=== PATIENT | female | born 1950 | race Caucasian/White ===

== ENCOUNTER 2023-07-31 10:58 | Outpatient (OUT) | payer MEDICARE, OTHER, SELFPAY ==
[2023-07-31 15:54] LABS: Alanine Aminotransferase 20 U/L (14-59); Albumin Globulin Ratio 1.1; Albumin Level 3.9 g/dL (3.4-5.0); Alkaline Phosphatase 118 U/L (46-116); Anion Gap 11.5; Aspartate Amino Transferase 14 U/L (15-37); BUN Creatinine Ratio 15.1; Bilirubin Total 0.7 mg/dL (0.2-1.0); Calcium 8.8 mg/dL (8.5-10.1); Carbon Dioxide 27.4 mmol/L (21.0-32.0); Chloride 105 mmol/L (98-107); Chol HDL Ratio 6.1; Cholesterol 294 mg/dL (<=200); Estimated GFR (African America >60 (>=60); Estimated GFR (Non-African Ame >60 (>=60); Globulin 3.4 g/dL; Glucose 82 mg/dL (74-106); HDL Cholesterol 48 mg/dL (40-60); Potassium 3.9 mmol/L (3.5-5.1); Sodium 140 mmol/L (136-145); Total Protein 7.3 g/dL (6.4-8.2); Triglycerides 110 mg/dL (<=150)
== END 2023-07-31 10:59 | disposition home or self-care (01) ==
PROVIDERS: PCP Family Medicine; Visit Provider Family Medicine
DX: E78.5 Hyperlipidemia, unspecified (principal)
CPT/HCPCS: 36415; 80053; 80061

== ENCOUNTER 2023-08-18 07:10 | Outpatient (OUT) | payer MEDICARE, OTHER, SELFPAY ==
--- NOTE | 2023-08-18 | MM_ITS ---
Patient Name: KILO MANTILLA MR#: [id number] : 1950 Exam Date: 08/18/2023 Ordering Doctor: DR Sulma Mcneil M.D. RADIOLOGY REPORT PROCEDURE: MM TOMOSYNTHESIS SCREENING BI COMPARISON: MG MAMM SCREEN 3D MANJU CAD, 07/25/2021. MG MAMM SCREEN 3D MANJU CAD, 08/14/2022. INDICATIONS: Screening for malignant neoplasm Calculator Name NCI Breast Cancer Risk Assessment Tool 5 Year Breast Cancer Risk 2.90% Lifetime Breast Cancer Risk 7.00% Personal Breast Cancer No Personal Ovarian Cancer No Treatments None Family Cancers Aunt-maternal with uterine cancer at age ~70. LOCATION: [facility] BREAST COMPOSITION: Extremely dense, which lowers the sensitivity of mammography. FINDINGS: DIAGNOSTIC CATEGORY 1--NEGATIVE. NO CHANGE FROM COMPARISON ASSESSMENT. Scattered benign-appearing calcifications are present. Scattered benign-appearing nodules are present. RIGHT BREAST: No significant suspicious finding. LEFT BREAST: No significant suspicious finding. Stable micro clip marker upper outer quadrant, posterior breast RECOMMENDATIONS: ROUTINE MAMMOGRAM AND CLINICAL EVALUATION IN 12 MONTHS. PLEASE NOTE: A NORMAL MAMMOGRAM DOES NOT EXCLUDE THE POSSIBILITY OF BREAST CANCER. A CLINICALLY SUSPICIOUS PALPABLE LUMP SHOULD BE BIOPSIED. Dictated by: Adelfo Montoya MD on 08/18/2023 at 08:06 Approved by: Adelfo Montoya MD on 08/18/2023 at 08:09
== END 2023-08-18 07:11 | disposition home or self-care (01) ==
LOC: MAMMO 07:10
PROVIDERS: PCP Family Medicine; Visit Provider Family Medicine
DX: Z12.31 Encounter for screening mammogram for malignant neoplasm of breast (principal); Z80.8 Family history of malignant neoplasm of other organs or systems
CPT/HCPCS: 77063; 77067

== ENCOUNTER 2023-11-05 07:05 | Outpatient (OUT) | payer MEDICARE, OTHER, SELFPAY ==
--- OUTSIDE RECORDS SUMMARY | 2023-11-05 07:09 | XMS_ITS | CCD ---
Author Name Unknown Address [address] [facility] [facility] [address] [place] [address] Organization [facility] Care Team Providers Care Manager Of Clinical Name Role Phone MD ROSALIE MONCADA Consulting MD ROSALIE Grant Primary Care CELENA Cameron Attending Unavaila ble SVA, YAMILA Admitting Unavailable SAV, YAMILA Attending Unavailable ANTWAN, DR ROSALIE Salguero Primary Care Unavailable SAV, YAMILA Consulting Unavailable ANTWAN, DR ROSALIE Salguero Admitting Unavailable MONCADA, DR ROSALIE Salguero Attending Unavailable MONCADA, DR ROSALIE Salguero Primary Care Unavailable MONCADA, DR ROSALIE Salguero Consulting Unavailable MONCADA, DR ROSALIE Salguero Admitting Unavailable MONCADA, DR ROSALIE Salguero Attending Unavailable MONCADA, DR ROSALIE Salguero Primary Care Unavailable MONCADA, DR ROSALIE Salguero Consulting Unavailable MONCADA, DR ROSALIE Salguero Admitting Unavailable MONCADA, DR ROSALIE Salguero Attending Unavailable MONCADA, DR ROSALIE Salguero Primary Care Unavailable KALEVA, DR TANG Lane Consulting Unavailable MARJORIE, DR LINDSEY Mejia Consulting Unavailable MONCADA, DR ROSALIE Salguero Consulting Unavailable MD Yamila Ang Attending Provider [phone] MD Rosalie Moncada Primary Care Provider Rosalie Moncada MD Unavailable NICOLE THOMAS Referring UnavailMD Rosalie Meraz Primary Care Provider MD Nicole Madison Attending Provider MD Rosalie Moncada Primary Care Provider MD Nicole Madison Attending Provider [phone] MD Yamila Ang Attending Provider Serhal, Yessi Referring Provider [phone] Rosalie Moncada MD Primary Care Provider [phone] Serhal, Yessi Admitting Unavailable Serhal, Yessi Attending Unavailable Moncada, Rosalie E Primary Care Unavailable Sav, Ahmad Attending Unavailable Serhal, Yessi Referring Unavailable Moncada, Rosalie E Primary Care Unavailable Sav, Ahmad Admitting Unavailable Wakim-Smith, Nicole Admitting Unavailabl e Wakim-Smith, Nicole Attending Unavailabl e Moncada, Rosalie E Primary Care Unavailable Sav, Ahmad Admitting Unavailable Sav, Ahmad Attending Unavailable Moncada, Rosalie E Primary Care Unavailable Sav, Ahmad Admitting Unavailable Sav, Ahmad Attending Unavailable Moncada, Rosalie E Primary Care Unavailable Moncada, Rosalie Unavailable MONCADA, ROSALIE E Primary Care Unavailable MONCADA, ROSALIE E Primary Care Unavailable SERHAL, YESSI Attending Unavailable WAKIM SMITH, NICOLE Attending Unavailabl e MONCADA, ROSALIE E Referring Unavailable MONCADA, ROSALIE E Primary Care Unavailable SERHAL, YESSI Referring Unavailable MONCADA, ROSALIE E Primary Care Unavailable SERHAL, YESSI Attending Unavailable MONCADA, ROSALIE E Primary Care Unavailable SERHAL, YESSI Referring Unavailable MONCADA, ROSALIE E Primary Care Unavailable SERHAL, YESSI Attending Unavailable MONCADA, ROSALIE E Primary Care Unavailable SERHAL, YESSI Referring Unavailable MONCADA, ROSALIE E Primary Care Unavailable SERHAL, YESSI Attending Unavailable Allergies Allergy Classification Reported Allergen(s) Allergy Type Date of Onset Reaction(s) Facility (1 source) No Known Medication Allergies; Translations: [No Known Medication Allergies] Propensity to adverse reactions to drug (disorder) [facility] Repository (5 sources) Codeine Drug Allergy 3 Unknown [facility] Private [facility] App Other (2 sources) patient allergy list reviewed by nurse or physicia Propensity to adverse reactions 6 Comment:Done [facility] Private [facility] App Other (2 sources) Allergies Reconciled Propensity to adverse reactions 1 Unknown [facility] Other (1 source) Codeine Drug Allergy Unknown [facility] App Other Medications Current Medications Medication Drug Class(es) Dates Sig (Normalized) Sig (Original) alendronic acid 70 mg oral tablet (11 sources) Bisphosphonate take 1 tablet by mouth every week Alendronate Sodium 70 MG TAKE 1 TABLET BY MOUTH ONE TIME PER WEEK for 84 Active Comment on above: Take 70 mg by mouth one time a week. In AM with cup of water on empty stomach. Nothing else by mouth and stay upright for 30 min. Completed/Discontinued Medications Medication Drug Class(es) Dates Sig (Normalized) Sig (Original) methIMAzole 5 mg oral tablet (13 sources) Thyroid Hormone Synthesis Inhibitor Start: 02-26-2023 End: 09-03-2023 methIMAzole (TAPAZOLE) 5 mg tablet 1/2 tab Wednesday, Wed and Wednesday. 50 tablet 3 09/03/2023 Active Start: 10-04-2022 End: 01-20-2023 take 1 tablet by mouth once daily, then take 0.5 tablet by mouth once daily methIMAzole (TAPAZOLE) 10 mg tablet Indications: Graves disease Take 1 tablet by mouth once daily. 1/2 tab daily. 0 01/20/2023 Active methIMAzole 5 MG 1/2 once a day Active Comment on above: Take 10 mg by mouth once daily. Take 1 tablet by jamison th once daily. 1/2 tab daily. 1/2 tab ( 2.5 mg) da star. 1/2 tab Wednesday, Wed and Wednesday. 24 hr metoprolol succinate 25 mg extended release oral tablet (9 sources) beta-Adrenergic Natalie Start: 2 End: 3 take 1 tablet by mouth once daily metoprolol succinate ER (TOPROL XL) 25 mg 24 hr tablet Indications: Thyrotoxicosis, unspecified without thyrotoxic crisis or storm TAKE 1 TABLET BY MOUTH EVERY DAY 90 tablet 1 03/05/2023 09/03/2023 Discontinued (Discontinued by another Health Care Provider) Comment on above: Take 25 mg by mouth once daily. TAKE 1 TABLET BY JAMISON TH EVERY DAY omeprazole 20 mg delayed release oral capsule (8 sources) Proton Pump Inhibitor Start: 3 take 1 capsule by mouth once daily omeprazole (PRILOSEC) 20 mg capsule Take 20 mg by mouth once daily. 0 10/06/2022 Active Comment on above: Take 20 mg by mouth once daily. rosuvastatin calcium 10 mg oral tablet (3 sources) HMG-CoA Reductase Inhibitor Start: 3 take 1 tablet by mouth once daily at bedtime rosuvastatin (CRESTOR) 10 mg tablet Take 1 tablet by mouth daily at bedtime. 0 09/03/2023 Active Comment on above: Take 1 tablet by jamison th daily at bedtime. Problems Active Problems Problem Classification Problem Date Documented Da te Episodic/Chronic Cardiac dysrhythmias (1 source) Palpitations; Translations: [PALPITATIONS] Onset: 2 Episodic Disorders of lipid metabolism (10 sources) Hyperlipidemia, unspecified; Translations: [Hyperlipidemia] Onset: 5 Chronic Esophageal disorders (2 sources) Esophageal reflux finding; Translations: [Esophageal reflux] Onset: 5 Chronic Essential hypertension (5 sources) Hypertensive disorder; Translations: [Essential (primary) hypertension] Onset: 3 02-26-2023 Chronic Gastrointestinal hemorrhage (3 sources) Hematochezia; Translations: [Melena] Episodic Nutritional deficiencies (3 sources) Vitamin D deficiency, unspecified; Translations: [Vitamin D deficiency] Onset: 2 Chronic Osteoporosis (8 sources) Age-related osteoporosis without current pathological fracture; Translations: [Osteoporosis] Onset: 2 02-26-2023 Chronic Other bone disease and musculoskeletal deformities (1 source) Other specified disorders of bone density and structure, unspecified site; Translations: [OTH D/O BONE DEN STRUCT UNS SITE] Onset: 2 Episodic Other bone disease and musculoskeletal deformities (2 sources) Bone density finding; Translations: [Other specified disorders of bone density and structure, unspecified site] Episodic Other liver diseases (1 source) Liver enzymes abnormal; Translations: [Abnormal levels of other serum enzymes] Episodic Other nervous system disorders (1 source) Tremor, unspecified; Translations: [TREMOR UNSPECIFIED] Onset: 2 Episodic Other nutritional; endocrine; and metabolic disorders (5 sources) Abnormal weight loss; Translations: [ABNORMAL WEIGHT LOSS] Onset: 2 Episodic Other nutritional; endocrine; and metabolic disorders (2 sources) Abnormal weight loss; Translations: [Abnormal weight loss] Episodic Other screening for suspected conditions (not mental disorders or infectious disease) (6 sources) Encounter for screening mammogram for malignant neoplasm of breast; Translations: [ENC SCR MAMMO MALIG NEOPLASM BREAST] Onset: 2 Episodic Residual codes; unclassified (1 source) Family history of malignant neoplasm of other organs or systems; Translations: [FAM HX MALIG NEOPLASM OTH ORGN/SYS] Onset: 2 Episodic Residual codes; unclassified (2 sources) Tobacco user; Translations: [Tobacco use] Episodic Residual codes; unclassified (2 sources) Family history of malignant neoplasm of gastrointestinal tract; Translations: [Family history of malignant neoplasm of digestive organs] Episodic Residual codes; unclassified (2 sources) Normal body mass index; Translations: [Body mass index (BMI) 21.0-21.9, adult] Episodic Thyroid disorders (20 sources) Thyrotoxicosis, unspecified without thyrotoxic crisis or storm; Translations: [Graves' disease] Onset: 2 Chronic Unclassified (1 source) Thyrotoxicosis, unspecified without thyrotoxic crisis or storm; Translations: [Thyrotoxicosis, unspecified without thyrotoxic crisis or storm] Onset: 3 Past or Other Problems Problem Classification Problem Date Documented Da te Episodic/Chronic Other liver diseases (3 sources) Abnormal levels of other serum enzymes; Translations: [ABNORMAL LEVELS OTHER SERUM ENZYMES] Onset: 12-11-2021 Episodic Other nutritional; endocrine; and metabolic disorders (2 sources) Body mass index 25-29 - overweight; Translations: [Body mass index 29.0-29.9, adult] Onset: 10-18-2017 Episodic Otitis media and related conditions (2 sources) Acute non-suppurative otitis media - serous; Translations: [Acute serous otitis media] Onset: 06-10-2018 Episodic Spondylosis; intervertebral disc disorders; other back problems (2 sources) Neck pain; Translations: [Cervicalgia] Onset: 06-13-2013 Episodic Results Test Name Value Interpretation Reference Range [facility]19 24 Free T3 [Mass/Vol] 3.1 pg/mL Normal 2.3-4.1 [facility] Comment on above: Order Comment: Speci men Type: BLOOD SPECIMENOrdering Facility: [facility] Address: [address] [place] [address] Performed By: #### 3 051-0, 3024-7, 6-3 ####[facility] LABCLIA [id number] [place] [address] [place] T4 Free SerPl-mCncon 024 Free T4 [Mass/Vol] 1.0 ng/dL Normal 0.9-1.7 [facility] Comment on above: Order Comment: Speci men Type: BLOOD SPECIMENOrdering Facility: [facility] Address: [address] [place] [address] Performed By: #### 3 051-0, 3027, 6-3 ####[facility] LABCLIA [id number] [place] [address] [place] TSH SerPl-aCncon 10-15-2023 TSH Qn 0.567 m[IU]/L Normal 0.270-4.200 [facility] Comment on above: Order Comment: Speci men Type: BLOOD SPECIMENOrdering Facility: [facility] Address: [address] [place] [address] Performed By: #### 3 051-0, 3027, 63 ####[facility] LABIA [id number] [place] [address] [place] T3Free SerPl-mCncon 08-27-20 23 Free T3 [Mass/Vol] 2.7 pg/mL Normal 2.3-4.1 [facility] Comment on above: Order Comment: Speci men Type: BLOOD SPECIMENOrdering Facility: [facility] Address: [address] [place] [address] Performed By: #### 3 051-0, 3024-7, 6-3 ####[facility] LABCLIA [id number] [place] [address] [place] T4 Free SerPl-mCncon 023 Free T4 [Mass/Vol] 0.9 ng/dL Normal 0.9-1.7 [facility] Comment on above: Order Comment: Speci men Type: BLOOD SPECIMENOrdering Facility: [facility] Address: [address] [place] [address] Performed By: #### 3 051-0, 7, 3 ####[facility] LABCLIA [id number] [place] [address] [place] THYROID STIMULATING IMMUNOGL OBULIN BLOODon 08-27-2023 Thyroid stimulating immunoglobulins actual/normal (S) [Relative mass conc] 0.83 IU/L High <0.55 [facility] Comment on above: Order Comment: Speci men Type: BLOOD SPECIMENOrdering Facility: [facility] Address: [address] [place] [address] Result Comment: Thyr oid Stimulating Immunoglobulin test is used as an aid in diagnosis of autoimmune hyperthyroidism especially in patients with Grave's orbitopathy and dermopathy. Low positive TSH receptor stimulating antibody levels may occasionally be found in patients with autoimmune hypothyroidism. Clinical correlation is required. Performed By: #### T SIGIM ####[facility] LABCLIA [id number] [place] [address] [place] TSI QUALITATIVE Positive Abnormal Negative [facility] Comment on above: Order Comment: Speci men Type: BLOOD SPECIMENOrdering Facility: [facility] Address: [address] [place] [address] Performed By: #### T SIGIM ####[facility] LABCLIA [id number] [place] [address] [place] TSH SerPl-aCncon 08-27-2023 TSH Qn 4.480 m[IU]/L High 0.270-4.200 [facility] Comment on above: Order Comment: Speci men Type: BLOOD SPECIMENOrdering Facility: [facility] Address: [address] [place] [address] Performed By: #### 3 051-0, 7, 3 ####[facility] LABCLIA [id number] [place] [address], [place] [address] [facility] K[facility]O CASTANON ([id number]) 1950 F Date Time Provider Department 08/23/23 NICOLE THOMAS During your visit today, we recorded the following information about you: Loulou Castro OCCA 08/23/2023 11:28 AM Signed Received outside labs from [facility] on 08/23/2023. Made copy and sent original to be scanned. AMIE Aguero August 23, 2023 11:28 AM Allergies As of Date: 08/23/2023 (No Known Allergies) Date Reviewed: 05/28/2023 Reviewed by: Laquita Correia MA - Fully Assessed Reason for Visit: Outside Lab Results [003] Prescriptions as of 08/23/2023 - metoprolol succinate ER (TOPROL XL) 25 mg 24 hr tablet TAKE 1 TABLET BY MOUTH EVERY DAY - methIMAzole (TAPAZOLE) 5 mg tablet 1/2 tab ( 2.5 mg) daily. - omeprazole (PRILOSEC) 20 mg capsule Take 20 mg by mouth once daily. - alendronate (FOSAMAX) 70 mg tablet Take 70 mg by mouth one time a week. In AM with cup of water on empty stomach. Nothing else by mouth and stay upright for 30 min. Problem List As Of Date 08/23/2023 Noted Resolved Graves disease [E05.00] 01/23/2023 Thyroid nodule [E04.1] 01/23/2023 Hypertension [I10] 02/26/2023 Osteoporosis [M81.0] 02/26/2023 Encounter Status:Closed [facility] CASTANON ([id number]) 1950 F Date Time Provider Department 08/12/23 NICOLE THOMAS During your visit today, we recorded the following information about you: Allergies As of Date: 08/12/2023 (No Known Allergies) Date Reviewed: 05/28/2023 Reviewed by: Laquita Correia MA - Fully Assessed Prescriptions as of 08/12/2023 - metoprolol succinate ER (TOPROL XL) 25 mg 24 hr tablet TAKE 1 TABLET BY MOUTH EVERY DAY - methIMAzole (TAPAZOLE) 5 mg tablet 1/2 tab ( 2.5 mg) daily. - omeprazole (PRILOSEC) 20 mg capsule Take 20 mg by mouth once daily. - alendronate (FOSAMAX) 70 mg tablet Take 70 mg by mouth one time a week. In AM with cup of water on empty stomach. Nothing else by mouth and stay upright for 30 min. Problem List As Of Date 08/12/2023 Noted Resolved Graves disease [E05.00] 01/23/2023 Thyroid nodule [E04.1] 01/23/2023 Hypertension [I10] 02/26/2023 Osteoporosis [M81.0] 02/26/2023 Encounter Status:Closed by NICOLE MADISON on 08/12/23 [facility] Jose Manuel 08-11-2023 [facility]N Telephone (GASTAV) KILO CASTANON ([id number]) 1950 F Date Time Provider Department 08/11/23 NICOLE THOMAS During your visit today, we recorded the following information about you: Sheri Rangel RN 08/11/2023 3:40 PM Signed Patient calling States she had recent lipid panel through PCP that revealed total cholesterol of 294 and LDL of 224 PCP prescribed rosuvastatin 10 mg daily Patient is asking if GI is in agreement with this treatment She is concerned about her liver function She has f/u appt on 11/18/23 Patient can be reached at home number, may leave a message Allergies As of Date: 08/11/2023 (No Known Allergies) Date Reviewed: 05/28/2023 Reviewed by: Laquita Correia MA - Fully Assessed Reason for Visit: Results [95] Prescriptions as of 08/19/2023 - metoprolol succinate ER (TOPROL XL) 25 mg 24 hr tablet TAKE 1 TABLET BY MOUTH EVERY DAY - methIMAzole (TAPAZOLE) 5 mg tablet 1/2 tab ( 2.5 mg) daily. - omeprazole (PRILOSEC) 20 mg capsule Take 20 mg by mouth once daily. - alendronate (FOSAMAX) 70 mg tablet Take 70 mg by mouth one time a week. In AM with cup of water on empty stomach. Nothing else by mouth and stay upright for 30 min. Problem List As Of Date 08/11/2023 Noted Resolved Graves disease [E05.00] 01/23/2023 Thyroid nodule [E04.1] 01/23/2023 Hypertension [I10] 02/26/2023 Osteoporosis [M81.0] 02/26/2023 Encounter Status:Closed by SHERI RANGEL on 08/19/23 Normal [facility] CNCOon 07-22-2023 CNCO Letter Text Normal [facility] ALT SerPl-cCncon 05-21-2023 ALT [Catalytic activity/Vol] 14 U/L Normal 7-38 [facility] Comment on above: Order Comment: Speci men Type: BLOOD SPECIMENOrdering Facility: [facility] Address: [address] [place] [phone] Performed By: #### 1 742-6 ####[facility] LABCLIA [id number] [place] [address] T3Free SerPl-mCncon 05-21-20 23 Free T3 [Mass/Vol] 3.1 pg/mL Normal 2.3-4.1 [facility] Comment on above: Order Comment: Speci men Type: BLOOD SPECIMENOrdering Facility: [facility] Address: [address] [place] [address] Performed By: #### 3 016-3, 3051-0, 3024-7 ####[facility] LABCLIA [id number] [place] [id number] [place] T4 Free SerPl-mCncon 023 Free T4 [Mass/Vol] 1.0 ng/dL Normal 0.9-1.7 [facility] Comment on above: Order Comment: Speci men Type: BLOOD SPECIMENOrdering Facility: [facility] Address: [address] [place] [address] Performed By: #### 3 016-3, 3051-0, 3024-7 ####[facility] LABIA [id number] [place] [address] [place] TSH SerPl-aCncon 05-21-2023 TSH Qn 1.110 m[IU]/L Normal 0.270-4.200 [facility] Comment on above: Order Comment: Speci men Type: BLOOD SPECIMENOrdering Facility: [facility] Address: [address] [place] [address] Performed By: #### 3 016-3, 3051-0, 3024-7 ####[facility] LABIA [id number] [place] [id number] [place] US thyroidon 03-19-2023 thyroid [facility] Main [address] [address] Ultrasound Report Signed Patient: Kilo Castanon MR#: [id number] : 1950 Acct:[id number] Age/Sex: 72 / F ADM Date: 03/19/23 Loc: Room: Type: [facility] Attending Dr: Yessi Carson Ordering Provider: Yessi Carson Date of Service: 03/19/23 US/US thyroid: E05.00, E04.1 Copies to: Yessi Carson THYROID ULTRASOUND CLINICAL DATA: Graves' disease and thyroid nodule COMPARISON: 08/28/2022 The right thyroid lobe measures 3.3 x 1.8 x 1.6 cm. The left thyroid lobe measures 5.2 x 1.8 x 2.0 cm. This asymmetry was also present previously. The isthmus measures 2 - 3 mm in thickness. Thyroid echogenicity is mildly heterogeneous. The thyroid contour is lobulated and hyperemia is seen. On the left at the upper pole, there is a focal mixed echogenicity area that is vaguely suggested on the prior. It measures 10 x 6 x 8 mm. It was not measured previously. At the midpole superficially, there is a hyperechoic nodular area measuring 9 x 4 x 7 mm. This may be minimally larger. At the lower pole, there is a mostly hypoechoic nodular area measuring 18 x 14 x 20 mm. This is similar. US/US thyroid IMPRESSION: HETEROGENEOUS HYPEREMIC THYROID, SIMILAR TO THE PRIOR. CONTINUED LEFT-SIDED NODULARITY, DESCRIBED. Impression dictated by: Lisa Vang M.D.03/19/2023 9:35 AM Dictation Location: [place] [address] [facility] Transcribed By: ALEX 03/19/23 0935 Dictated By: Lisa Vang MD 03/19/23 0930 Signed By: 03/19/[address] [facility] Comprehensive metabolic 2000 panelon 02-19-2023 Albumin [Mass/Vol] 4.7 g/dL Normal 3.9-4.9 [facility] Comment on above: Order Comment: Speci men Type: BLOOD SPECIMENOrdering Facility: [facility] Address: [address] [place] [phone] Performed By: #### 2 4323-8 ####[facility] LABCLIA [id number] [place] [address] ALP [Catalytic activity/Vol] 177 U/L High 34-123 [facility] Comment on above: Order Comment: Speci men Type: BLOOD SPECIMENOrdering Facility: [facility] Address: [address] [place] [address] Performed By: #### 2 4323-8 ####[facility] LABCLIA [id number] [place] [address] ALT [Catalytic activity/Vol] 19 U/L Normal 7-38 [facility] Comment on above: Order Comment: Speci men Type: BLOOD SPECIMENOrdering Facility: [facility] Address: [address] [place] [address] Performed By: #### 2 4323-8 ####[facility] LABCLIA [id number] [place] [address] Anion gap [Moles/Vol] 10 mmol/L Normal 9-18 [facility] Comment on above: Order Comment: Speci men Type: BLOOD SPECIMENOrdering Facility: [facility] Address: [address] [place] [place] [address] Performed By: #### 2 4323-8 ####[facility] LABCLIA [id number] [place] [address] AST [Catalytic activity/Vol] 19 U/L Normal 13-35 [facility] Comment on above: Order Comment: Speci men Type: BLOOD SPECIMENOrdering Facility: [facility] Address: [address] [place] [address] Performed By: #### 2 4323-8 ####[facility] LABCLIA [id number] [place] [address] Bilirubin [Mass/Vol] 0.5 mg/dL Normal 0.2-1.3 [facility] Comment on above: Order Comment: Speci men Type: BLOOD SPECIMENOrdering Facility: [facility] Address: [address] [place] [address] Performed By: #### 2 4323-8 ####[facility] LABCLIA [id number] [place] [address] Calcium [Mass/Vol] 9.6 mg/dL Normal 8.5-10.2 [facility] Comment on above: Order Comment: Speci men Type: BLOOD SPECIMENOrdering Facility: [facility] Address: [address] [place] [address] Performed By: #### 2 4323-8 ####[facility] LABCLIA [id number] [place] [address] Chloride [Moles/Vol] 103 mmol/L Normal 97-105 [facility] Comment on above: Order Comment: Speci men Type: BLOOD SPECIMENOrdering Facility: [facility] Address: [address] [place] [address] Performed By: #### 2 4323-8 ####[facility] LABCLIA [id number] [place] [address] CO2 [Moles/Vol] 28 mmol/L Normal 22-30 [facility] Comment on above: Order Comment: Speci men Type: BLOOD SPECIMENOrdering Facility: [facility] Address: [address] [place] [address] Performed By: #### 2 4323-8 ####[facility] LABCLIA [id number] [place] [address] Creatinine [Mass/Vol] 0.84 mg/dL Normal 0.58-0.96 [facility] Comment on above: Order Comment: Speci men Type: BLOOD SPECIMENOrdering Facility: [facility] Address: [address] [place] [address] Performed By: #### 2 4323-8 ####[facility] LABCLIA [id number] [place] [address] ESTIMATED GLOMERULAR FILTRATION RATE 74 mL/min/1.73m??? Normal >=60 [facility] Comment on above: Order Comment: Speci men Type: BLOOD SPECIMENOrdering Facility: [facility] Address: [address] [place] [phone] Result Comment: Xiomara mated Glomerular Filtration Rate (eGFR) is calculated using the 2020 CKD-EPI creatinine equation. This equation utilizes serum creatinine, sex, and age as parameters. The creatinine assay has traceable calibration to isotope dilution-mass spectrometry. Refer to KDIGO guidelines for clinical interpretation. In patients with unstable renal function, e.g. those with acute kidney injury, the eGFR may not accurately reflect actual GFR. Performed By: #### 2 4323-8 ####[facility] LABCLIA [id number] [place] [address] Glucose [Mass/Vol] 99 mg/dL Normal 74-99 [facility] Comment on above: Order Comment: Josiahi men Type: BLOOD SPECIMENOrdering Facility: [facility] Address: [address] [place] [address] Result Comment: The [place] Diabetes Association (ADA) provides guidance for cutoff values for fasting glucose and random glucose. The ADA defines fasting as no caloric intake for at least 8 hours. Fasting plasma glucose results between 100 to 125 mg/dL indicate increased risk for diabetes (prediabetes). Fasting plasma glucose results greater than or equal to 126 mg/dL meet the criteria for diagnosis of diabetes. In the absence of unequivocal hyperglycemia, results should be confirmed by repeat testing. In a patient with classic symptoms of hyperglycemia or hyperglycemic crisis, random plasma glucose results greater than or equal to 200 mg/dL meet the criteria for diagnosis of diabetes. Reference: Standards of Medical Care in Diabetes 2016, [place] [employer] Association. Diabetes Care. 2016.39(Suppl 1). Performed By: #### 2 4323-8 ####[facility] [id number] [place] [address] Potassium [Moles/Vol] 4.1 mmol/L Normal 3.7-5.1 [facility] Comment on above: Order Comment: Josiahi susanne Type: BLOOD SPECIMENOrdering Facility: [facility] Address: [address] Performed By: #### 2 4323-8 ####[facility] [id number] [place] [address] Protein [Mass/Vol] 7.3 g/dL Normal 6.3-8.0 [facility] Comment on above: Order Comment: Speci men Type: BLOOD SPECIMENOrdering Facility: [facility] Address: [address] [address] Performed By: #### 2 4323-8 ####[facility] [id number] [place] [address] Sodium [Moles/Vol] 141 mmol/L Normal 136-144 [facility] Comment on above: Order Comment: Speci men Type: BLOOD SPECIMENOrdering Facility: [facility] Address: [address] [place] [address] Performed By: #### 2 4323-8 ####[facility] [id number] [place] [address] Urea nitrogen [Mass/Vol] 11 mg/dL Normal 7-21 [facility] Comment on above: Order Comment: Speci men Type: BLOOD SPECIMENOrdering Facility: [facility] Address: [address] [place] [address] Performed By: #### 2 4323-8 ####[facility] [id number] [place] [address] T3Free SerPl-mCncon 02-20-20 23 Free T3 [Mass/Vol] 2.5 pg/mL Normal 2.3-4.1 [facility] Comment on above: Order Comment: Speci men Type: BLOOD SPECIMENOrdering Facility: [facility] Address: [address] [place] [address] Performed By: #### 3 051-0, 3024-7, 3016-3 ####[facility] LABCLIA [id number] [address] [address] [place] T4 Free SerPl-mCncon 023 Free T4 [Mass/Vol] 0.9 ng/dL Normal 0.9-1.7 [facility] Comment on above: Order Comment: Speci susanne Type: BLOOD SPECIMENOrdering Facility: [facility] Address: [address] [address] Performed By: #### 3 051-0, 3024-7, 3016-3 ####[facility] [id number] [address] [facility] TSH SerPl-aCncon 02-19-2023 TSH Qn 4.700 m[IU]/L High 0.270-4.200 [facility] Comment on above: Order Comment: John skinner Type: BLOOD SPECIMENOrdering Facility: [facility] Address: [address] [place] [address] Performed By: #### 3 051-0, 3024-7, 3016-3 ####[facility]CLIA [id number] [address] CNOVon 01-20-2023 CNOV Office Visit (ENDOCC ) KILO CASTANON ([id number]) 1950 F Date Time Provider Department 01/20/23 10:00 AM YESSI CARSON ENDOCMonico During your visit today, we recorded the following information about you: Pulse Blood pressure Weight Height 62/minute 155/65 66.3 kg 1.626 m Yessi Carson MD 02/20/2023 9:25 PM Addendum New patient hyperthyroid/Graves disease. HPI: A pleasant 72 yo female patient presenting today with . August 2022 - had physical. She reported unintentional 10-12 pds over previous few months, also had tremor and palpitations. She saw Dr Sav Márquez in [place], work up revealed Graves disease. Started Methimazole 10 mg daily and has been on same dose since Aug. Most recent labs low free t4. TSH 9.54. Metoprolol ER 25 mg Gained 18 pds total. Palpitations better. Heat intolerance better, now more swings in temp between cold and hot. Leg cramps worse. Diarrhea once in a while, no constipation. No hx of head or neck irradiation. Did have some dysphagia in the past but resolved after started Methimazole. Mother had MNG had surgery age 25. No thyroid cancer in the family. Mom type 2 DM old age. No autoimmune disease in the family. Double vision when reading. No diplopia when not reading. Eyes sensitive to light Eyes water easily. Osteoporosis on Fosamax for > 20 years. last BMD in August. PE 01/20/23 1001 01/20/23 1120 BP: 159/84 155/65 Pulse: 62 Weight: 66.3 kg (146 lb 3.2 oz) Height: 162.6 cm (5' 4 ) Eyes No MICHOACANO Thyroid around 20 gs, nodular, no nodules felt. No hand tremor. No proximal myopathy. reflexes with delay in relaxation Labs Component Latest Ref Rng AND Units 01/13/2023 Free T4 0.61 - 1.12 0.46 (A) Free T3 2.5 - 3.9 pg/mL 3.2 Alkaline Phosphatase 34 - 104 U/L 147 (A) TSH 9.54. TFTs 08/25/22 to be scanned TSH <0.007 free T4 2.47( 0.76-1.46) free T3 10.08( 2.18-3.98) High AST/ALT 41.88 and AP 10/07/22 LFTs better free T4 0.76 free T3 2.51 TRAB high 08/28/22 US thyroid Heterogenous thyroid with increased vascularity isoechoic wider than tall nodule, smooth margins, left lobe inf 2.0 cm, smaller 0.5 nodule left lobe, interpolar region. 09/03/22 I 123 uptake/scan Left lobe larger homogenous high I 123 uptake US liver unremarkable( done for elevation in LFTs, but latter improved as hyperthyroidism improved). Impression/plan: 72 yo female patient presenting for eval and management of Graves disease. No clinically significant MICHOACANO. On Methimazole 10 mg daily. August 2022 - had physical. She reported unintentional 10-12 pds over previous few months, also had tremor and palpitations. She saw Dr Sav Márquez in [place], work up revealed Graves disease. Started Methimazole 10 mg daily and has been on same dose since Aug. Most recent labs low free t4. Metoprolol ER 25 mg. Gained 18 pds total. Thyroid nodule. 08/28/22 US thyroid Heterogenous thyroid with increased vascularity isoechoic wider than tall nodule, smooth margins, left lobe inf 2.0 cm, smaller 0.5 nodule left lobe, interpolar region. 09/03/22 I 123 uptake/scan Left lobe larger homogenous high I 123 uptake, no cold or hot nodules. Osteoporosis on Fosamax for > 20 years. last BMD in August. Managed by PCP. Recommend: Discussed with her and management of Graves disease, different modalities of treatment. Agree with Methimazole for now. Hold Methimazole for 3 days then restart at lower dose of 5 mg daily. Continue Metropolol Follow with PCP re high BP, may improve as thyroid levels improve. Discussed management of thyroid nodule. US was done in the active phase of Graves disease. Will get follow up thyroid US before deciding on FNA. Discuss possible bisphosphonate drug Holiday with PCP. VV 4 weeks with thyroid US and labs before apt. I spent a total of 60 minutes on the date of the service which included preparing to see the patient, qauo-am-icgi patient care, completing clinical documentation, obtaining and/or reviewing separately obtained history, performing a medically appropriate examination, counseling and educating the patient, ordering medications, tests, or procedures and care coordination. Referring Provider: SELF [200] Allergies As of Date: 01/20/2023 (No Known Allergies) Date Reviewed: 01/20/2023 Reviewed by: Mikaela Valdez MA - Fully Assessed Reason for Visit: Consult [173] Primary Visit Diagnosis:Graves disease [E05.00] Other Visit Diagnosis:Thyroid nodule [E04.1] Order(s):T3 FREE BLD [SQFREET3] Order #: [id number] FUTURE TSH BLD [SQTSH] Order #: [id number] FUTURE T4 FREE/FREE THYROX [SQFT4] Order #: [id number] FUTURE COMP METABOLIC PANEL [SQCMP] Order #: [id number] FUTURE US THYROID/PARATHYROID [8575050] Order #: [id number] FUTURE Prescriptions as of 02/20/2023 - methIMAzole (TAPAZOLE) 10 mg tablet 1/2 tab pricila (more content not included)... Normal [facility] ALKALINE PHOSPHATASEon 01-15 ALP [Catalytic activity/Vol] 147 U/L Abnormal 34 - 104 U/L [facility] Alanine aminotransferase [En zymatic activity/volume] in Serum or PlasmaOrdered By: Yamila Ang on 01-13-2023 ALT [Catalytic activity/Vol] 18 U/L 7-52 [facility] Albumin [Mass/volume] in Ser um or Plasma by Bromocresol green (BCG) dye binding methoOrdered By: Yamila Ang on 01-13-2023 Albumin BCG dye [Mass/Vol] 4.2 g/dL 3.5-5.7 [facility] Alkaline phosphatase [Enzyma tic activity/volume] in Serum or PlasmaOrdered By: Yamila Ang on 01-13-2023 ALP [Catalytic activity/Vol] 147 U/L 34-104 [facility] Aspartate aminotransferase [ Enzymatic activity/volume] in Serum or PlasmaOrdered By: Yamila Ang on 01-13-2023 AST [Catalytic activity/Vol] 17 U/L 13-39 [facility] Bilirubin.direct [Mass/volum e] in Serum or PlasmaOrdered By: Yamila Ang on 01-13-2023 Bilirubin.direct [Mass/Vol] 0.10 mg/dL 0.03-0.18 [facility] Bilirubin.total [Mass/volume ] in Serum or PlasmaOrdered By: Yamila Ang on 01-13-2023 Bilirubin [Mass/Vol] 0.5 mg/dL 0.3-1.0 [facility] FREE T4on 01-13-2023 Free T3 [Mass/Vol] 3.2 pg/mL 2.5 - 3.9 pg/mL [facility] Free T4 (Free Thyroxine)on 0 01-13-2023 Free T4 [Mass/Vol] 0.46 ng/dL Low 0.61-1.12 [facility] Comment on above: Performed By: #### H EPATIC, T4F, T3F, TSH3 #### [facility] [address] [place] [address] [place] Globulin Calc (S) [Mass/Vol] Ordered By: Yamila Ang on 01-13-2023 Globulin (S) [Mass/Vol] 2.4 g/dL [facility] Hepatic Panelon 01-13-2023 Albumin [Mass/Vol] 4.2 g/dL Normal 3.5-5.7 [facility] Comment on above: Performed By: #### H EPATIC, T4F, T3F, TSH3 #### [facility] [address] [place] [address] [place] Albumin/Globulin [Mass ratio] 1.8 {ratio} Normal [facility] Comment on above: Performed By: #### H EPATIC, T4F, T3F, TSH3 #### [facility] [address] [place] [address] [place] ALP [Catalytic activity/Vol] 147 U/L High 34-104 [facility] Comment on above: Performed By: #### H EPATIC, T4F, T3F, TSH3 #### [facility] [address] [id number] [place] ALT [Catalytic activity/Vol] 18 U/L Normal 7-52 [facility] Comment on above: Performed By: #### H EPATIC, T4F, T3F, TSH3 #### [facility] [address] [id number] [place] AST [Catalytic activity/Vol] 17 U/L Normal 13-39 [facility] Comment on above: Performed By: #### H EPATIC, T4F, T3F, TSH3 #### [facility] [address] [id number] [place] Bilirubin [Mass/Vol] 0.5 mg/dL Normal 0.3-1.0 [facility] Comment on above: Performed By: #### H EPATIC, T4F, T3F, TSH3 #### [facility] [address] [place] [address] [place] Bilirubin,Indirect 0.4 mg/dL Normal [facility] Comment on above: Performed By: #### H EPATIC, T4F, T3F, TSH3 #### [facility] [address] [place] [address] Bilirubin.indirect [Mass/Vol] 0.10 mg/dL Normal 0.03-0.18 [facility] Comment on above: Performed By: #### H EPATIC, T4F, T3F, TSH3 #### [facility] [address] [place] [address] Globulin (S) [Mass/Vol] 2.4 g/dL Normal [facility] Comment on above: Performed By: #### H EPATIC, T4F, T3F, TSH3 #### [address] Protein [Mass/Vol] 6.6 g/dL Normal 6.4-8.9 [facility] Comment on above: Performed By: #### H EPATIC, T4F, T3F, TSH3 #### [address] Protein [Mass/volume] in Ser um or PlasmaOrdered By: Yamila Ang on 01-13-2023 Protein [Mass/Vol] 6.6 g/dL 6.4-8.9 [facility] Serum or plasma albumin/glob ulin mass ratioOrdered By: Yamila Ang on 01-13-2023 Albumin/Globulin [Mass ratio] 1.8 {ratio} [facility] Serum or plasma non-glucuron idated bilirubin measurement (mass/volume)Ordered By: Yamila Ang on 01-13-2023 Bilirubin.indirect [Mass/Vol] 0.4 mg/dL [facility] Thyroid Stimulating Hormoneo n 01-13-2023 TSH Qn 9.54 m[IU]/L High 0.45-5.33 [facility] Comment on above: Result Comment: PERF ORMED BY: [place] [address] PATHOLOGIST DIRECTOR EDUCATION JIGAR LEE M.D. Performed By: #### H EPATIC, T4F, T3F, TSH3 #### [facility] [address] [place], [place] [address] [facility] Thyrotropin [Units/volume] i n Serum or PlasmaOrdered By: Yamila Ang on 01-13-2023 TSH Qn 9.54 m[IU]/L 0.45-5.33 [facility] Thyroxine (T4) free [Mass/vo lume] in Serum or PlasmaOrdered By: Yamila Ang on 01-13-2023 Free T4 [Mass/Vol] 0.46 ng/dL Abnormal 0.61 - 1.12 [facility] Triiodothyronine (T3) Freeon 01-13-2023 Triiodothyronine (T3) Free 3.17 pg/mL Normal 2.50-3.90 [facility] Comment on above: Result Comment: PERF ORMED BY: [place] [address] PATHOLOGIST DIRECTOR EDUCATION JIGAR LEE M.D. Performed By: #### H EPATIC, T4F, T3F, TSH3 #### [facility] [address] [place], [place] [address] [facility] Triiodothyronine (T3) Free [ Mass/volume] in Serum or PlasmaOrdered By: Yamila Ang on 01-13-2023 Free T3 [Mass/Vol] 3.17 pg/mL 2.50-3.90 [facility] US spleenon 12-09-2022 US spleen [facility] [place] [address] Ultrasound Report Signed Patient: Kilo Castanon MR#: [id number] : 1950 Acct:[id number] Age/Sex: 72 / F ADM Date: 12/09/22 Loc: Room: Type: [facility] Attending Dr: Nicole Madison MD Ordering Provider: Nicole Madison MD Date of Service: 12/09/22 US/US abdomen limited: R74.8 ([id number]) US/US spleen: . Copies to: Nicole Madison MD CLINICAL HISTORY: Abnormal liver functions. Intermittent nausea. LIMITED ABDOMINAL ULTRASOUND: COMPARISON: None The gallbladder is physiologically distended without shadowing calculi, wall thickening or pericholecystic fluid. No intra- or extrahepatic biliary dilatation is evident. The common duct measures 3 - 4 mm. The liver and visualized portions of the pancreas show no significant sonographic abnormality. There is appropriate hepatopetal flow within the main portal vein. Limited imaging of the right kidney shows no hydronephrosis or fluid within Muñiz's pouch. US/US abdomen limited IMPRESSION: NO SIGNIFICANT ULTRASOUND FINDINGS WITHIN THE RIGHT UPPER QUADRANT. LIMITED ULTRASOUND - spleen COMPARISON: None The spleen is normal in size and echogenicity. It measures approximately 11.8 x 5.0 x 5.1 cm. There is no perisplenic fluid. Cursory evaluation of the left kidney shows no hydronephrosis. IMPRESSION: NO SPLENIC ABNORMALITIES. 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 The M allele protein product is a normal variant. The S allele protein product is a deficiency variant that is associated with a less severe deficiency (approximately 60 percent of normal serum concentrations) of the nooif-8-aruhlcsf inhibitor than the classic Z variant (approximately 15 percent of normal serum concentrations). Individuals with this phenotype are rarely at risk for development of byzjk-3-rvuggjsw inhibitor deficiency-related hepatic or pulmonary disease. Caution in interpretation is advised if the patient has been transfused in the previous 21 days. Performed By: [facility] [address] [place] [address] Exchange Teller: Jason Gonzalez MD, PhD Performed By: #### A 1APHE #### [facility] CLIA [id number] [address] [place] [address] ALPHA 1 ANTITRYP SERUM 132 mg/dL Normal 90-200 [facility] Comment on above: Order Comment: Speci men Type: BLOOD SPECIMEN [facility] Address: [place] [address] Result Comment: To c onvert to umol/L, multiply mg/dL by 0.185 Performed By: #### A 1APHE #### [facility] CLIA [id number] [address] [place] [address] CNOVon 11-18-2022 CNOV Office Visit (GASTAV ) KILO CASTANON ([id number]) 1950 F Date Time Provider Department 11/18/22 1:30 PM NICOLE THOMAS During your visit today, we recorded the following information about you: Weight 61.6 kg Nicole Madison MD 11/18/2022 4:45 PM Signed [facility] Edu Madison MD, FACG, FAASLD Hepatology [facility] Consult Requested By: Rosalie Moncada (Marcin) [address] [facility] [address] for evaluation of liver enzymes.. Thank you I will share my finding via In Basket HPI: 72 yo with chronic elevation of liver enzymes. started in 2020, was on statins these were stopped after >20 years Lft remained elevated she is asymptomatic ast.alt 33/66 alpho 150 In 2020: ast/alt 124/285 pror No liver biopsy dx with Grave's Dz in Fall 2021 started on metoprolol and Methimazole started these meds: 09/2022 and Oct 2022 respect an US liver was normal no work up for liver disease weight fluctuates, was overweight until grave's occured GENERAL REVIEW OF SYSTEMS: GENERAL: No unexplained weight changes or fevers. HEENT: Negative for severe headaches, negative for changes in hearing or vision. NECK: Negative for lumps, masses or pain. RESPIRATORY: Negative for coughing, wheezing or significant dyspnea. CARDIOVASCULAR: Negative for chest pain or heart palpitations. GASTROINTESTINAL: Negative for rectal bleeding or black tarry stools. GENITOURINARY: Negative for dysuria or urinary incontinence. MUSCULOSKELETAL: Negative for unexplained joint pains, dislocations or fractures. NEUROLOGIC: Negative for unexplained weakness or vertigo. SKIN: Negative for new lesions or rashes. ENDOCRINE: Negative for cold or heat intolerance . Current Outpatient Medications on File Prior to Visit Medication Sig omeprazole (PRILOSEC) 20 mg capsule Take 20 mg by mouth once daily. metoprolol succinate ER (TOPROL XL) 25 mg 24 hr tablet Take 25 mg by mouth once daily. methIMAzole (TAPAZOLE) 10 mg tablet Take 10 mg by mouth once daily. alendronate (FOSAMAX) 70 mg tablet Take 70 mg by mouth one time a week. In AM with cup of water on empty stomach. Nothing else by mouth and stay upright for 30 min. No current facility-administered medications on file prior to visit. omeprazole (PRILOSEC) 20 mg capsule Take 20 mg by mouth once daily. metoprolol succinate ER (TOPROL XL) 25 mg 24 hr tablet Take 25 mg by mouth once daily. methIMAzole (TAPAZOLE) 10 mg tablet Take 10 mg by mouth once daily. alendronate (FOSAMAX) 70 mg tablet Take 70 mg by mouth one time a week. In AM with cup of water on empty stomach. Nothing else by mouth and stay upright for 30 min. 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 Please feel free to contact me if I can be of further assistance to you Nicole Madison MD {I spent 30 minutes in the visit, with more than 50% of the total evkz-pu-bjjk time of the visit in counseling / coordination of care. Referring Provider: ROSALIE MONCADA [[id number]] Allergies As of Date: 11/18/2022 (No Known Allergies) Date Reviewed: Never Reviewed Reason for Visit: New Patient [172] Cmt: Elevated liver enzymes Primary Visit Diagnosis:Abnormal liver enzymes [R74.8] Order(s):ALPHA 1 ANTITRYPSIN PHENOTYPE [YOB2FEGF] Order #: [id number] FUTURE FERRITIN BLD [SQFERR] Order #: [id number] FUTURE GGT BLD [SQGGT] Order #: [id number] FUTURE HEPATITIS A ANTIBODY, IGG [SQAHAVG] Order #: [id number] FUTURE HEP B SURF AG SCRN [SQHBSAG] Order #: [id number] FUTURE IRON + TIBC [SQIRON] Order #: [id number] FUTURE SMOOTH MUSCLE AB SCR [SQSMTHS] Order #: [id number] FUTURE MITOCHONDRIAL M2 IGG SERUM [SQMITOS] Order #: [id number] FUTURE US ABD RT UPPER QUADRANT [8090946] Order #: [id number] FUTURE HCV QUANT RNA BY PCR [SQHCQPCR] Order #: [id number] FUTURE Prescriptions as of 11/18/2022 - omeprazole (PRILOSEC) 20 mg capsule Take 20 mg by mouth once daily. - metoprolol succinate ER (TOPROL XL) 25 mg 24 hr tablet Take 25 mg by mouth once daily. - methIMAzole (TAPAZOLE) 10 mg tablet Take 10 mg by mouth once daily. - alendronate (FOSAMAX) 70 mg tablet Take 70 mg by mouth one time a week. In AM with cup of water on empty stomach. Nothing else by mouth and stay upright for 30 min. Problem List As Of Date: 11/18/2022 (None) Follow-up and Disposition History for En (more content not included)... Normal [facility] FERRITIN BLDon 11-18-2022 Ferritin [Mass/Vol] 125.1 ng/mL 14.7 - 2 05.1 ng/mL [facility] Ferritin SerPl-mCncon 2022 Ferritin [Mass/Vol] 125.1 ng/mL Normal 14.7-205.1 [facility] Comment on above: Order Comment: Speci men Type: BLOOD SPECIMEN [facility] Address: [address] [place] [address] Performed By: #### 2 276-4, 64046-4 #### [facility] CLIA [id number] [place] [address] [place] GGT BLDon 11-18-2022 Gamma glutamyl transferase [Catalytic activity/Vol] 21 U/L 6 - 46 U/L [facility] GGT SerPl-cCncon 11-18-2022 Gamma glutamyl transferase [Catalytic activity/Vol] 21 U/L Normal 6-46 [facility] Comment on above: Order Comment: John men Type: BLOOD SPECIMEN [facility] Address: [address] [place] [address] Performed By: #### 2 324-2 #### [facility] CLIA [id number] [address] [place] [address] [place] HBV surface Ag Ser Qlon 11-04 HBV surface Ag Ql (S) Negative Normal Negative [facility] Comment on above: Order Comment: Josiahi men Type: BLOOD SPECIMEN [facility] Address: [address] [place] [address] Performed By: #### 5 195-3 #### [facility] CLIA [id number] [address] [place] [address] [place] HCV RNA SerPl HARPREET+probe-aCnc on 11-18-2022 HCV RNA HARPREET+probe Qn Not detected Normal HCV RNA not detected by PCR. [facility] Comment on above: Order Comment: Josiahi [facility] Type: BLOOD SPECIMEN [facility] Address: [address] [place] [address] Performed By: #### 1 1011-4 #### [facility] CLIA [id number] [address] [place] [address] [place] HEP B SURF AG SCRNon 023 HBV surface Ag Ql (S) Negative Negative [facility] HEPATITIS A ANTIBODY, IGGon 11-18-2022 Hepatitis A IgG Negative Negative [facility] HEPATITIS A ANTIBODY IGG Negative Normal Negative [facility] Comment on above: Order Comment: John ksinner Type: BLOOD SPECIMEN [facility] Address: [address] [place] [address] Result Comment: No s erological evidence of past exposure to hepatitis A virus or hepatitis A vaccination. Should recent infection be suspected, repeat testing is suggested 3-4 weeks after this draw. Performed By: #### A HAVG #### [facility] CLIA [id number] [address] [facility] [address] [place] [address] [place] Iron and Iron binding capaci ty panelon 11-18-2022 Iron [Mass/Vol] 61 ug/dL Normal 41-186 [facility] Comment on above: Order Comment: John skinner Type: BLOOD SPECIMEN [facility] Address: [address] [address] Performed By: #### 2 276-4, 04544-0 #### [facility] CLIA [id number] [address] [place] [address] [place] Iron binding capacity [Mass/Vol] 323 ug/dL Normal 232-386 [facility] Comment on above: Order Comment: John skinner Type: BLOOD SPECIMEN Ordering Facility: [facility] Address: [address] [address] Performed By: #### 2 276-4, 74361-6 #### [facility] CLIA [id number] [address] [place], [place] [id number] [place] [address] [place] Iron/TIBC [Molar ratio] 18.9 % Normal 15.0-57.0 [facility] Comment on above: Order Comment: John skinner Type: BLOOD SPECIMEN Ordering Facility: [facility] Address: [address] [address] Performed By: #### 2 276-4, 26026-3 #### [facility] CLIA [id number] [address] [place] [address] [place] Iron [Mass/Vol] 61 ug/dL 41 - 186 ug/dL [facility] Iron binding capacity [Mass/Vol] 323 ug/dL 232 - 386 ug/dL [facility] Iron/TIBC [Molar ratio] 18.9 % 15.0 - 57.0 % [facility] Mitochondria Ab IF Ql (S)on 11-18-2022 Mitochondria M2 Ab IA Qn (S) 4.7 Units Normal <=20.0 [facility] Comment on above: Order Comment: Speci men Type: BLOOD SPECIMEN Ordering Facility: [facility] Address: [address] [place] [address] Performed By: #### 1 7284-1 #### [facility] [place] [id number] [address] [place] [address] [place] Mitochondria M2 Ab Ql (S) Negative Normal Negative [facility] Comment on above: Order Comment: John skinner Type: BLOOD SPECIMEN Ordering Facility: [facility] Address: [address] [place] [address] Result Comment: Anti -mitochondrial antibody test is used as an aid in diagnosis of primary biliary cholangitis. Clinical correlation is required. Performed By: #### 1 7284-1 #### [facility] CLIA [id number] [address] [place] [address] [place] Smooth muscle Ab Ql (S)on ACTIN SMOOTH MUSCLE IGG QUALITATIVE Negative Normal Negative [facility] Comment on above: Order Comment: [facility] Type: BLOOD SPECIMEN Ordering Facility: [facility] Address: [address] [place] [address] Performed By: #### 1 4252-1 #### [facility] CLIA [id number] [address] [place] [address] [place] ACTIN SMOOTH MUSCLE IGG QUANTITATIVE 6 Units Normal <20 [facility] Comment on above: Order Comment: [facility] Type: BLOOD SPECIMEN Ordering Facility: [facility] Address: [address] [place] [address] Performed By: #### 1 4252-1 #### [facility] CLIA [id number] [address] [place], [place] [address] [place] NM thyroid w uptakeon 2021 NM thyroid w uptake [address] [address] Nuclear Medicine Report Signed Patient: Kilo Castanon MR#: [id number] : 1950 Acct:[id number] Age/Sex: 72 / F ADM Date: 09/03/22 Loc: NM Room: Type: [facility] Attending Dr: Yamila Ang MD Copies to: MD Sixto Fernandez Jeffrey S DO Ordering Provider: Yamila Ang MD Date of Service: 09/03/22 NM/NM thyroid w uptake: E05.90, R63.4, R25.1, R00.2 Nuclear medicine thyroid imaging with uptake in TECHNIQUE: Patient ingested a capsule containing 237 uCi of sodium I-123. Planar imaging performed. 4 and 24-hour thyroid uptake obtained. Comparison ultrasound 08/28/22 HISTORY: Weight loss. Tremors. Thyrotoxicosis. Palpitations. The LEFT lobe is larger than the RIGHT. Homogeneous uptake of the thyroid parenchyma identified without hot or cold nodule identified. The 4 uptake is 34.9% and 24-hour uptake is 65.7% both above normal limits. NM/NM thyroid w uptake IMPRESSION: No autonomous nodule. Marked uptake of the thyroid gland consistent with Graves' disease. Impression dictated by: Juan Henson M.D.09/04/2022 10:46 AM Dictation Location: [address] [place] [address] Transcribed By: [facility] 09/04/22 1046 Dictated By: Juan Henson DO 09/04/22 1028 Signed By: 09/04/22 1046 Normal [facility] US thyroidon 08-28-2022 US thyroid [address] [address] Ultrasound Report Signed Patient: Kilo Castanon MR#: [id number] : 1950 Acct:[id number] Age/Sex: 72 / F ADM Date: 08/28/22 Loc: Room: Type: [facility] Attending Dr: Yamila Ang MD Ordering Provider: Yamila Ang MD Date of Service: 08/28/22 US/US thyroid: E05.90, R63.4, R25.1, R002 Copies to: Yamila Ang MD US thyroid 08/28/2022 7:15 AM SIGNS AND SYMPTOMS: Hypothyroidism, difficulty swallowing COMPARISON: None. FINDINGS: Right and left thyroid lobes are normal in size and heterogeneous in echotexture. Color Doppler imaging shows increased vascularity throughout. The right thyroid lobe measures 3.11 cm x 0.813 cm x 1.36 cm and the left thyroid lobe measures 5.22 cm x 1.79 cm x 1.97 cm cm. The isthmus measures 0.27 cm There is an isoechoic wider than tall relatively smoothly marginated 2.0 x 1.3 x 1.6 cm nodule at the inferior pole on the left without calcifications. There is an echogenic smoothly marginated wider than tall 0.5 x 0.4 x 0.7 cm solid-appearing nodule at the interpolar region without calcification. No cervical lymphadenopathy is noted. US/US thyroid IMPRESSION: TIRADS: 3 (mildly suspicious) Follow-up with ultrasound of the dominant nodule at the left thyroid lobe is recommended at years 1, 3, and 5 as malignancy is not excluded. Heterogeneous and hyperemic thyroid tissue is noted suspicious for thyroiditis. Impression dictated by: Ron Wetzel M.D.08/28/2022 9:57 AM Dictation Location: [address] [address] Tech: Dunia Justin Transcribed By: [facility] 08/28/22956 Dictated By: Ron Wetzel II, MD 08/28/2251 Signed By: 08/28/22956 [facility] THYROID ANTIBODIESon 022 Thyroglobulin Antibody 42.2 IU/mL Critically high 0.0-0.9 [facility] Comment on above: Result Comment: Thyr oglobulin Antibody measured by [employer] Methodology Performed By: #### T HYRABS #### [facility] [address] [address] [address] Machelle Archer Thyroid Peroxidase (TPO) Ab 128 IU/mL Critically high 0-34 [facility] Comment on above: Performed By: #### T HYRABS #### [facility] [address] [address] [address] Machelle Archer FREE T3on 08-25-2022 FREE T3 10.08 pg/mlL Critically high 2.18-3.98 [facility] Comment on above: Performed By: #### T SH, LIVER, FT3 #### [facility] [address] [address] [address] Machelle Archer FREE T4on 08-25-2022 Free T4 [Mass/Vol] 2.47 ng/dL Critically high 0.76-1.46 [facility] Comment on above: Performed By: #### F T4 ####[facility] [address] [address]Dr[address] Machelle Archer LIVER PROFILEon 08-25-2022 Albumin [Mass/Vol] 3.5 g/dL Normal 3.4-5.0 [facility] Comment on above: Performed By: #### T SH, LIVER, FT3 #### [facility] [address] [address] [address] Machelle Archer Albumin/Globulin [Mass ratio] 1.1 {ratio} Normal [facility] Comment on above: Performed By: #### T SH, LIVER, FT3 #### [facility] [address] [address] [address] Machelle Archer ALP [Catalytic activity/Vol] 159 U/L Critically high 46-116 [facility] Comment on above: Performed By: #### T SH, LIVER, FT3 #### [facility] [address] [address] [address] Machelle Archer ALT [Catalytic activity/Vol] 98 U/L Critically high 14-59 [facility] Comment on above: Performed By: #### T SH, LIVER, FT3 #### [facility] [address] [address] [address] Machelle Archer AST [Catalytic activity/Vol] 41 U/L Critically high 15-37 [facility] Comment on above: Performed By: #### T SH, LIVER, FT3 #### [facility] [address] [address] [address] Machelle NUNESI, CONJUGATED 0.1 mg/dL Normal 0.0-0.2 [facility] Comment on above: Performed By: #### T WINSOME, LIVER, FT3 #### [facility] [address] [address] [address] Machelle Archer Bilirubin [Mass/Vol] 0.2 mg/dL Normal 0.2-1.0 [facility] Comment on above: Performed By: #### T WINSOME, LIVER, FT3 #### [facility] [address] [place] [address] Dr. Machelle Archer Globulin (S) [Mass/Vol] 3.3 g/dL Normal [facility] Comment on above: Performed By: #### T WINSOME, LIVER, FT3 #### [facility] [address] [address] [address] Machelle Archer Protein [Mass/Vol] 6.8 g/dL Normal 6.4-8.2 [facility] Comment on above: Performed By: #### T WINSOME, LIVER, FT3 #### [facility] [address] [place] [address] Dr. Machelle Archer TSHon 08-25-2022 TSH Qn m[IU]/L Critically low 0.358-3.740 [facility] Comment on above: Performed By: #### T SH, LIVER, FT3 #### [facility] [address] [place] [address] Dr. Machelle Archer MG MAMM SCREEN 3D NIDA CADon 08-14-2022 MG MAMM SCREEN 3D NIDA CAD Patient: KILO CASTANON Exam Date: 08/14/2022 : 1950 Gender:F Ordering : DR ROSALIE MONCADA M.D. Admission #: [id number] Family : Order #: [id number] CLICK HERE TO VIEW EXAM RADIOLOGY REPORT PROCEDURE: MAMMOGRAM SCREENING 3D BILATERAL CAD COMPARISON: MG MAMM SCREEN NIDA W CAD, 08/10/2018. MG MAMM SCREEN 3D NIDA CAD, 07/25/2021. INDICATIONS: Screening mammography Calculator Name NCI Breast Cancer Risk Assessment Tool 5 Year Breast Cancer Risk 2.90% Lifetime Breast Cancer Risk 7.40% Personal Breast Cancer No Personal Ovarian Cancer No Treatments None Family Cancers Aunt-maternal with uterine cancer at age 70. LOCATION: [facility] BREAST COMPOSITION: Extremely dense, which lowers the sensitivity of mammography. FINDINGS: DIAGNOSTIC CATEGORY 1--NEGATIVE. NO CHANGE FROM COMPARISON ASSESSMENT. Scattered benign-appearing calcifications are present. RIGHT BREAST: No significant suspicious finding. LEFT BREAST: No significant suspicious finding. Micro clip marker upper outer quadrant, mid to posterior breast RECOMMENDATIONS: ROUTINE MAMMOGRAM AND CLINICAL EVALUATION IN 12 MONTHS. PLEASE NOTE: A NORMAL MAMMOGRAM DOES NOT EXCLUDE THE POSSIBILITY OF BREAST CANCER. A CLINICALLY SUSPICIOUS PALPABLE LUMP SHOULD BE BIOPSIED. Dictated by: Tang Montoya MD on 08/14/2022 at 09:15 Approved by: Tang Montoya MD on 08/14/2022 at 09:17 Normal [facility] XR DEXA BONE DENSITYon 08-14 XR DEXA BONE DENSITY EXAMINATION: XR DEX A BONE DENSITY, 08/14/2022 7:18 AM EST HISTORY: Bone density finding COMPARISON: DEXA bone densitometry 07/18/2007 TECHNIQUE: Dual-energy X-ray absorptiometry (DEXA) bone density study performed for the axial skeleton. FINDINGS: SPINE ANALYSIS: Average bone mineral density is 0.925 g/cm2. T-score (standard deviation relative to young adult mean): -2.1 . -7.8% change since prior study. HIP ANALYSIS: Lowest bone mineral density is within the right femoral neck, 0.687 g/cm2. T-score (standard deviation relative to young adult mean): -2.5 . -9.1% change since prior study. IMPRESSION: World [employer] Organization Classification: Osteoporosis - High Fracture Risk Electronically authenticated by: LINDSEY AMADOR Date: 2022-08-14 07:57 Normal [facility] VIT D 1 25 DIHYDROXYon 07-31 Calcitriol(1,25 di-OH Vit D) 28.9 pg/mL Normal 24.8-81.5 [facility] Comment on above: Performed By: #### V [id number] ####[facility] [address] [place], [place] [address]JoDr. Machelle Archer CBC AUTO DIFFon 07-29-2022 BASO # 0.0 103/ul Normal 0.0-0.1 [facility] Comment on above: Performed By: #### C BC #### [facility] [address] [address] [address] Machelle Archer Basophils/100 WBC (Bld) 0.7 % Normal 0.2-2.0 [facility] Comment on above: Performed By: #### C BC #### [facility] [address] [address] [address] Machelle Archer EO # 0.1 103/ul Normal 0.0-0.7 [facility] Comment on above: Performed By: #### C BC #### [facility] [address] [place] [address] Dr. Machelle Archer Eosinophils/100 WBC (Bld) 1.2 % Normal 0.9-7.0 [facility] Comment on above: Performed By: #### C BC #### [facility] [address] [address] [address] Machelle Archer Erythrocyte distribution width (RBC) [Ratio] 13.7 % Normal 11.0-15.0 [facility] Comment on above: Performed By: #### C BC #### [facility] [address] [address] [address] Machelle Archer Hematocrit (Bld) [Volume fraction] 38.6 % Normal 36.0-48.0 [facility] Comment on above: Performed By: #### C BC #### [facility] [address] [address] [address] Machelle Archer Hemoglobin (Bld) [Mass/Vol] 12.2 g/dL Normal 12.0-16.0 [facility] Comment on above: Performed By: #### C BC #### [facility] [address] [place] [address] Dr. Machelle Archer IG # 0.01 10e3/ul Normal 0.00-0.03 [facility] Comment on above: Performed By: #### C BC #### [facility] [address] [place] [address] Dr. Machelle Archer IG % 0.2 % Normal 0.0-0.5 [facility] Comment on above: Performed By: #### C BC #### [facility] [address] [place] [address] Dr. Machelle Archer LYMPH # 1.2 103/ul Normal 1.2-3.8 [facility] Comment on above: Performed By: #### C BC #### [facility] [address] [place] [address] Dr. Machelle Archer Lymphocytes/100 WBC (Bld) 29.0 % Normal 20.5-60.0 [facility] Comment on above: Performed By: #### C BC #### [facility] [address] [place] [address] Dr. Machelle Archer MANUAL DIFF REQ NO Normal [facility] Comment on above: Performed By: #### C BC #### [facility] [address] [place] [address] Dr. Machelle Archer MCH (RBC) [Entitic mass] 25.4 pg Critically low 26.7-34.0 [facility] Comment on above: Performed By: #### C BC #### [facility] [address] [place] [address] Dr. Machelle Archer MCHC (RBC) [Mass/Vol] 31.6 g/dL Normal 29.9-35.2 [facility] Comment on above: Performed By: #### C BC #### [facility] [address] [place] [address] Dr. Machelle Archer MCV (RBC) [Entitic vol] 80.2 fL Critically low 81.0-99.0 [facility] Comment on above: Performed By: #### C BC #### [facility] [address] [place] [address] Dr. Machelle Archer MONO # 0.4 103/ul Normal 0.3-0.8 [facility] Comment on above: Performed By: #### C BC #### [facility] [address] [address] [address] Machelle Archer Monocytes/100 WBC (Bld) 8.9 % Normal 1.7-12.0 [facility] Comment on above: Performed By: #### C BC #### [facility] [address] [address] [address] Machelle Archer NEUT # 2.6 103/ul Normal 1.4-6.5 [facility] Comment on above: Performed By: #### C BC #### [facility] [address] [address] [address] Machelle Archer Neutrophils/100 WBC (Bld) 60.0 % Normal 43.0-75.0 [facility] Comment on above: Performed By: #### C BC #### [facility] [address] [place] [address] Dr. Machelle Archer Platelet mean volume (Bld) [Entitic vol] 12.6 fL Normal 9.5-13.5 [facility] Comment on above: Performed By: #### C BC #### [facility] [address] [place] [address] Dr. Machelle Archer PLT 185 103/ul Normal 150-450 [facility] Comment on above: Performed By: #### C BC #### [facility] [address] [place] [address] Dr. Machelle Archer RBC 4.81 106/ul Normal 4.20-5.40 [facility] Comment on above: Performed By: #### C BC #### [facility] [address] [place] [address] Dr. Machelle Archer WBC 4.3 103/ul Normal 4.0-11.0 [facility] Comment on above: Performed By: #### C BC #### [facility] [address] [place] [address] Dr. Machelle Archer LIPID PROFILEon 07-29-2022 CHOL-HDL RATIO NORM SEE BELOW Normal [facility] Comment on above: Result Comment: 3.3 - 4.4 LOW RISK 4.4 - 7.1 AVERAGE RISK 7.1 - 11.0 MODERATE RISK >11.0 HIGH RISK Performed By: #### L IPID, TSH, CMP ####[facility] [address] [address]Dr. Machelle Archer Cholesterol [Mass/Vol] 201 mg/dL Critically high <=200 [facility] Comment on above: Performed By: #### L IPID, TSH, CMP ####[facility] [address] [address]Dr. Machelle Archer Cholesterol in HDL [Mass/Vol] 55 mg/dL Normal 40-60 [facility] Comment on above: Performed By: #### L IPID, TSH, CMP ####[facility] [address] [address]Dr. Machelle Archer Cholesterol in LDL [Mass/Vol] 125.8 mg/dL Normal [facility] Comment on above: Performed By: #### L IPID, TSH, CMP ####[facility] [address] [place], [place] [address]Dr. Machelle Archer Cholesterol.total/Cho lesterol in HDL [Mass ratio] 3.7 {ratio} Normal [facility] Comment on above: Performed By: #### L IPID, TSH, CMP ####[facility] [address] [address]Dr. Machelle Archer HDL NORMAL > or = 60 mg/dl - LO W CARDIOVASCULAR RISK <40 mg/dl - HIGH CARDIOVASCULAR RISK Normal [facility] Comment on above: Performed By: #### L IPID, TSH, CMP ####[facility] [address] [address]Dr. Machelle Archer LDL CALC NORMAL SEE BELOW Normal [facility] Comment on above: Result Comment: <100 mg/dl OPTIMAL 100 - 129 mg/dl NEAR OR ABOVE OPTIMAL 130 - 159 mg/dl BORDERLINE HIGH 160 - 189 mg/dl HIGH >190 mg/dl VERY HIGH Performed By: #### L IPID, TSH, CMP ####[facility] [address] [address]Dr. Machelle Archer Triglyceride [Mass/Vol] 101 mg/dL Normal <=150 [facility] Comment on above: Performed By: #### L IPID, TSH, CMP ####[facility] [address] [address]Dr. Machelle Archer VLDL CALC 20.2 mg/dL Normal [facility] Comment on above: Performed By: #### L IPID, TSH, CMP ####[facility] [address] [address]Dr. Machelle Archer PROF 14(COMP METB)on 022 Albumin [Mass/Vol] 3.5 g/dL Normal 3.4-5.0 [facility] Comment on above: Performed By: #### L IPID, TSH, CMP ####[facility] [address] [address]Dr. Machelle Archer Albumin/Globulin [Mass ratio] 1.0 {ratio} Normal [facility] Comment on above: Performed By: #### L IPID, TSH, CMP ####[facility] [address] [address]Dr. Machelle Archer ALP [Catalytic activity/Vol] 150 U/L Critically high 46-116 [facility] Comment on above: Performed By: #### L IPID, TSH, CMP ####[facility] [address] [address]Dr. Machelle Archer ALT [Catalytic activity/Vol] 66 U/L Critically high 14-59 [facility] Comment on above: Performed By: #### L IPID, TSH, CMP ####[facility] [address] [address]Dr. Machelle Archer Anion gap [Moles/Vol] 10.2 mmol/L Normal [facility] Comment on above: Performed By: #### L IPID, TSH, CMP ####[facility] [address] [address]Dr. Machelle Archer AST [Catalytic activity/Vol] 33 U/L Normal 15-37 [facility] Comment on above: Performed By: #### L IPID, TSH, CMP ####[facility] [address] [address]Dr. Machelle Archer Bilirubin [Mass/Vol] 0.5 mg/dL Normal 0.2-1.0 [facility] Comment on above: Performed By: #### L IPID, TSH, CMP ####[facility] [address] [address]Dr. Machelle Archer Calcium [Mass/Vol] 9.7 mg/dL Normal 8.5-10.1 [facility] Comment on above: Performed By: #### L IPID, TSH, CMP ####[facility] [address] [address]Dr. Machelle Archer Chloride [Moles/Vol] 106 mmol/L Normal 98-107 [facility] Comment on above: Performed By: #### L IPID, TSH, CMP ####[facility] [address] [place], [place] [address]Dr. Machelle Archer CO2 [Moles/Vol] 30.1 mmol/L Normal 21.0-32.0 [facility] Comment on above: Performed By: #### L IPID, TSH, CMP ####[facility] [address] [address]Dr. Machelle Archer Creatinine [Mass/Vol] 0.57 mg/dL Normal 0.55-1.02 [facility] Comment on above: Performed By: #### L IPID, TSH, CMP ####[facility] [address] [place], [place] [address]Dr. Machelle Archer EGFR-AF GHANAIAN >60 Normal >=60 [facility] Comment on above: Performed By: #### L IPID, TSH, CMP ####[facility] [address] [address]Dr. Machelle Archer EGFR-NON AF GHANAIAN >60 Normal >=60 [facility] Comment on above: Performed By: #### L IPID, TSH, CMP ####[facility] [address] [address]Dr. Machelle Archer Globulin (S) [Mass/Vol] 3.4 g/dL Normal [facility] Comment on above: Performed By: #### L IPID, TSH, CMP ####[facility] [address] [address]Dr. Machelle Archer Glucose [Mass/Vol] 103 mg/dL Normal 74-106 [facility] Comment on above: Performed By: #### L IPID, TSH, CMP ####[facility] [address] [place] [address]Dr. Machelle Archer Potassium [Moles/Vol] 4.3 mmol/L Normal 3.5-5.1 [facility] Comment on above: Performed By: #### L IPID, TSH, CMP ####[facility] [address] [place], [place] [address]Dr. Machelle Archer Protein [Mass/Vol] 6.9 g/dL Normal 6.4-8.2 [facility] Comment on above: Performed By: #### L IPID, TSH, CMP ####[facility] [address] [place], [place] [address]Dr. Machelle Archer Sodium [Moles/Vol] 142 mmol/L Normal 136-145 [facility] Comment on above: Performed By: #### L IPID, TSH, CMP ####[facility] [address] [place], [place] [address]Dr. Machelle Archer Urea nitrogen [Mass/Vol] 9.0 mg/dL Normal 7.0-18.0 [facility] Comment on above: Performed By: #### L IPID, TSH, CMP ####[facility] [address] [place], [place] [address]Dr. Machelle Archer Urea nitrogen/Creatinine [Mass ratio] 15.8 mg/mg Normal [facility] Comment on above: Performed By: #### L IPID, TSH, CMP ####[facility] [address] [place], [place] [address]Dr. Machelle Archer TSHon 07-29-2022 TSH Qn m[IU]/L Critically low 0.358-3.740 [facility] Comment on above: Performed By: #### L IPID, TSH, CMP ####[facility] [address] [place], [place] [address]Dr. Machelle Archer XR Ribs w/ PA Chest Left*on 03-17-2022 XR Ribs w/ PA Chest Left* Comparison: Findings: The cardiomediastinal silhouette is unremarkable. The lungs are free of infiltrates or effusions. The bones and soft tissues are intact. There is no evidence of rib fracture. Impression: There are no acute changes. Report reported and signed by LEANDER MARTINEZ on 03/17/2022 1715 Normal [facility] [employer] XR Wrist Complete Left*on XR Wrist Complete Left* CLINICAL HISTORY: Pain after the fall COMPARISON: TECHNIQUE: AP, lateral, oblique, and scaphoid views of the wrist. FINDINGS: No acute fracture. Radiocarpal and carpal alignment is within normal limits. Soft tissues are within normal limits. IMPRESSION: No acute osseous abnormality. 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 Machelle Archer LIPID PROFILEon 12-10-2021 CHOL-HDL RATIO NORM SEE BELOW Normal [facility] Comment on above: Result Comment: 3.3 - 4.4 LOW RISK 4.4 - 7.1 AVERAGE RISK 7.1 - 11.0 MODERATE RISK >11.0 HIGH RISK Performed By: #### L IPID, LIVER #### [facility] [address], [place] [address] Dr. Machelle Archer Cholesterol [Mass/Vol] 227 mg/dL Critically high <=200 [facility] Comment on above: Performed By: #### L IPID, LIVER #### [facility] [id number] Machelle Archer Cholesterol in HDL [Mass/Vol] 43 mg/dL Normal [facility] Comment on above: Performed By: #### L IPID, LIVER #### [facility] [address] [address] [address] Machelle Archer Cholesterol in LDL [Mass/Vol] 158.0 mg/dL Normal [facility] Comment on above: Performed By: #### L IPID, LIVER #### [facility] [address] [place] [address] Dr. Machelle Archer Cholesterol.total/Cho lesterol in HDL [Mass ratio] 5.3 {ratio} Normal [facility] Comment on above: Performed By: #### L IPID, LIVER #### [facility] [address] [place] [address] Dr. Machelle Archer HDL NORMAL > or = 60 mg/dl - LO W CARDIOVASCULAR RISK <40 mg/dl - HIGH CARDIOVASCULAR RISK Normal [facility] Comment on above: Performed By: #### L IPID, LIVER #### [facility] [address] [place] [address] Dr. Machelle Archer LDL CALC NORMAL SEE BELOW Normal [facility] Comment on above: Result Comment: <100 mg/dl OPTIMAL 100 - 129 mg/dl NEAR OR ABOVE OPTIMAL 130 - 159 mg/dl BORDERLINE HIGH 160 - 189 mg/dl HIGH >190 mg/dl VERY HIGH Performed By: #### L IPID, LIVER #### [facility] [address] [place] [address] Dr. Machelle Archer Triglyceride [Mass/Vol] 130 mg/dL Normal <=150 [facility] Comment on above: Performed By: #### L IPID, LIVER #### [facility] [address] [place] [address] Dr. Machelle Archer VLDL CALC 26.0 mg/dL Normal [facility] Comment on above: Performed By: #### L IPID, LIVER #### [facility] [address] [address] [address] Machelle Archer LIVER PROFILEon 12-10-2021 Albumin [Mass/Vol] 3.6 g/dL Normal 3.5-5.0 [facility] Comment on above: Performed By: #### L IPID, LIVER #### [facility] [address] [place] [address] Dr. Machelle Archer Albumin/Globulin [Mass ratio] 1.1 {ratio} Normal [facility] Comment on above: Performed By: #### L IPID, LIVER #### [facility] [address] [place] [address] Dr. Machelle Archer ALP [Catalytic activity/Vol] 91 U/L Normal 38-126 [facility] Comment on above: Performed By: #### L IPID, LIVER #### [facility] [address] [place] [address] Dr. Machelle Archer ALT [Catalytic activity/Vol] 23 U/L Normal 9-52 [facility] Comment on above: Performed By: #### L IPID, LIVER #### [facility] [address] [place] [address] Dr. Machelle Archer AST [Catalytic activity/Vol] 13 U/L Critically low 14-36 [facility] Comment on above: Performed By: #### L IPID, LIVER #### [facility] [address] [place] [address] Dr. Machelle Archer BILI, CONJUGATED 0.1 mg/dL Normal 0.0-0.3 [facility] Comment on above: Performed By: #### L IPID, LIVER #### [facility] [address] [place] [address] Dr. Machelle Archer Bilirubin [Mass/Vol] 0.5 mg/dL Normal 0.2-1.3 [facility] Comment on above: Performed By: #### L IPID, LIVER #### [facility] [address] [place] [address] Dr. Machelle Archer Globulin (S) [Mass/Vol] 3.4 g/dL Normal [facility] Comment on above: Performed By: #### L IPID, LIVER #### [facility] [address] [place] [address] Dr. Machelle Archer Protein [Mass/Vol] 7.0 g/dL Normal 6.1-8.2 [facility] Comment on above: Performed By: #### L IPID, LIVER #### [facility] [address] [place] [address] Dr. Machelle Archer Vital Signs Date Time Vital Sign Value Performing Clinician Facility 07-30-2023 12:30-0400 Body height 162.56 cm Rosalie Moncada Other [facility] Other 07-30-2023 12:30-0400 Body mass index (BMI) [Ratio] 26.64 kg/m2 Rosalie Moncada Other [facility] Other 07-30-2023 12:30-0400 Body weight 70.4 kg Rosalie Moncada Other [facility] Other 07-30-2023 12:30-0400 Diastolic blood pressure 70 mm[Hg] Rosalie Moncada Other [facility] Other 07-30-2023 12:30-0400 Systolic blood pressure 121 mm[Hg] Rosalie Moncada Other [facility] Other 07-30-2023 11:30-0400 Body height 162.56 cm Rosalie Moncada Other [facility] Other 07-30-2023 11:30-0400 Body mass index (BMI) [Ratio] 26.64 kg/m2 Rosalie Moncada Other [facility] Other 07-30-2023 11:30-0400 Body weight 70.4 kg Rosalie Moncada Other [facility] Other 07-30-2023 11:30-0400 Diastolic blood pressure 70 mm[Hg] Rosalie Moncada Other [facility] Other 07-30-2023 11:30-0400 Systolic blood pressure 121 mm[Hg] Rosalie Moncada Other [facility] Other 01-20-2023 11:20-0400 Diastolic blood pressure 65 mm[Hg] Yessi Serhal MD Work Phone: [facility] 01-20-2023 11:20-0400 Systolic blood pressure 155 mm[Hg] Yessi Carson MD Work Phone: [facility] 01-20-2023 10:01-0400 Body height 162.6 cm Yessi Carson MD Work Phone: [facility] 01-20-2023 10:01-0400 Body weight 66.32 kg Yessi Carson MD Work Phone: [facility] 01-20-2023 10:01-0400 Heart rate 62 /min Yessi Carson MD Work Phone: [facility] 11-18-2022 13:23-0500 Body weight 61.55 kg Nicole Smith MD Work Phone: [facility] Encounters Encounter Date Encounter Type Care Provider Facility Start: 10-15-2023 End: 10-15-2023 ambulatory ROSALIE MONCADA Facility:[facility] Start: 09-03-2023 End: 09-03-2023 ambulatory ROSALIE MONCADA Facility:[facility] Start: 09-03-2023 End: 09-03-2023 ambulatory Yessi Carson MD Work Phone: Endocrinology Comment on above: Graves disease (Prim vickey Dx); Thyroid nodule Start: 09-03-2023 End: 09-03-2023 Telemedicine consultation with patient Yessi Carson MD Work Phone: [facility] Start: 08-27-2023 End: 08-27-2023 ambulatory ROSALIE MONCADA Facility:[facility] Start: 08-12-2023 Telephone encounter Nicole Smith MD Work Phone: Gastroenterology Start: 08-11-2023 Telephone encounter Nicole Smith MD Work Phone: Gastroenterology Comment on above: Results Start: 08-09-2023 End: 08-09-2023 ambulatory Rosalie Moncada Other [facility] Other Start: 08-09-2023 Telephone encounter Rosalie Moncada [facility] Start: 07-30-2023 End: 07-30-2023 ambulatory Rosalie Moncada Other [facility] Other Start: 07-30-2023 Patient encounter procedure Rosalie Moncada [facility] Start: 05-28-2023 End: 05-28-2023 ambulatory Yessi Carson MD Work Phone: Endocrinology Comment on above: thyroid scan Start: 05-21-2023 End: 05-21-2023 ambulatory ROSALIE MONCADA Facility:[facility] Start: 03-19-2023 End: 03-19-2023 ambulatory Yessi Carson Facility:[facility] Start: 03-02-2023 Refill Yessi Carson MD Work Phone: Endocrinology Comment on above: Refill Request Start: 02-26-2023 End: 02-26-2023 ambulatory ROSALIE MONCADA Facility:[facility] Start: 02-19-2023 End: 02-19-2023 ambulatory ROSALIE MONCADA Facility:[facility] Start: 01-20-2023 End: 01-20-2023 ambulatory ROSALIE MONCADA Facility:[facility] Start: 01-20-2023 End: 01-20-2023 Patient encounter procedure Yessi Carson MD Work Phone: Endocrinology Comment on above: Graves disease (Prim vickey Dx); Thyroid nodule Start: 01-15-2023 Orders Only Yessi Carson MD Work Phone: Endocrinology Start: 01-13-2023 End: 01-13-2023 ambulatory Yamila Ang Facility:[facility] Start: 01-13-2023 End: 01-13-2023 ambulatory MD Rosalie Moncada Work Phone: [facility] Work Phone: Start: 01-13-2023 End: 01-13-2023 Patient encounter procedure MD Rosalie Moncada Work Phone: [facility] Work Phone: Start: 12-09-2022 End: 12-09-2022 ambulatory Nicole WazenobiakashmirRyanSarah Facility:[facility] Start: 12-09-2022 End: 12-09-2022 ambulatory MD Rosalie Moncada Work Phone: [facility] Work Phone: Start: 12-09-2022 End: 12-09-2022 Patient encounter procedure MD Rosalie Moncada Work Phone: [facility] Work Phone: Start: 11-18-2022 End: 11-19-2022 ambulatory NICOLE RIGO GUPTAMING Facility:[facility] Start: 11-18-2022 End: 11-18-2022 ambulatory NICOLE SMITH Facility:[facility] Start: 11-18-2022 End: 11-18-2022 Patient encounter procedure Nicole Smith MD Work Phone: Gastroenterology Comment on above: Abnormal liver enzym es (Primary Dx) Start: 09-03-2022 End: 09-03-2022 ambulatory [facility] Facility:[facility] Start: 09-03-2022 End: 09-03-2022 ambulatory MD Rosalie Moncada Work Phone: [facility] Work Phone: Start: 09-03-2022 End: 09-03-2022 Patient encounter procedure MD Rosalie Moncada Work Phone: [facility] Start: 08-28-2022 End: 08-28-2022 ambulatory [facility] Facility:[facility] Start: 08-28-2022 End: 08-28-2022 Patient encounter procedure MD Rosalie Moncada Work Phone: [facility] Start: 08-25-2022 End: 08-26-2022 [facility] Facility:[facility] Start: 08-14-2022 End: 08-15-[address] ROSALIE MONCADA Facility:[facility] Start: 07-29-2022 Adult health examination Rosalie Moncada Other [facility] Other Start: 07-29-2022 End: 07-30-[address] ROSALIE MONCADA Facility:[facility] Start: 12-10-2021 End: 12-11-[address] ROSALIE MONCADA Facility:[facility] Start: 05-10-2020 End: 05-11-2020 ambulatory MD ROSALIE MONCADA Facility:[facility] Procedures Date Procedure Procedure Detail Performing Clinician Start: 01-13-2023 Alkaline phosphatase [Enzymatic activity/volume] in Serum or Plasma [facility] Start: 01-13-2023 Thyroxine (T4) free [Mass/volume] in Serum or Plasma [facility] Provider Start: 12-09-2022 Ultrasonography of abdomen MD Rosalie Moncada Work Phone: Start: 12-09-2022 US scan of spleen MD Humera Moncada Work Phone: Start: 08-28-2022 US scan of thyroid MD Kashmir Mnocada Work Phone: Start: 03-26-2015 General examination of patient Rosalie Moncada Other Start: 03-26-2015 Screening mammography Kashmir Moncada Other Laboratory test resu lt abnormal Rosalie Moncada Other Screening for malign ant neoplasm of breast Rosalie Moncada Other Plan of Treatment Date Care Activity Detail Author Start: 02-19-2026 DIABETES SCREEN DIABETES SCREEN [facility] Start: 02-19-2026 Diabetes Screening Diabetes Screenin g [facility] Start: 12-03-2023 End: 03-03-2024 Thyrotropin [Units/volume] in Serum or Plasma TSH BLD Lab Routine Graves disease Expected: 12/03/2023, Expires: 03/03/2024 [facility] Work Phone: Comment on above: Expected: 12/03/2023 , Expires: 03/03/2024 Start: 12-03-2023 End: 03-03-2024 Thyroxine (T4) free [Mass/volume] in Serum or Plasma T4 FREE/FREE THYROX Lab Routine Graves disease Expected: 12/03/2023, Expires: 03/03/2024 [facility] Work Phone: Comment on above: Expected: 12/03/2023 , Expires: 03/03/2024 Start: 12-03-2023 End: 03-03-2024 Triiodothyronine (T3) Free [Mass/volume] in Serum or Plasma T3 FREE BLD Lab Routine Graves disease Expected: 12/03/2023, Expires: 03/03/2024 [facility] Work Phone: Comment on above: Expected: 12/03/2023 , Expires: 03/03/2024 Start: 10-15-2023 End: 01-14-2024 Thyrotropin [Units/volume] in Serum or Plasma TSH BLD Lab Routine Graves disease Expected: 10/15/2023, Expires: 01/14/2024 [facility] Work Phone: Comment on above: Expected: 10/15/2023 , Expires: 01/14/2024 Start: 10-15-2023 End: 01-14-2024 Thyroxine (T4) free [Mass/volume] in Serum or Plasma T4 FREE/FREE THYROX Lab Routine Graves disease Expected: 10/15/2023, Expires: 01/14/2024 [facility] Work Phone: Comment on above: Expected: 10/15/2023 , Expires: 01/14/2024 Start: 10-15-2023 End: 01-14-2024 Triiodothyronine (T3) Free [Mass/volume] in Serum or Plasma T3 FREE BLD Lab Routine Graves disease Expected: 10/15/2023, Expires: 01/14/2024 [facility] Work Phone: Comment on above: Expected: 10/15/2023 , Expires: 01/14/2024 Start: 06-04-2023 Covid-19 Vaccine () Covid-19 Vaccine () [facility] Start: 06-04-2023 Influenza vaccination Influenza Vacc ine (#1) [facility] Start: 01-20-2023 End: 03-22-2023 Comprehensive metabolic 2000 panel - Serum or Plasma COMP METABOLIC PANEL Lab Routine Graves disease Expected: 01/20/2023, Expires: 03/22/2023 [facility] Work Phone: Comment on above: Expected: 01/20/2023 , Expires: 03/22/2023 Start: 01-20-2023 End: 03-22-2023 Thyrotropin [Units/volume] in Serum or Plasma TSH BLD Lab Routine Graves disease Expected: 01/20/2023, Expires: 03/22/2023 [facility] Work Phone: Comment on above: Expected: 01/20/2023 , Expires: 03/22/2023 Start: 01-20-2023 End: 03-22-2023 Thyroxine (T4) free [Mass/volume] in Serum or Plasma T4 FREE/FREE THYROX Lab Routine Graves disease Expected: 01/20/2023, Expires: 03/22/2023 [facility] Work Phone: Comment on above: Expected: 01/20/2023 , Expires: 03/22/2023 Start: 01-20-2023 End: 03-22-2023 Triiodothyronine (T3) Free [Mass/volume] in Serum or Plasma T3 FREE BLD Lab Routine Graves disease Expected: 01/20/2023, Expires: 03/22/2023 [facility] Work Phone: Comment on above: Expected: 01/20/2023 , Expires: 03/22/2023 Start: 11-18-2022 End: 01-18-2023 ALPHA 1 ANTITRYPSIN PHENOTYPE [facility] Work Phone: Comment on above: Expected: 11/18/2022 , Expires: 01/18/2023 Start: 11-18-2022 End: 01-18-2023 Hepatitis C virus RNA [Units/volume] (viral load) in Serum or Plasma by HARPREET with probe detection [facility] Work Phone: Comment on above: Expected: 11/18/2022 , Expires: 01/18/2023 Start: 11-18-2022 End: 01-18-2023 Mitochondria Ab [Presence] in Serum by Immunofluorescence [facility] Work Phone: Comment on above: Expected: 11/18/2022 , Expires: 01/18/2023 Start: 11-18-2022 End: 01-18-2023 Smooth muscle Ab [Presence] in Serum [facility] Work Phone: Comment on above: Expected: 11/18/2022 , Expires: 01/18/2023 Start: 10-04-2022 ADVANCE DIRECTIVE DISCUSSION ADVANCE DIRECTIVE DISCUSSION [facility] Start: 10-04-2022 DEPRESSION ASSESSMENT DEPRESSION ASS ESSMENT [facility] Start: 09-03-2022 Radionuclide thyroid imaging [facility] Start: 03-18-2022 COVID-19 VACCINE (5 - Booster) COVID-19 VACCINE (5 - Booster) [facility] Start: 03-18-2022 Covid-19 Vaccine (5 - Mixed Product series) Covid-19 Vaccine (5 - Mixed Product series) [facility] Start: 2015 BONE DENSITY BONE DENSITY [facility] Start: 2015 Bone Density Screening Bone Density Screening [facility] Start: 2015 Pneumococcal Vaccine : 65+ (1 - PCV) Pneumococcal Vaccine: 65+ (1 - PCV) [facility] Start: 2015 PNEUMOCOCCAL: 65+ (1 - PCV) PN EUMOCOCCAL: 65+ (1 - PCV) [facility] Start: 06-25-2014 Urine microalbumin profile DTa P,Tdap,Td Vaccine (1 - Tdap) [facility] Start: 2010 RSV Vaccine (1 - 1-d ose 60+ series) RSV Vaccine (1 - 1-dose 60+ series) [facility] Start: 2000 SHINGRIX VACCINE (1 of 2) CRONIN GRIX VACCINE (1 of 2) [facility] Start: 1995 COLOGUARD (FIT-DNA) COLOGUARD (FIT-D NA) [facility] Start: 1995 Colonoscopy COLONOSCOPY [facility] Start: 1995 COLORECTAL CANCER SCREENING CO LORECTAL CANCER SCREENING [facility] Start: [address] COLONOGRAPHY [facility] Start: 1995 DIABETES SCREEN DIABETES SCREEN [facility] Start: 1995 FECAL OCCULT BLOOD FECAL OCCULT BLOO D [facility] Start: 1995 Lipid 1996 panel - S david or Plasma Lipid Screening [facility] Start: 1995 LIPID SCREEN LIPID SCREEN [facility] Start: 1995 SIGMOIDOSCOPY SIGMOIDOSCOPY [facility] Start: 1990 Mammography [facility] Start: 1969 Urine microalbumin profile [facility] Start: 1968 ANNUAL PCP TEAM DIETETICS PROFESSOR DEYSI DISEASE VISIT ANNUAL PCP TEAM CHRONIC DISEASE VISIT [facility] Start: 1968 BP CONTROLLED (<130/80) BP CON TROLLED (<130/80) [facility] Start: 1968 HEPATITIS C SCREENING HEPATITIS C SC REENING [facility] End: 12-18-2023 Us abdominal real time w/image limited US ABD RT UPPER QUADRANT Radiology Routine Abnormal liver enzymes 1 Occurrences starting 11/18/2022 until 12/18/2023 [facility] Work Phone: Comment on above: 1 Occurrences starti ng 11/18/2022 until 12/18/2023 End: 02-19-2024 Us soft tissue head & neck real time imge docm US THYROID/PARATHYROID Radiology Routine Graves disease Thyroid nodule 1 Occurrences starting 01/20/2023 until 02/19/2024 [facility] Work Phone: Comment on above: 1 Occurrences starti ng 01/20/2023 until 02/19/2024 End: 10-02-2024 Us soft tissue head & neck real time imge docm US THYROID/PARATHYROID Radiology Routine Graves disease Thyroid nodule 1 Occurrences starting 09/03/2023 until 10/02/2024 [facility] Work Phone: Comment on above: 1 Occurrences starti ng 09/03/2023 until 10/02/2024 [facility] Immunizations Immunization Date Immunization Notes Care Provider Priyanka elliott 07-08-2022 influenza virus vaccine, split virus (incl. purified surface antigen) Rosalie Moncada Other [facility] Other 07-08-2022 influenza virus vaccine, unspecified formulation Yessi Carson MD Work Phone: [facility] 01-21-2022 COVID-19 vaccine (UNSPECIFIED) Nicole Smith MD Work Phone: [facility] 01-21-2022 COVID-19 Vaccine Pfi zer - Documentation Purposes Only Rosalie Moncada Other [facility] Other 08-07-2021 pneumococcal polysaccharide vaccine, 23 valent Rosalie Moncada Other [facility] Other 07-17-2021 influenza virus vaccine, split virus (incl. purified surface antigen) Rosalie Moncada Other [facility] Other 07-10-2021 COVID-19 vaccine (UNSPECIFIED) Nicole Smith MD Work Phone: [facility] 12-05-2020 COVID-19 vaccine (UNSPECIFIED) Nicole Smith MD Work Phone: [facility] 12-05-2020 COVID-19 Vaccine Pfi zer - Documentation Purposes Only Rosalie Moncada Other [facility] Other 11-14-2020 COVID-19 vaccine (UNSPECIFIED) Nicole Smith MD Work Phone: [facility] 07-10-2020 influenza virus vaccine, split virus (incl. purified surface antigen) Rosalie Moncada Other [facility] Other 07-10-2018 influenza virus vaccine, split virus (incl. purified surface antigen) Rosalie Moncada Other [facility] Other 07-29-2017 influenza virus vaccine, split virus (incl. purified surface antigen) Rosalie Antwan Other [facility] Other 08-16-2016 influenza virus vaccine, split virus (incl. purified surface antigen) Rosalie Antwan Other [facility] Other 06-24-2014 tetanus and diphther ia toxoids, adsorbed, preservative free, for adult use (5 Lf of tetanus toxoid and 2 Lf of diphtheria toxoid) Rosalie Moncada Other [facility] Other Payers Date Payer Category Payer Self-pay [id number] 2022 Unknown [id number] 2022 Unknown [id number] 2019 Unknown 2015 Medicare 1959 Medicare [id number] 1959 Unknown [id number] 1950 Unknown [id number] .16.8 [id number] 1950 Unknown [id number] .16.84 [id number] 1950 Unknown [id number] .16.84 [id number] 1950 Unknown [id number] 1950 Unknown [id number] .16.84 [id number] Unknown [id number] .16.8 [id number] Unknown [id number] .16.8 [id number] Unknown [id number] 2.16.8 [id number] Unknown [id number] 2.16.8 [id number] Unknown [id number] 2.16.8 [id number] Social History Date Type Detail Facility Tobacco smoking stat NHIS Unknown if ever smoked [facility] Work Phone: Start: 1950 Sex Assigned At Female [facility] Start: 1950 Sex Assigned At Not on file [facility] Start: 02-26-2023 History of Social function [facility] Start: 02-26-2023 Area Deprivation Index [facility] National Score (1-10 0), lower number is lower risk 64 [facility] Clinical Notes 07-26-2022 to 09-09-2023 Yessi Carson MD - 09/03/2023 1:40 PM ESTTelephone Encounter - Sheri Rangel RN - 08/11/2023 3:37 PM EST Note Date & Type Note Facility 09-09-2023 Note HNO ID: [id number] Author: Mikaela Holley Service: ? Author Type: ? Type: Progress Notes Filed: 09/09/2023 1:26 PM Note Text: Pt is scheduled on 12/06/23 for a VV [facility] 09-07-2023 Note HNO ID: [id number] Author: Mary Juárez Service: ? Author Type: ? Type: Progress Notes Filed: 09/07/2023 8:55 AM Note Text: Summary: 1st attempt Called and lvm with call back number to assist with scheduling. [facility] 09-03-2023 Note HNO ID: [id number] Author: Yessi Carson MD Service: ? Author Type: Physician Type: Progress Notes Filed: 09/03/2023 4:40 PM Note Text: VIRTUAL VISIT PROGRESS NOTE This was changed to phone enc d/t connectivity issues. Patient confirmed by name and . Kilo Castanon is a 73 year old female seen for Graves disease. Last visit 05/28/23. HISTORY REVIEWED (electronic chart updated): No past medical history on file. No past surgical history on file. No family history on file. Current Outpatient Medications Medication Sig metoprolol succinate ER (TOPROL XL) 25 mg 24 hr tablet TAKE 1 TABLET BY MOUTH EVERY DAY methIMAzole (TAPAZOLE) 5 mg tablet 1/2 tab ( 2.5 mg) daily. omeprazole (PRILOSEC) 20 mg capsule Take 20 mg by mouth once daily. alendronate (FOSAMAX) 70 mg tablet Take 70 mg by mouth one time a week. In AM with cup of water on empty stomach. Nothing else by mouth and stay upright for 30 min. No current facility-administered medications for this visit. ALLERGIES No Known Allergies HPI: A pleasant 73 yo female patient presenting for follow up of Graves. Doing well. Feeling good with no complaints. On Methimazole 5 mg 1/2 tab daily. She is off Metoprolol since end of May. No dizziness. No palpitations or tremor. No issues with bowels. No cold or heat intolerance. No hx of head or neck irradiation. Thyroid US March 19 at [facility] showed no sig changes int he thyroid nodules compared to 08/2022. Mother had MNG had surgery age 25. No thyroid cancer in the family. Mom type 2 DM old age. No autoimmune disease in the family. No double vision. Eyes sensitive to light Eyes water easily. Recently on Rosuvastatin 10 mg daily for HPL. Not on Biotin/hair nail skin supplement. Answers submitted by the patient for this visit: Core Review of Systems (Submitted on 09/03/2023) Fever : No Night sweats: No Recent unintentional weight change: No Nasal Congestion: No Hearing Loss: No Vision Disturbance: No A cough: No Difficulty Breathing?: No Chest pain: No Irregular heartbeat: No Leg Swelling: No Nausea: No Diarrhea: No Black tarry stools: No Difficulty Urinating?: No Awaken at Night More Than Once to Urinate?: No Joint pain or stiffness: No Muscle aches: No Leg or Foot Discomfort at Night?: Yes A rash: No Dizziness: No Headaches: No Memory Loss: No Seizures: No Labs Component Latest Ref Rng AND Units 08/27/2023 TSI Qualitative Negative Positive (A) TSI <0.55 IU/L 0.83 (H) TSH 0.270 - 4.200 mIU/L 4.480 (H) Free T4 0.9 - 1.7 ng/dL 0.9 Free T3 2.3 - 4.1 pg/mL 2.7 Component Latest Ref Rng AND Units 05/21/2023 TSH 0.270 - 4.200 mIU/L 1.110 Free T4 0.9 - 1.7 ng/dL 1.0 Free T3 2.3 - 4.1 pg/mL 3.1 ALT 7 - 38 U/L 14 Component Latest Ref Rng AND Units 02/19/2023 Protein, Total 6.3 - 8.0 g/dL 7.3 Albumin 3.9 - 4.9 g/dL 4.7 Calcium 8.5 - 10.2 mg/dL 9.6 Bilirubin, Total 0.2 - 1.3 mg/dL 0.5 Alkaline Phosphatase 34 - 123 U/L 177 (H) AST 13 - 35 U/L 19 ALT 7 - 38 U/L 19 Glucose 74 - 99 mg/dL 99 BUN 7 - 21 mg/dL 11 Creatinine 0.58 - 0.96 mg/dL 0.84 Sodium 136 - 144 mmol/L 141 Potassium 3.7 - 5.1 mmol/L 4.1 Chloride 97 - 105 mmol/L 103 CO2 22 - 30 mmol/L 28 Anion Gap 9 - 18 mmol/L 10 eGFR >=60 mL/min/1.73mA? 74 Free T3 2.3 - 4.1 pg/mL 2.5 TSH 0.270 - 4.200 mIU/L 4.700 (H) Free T4 0.9 - 1.7 ng/dL 0.9 Component Latest Ref Rng AND Units 01/13/2023 Free T4 0.61 - 1.12 0.46 (A) Free T3 2.5 - 3.9 pg/mL 3.2 Alkaline Phosphatase 34 - 104 U/L 147 (A) TSH 9.54. 01/13/23 TFTs 08/25/22 to be scanned TSH <0.007 free T4 2.47( 0.76-1.46) free T3 10.08( 2.18-3.98) High AST/ALT 41.88 and AP 10/07/22 LFTs better free T4 0.76 free T3 2.51 TRAB high 08/28/22 US thyroid Heterogenous thyroid with increased vascularity isoechoic wider than tall nodule, smooth margins, left lobe inf 2.0 cm, smaller 0.5 nodule left lobe, interpolar region. 09/03/22 I 123 uptake/scan Left lobe larger homogenous high I 123 uptake US liver unremarkable( done for elevation in LFTs, but latter improved as hyperthyroidism improved). Impression/plan: 73 yo female patient presenting for follow up. Graves disease. No clinically significant MICHOACANO. On Methimazole 2.5 mg daily, decreased from 5 mg 02/2023 TSH is high now. August 2022 - had physical. She reported unintentional 10-12 pds over previous few months, also had tremor and palpitations. She saw Dr Sav Márquez in [place], work up revealed Graves disease. Started Methimazole 10 mg daily decreased to 5 mg daily for TSH of 9,then to mg daily ( TSH 4) and most recently as above on 2.5 mg daily. Most recent TSI high. Decrease Methimazole 2.5 mg to three times a week. TFTs in 6 weeks. Thyroid nodule. 08/28/22 US thyroid Heterogenous thyroid with increased vascularity isoechoic wider than tall nodule, smooth margins, left lobe inf 2.0 cm, smaller 0.5 nodule left lobe, inte (more content not included)... [facility] 09-03-2023 History of Presen t illness Narrative VIRTUAL VISIT PROGRESS NOTE This was changed to phone enc d/t connectivity issues. Patient confirmed by name and . Kilo Castanon is a 73 year old female seen for Graves disease. Last visit 05/28/23. HISTORY REVIEWED (electronic chart updated): No past medical history on file. No past surgical history on file. No family history on file. Current Outpatient Medications Medication Sig metoprolol succinate ER (TOPROL XL) 25 mg 24 hr tablet TAKE 1 TABLET BY MOUTH EVERY DAY methIMAzole (TAPAZOLE) 5 mg tablet 1/2 tab ( 2.5 mg) daily. omeprazole (PRILOSEC) 20 mg capsule Take 20 mg by mouth once daily. alendronate (FOSAMAX) 70 mg tablet Take 70 mg by mouth one time a week. In AM with cup of water on empty stomach. Nothing else by mouth and stay upright for 30 min. No current facility-administered medications for this visit. ALLERGIES No Known Allergies HPI: A pleasant 73 yo female patient presenting for follow up of Graves. Doing well. Feeling good with no complaints. On Methimazole 5 mg 1/2 tab daily. She is off Metoprolol since end of May. No dizziness. No palpitations or tremor. No issues with bowels. No cold or heat intolerance. No hx of head or neck irradiation. Thyroid US March 19 at [facility] showed no sig changes int he thyroid nodules compared to 08/2022. Mother had MNG had surgery age 25. No thyroid cancer in the family. Mom type 2 DM old age. No autoimmune disease in the family. No double vision. Eyes sensitive to light Eyes water easily. Recently on Rosuvastatin 10 mg daily for HPL. Not on Biotin/hair nail skin supplement. Answers submitted by the patient for this visit: Core Review of Systems (Submitted on 09/03/2023) Fever : No Night sweats: No Recent unintentional weight change: No Nasal Congestion: No Hearing Loss: No Vision Disturbance: No A cough: No Difficulty Breathing?: No Chest pain: No Irregular heartbeat: No Leg Swelling: No Nausea: No Diarrhea: No Black tarry stools: No Difficulty Urinating?: No Awaken at Night More Than Once to Urinate?: No Joint pain or stiffness: No Muscle aches: No Leg or Foot Discomfort at Night?: Yes A rash: No Dizziness: No Headaches: No Memory Loss: No Seizures: No Labs Component Latest Ref Rng & Units 08/27/2023 TSI Qualitative Negative Positive (A) TSI <0.55 IU/L 0.83 (H) TSH 0.270 - 4.200 mIU/L 4.480 (H) Free T4 0.9 - 1.7 ng/dL 0.9 Free T3 2.3 - 4.1 pg/mL 2.7 Component Latest Ref Rng & Units 05/21/2023 TSH 0.270 - 4.200 mIU/L 1.110 Free T4 0.9 - 1.7 ng/dL 1.0 Free T3 2.3 - 4.1 pg/mL 3.1 ALT 7 - 38 U/L 14 Component Latest Ref Rng & Units 02/19/2023 Protein, Total 6.3 - 8.0 g/dL 7.3 Albumin 3.9 - 4.9 g/dL 4.7 Calcium 8.5 - 10.2 mg/dL 9.6 Bilirubin, Total 0.2 - 1.3 mg/dL 0.5 Alkaline Phosphatase 34 - 123 U/L 177 (H) AST 13 - 35 U/L 19 ALT 7 - 38 U/L 19 Glucose 74 - 99 mg/dL 99 BUN 7 - 21 mg/dL 11 Creatinine 0.58 - 0.96 mg/dL 0.84 Sodium 136 - 144 mmol/L 141 Potassium 3.7 - 5.1 mmol/L 4.1 Chloride 97 - 105 mmol/L 103 CO2 22 - 30 mmol/L 28 Anion Gap 9 - 18 mmol/L 10 eGFR >=60 mL/min/1.73m 74 Free T3 2.3 - 4.1 pg/mL 2.5 TSH 0.270 - 4.200 mIU/L 4.700 (H) Free T4 0.9 - 1.7 ng/dL 0.9 Component Latest Ref Rng & Units 01/13/2023 Free T4 0.61 - 1.12 0.46 (A) Free T3 2.5 - 3.9 pg/mL 3.2 Alkaline Phosphatase 34 - 104 U/L 147 (A) TSH 9.54. 01/13/23 TFTs 08/25/22 to be scanned TSH <0.007 free T4 2.47( 0.76-1.46) free T3 10.08( 2.18-3.98) High AST/ALT 41.88 and AP 10/07/22 LFTs better free T4 0.76 free T3 2.51 TRAB high 08/28/22 US thyroid Heterogenous thyroid with increased vascularity isoechoic wider than tall nodule, smooth margins, left lobe inf 2.0 cm, smaller 0.5 nodule left lobe, interpolar region. 09/03/22 I 123 uptake/scan Left lobe larger homogenous high I 123 uptake US liver unremarkable( done for elevation in LFTs, but latter improved as hyperthyroidism improved). Impression/plan: 73 yo female patient presenting for follow up. Graves disease. No clinically significant MICHOACANO. On Methimazole 2.5 mg daily, decreased from 5 mg 02/2023 TSH is high now. August 2022 - had physical. She reported unintentional 10-12 pds over previous few months, also had tremor and palpitations. She saw Dr Sav Márquez in [place], work up revealed Graves disease. Started Methimazole 10 mg daily decreased to 5 mg daily for TSH of 9,then to mg daily ( TSH 4) and most recently as above on 2.5 mg daily. Most recent TSI high. Decrease Methimazole 2.5 mg to three times a week. TFTs in 6 weeks. Thyroid nodule. 08/28/22 US thyroid Heterogenous thyroid with increased vascularity isoechoic wider than tall nodule, smooth margins, left lobe inf 2.0 cm, smaller 0.5 nodule left lobe, interpolar region. 09/03/22 I 123 uptake/scan Left lobe larger homogenous high I 123 uptake, no cold or hot nodules. F/U thyroid US 03/2023 no sig changes. Rec: Schedule thyroid US before next visit. Send order through my chart. HTN Currently controlled off b-blockers. Rec: F/U with PCP. Osteoporosis on Fosamax for > 20 years. last BMD in August 2022. Managed by PCP. Follow with PCP. Again discuss with PCP consideration for drug holiday, if BMD is good/stable. Some elements copied from my note 05/28/23 which have been updated where appropriate, and all reflect current medical decision making from date of this visit. VV 3 months. Total tel time 14 mins. Yessi Carson MD. documented in this encounter [facility] 08-11-2023 Miscellaneous Notes Patient calling States she had recent lipid panel through PCP that revealed total cholesterol of 294 and LDL of 224 PCP prescribed rosuvastatin 10 mg daily Patient is asking if GI is in agreement with this treatment She is concerned about her liver function She has f/u appt on 11/18/23 Patient can be reached at home number, may leave a message documented in this encounter [facility] 07-30-2023 Evaluation note Encounter Date Diagnosis Assessment Notes Jul, Medicare annual wellness visit, subsequent (ICD-10 - Z00.00) Personalized health advice was given to the beneficiary including a written plan for screenings discussed and provided. Advanced care planning reviewed and/or information given as requested. Additional counseling was provided here today in regards to, [ ]. The above visit was performed by [ ], under direct supervision of [ ]. Document reviewed and amended by provider signed below. Jul, Screening mammogram, encounter for (ICD-10 - Z12.31) Jul, Hyperthyroidism (ICD-10 - E05.90) Continue care with CC. on methimazole. followup as scheduled. Mar, Hyperlipidemia, unspecified (ICD-10 - E78.5) off crestor - hopefully chol still good without med. will do labs later this week check fasting labs. [facility] Other 09-12-2023 Miscellaneous Notes* Telephone Encounter - Laquita Correia MA - 06/15/2023 2:25 PM EDT Found the results (clipped to another pt's notes) in your inbox [facility] NoteHNO ID: [id number] Author: Yessi Carson MD Service: ? Author Type: Physician Type: Progress Notes Filed: 05/28/2023 4:01 PM Note Text: VIRTUAL VISIT PROGRESS NOTE This is a virtual visit using First To File video visit. It required patient-provider interaction for the medical decision making as documented below. I have communicated my name and active licensure. The patient's identity and physical location were verified at the time of this visit. Either the patient or their legal provider relations representative has been informed of the risks and benefits of -- and alternatives to -- treatment through a remote evaluation and consents to proceed with the evaluation remotely. Kilo Castanon is a 73 year old female seen for Graves disease. Last visit 02/26/23. HISTORY REVIEWED (electronic chart updated): No past medical history on file. No past surgical history on file. No family history on file. Current Outpatient Medications Medication Sig metoprolol succinate ER (TOPROL XL) 25 mg 24 hr tablet TAKE 1 TABLET BY MOUTH EVERY DAY methIMAzole (TAPAZOLE) 5 mg tablet 1/2 tab ( 2.5 mg) daily. omeprazole (PRILOSEC) 20 mg capsule Take 20 mg by mouth once daily. alendronate (FOSAMAX) 70 mg tablet Take 70 mg by mouth one time a week. In AM with cup of water on empty stomach. Nothing else by mouth and stay upright for 30 min. No current facility-administered medications for this visit. ALLERGIES No Known Allergies Answers submitted by the patient for this visit: Core Review of Systems (Submitted on 05/21/2023) Fever : No Night Sweats: No Recent Unintentional Weight Change: Yes Nasal Congestion: Yes Hearing Loss: No Vision Disturbance: Yes A Cough: No Difficulty Breathing?: No Chest Pain: No Irregular Heart Beat: No Leg Swelling: No Nausea: Yes Diarrhea: No Black Tarry Stools: No Difficulty Urinating?: No Awaken at Night More Than Once to Urinate?: Yes Joint Pain or Stiffness: No Muscle Aches: Yes Leg or Foot Discomfort at Night?: Yes A Rash: No Dizziness: No Headaches: No Memory Loss: Yes Seizures: No HPI: A pleasant 73 yo female patient presenting for follow up of Graves. Doing well. On Methimazole 5 mg 1/2 tab daily since I saw her last. Gained some weight, close to 10 pds since on treatment. Will be walking more as weather cools done Continues on Propranolol ER 25 mg daily. Following with PCP re HTN. No dizziness. No palpitations or tremor. No issues with bowels. No cold or heat intolerance. No hx of head or neck irradiation. Thyroid US was ordered, patient thinks she had it at [facility] since last visit. Mother had MNG had surgery age 25. No thyroid cancer in the family. Mom type 2 DM old age. No autoimmune disease in the family. No double vision. Eyes sensitive to light Eyes water easily. Osteoporosis , she confirms again on Fosamax for > 20 years. last BMD in August 2022. Follows with PCP. PHYSICAL EXAMINATION: VIDEO EXAM: (if completed, performed via video enabled technology) GENERAL: alert and appropriate, in no distress, well-hydrated, well nourished, and happy, smiling, interactive No MICHOACANO. No visible goiter or nodules. Labs Component Latest Ref Rng AND Units 05/21/2023 TSH 0.270 - 4.200 mIU/L 1.110 Free T4 0.9 - 1.7 ng/dL 1.0 Free T3 2.3 - 4.1 pg/mL 3.1 ALT 7 - 38 U/L 14 Component Latest Ref Rng AND Units 02/19/2023 Protein, Total 6.3 - 8.0 g/dL 7.3 Albumin 3.9 - 4.9 g/dL 4.7 Calcium 8.5 - 10.2 mg/dL 9.6 Bilirubin, Total 0.2 - 1.3 mg/dL 0.5 Alkaline Phosphatase 34 - 123 U/L 177 (H) AST 13 - 35 U/L 19 ALT 7 - 38 U/L 19 Glucose 74 - 99 mg/dL 99 BUN 7 - 21 mg/dL 11 Creatinine 0.58 - 0.96 mg/dL 0.84 Sodium 136 - 144 mmol/L 141 Potassium 3.7 - 5.1 mmol/L 4.1 Chloride 97 - 105 mmol/L 103 CO2 22 - 30 mmol/L 28 Anion Gap 9 - 18 mmol/L 10 eGFR >=60 mL/min/1.73mA? 74 Free T3 2.3 - 4.1 pg/mL 2.5 TSH 0.270 - 4.200 mIU/L 4.700 (H) Free T4 0.9 - 1.7 ng/dL 0.9 Component Latest Ref Rng AND Units 01/13/2023 Free T4 0.61 - 1.12 0.46 (A) Free T3 2.5 - 3.9 pg/mL 3.2 Alkaline Phosphatase 34 - 104 U/L 147 (A) TSH 9.54. 01/13/23 TFTs 08/25/22 to be scanned TSH <0.007 free T4 2.47( 0.76-1.46) free T3 10.08( 2.18-3.98) High AST/ALT 41.88 and AP 10/07/22 LFTs better free T4 0.76 free T3 2.51 TRAB high 08/28/22 US thyroid Heterogenous thyroid with increased vascularity isoechoic wider than tall nodule, smooth margins, left lobe inf 2.0 cm, smaller 0.5 nodule left lobe, interpolar region. 09/03/22 I 123 uptake/scan Left lobe larger homogenous high I 123 uptake US liver unremarkable( done for elevation in LFTs, but latter improved as hyperthyroidism improved). Impression/plan: 72 yo female patient presenting for follow up. Graves disease. No clinically significant MICHOACANO. On Methimazole 2.5 mg daily, decreased from 5 mg 02/2023 She is clinically and biochemically euthyroid. August 2022 - had physi (more content not included)...[facility]06-02-2023 Miscellaneous Notes* Telephone Encounter - Yessi Carson MD - 03/05/2023 11:59 AM EDT The following approved medication requests have been transmitted electronically. Requested Prescriptions Signed Prescriptions Disp Refills metoprolol succinate ER (TOPROL XL) 25 mg 24 hr tablet 90 tablet 1 Sig: TAKE 1 TABLET BY MOUTH EVERY DAY Authorizing Provider: YESSI CARSON MD * Telephone Encounter - Herberth Quinn RN - 03/04/2023 10:09 AM EDT Requester: Pharmacy Last office visit 02/26/23 Next office visit 05/28/23 Requested Prescriptions Pending Prescriptions Disp Refills metoprolol succinate ER (TOPROL XL) 25 mg 24 hr tablet [Pharmacy Med Name: METOPROLOL SUCC ER 25 MGTAB] 90 tablet Sig: TAKE 1 TABLET BY MOUTH EVERY DAY PSS NOTE: Please schedule appointment: No documented in [facility] NoteHNO ID: [id number] Author: Mary Juárez Service: ? Author Type: ? Type: Progress Notes Filed: 03/02/2023 8:45 AM Note Text: Follow up and lab appointments have been scheduled Called and spoke with patient directly to confirm. Patient will be doing imaging outside of [facility]. Order for imaging printed and sent via mail. Patient aware.[facility]05-26-2023 NoteHNO ID: [id number] Author: Yessi Carson MD Service: ? Author Type: Physician Type: Progress Notes Filed: 02/26/2023 8:10 AM Note Text: VIRTUAL VISIT PROGRESS NOTE This is a virtual visit using First To File video visit. It required patient-provider interaction for the medical decision making as documented below. I have communicated my name and active licensure. The patient's identity and physical location were verified at the time of this visit. Either the patient or their legal provider relations representative has been informed of the risks and benefits of -- and alternatives to -- treatment through a remote evaluation and consents to proceed with the evaluation remotely. Kilo Castanon is a 72 year old female seen for Graves disease. Last visit 01/20/23. HISTORY REVIEWED (electronic chart updated): No past medical history on file. No past surgical history on file. No family history on file. Current Outpatient Medications Medication Sig methIMAzole (TAPAZOLE) 10 mg tablet 1/2 tab daily. omeprazole (PRILOSEC) 20 mg capsule Take 20 mg by mouth once daily. metoprolol succinate ER (TOPROL XL) 25 mg 24 hr tablet Take 25 mg by mouth once daily. alendronate (FOSAMAX) 70 mg tablet Take 70 mg by mouth one time a week. In AM with cup of water on empty stomach. Nothing else by mouth and stay upright for 30 min. No current facility-administered medications for this visit. ALLERGIES No Known Allergies REVIEW OF SYSTEMS: Answers submitted by the patient for this visit: Core Review of Systems (Submitted on 02/25/2023) Fever : No Night Sweats: No Recent Unintentional Weight Change: Yes Nasal Congestion: Yes Hearing Loss: No Vision Disturbance: Yes A Cough: No Difficulty Breathing?: No Chest Pain: No Irregular Heart Beat: No Leg Swelling: No Nausea: No Diarrhea: No Black Tarry Stools: No Difficulty Urinating?: No Awaken at Night More Than Once to Urinate?: Yes Joint Pain or Stiffness: No Muscle Aches: Yes Leg or Foot Discomfort at Night?: Yes A Rash: No Dizziness: No Headaches: No Memory Loss: Yes Seizures: No HPI: A pleasant 72 yo female patient presenting for follow up of Graves. On Methimazole 10 mg 1/2 tab daily since I saw her last. Gained some weight. Continues on Propranolol ER 25 mg daily. No dizziness. No palpitations or tremor. No issues with bowels. No cold or heat intolerance. No hx of head or neck irradiation. Mother had MNG had surgery age 25. No thyroid cancer in the family. Mom type 2 DM old age. No autoimmune disease in the family. Double vision when reading. No diplopia when not reading. Eyes sensitive to light Eyes water easily. Osteoporosis on Fosamax for > 20 years. last BMD in August. Follows with PCP. Has not had BP rechecked since last visit. PHYSICAL EXAMINATION: VIDEO EXAM: (if completed, performed via video enabled technology) GENERAL: alert and appropriate, in no distress, well-hydrated, well nourished, and happy, smiling, interactive Labs Component Latest Ref Rng AND Units 02/19/2023 Protein, Total 6.3 - 8.0 g/dL 7.3 Albumin 3.9 - 4.9 g/dL 4.7 Calcium 8.5 - 10.2 mg/dL 9.6 Bilirubin, Total 0.2 - 1.3 mg/dL 0.5 Alkaline Phosphatase 34 - 123 U/L 177 (H) AST 13 - 35 U/L 19 ALT 7 - 38 U/L 19 Glucose 74 - 99 mg/dL 99 BUN 7 - 21 mg/dL 11 Creatinine 0.58 - 0.96 mg/dL 0.84 Sodium 136 - 144 mmol/L 141 Potassium 3.7 - 5.1 mmol/L 4.1 Chloride 97 - 105 mmol/L 103 CO2 22 - 30 mmol/L 28 Anion Gap 9 - 18 mmol/L 10 eGFR >=60 mL/min/1.73mA? 74 Free T3 2.3 - 4.1 pg/mL 2.5 TSH 0.270 - 4.200 mIU/L 4.700 (H) Free T4 0.9 - 1.7 ng/dL 0.9 Component Latest Ref Rng AND Units 01/13/2023 Free T4 0.61 - 1.12 0.46 (A) Free T3 2.5 - 3.9 pg/mL 3.2 Alkaline Phosphatase 34 - 104 U/L 147 (A) TSH 9.54. 01/13/23 TFTs 08/25/22 to be scanned TSH <0.007 free T4 2.47( 0.76-1.46) free T3 10.08( 2.18-3.98) High AST/ALT 41.88 and AP 10/07/22 LFTs better free T4 0.76 free T3 2.51 TRAB high 08/28/22 US thyroid Heterogenous thyroid with increased vascularity isoechoic wider than tall nodule, smooth margins, left lobe inf 2.0 cm, smaller 0.5 nodule left lobe, interpolar region. 09/03/22 I 123 uptake/scan Left lobe larger homogenous high I 123 uptake US liver unremarkable( done for elevation in LFTs, but latter improved as hyperthyroidism improved). Impression/plan: 72 yo female patient presenting for follow up. Graves disease. No clinically significant MIHCOACANO. On Methimazole 5 mg daily. August 2022 - had physical. She reported unintentional 10-12 pds over previous few months, also had tremor and palpitations. She saw Dr Sav Márquez in [place], work up revealed Graves disease. Started Methimazole 10 mg daily decreased to 5 mg daily few weeks ago for TSH of 9. Most recent TSH 4.2 so better but still slightly hypothyroid. Decrease Methimazole to 2.5 mg daily and get thyroid labs again in 6 weeks. Thyroid n (more content not included)...[facility]04-19-2023 NoteHNO ID: [id number] Author: Yessi Carson MD Service: ? Author Type: Physician Type: Progress Notes Filed: 02/20/2023 9:25 PM Note Text: New patient hyperthyroid/Graves disease. HPI: A pleasant 72 yo female patient presenting today with . August 2022 - had physical. She reported unintentional 10-12 pds over previous few months, also had tremor and palpitations. She saw Dr Sav Márquez in [place], work up revealed Graves disease. Started Methimazole 10 mg daily and has been on same dose since Aug. Most recent labs low free t4. TSH 9.54. Metoprolol ER 25 mg Gained 18 pds total. Palpitations better. Heat intolerance better, now more swings in temp between cold and hot. Leg cramps worse. Diarrhea once in a while, no constipation. No hx of head or neck irradiation. Did have some dysphagia in the past but resolved after started Methimazole. Mother had MNG had surgery age 25. No thyroid cancer in the family. Mom type 2 DM old age. No autoimmune disease in the family. Double vision when reading. No diplopia when not reading. Eyes sensitive to light Eyes water easily. Osteoporosis on Fosamax for > 20 years. last BMD in August. PE 01/20/23 1001 01/20/23 1120 BP: 159/84 155/65 Pulse: 62 Weight: 66.3 kg (146 lb 3.2 oz) Height: 162.6 cm (5' 4 ) Eyes No MICHOACANO Thyroid around 20 gs, nodular, no nodules felt. No hand tremor. No proximal myopathy. reflexes with delay in relaxation Labs Component Latest Ref Rng AND Units 01/13/2023 Free T4 0.61 - 1.12 0.46 (A) Free T3 2.5 - 3.9 pg/mL 3.2 Alkaline Phosphatase 34 - 104 U/L 147 (A) TSH 9.54. TFTs 08/25/22 to be scanned TSH <0.007 free T4 2.47( 0.76-1.46) free T3 10.08( 2.18-3.98) High AST/ALT 41.88 and AP 10/07/22 LFTs better free T4 0.76 free T3 2.51 TRAB high 08/28/22 US thyroid Heterogenous thyroid with increased vascularity isoechoic wider than tall nodule, smooth margins, left lobe inf 2.0 cm, smaller 0.5 nodule left lobe, interpolar region. 09/03/22 I 123 uptake/scan Left lobe larger homogenous high I 123 uptake US liver unremarkable( done for elevation in LFTs, but latter improved as hyperthyroidism improved). Impression/plan: 72 yo female patient presenting for eval and management of Graves disease. No clinically significant MICHOACANO. On Methimazole 10 mg daily. August 2022 - had physical. She reported unintentional 10-12 pds over previous few months, also had tremor and palpitations. She saw Dr Sav Márquez in [place], work up revealed Graves disease. Started Methimazole 10 mg daily and has been on same dose since Aug. Most recent labs low free t4. Metoprolol ER 25 mg. Gained 18 pds total. Thyroid nodule. 08/28/22 US thyroid Heterogenous thyroid with increased vascularity isoechoic wider than tall nodule, smooth margins, left lobe inf 2.0 cm, smaller 0.5 nodule left lobe, interpolar region. 09/03/22 I 123 uptake/scan Left lobe larger homogenous high I 123 uptake, no cold or hot nodules. Osteoporosis on Fosamax for > 20 years. last BMD in August. Managed by PCP. Recommend: Discussed with her and management of Graves disease, different modalities of treatment. Agree with Methimazole for now. Hold Methimazole for 3 days then restart at lower dose of 5 mg daily. Continue Metropolol Follow with PCP re high BP, may improve as thyroid levels improve. Discussed management of thyroid nodule. US was done in the active phase of Graves disease. Will get follow up thyroid US before deciding on FNA. Discuss possible bisphosphonate drug Holiday with PCP. VV 4 weeks with thyroid US and labs before apt. I spent a total of 60 minutes on the date of the service which included preparing to see the patient, [id number] patient care, completing clinical documentation, obtaining and/or reviewing separately obtained history, performing a medically appropriate examination, counseling and educating the patient, ordering medications, tests, or procedures and care coordination.[facility]04-19-2023 History of Present illness Narrative* Yessi Carson MD - 01/20/2023 10:21 AM EDT New patient hyperthyroid/Graves disease. HPI: A pleasant 72 yo female patient presenting today with . August 2022 - had physical. She reported unintentional 10-12 pds over previous few months, also had tremor and palpitations. She saw Dr Sav Márquez in [place], work up revealed Graves disease. Started Methimazole 10 mg daily and has been on same dose since Aug. Most recent labs low free t4. Metoprolol ER 25 mg Gained 18 pds total. Palpitations better. Heat intolerance better, now more swings in temp between cold and hot. Leg cramps worse. Diarrhea once in a while, no constipation. No hx of head or neck irradiation. Did have some dysphagia in the past but resolved after started Methimazole. Mother had MNG had surgery age 25. No thyroid cancer in the family. Mom type 2 DM old age. No autoimmune disease in the family. Double vision when reading. No diplopia when not reading. Eyes sensitive to light Eyes water easily. Osteoporosis on Fosamax for > 20 years. last BMD in August. PE 01/20/23 1001 01/20/23 1120 BP: 159/84 155/65 Pulse: 62 Weight: 66.3 kg (146 lb 3.2 oz) Height: 162.6 cm (5' 4 ) Eyes No MICHOACANO Thyroid around 20 gs, nodular, no nodules felt. No hand tremor. No proximal myopathy. reflexes with delay in relaxation Labs Component Latest Ref Rng & Units 01/13/2023 Free T4 0.61 - 1.12 0.46 (A) Free T3 2.5 - 3.9 pg/mL 3.2 Alkaline Phosphatase 34 - 104 U/L 147 (A) TFTs 08/25/23 to be scanned TSH <0.007 free T4 2.47( 0.76-1.46) free T3 10.08( 2.18-3.98) High AST/ALT 41.88 and AP 10/07/22 LFTs better free T4 0.76 free T3 2.51 TRAB high 08/28/22 US thyroid Heterogenous thyroid with increased vascularity isoechoic wider than tall nodule, smooth margins, left lobe inf 2.0 cm, smaller 0.5 nodule left lobe, interpolar region. 09/03/22 I 123 uptake/scan Left lobe larger homogenous high I 123 uptake US liver unremarkable( done for elevation in LFTs, but latter improved as hyperthyroidism improved). Impression/plan: 72 yo female patient presenting for eval and management of Graves disease. No clinically significant MICHOACANO. On Methimazole 10 mg daily. August 2022 - had physical. She reported unintentional 10-12 pds over previous few months, also had tremor and palpitations. She saw Dr Sav Márquez in [place], work up revealed Graves disease. Started Methimazole 10 mg daily and has been on same dose since Aug. Most recent labs low free t4. Metoprolol ER 25 mg. Gained 18 pds total. Thyroid nodule. 08/28/22 US thyroid Heterogenous thyroid with increased vascularity isoechoic wider than tall nodule, smooth margins, left lobe inf 2.0 cm, smaller 0.5 nodule left lobe, interpolar region. 09/03/22 I 123 uptake/scan Left lobe larger homogenous high I 123 uptake, no cold or hot nodules. Osteoporosis on Fosamax for > 20 years. last BMD in August. Managed by PCP. Recommend: Discussed with her and management of Graves disease, different modalities of treatment. Agree with Methimazole for now. Hold Methimazole for 3 days then restart at lower dose of 5 mg daily. Continue Metropolol Follow with PCP re high BP, may improve as thyroid levels improve. Discussed management of thyroid nodule. US was done in the active phase of Graves disease. Will getfollow up thyroid US before deciding on FNA. Discuss possible bisphosphonate drug Holiday with PCP. VV 4 weeks with thyroid US and labs before apt. I spent a total of 60 minutes on the date of the service which included preparing to see the patient, [id number] patient care, completing clinical documentation, obtaining and/or reviewing separately obtained history, performing a medically appropriate examination, counseling and educating the pat ient, ordering medications, tests, or procedures and care coordination. [facility] NoteHNO ID: [id number] Author: Nicole Smith MD Service: ? Author Type: Physician Type: Progress Notes Filed: 11/18/2022 4:45 PM Note Text: Hepatology Clinic Edu Madison MD, FACG, FAASLD Hepatology [facility] Consult Requested By: Rosalie Moncada (Dr) [address] [facility] [phone] for evaluation of liver enzymes.. Thank you I will share my finding via In Basket HPI: 72 yo with chronic elevation of liver enzymes. started in 2020, was on statins these were stopped after >20 years Lft remained elevated she is asymptomatic ast.alt 33/66 alpho 150 In 2020: ast/alt 124/285 pror No liver biopsy dx with Grave's Dz in Fall 2021 started on metoprolol and Methimazole started these meds: 09/2022 and Oct 2022 respect an US liver was normal no work up for liver disease weight fluctuates, was overweight until grave's occured GENERAL REVIEW OF SYSTEMS: GENERAL: No unexplained weight changes or fevers. HEENT: Negative for severe headaches, negative for changes in hearing or vision. NECK: Negative for lumps, masses or pain. RESPIRATORY: Negative for coughing, wheezing or significant dyspnea. CARDIOVASCULAR: Negative for chest pain or heart palpitations. GASTROINTESTINAL: Negative for rectal bleeding or black tarry stools. GENITOURINARY: Negative for dysuria or urinary incontinence. MUSCULOSKELETAL: Negative for unexplained joint pains, dislocations or fractures. NEUROLOGIC: Negative for unexplained weakness or vertigo. SKIN: Negative for new lesions or rashes. ENDOCRINE: Negative for cold or heat intolerance . Current Outpatient Medications on File Prior to Visit Medication Sig omeprazole (PRILOSEC) 20 mg capsule Take 20 mg by mouth once daily. metoprolol succinate ER (TOPROL XL) 25 mg 24 hr tablet Take 25 mg by mouth once daily. methIMAzole (TAPAZOLE) 10 mg tablet Take 10 mg by mouth once daily. alendronate (FOSAMAX) 70 mg tablet Take 70 mg by mouth one time a week. In AM with cup of water on empty stomach. Nothing else by mouth and stay upright for 30 min. No current facility-administered medications on file prior to visit. omeprazole (PRILOSEC) 20 mg capsule Take 20 mg by mouth once daily. metoprolol succinate ER (TOPROL XL) 25 mg 24 hr tablet Take 25 mg by mouth once daily. methIMAzole (TAPAZOLE) 10 mg tablet Take 10 mg by mouth once daily. alendronate (FOSAMAX) 70 mg tablet Take 70 mg by mouth one time a week. In AM with cup of water on empty stomach. Nothing else by mouth and stay upright for 30 min. 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 Please feel free to contact me if I can be of further assistance to you Nicole Madison MD {I spent 30 minutes in the visit, with more than 50% of the total erjn-qm-pazi time of the visit in counseling / coordination of care.[facility]02-15-2023 History of Present illness Narrative* Nicole Smith MD - 11/18/2022 2:17 PM EST Images from the original note were not included. Hepatology Clinic Edu Madison MD, FACG, FAASLD Hepatology [facility] Consult Requested By: Rosalie Moncada ([facility]) [address] [facility] [phone] for evaluation of liver enzymes.. Thank you Dr I will share my finding via In Basket HPI: 72 yo with chronic elevation of liver enzymes. started in 2020, was on statins these were stopped after >20 years Lft remained elevated she is asymptomatic ast.alt 33/66 alpho 150 In 2020: ast/alt 124/285 pror No liver biopsy dx with Grave's Dz in Fall 2021 started on metoprolol and Methimazole started these meds: 09/2022 and Oct 2022 respect an liver was normal no work up for liver disease weight fluctuates, was overweight until grave's occured GENERAL REVIEW OF SYSTEMS: GENERAL: No unexplained weight changes or fevers. HEENT: Negative for severe headaches, negative for changes in hearing or vision. NECK: Negative for lumps, masses or pain. RESPIRATORY: Negative for coughing, wheezing or significant dyspnea. CARDIOVASCULAR: Negative for chest pain or heart palpitations. GASTROINTESTINAL: Negative for rectal bleeding or black tarry stools. GENITOURINARY: Negative for dysuria or urinary incontinence. MUSCULOSKELETAL: Negative for unexplained joint pains, dislocations or fractures. NEUROLOGIC: Negative for unexplained weakness or vertigo. SKIN: Negative for new lesions or rashes. ENDOCRINE: Negative for cold or heat intolerance . Current Outpatient Medications on File Prior to Visit Medication Sig omeprazole (PRILOSEC) 20 mg capsule Take 20 mg by mouth once daily. metoprolol succinate ER (TOPROL XL) 25 mg 24 hr tablet Take 25 mg by mouth once daily. methIMAzole (TAPAZOLE) 10 mg tablet Take 10 mg by mouth once daily. alendronate (FOSAMAX) 70 mg tablet Take 70 mg by mouth one time a week. In AM with cup of water on empty stomach. Nothing else by mouth and stay upright for 30 min. No current facility-administered medications on file prior to visit. omeprazole (PRILOSEC) 20 mg capsule Take 20 mg by mouth once daily. metoprolol succinate ER (TOPROL XL) 25 mg 24 hr tablet Take 25 mg by mouth once daily. methIMAzole (TAPAZOLE) 10 mg tablet Take 10 mg by mouth once daily. alendronate (FOSAMAX) 70 mg tablet Take 70 mg by mouth one time a week. In AM with cup of water on empty stomach. Nothing else by mouth and stay upright for 30 min. 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 Please feel free to contact me if I can be of further assistance to you Nicole Madison MD {I spent 30 minutes in the visit, with more than 50% of the total ipdh-tz-pbzk time of the visit incounseling / coordination of care. documented in this encounterA[facility] System10-23-[facility]22 History general Narrative - Reported* Type Description Date Medical History Blood in stool Medical History Hyperlipemia Medical History Hyperthyroidism Surgical History Problem Title : Appe ndectomy, Problem Comment : [facility] 07/26/2022, Problem Status : Active, Surgical History Problem Title : Bridgett ract Extraction-Left, Problem Comment : [employer] 07/26/2022, Problem Status : Active, Surgical History Problem Title : Bridgett ract Extraction-Right, Problem Comment : [employer] 07/26/2022, Problem Status : Active, Surgical History Problem Title : past surgical history reviewed, Problem Description : past surgical history reviewed, Problem Comment : reviewed - no changes required, Problem Status : Active, Surgical History Problem Title : surg ical procedures, hx of, Problem Description : surgical procedures, hx of, Problem Comment : [facility] Appy Tonsillectomy Colonoscopy 2007, Problem Status : Active, Surgical History Problem Title : surg ical procedures, hx of, Problem Description : surgical procedures, hx of, Problem Comment : D&C Appy Tonsillectomy, Problem Status : Active, Surgical History Problem Title : Tons illectomy, Problem Comment : [employer] 07/26/2022, Problem Status : Active, [employer] Other Evaluation noteNo assessment information available [facility] Work Phone: evalusxani note* Diagnosis Abnormal liver enzymes- Primary Other nonspecific abnormal serum enzyme levels documented in this encounter [facility] note* Diagnosis 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 crisis or storm Thyroid nodule Nontoxic uninodular goiter documented in this encounter [facility] note* Diagnosis Thyrotoxicosis, unspecified without thyrotoxic crisis or storm documented in this encounter [facility]No [facility] [employer] [employer] Other Evaluation note* Diagnosis 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 crisis or storm Thyroid nodule Nontoxic uninodular goiter documented in this encounter [facility] general Narrative - Reported* Type Description Date Medical History Problem Title : comp liance with medical treatment, Problem Description : compliance with medical treatment, Problem Comment : Done, Problem Status : Active,, Medical History Problem Title : Depr ession Screening, Problem Description : Depression Screening, Problem Comment : Negative, Problem Status : Active,, Medical History Problem Title : Fall assessment-Total score, Problem Description : Fall assessment-Total score, Problem Comment : Complete Low Risk, Problem Status : Active,, Medical History Problem Title : Fall Risk Assessment: I am worried about falling, Problem Description : Fall Risk Assessment: I am worried about falling, Problem Comment : No, Problem Status : Active,, Medical History Problem Title : Fall Risk Assessment: Sometimes I feel unsteady when I am walking, Problem Description : Fall Risk Assessment: Sometimes I feel unsteady when I am walking, Problem Comment : No, Problem Status : Active,, Medical History Problem Title : fall s in the last twelve months, Problem Description : falls in the last twelve months, Problem Comment : No, Problem Status : Active,, Medical History Problem Title : Fall s: Risk Assessment - Patient screened for falls, fall risk, Problem Description : Falls: Risk Assessment - Patient screened for falls, fall risk, Problem Comment : Done, Problem Status : Active,, Medical History Problem Title : Nurys roesophageal Reflux Disease, Problem Comment : [employer] 07/26/2022, Problem Status : Active,, Medical History Problem Title : Inju ry sustained from fall(s)?, Problem Description : Injury sustained from fall(s)?, Problem Comment : No, Problem Status : Active,, Medical History Problem Title : no k nown problems, Problem Description : no known problems, Problem Comment : F, Problem Status : Active,, Medical History Problem Title : Numb er of previous fall in past year, Problem Description : Number of previous fall in past year, Problem Comment : 0, Problem Status : Active,, Medical History Problem Title : past medical history E&M, Problem Description : past medical history E&M, Problem Comment : Seasonal allergies Osteopenia Vit D Deficiency, Problem Status : Active,, Medical History Problem Title : past medical history reviewed, Problem Description : past medical history reviewed, Problem Comment : reviewed - no changes required, Problem Status : Active,, Medical History Problem Title : PHQ2 Questionairre Score, Problem Description : PHQ2 Questionairre Score, Problem Comment : 0, Problem Status : Active,, Medical History Problem Title : PHQ9 Question One score, Problem Description : PHQ9 Question One score, Problem Comment : 0, Problem Status : Active,, Medical History Problem Title : PHQ9 Question Two score, Problem Description : PHQ9 Question Two score, Problem Comment : 0, Problem Status : Active,, Medical History Problem Title : Plan for BMI Management Documented, Problem Description : Plan for BMI Management Documented, Problem Comment : documented follow-up plan, Problem Status : Active,, Medical History Problem Title : Problems Reconci led, Problem Status : Active,, Medical History Problem Title : very low density lipoproteins, Problem Description : very low density lipoproteins, Problem Comment : 17.4, Problem Status : Active,, Surgical History Problem Title : [facility]dectomy, [facility], Problem Status : Active, Surgical History Problem Title : Bridgett ract Extraction-Left, Problem Comment : [facility] 07/[facility], Problem Status : Active, Surgical History Problem Title : Bridgett ract Extraction-Right, Problem Comment : [facility] 07/[facility], Problem Status : Active, Surgical History Problem Title : past surgical history reviewed, Problem Description : past surgical history reviewed, Problem Comment : reviewed - no changes required, Problem Status : Active, Surgical History Problem Title : surg ical procedures, hx of, Problem Description : surgical procedures, hx of, Problem Comment : D&C Appy Tonsillectomy Colonoscopy 2006, Problem Status : Active, Surgical History Problem Title : surg ical procedures, hx of, Problem Description : surgical procedures, hx of, Problem Comment : D&C Appy Tonsillectomy, Problem Status : Active, Surgical History Problem Title : Tons illectomy, Problem Comment : [facility] 07/26/2022, Problem Status : Active, [employer] - Private Location [employer] Other [employer] for referral (narrative)* Diagnostic Procedure Only (Routine) - Pending Review Specialty Diagnoses / Procedures Referred By Nahomi stokes Referred To Contact US IMAGING Diagnoses Abnormal liver enzymes Procedures US ABD RT UPPER QUADRANT US ABDOMINAL REAL TIME W/IMAGE LIMITED Nicole Thomas MD [address] [facility] [address] [place] [id number] Us Imaging Referral ID Status Reason Start Date Expiration Date Visits Requested Visits Authorized [id number] Pending Review Auto-Generat ed Referral 11/18/2022 12/18/2023 1 1 [facility] for referral (narrative)* Diagnostic Procedure Only (Routine) - Pending Review Specialty Diagnoses / Procedures Referred By Nahomi stokes Referred To Contact US IMAGING Diagnoses Graves disease Thyroid nodule Procedures US THYROID/PARATHYROID US SOFT TISSUE HEAD & NECK REAL TIME IMGE Yessi Gruber MD [address] [place] [address] Us Imaging Referral ID Status Reason Start Date Expiration Date Visits Requested Visits Authorized [id number] Pending Review Auto-Generat ed Referral 01/20/2023 02/19/2024 [address] [facility] for referral (narrative)* Diagnostic Procedure Only (Routine) - Pending Review Specialty Diagnoses / Procedures Referred By Contac t Referred To Contact US IMAGING Diagnoses Graves disease Thyroid nodule Procedures US THYROID/PARATHYROID US SOFT TISSUE HEAD & NECK REAL TIME IMGE Yessi Gruber MD [address] [place] [address] [id number] Referral ID Status Reason Start Date Expiration Date Visits Requested Visits Authorized [id number] Pending Review Auto-Generat ed Referral 09/03/2023 10/02/2024 1 1 [facility] Summary Purpose Family History No Family History Records FoundNo Family History Records FoundNo Family History Records FoundNo Family History Records FoundNo Family History Records FoundNo Family History Records Found Advance Directives No Advanced Directives Records Found Advance Directive Response Recorded Date/ Time Advance Directives No August 1:33pm Advance Directive Response Recorded Date/ Time Advance Directives No August 2:33pm Chief Complaint and Reason for Visit Chief Complaint E05.90 R63.4 R25.1 R 00.2 E05.90 R63.4 R25.1 R00.2 Chief Complaint r74.8 Chief Complaint r74.8 E05.90;E05.00 Additional Source Comments INFORMATION SOURCE (unrecogn ized section and content) DATE CREATED AUTHOR 11/25/2021 [facility] DATE CREATED AUTHOR AUTHOR'S ORGANIZ ATION 03/18/2022 [facility] dical Specialist DATE CREATED AUTHOR AUTHOR'S ORGANIZ ATION 08/31/2022 [facility] DATE CREATED AUTHOR AUTHOR'S ORGANIZ ATION 11/22/2022 [facility] DATE CREATED AUTHOR AUTHOR'S ORGANIZ ATION 05/05/2023 [facility] DATE CREATED AUTHOR AUTHOR'S ORGANIZ ATION 10/17/2023 [facility] Care Teams (unrecognized sec tion and content) Team Status: Active Member Role Status Dates Rosalie Moncada MD Primary Care Provider Active Team Status: Inactive Member Role Status Dates Rosalie Moncada MD Primary Care Provider Active Nicole Madison MD Attending Provider Active Team Status: Inactive Member Role Status Dates Rosalie Moncada MD Primary Care Provider Active Yamila Ang MD Attending Provider Active Team Status: Inactive Member Role Status Dates Yamila Ang MD Attending Provider Active Rosalie Moncada MD Primary Care Provider Active Manager Of Clinical Relationship Specialty Start Date End Date Rosalie Moncada MD [address] [place] [facility] [address] Referring Family Medicine 10/12/22 Team Status: Inactive Member Role Status Dates Rosalie Moncada MD Primary Care Provider Active Yamila Ang MD Attending Provider Active Yessi Carson Referring Provider Active Manager Of Clinical Relationship Specialty Start Date End Date Rosalie Moncada MD [address] [place] [facility] [phone] PCP - General Family Medicine 11/19/22 Rosalie Moncada MD [address] [place] [facility] [address] Referring Family Medicine 10/12/22 Manager Of Clinical Relationship Specialty Start Date End Date Rosalie Moncada MD [address] [place] [facility] [address] PCP - General Family Medicine 11/19/22 Rosalie Moncada MD [address] [place] [facility] [address] Referring Family Medicine 10/12/22 Manager Of Clinical Relationship Specialty Start Date End Date Rosalie Moncada MD [address] [place] [facility] [address] PCP - General Family Medicine 11/19/22 Rosalie Moncada MD [address] [place] [facility] [phone] Referring Family Medicine 10/12/22 Manager Of Clinical Relationship Specialty Start Date End Date Rosalie Moncada MD [address] [place] [phone] PCP - General Family Medicine 11/19/22 Rosalie Moncada MD [address] [place] [facility] [address] Referring Family Medicine 10/12/22 Manager Of Clinical Relationship Specialty Start Date End Date Rosalie Moncada MD [address] [place] [facility] [address] PCP - General Family Medicine 11/19/22 Rosalie Moncada MD [address] [place] [facility] [address] Referring Family Medicine 10/12/22 Manager Of Clinical Relationship Specialty Start Date End Date Rosalie Moncada MD [address] [place] [facility] [address] PCP - General Family Medicine 11/19/22 Rosalie Moncada MD [address] [place] [facility] [address] Referring Family Medicine 10/12/22 Manager Of Clinical Relationship Specialty Start Date End Date Rosalie Moncada MD [address] [place] [facility] [address] PCP - General Family Medicine 11/19/22 Rosalie Moncada MD [address] [place] [address] Referring Family Medicine 10/12/22 Goals (unrecognized section and content) Goals may be documented in a n alternate sectionGoals may be documented in an alternate sectionGoals may be documented in an alternate sectionNo InformationNo InformationNo Information Source Comments (unrecognize d section and content) In the event this informatio n is protected by the Federal Confidentiality of Alcohol and Drug Abuse Patient Records regulations: The Federal rules restrict any use of the information to criminally investigate or prosecute any alcohol or drug abuse patient.[facility] System[facility] the event this information is protected by the Federal Confidentiality of Alcohol and Drug Abuse Patient Records regulations: The Federal rules restrict any use of the information to criminally investigate or prosecute any alcohol or drug abuse patient.[facility] SystemIn the event this information is protected by the Federal Confidentiality of Alcohol and Drug Abuse Patient Records regulations: The Federal rules restrict any use of the information to criminally investigate or prosecute any alcohol or drug abuse patient.[facility] SystemIn the event this information is protected by the Federal Confidentiality of Alcohol and Drug Abuse Patient Records regulations: The Federal rules restrict any use of the information to criminally investigate or prosecute any alcohol or drug abuse patient.[facility] SystemIn the event this information is protected by the Federal Confidentiality of Alcohol and Drug Abuse Patient Records regulations: The Federal rules restrict any use of the information to criminally investigate or prosecute any alcohol or drug abuse patient.[facility] SystemIn the event this information is protected by the Federal Confidentiality of Alcohol and Drug Abuse Patient Records regulations: The Federal rules restrict any use of the information to criminally investigate or prosecute any alcohol or drug abuse patient.[facility] System[facility] the event this information is protected by the Federal Confidentiality of Alcohol and Drug Abuse Patient Records regulations: The Federal rules restrict any use of the information to criminally investigate or prosecute any alcohol or drug abuse patient.[facility] SystemIn the event this information is protected by the Federal Confidentiality of Alcohol and Drug Abuse Patient Records regulations: The Federal rules restrict any use of the information to criminally investigate or prosecute any alcohol or drug abuse patient.[facility] Reason for Visit (unrecogniz ed section and content) Reason Comments New Patient Elevated liver enzym es Reason Comments Consult Reason Comments Refill Request Reason Comments Results Reason Comments Follow Up FOR RECORDS PERTAINING TO PATIENTS WHO ARE OR HAVE BEEN ENROLLED IN A CHEMICAL DEPENDENCY/SUBSTANCEABUSE PROGRAM, SOME INFORMATION MAY BE OMITTED. This clinical summary was aggregated from multiple sources. Caution should be exercised in using it in the provision of clinical care. This summary normalizes information from multiple sources, and as a consequence, information in this document may materially change the coding, format and clinical context of patient data. In addition, data may be omitted in some cases. CLINICAL DECISIONS SHOULD BE BASED ON THE PRIMARY CLINICAL RECORDS. [facility]. provides no warranty or guarantee of the accuracy or completeness of information in this document.
[2023-11-05 07:41] LABS: Alanine Aminotransferase 23 U/L (14-59); Albumin Globulin Ratio 0.9; Albumin Level 3.6 g/dL (3.4-5.0); Alkaline Phosphatase 93 U/L (46-116); Anion Gap 13.3; Aspartate Amino Transferase 16 U/L (15-37); BUN Creatinine Ratio 14.5; Bilirubin Total 0.5 mg/dL (0.2-1.0); Calcium 8.9 mg/dL (8.5-10.1); Carbon Dioxide 28.8 mmol/L (21.0-32.0); Chloride 105 mmol/L (98-107); Chol HDL Ratio 2.7; Cholesterol 159 mg/dL (<=200); Estimated GFR (African America >60 (>=60); Estimated GFR (Non-African Ame >60 (>=60); Globulin 3.8 g/dL; Glucose 99 mg/dL (74-106); HDL Cholesterol 58 mg/dL (40-60); LDL Cholesterol Calculated 90.4 mg/dL; Potassium 4.1 mmol/L (3.5-5.1); Sodium 143 mmol/L (136-145); Total Protein 7.4 g/dL (6.4-8.2); Triglycerides 53 mg/dL (<=150); VLDL CHOLESTEROL 10.6 mg/dL
== END 2023-11-05 07:06 | disposition home or self-care (01) ==
LOC: LAB 07:06
PROVIDERS: PCP Family Medicine; Visit Provider Family Medicine
DX: E78.5 Hyperlipidemia, unspecified (principal)
CPT/HCPCS: 36415; 80053; 80061

== ENCOUNTER 2024-08-30 06:41 | Outpatient (OUT) | payer MEDICARE, OTHER, SELFPAY ==
--- NOTE | 2024-08-30 | MM_ITS ---
Patient Name: KILO MANTILLA MR#: [id number] : 1950 Exam Date: 08/30/2024 Ordering Doctor: DR Sulma Mcneil M.D. RADIOLOGY REPORT PROCEDURE: MM TOMOSYNTHESIS SCREENING BI COMPARISON: MM TOMOSYNTHESIS SCREENING BI, 08/18/2023. MG MAMM SCREEN 3D MANJU CAD, 08/14/2022. MG MAMM SCREEN 3D MANJU CAD, 07/25/2021. MG MAMM MANJU SCRN W CAD DIG, 03/08/2014. INDICATIONS: Screening for malignant neoplasm Calculator Name [facility] Breast Cancer Risk Assessment Tool 5 Year Breast Cancer Risk 2.90% Lifetime Breast Cancer Risk 6.60% Personal Breast Cancer No Personal Ovarian Cancer No Treatments None Family Cancers Aunt-maternal with uterine cancer at age ~70. LOCATION: [facility] BREAST COMPOSITION: The breasts are heterogeneously dense,which may obscure small masses. FINDINGS: DIAGNOSTIC CATEGORY 2--BENIGN FINDING: RIGHT BREAST: No significant suspicious finding. Scattered benign-appearing calcifications are present. No significant change has occurred. LEFT BREAST: No significant suspicious finding. Stable biopsy marker clip posterior upper-outer quadrant. No significant change has occurred. RECOMMENDATIONS: ROUTINE MAMMOGRAM AND CLINICAL EVALUATION IN 12 MONTHS. PLEASE NOTE: A NORMAL MAMMOGRAM DOES NOT EXCLUDE THE POSSIBILITY OF BREAST CANCER. A CLINICALLY SUSPICIOUS PALPABLE LUMP SHOULD BE BIOPSIED. Dictated by: Raul Navarro M.D. on 08/30/2024 at 10:44 Approved by: Raul Navarro M.D. on 08/30/2024 at 10:47
--- OUTSIDE RECORDS SUMMARY | 2024-08-30 06:46 | XMS_ITS | CCD ---
Author Organization [facility] Care Team Providers Care Academic Administrator Name Role Phone MD ROSALIE MONCADA Consulting MD ROSALIE Grant Primary Care CELENA Cameron Attending Unavaila ble SAV, YAMILA Admitting Unavailable SAV, YAMILA Attending Unavailable ANTWAN, DR ROSALIE Salguero Primary Care Unavailable SAV, YAMILA Consulting Unavailable ANTWAN, DR ROSALIE Salguero Admitting Unavailable MONCADA, DR ROSALIE Salguero Attending Unavailable ANTWAN, DR ROSALIE Salguero Primary Care Unavailable MONCADA, DR ROSALIE Salguero Consulting Unavailable MONCADA, DR ROSALIE Salguero Admitting Unavailable MONCADA, DR ROSALIE Salguero Attending Unavailable MONCADA, DR ROSALIE Salguero Primary Care Unavailable MONCADA, DR ROSALIE Salguero Consulting Unavailable MONCADA, DR ROSALIE Salguero Admitting Unavailable MONCADA, DR ROSALIE Salguero Attending Unavailable MONCADA, DR ROSALIE Salguero Primary Care Unavailable MURFREESBORO, DR TANG Lane Consulting Unavailable MARJORIE, DR LINDSEY Mejia Consulting Unavailable ANTWAN, DR ROSALIE Salguero Consulting Unavailable MD Yamila Ang Attending Provider [phone] MD Rosalie Moncada Primary Care Provider Rosalie Moncada MD Unavailable [phone] MD Rosalie Moncada Primary Care Provider MD Nicole Madison Attending Provider MD Rosalie Moncada Primary Care Provider MD Nicole Madison Attending Provider [phone] MD Yamila Ang Attending Provider [phone] Yessi Carson Referring Provider Rosalie Moncada MD Primary Care Provider Moncada, Rosalie Unavailable Moncada, Rosalie E Primary Care Unavailable Serhal, Yessi Attending Unavailable Serhal, Yessi Admitting Unavailable Serhal, Yessi Attending Unavailable Serhal, Yessi Admitting Unavailable Moncada, Rosalie E Primary Care Unavailable Moncada Rosalie COLLINS Primary Care Provider [phone] ANTHONY MARKS M Referring Unavailable MONCADA, ROSALIE E Primary Care Unavailable SERHAL, YESSI Attending Unavailable MONCADA, ROSALIE E Primary Care Unavailable SERHAL, YESSI Referring Unavailable MONCADA, ROSALIE E Primary Care Unavailable ANTHONY MARKS M Attending Unavailable SERHAL, YESSI Referring Unavailable MONCADA, ROSALIE E Primary Care Unavailable WAKIM SMITH, NICOLE Referring Unavailabl e MONCADA, ROSALIE E Primary Care Unavailable WAKIM SMITH, NICOLE Attending Unavailabl e MONCADA, ROSALIE E Primary Care Unavailable SERHAL, [...] Unavailable MONCADA, ROSALIE E Primary Care Unavailable TANG CESAR Admitting Unavailable TANG CESAR Attending Unavailable MONCADA, ROSALIE E Primary Care Unavailable Allergies Allergy Classification Reported Allergen(s) Allergy Type Date of Onset Reaction(s) Facility (1 source) No Known Medication Allergies; Translations: [No Known Medication Allergies] Propensity to adverse reactions to drug (disorder) [facility] Repository (7 sources) Codeine Drug Allergy 3 Unknown BuddyBounce Other (2 sources) patient allergy list reviewed by nurse or physicia Propensity to adverse reactions 6 Comment:Done BuddyBounce Other (2 sources) Allergies Reconciled Propensity to adverse reactions 1 Unknown [facility]dy[employer]ounce Other (1 source) Codeine Drug Allergy Unknown BuddyBounce Other (1 source) Codeine Drug Allergy 3 [facility] Repository Medications Current Medications Medication Drug Class(es) Dates Sig (Normalized) Sig (Original) alendronic acid 70 mg oral tablet (20 sources) Bisphosphonate Start: 08-01-2024 take 1 tablet by mouth every week Alendronate Active MG PO August 01, 2024 12:00am FreeTextSig: TAKE 1 TABLET BY MOUTH ONE TIME PER WEEK; Note: Source Status: Taking; Refills: 2; Qty: 12 Tablet; Provider: Antwan Ozuna ( ) Comment on above: Take 70 mg by mouth one time a week. In AM with cup of water on empty stomach. Nothing else by mouth and stay upright for 30 min. methIMAzole 5 mg oral tablet (20 sources) Thyroid Hormone Synthesis Inhibitor Start: 08-01-2024 Methimazole Active 2.5 MG PO .wed,wed,wed. August 01, 2024 3:58pm FreeTextSi/2 once a day; Note: Source Status: Taking; Provider: Antwan Ozuna ( ) Start: 08-01-2024 End: 08-01-2024 Methimazole Discontinued 5 M G PO Daily August 01, 2024 12:00am August 01, 2024 3:59pm FreeTextSi/2 once a day; Note: Source Status: Taking; Provider: Antwan Ozuna ( ) Start: 02-26-2023 End: 08-18-2024 methIMAzole (TAPAZOLE) 5 mg tablet 1/2 tab Wednesday, Wed and Wednesday. 20 tablet 3 02/11/2024 08/18/2024 Discontinued Start: 10-04-2022 End: 01-20-2023 take 1 tablet [...] 1/2 tab ( 2.5 mg) da star. 1/ tab Wednesday, Wed and Wednesday. omeprazole 20 mg delayed release oral capsule (18 sources) Proton Pump Inhibitor Start: 12-28-2023 take 1 capsule by mouth once daily Omeprazole Active 0 .ROUTE .COMPLEX 90 December 28, 2023 9:24am TAKE 1 CAPSULE BY MOUTH EVERY DAY Start: 10-06-2022 End: 12-28-2023 take 1 capsule by mouth once daily omeprazole (PRILOSEC) 20 mg capsule Take 20 mg by mouth once daily. 10/06/2022 Active Comment on above: Take 20 mg by mouth once daily. rosuvastatin calcium 10 mg oral tablet (17 sources) HMG-CoA Reductase Inhibitor Start: take 10 mg by mouth every other day Rosuvastatin Active 10 MG PO .QOD August 01, 2024 3:59pm Start: 01-28-2024 End: 08-01-2024 take 1 tablet by mouth once daily Rosuvastatin Discontinued 0 .ROUTE .COMPLEX July 24, 2024 4:57pm August 01, 2024 3:59pm TAKE 1 TABLET BY MOUTH EVERY DAY FOR 90 DAYS Start: 09-03-2023 End: 01-28-2024 take 1 tablet by mouth once daily at bedtime rosuvastatin (CRESTOR) 10 mg tablet Take 1 tablet by mouth daily at bedtime. 09/03/2023 Active Comment on above: Take 1 tablet by jamison th daily at bedtime. Completed/Discontinued Medications Medication Drug Class(es) Dates Sig (Normalized) Sig (Original) metoprolol tartrate 25 mg oral tablet (10 sources) beta-Adrenergic Naatlie Start: 08-01-2024 End: 08-01-2024 take 1 tablet by mouth once daily Metoprolol Tartrate Discontinued 25 MG PO Daily August 01, 2024 12:00am August 01, 2024 3:58pm FreeTextSi tablet once a day; Note: Source Status: Taking; Provider: Antwan Ozuna ( ) Start: 09-21-2022 End: 09-03-2023 take 1 tablet by mouth once daily metoprolol succinate ER (TOPROL XL) 25 mg 24 hr tablet Indications: Thyrotoxicosis, unspecified without thyrotoxic crisis or storm TAKE 1 TABLET BY MOUTH EVERY DAY 90 tablet 1 03/05/2023 09/03/2023 Discontinued (Discontinued by another Health Care Provider) Comment on above: Take 25 mg by mouth once daily. TAKE 1 TABLET BY JAMISON TH EVERY DAY Problems Active Problems Problem Classification Problem Date Documented Da te Episodic/Chronic Cardiac dysrhythmias (1 source) Palpitations; Translations: [PALPITATIONS] Onset: 2 Episodic Disorders of lipid metabolism (14 sources) Hyperlipidemia, unspecified; Translations: [Hyperlipidemia] Onset: 5 Chronic Esophageal disorders (2 sources) Esophageal reflux finding; Translations: [Esophageal reflux] Onset: 5 Chronic Essential hypertension (14 sources) Hypertensive disorder; Translations: [Essential (primary) hypertension] Onset: 3 02-26-2023 Chronic Gastrointestinal hemorrhage (4 sources) Hematochezia; Translations: [Melena] Episodic Nutritional deficiencies (8 sources) Vitamin D deficiency, unspecified; Translations: [Vitamin D deficiency] Onset: 2 05-12-2024 Chronic Osteoporosis (20 sources) Age-related osteoporosis without current pathological fracture; [...] levels of other serum enzymes] Episodic Other liver diseases (1 source) Alkaline phosphatase level - finding; Translations: [Abnormal levels of other serum enzymes] 03-09-2024 Episodic Other nervous system disorders (1 source) Tremor, unspecified; Translations: [TREMOR UNSPECIFIED] Onset: 2 Episodic Other nutritional; endocrine; and metabolic disorders (5 sources) Abnormal weight loss; Translations: [ABNORMAL WEIGHT LOSS] Onset: 2 Episodic Other nutritional; endocrine; and metabolic disorders (2 sources) Abnormal weight loss; Translations: [Abnormal weight loss] Episodic Other screening for suspected conditions (not mental disorders or infectious disease) (8 sources) Encounter for screening mammogram for malignant neoplasm of breast; Translations: [Patient encounter status] Onset: 2 Episodic Residual codes; unclassified (1 [...] storm; Translations: [Graves' disease] Onset: 2 Chronic Past or Other Problems Problem Classification Problem Date Documented Da te Episodic/Chronic Other liver diseases (1 source) Abnormal levels of other serum enzymes; Translations: [...] Test Name Value Interpretation Reference Range Facility 25(OH)D3 [facility] 2023 25-hydroxyvitamin D3 [Mass/Vol] 37.2 ng/mL Normal 31.0-80.0 [facility] Comment on above: Order Comment: Speci men Type: BLOOD SPECIMEN Ordering Facility: [facility] Address: [address] [place] [address] Performed By: #### 2 4325-3 #### [facility] CLIA [id number] [address] [place] [address] Calcium Lorrainel-mCncon 024 Calcium [Mass/Vol] 9.1 mg/dL Normal 8.5-10.2 [facility] Comment on above: Order Comment: Speci men Type: BLOOD SPECIMENOrdering Facility: [facility] Address: [address] [place] [address] Performed By: #### 1 7861-6 ####[facility] [id number] [place] [address] PTH-Intact SerPl-mCncon - Parathyrin.intact [Mass/Vol] 52 pg/mL Normal 15-65 [facility] Comment on above: Order Comment: Speci men Type: BLOOD SPECIMENOrdering Facility: [facility] Address: [address] [place] [address] Performed By: #### 2 731-8, 3051-0, 3016-3, 3024-7 ####[facility] [id number] [place] [address] [place] T3Free SerPl-mCncon 08-11-20 24 Free T3 [Mass/Vol] 3.0 pg/mL Normal 2.3-4.1 [facility] Comment on above: Order Comment: Speci men Type: BLOOD SPECIMENOrdering Facility: [facility] Address: [address] [place] [address] Performed By: #### 2 731-8, 3051-0, 3016-3, 3024-7 ####[facility] [id number] [place] [address] [place] T4 Free SerPl-mCncon 024 Free T4 [Mass/Vol] 1.0 ng/dL Normal 0.9-1.7 [facility] Comment on above: Order Comment: Speci men Type: BLOOD SPECIMENOrdering Facility: [facility] Address: [address] [place] [address] Performed By: #### 2 731-8, 3051-0, 3016-3, 3024-7 ####[facility] [id number] [place] [address] [place] THYROID STIMULATING IMMUNOGL OBULIN BLOODon 08-11-2024 Thyroid stimulating immunoglobulins actual/normal (S) [Relative mass conc] 0.45 IU/L Normal <0.55 [facility] Comment on above: Order Comment: Speci men Type: BLOOD SPECIMEN Ordering Facility: [facility] Address: [address] [place] [address] Result Comment: Thyr oid Stimulating Immunoglobulin test is used as an aid in diagnosis of autoimmune hyperthyroidism especially in patients with Grave's orbitopathy and dermopathy. Low positive TSH receptor stimulating antibody levels may occasionally be found in patients with autoimmune hypothyroidism. Clinical correlation is required. Performed By: #### 2 4325-3 #### [facility] CLIA [id number] [address] [place] [address] TSI QUALITATIVE Negative Normal Negative [facility] Comment on above: Order Comment: Speci men Type: BLOOD SPECIMEN Ordering Facility: [facility] Address: [address] [place] [address] Performed By: #### 2 4325-3 #### [facility] CLIA [id number] [address] [place] [address] TSH SerPl-aCncon 08-11-2024 TSH Qn 1.350 m[IU]/L Normal 0.270-4.200 [facility] Comment on above: Order Comment: Speci men Type: BLOOD SPECIMENOrdering Facility: [facility] Address: [address] [place] [address] Performed By: #### 2 731-8, 3051-0, 3016-3, 3024-7 ####[facility]IA [id number] [place] [address] [place] CYTOLOGY NON-GYNon 4 CASE REPORT Normal [facility] Comment on above: Order Comment: Speci men Type: SPECIMEN OBTAINED BY ASPIRATIONOrdering Facility: [facility] Address: [address] [place] [address] Result Comment: [facility] Cytology Report Case: [id number] Authorizing Provider: Tang Cesar MD Collected: 06/07/2024 02:29 PM Ordering Location: [place] [address] Received: 06/07/2024 06:09 PM Pathologist: Vance Pink MD, PhD Specimen: Thyroid, Left, Lobe, Left lower pole thryoid nodule Performed By: #### C YTONON ####[facility]IA [id number] [address] STATES OF [facility] CLINICAL HISTORY Normal [facility] Comment on above: Order Comment: Speci men Type: SPECIMEN OBTAINED BY ASPIRATIONOrdering Facility: [facility] Address: [address] [place] [address] Result Comment: Pre- op diagnosis: Graves disease [E05.00] Thyroid nodule [E04.1] Left lower pole thyroid nodule, previous FNA be Dr. Marks was not diagnostic. Afirma requested. Performed By: #### C YTONON ####[facility] [id number] [address] FINAL DIAGNOSIS Normal [facility] Comment on above: Order Comment: Speci men Type: SPECIMEN OBTAINED BY ASPIRATIONOrdering Facility: [facility] Address: [address] [place] [address] Result Comment: A - Thyroid, Left, Lobe, Aspirate/Fine Needle Aspirate - Left lower pole thryoid nodule Benign. Limited cellularity. The following cell blocks were associated with this case: A1\X09\Cell Block, Alcohol Fixed\X09\ Performed By: #### C YTONON ####[facility]CLIA [id number] [address] OF [facility] FINAL PERFORMING LAB Normal [facility] Comment on above: Order Comment: Speci men Type: SPECIMEN OBTAINED BY ASPIRATIONOrdering Facility: [facility] Address: [address] [place] [address] Result Comment: Tech nical component, duplex trimmer screening performed at [facility], [address] [place] [address] CLIA# [id number] Diagnostic interpretation performed at [facility], [address] [place] [address] CLIA# [id number] Director Sterile Processing: Ren Dial M.D. Performed By: #### C YTONON ####[facility] LABIA [id number] [place] [address] [place] GROSS DESCRIPTION Normal [facility] Comment on above: Order Comment: Speci men Type: SPECIMEN OBTAINED BY ASPIRATIONOrdering Facility: [facility] Address: [address] [place] [address] Result Comment: A. T hyroid, Left, Lobe 30 cc clear pink CytoLyt with material. ThinPrep and Cell Block prepared and 8 smears. Afirma sample received. Performed By: #### C YTONON ####[facility] [id number] [address] [place] ORDER COMMENT Normal [facility] Comment on above: Order Comment: Speci men Type: SPECIMEN OBTAINED BY ASPIRATIONOrdering Facility: [facility] Address: [address] [place] [address] Result Comment: Pre- op diagnosis: Graves disease [E05.00] Thyroid nodule [E04.1] Performed By: #### C YTONON ####[facility] LABIA [id number] [place] [address] [place] SPECIMEN ADEQUACY Limited cellularity. Normal [facility] Comment on above: Order Comment: Speci men Type: SPECIMEN OBTAINED BY ASPIRATIONOrdering Facility: [facility] Address: [address] [place] [address] Performed By: #### C YTONON ####[facility] LABIA [id number] [place] [address] [place] NURSING PROGon 06-07-2024 NURSING PROG HNO ID: [id number] Author: SHERI NELSON RN Service: ? Author Type: Registered Nurse Type: Nursing Progress Note Filed: 06/08/2024 08:05 Note Text: Completed post procedure phone call. Kilo is feeling well and has returned to her baseline diet and activity. Kilo denies questions or concerns related to her thyroid biopsy appointment on 06/07/24 and had no surgical site concerns. Normal [facility] PT EDon 06-07-2024 PT ED HNO ID: [id number] Author: ERIKA CRISOSTOMO, RAMESH Service: Radiology Author Type: Registered Nurse Type: Patient Education Filed: 06/07/2024 14:17 Note Text: AMBULATORY PATIENT EDUCATION TOPIC: Survival Skills: HEALTH PROMOTION: Complication prevention READINESS TO LEARN COGNITIVE ABILITY: Alert and oriented MOTIVATION TO LEARN: Eager FAMILY SUPPORT: Unable to assess - Family not present INSTRUCTION PROVIDED TO: Patient PATIENT LEARNS BEST BY: Individual Instruction FACTORS AFFECTING LEARNING: None PHYSICAL LIMITATIONS AFFECTING LEARNING: None LEARNING RESPONSE DIAGNOSIS: thyroid nodule METHOD OF INSTRUCTION: Individual instruction PATIENT / FAMILY RESPONSE: Verbalizes understanding of: POST-PROCEDURE INSTRUCTIONS-Correct actions to take to reduce post procedure complications FOLLOW-UP PLAN: Complete - No need for follow-up SUPPLEMENTAL MATERIAL: None REFERRAL (RECOMMENDATION): None Electronically Signed By: Erika Crisostomo RN In Department: [place] [address] Normal [facility] US BIOPSY THYROIDon 06-07-20 US BIOPSY THYROID * * *Final Report* * * DATE OF EXAM: Jun 07 2024 3:16PM [facility] - [place] BIOPSY THYROID / PROCEDURE REASON: multiple diagnoses * * * * Physician Interpretation * * * * PROCEDURE PERFORMED: ULTRASOUND GUIDED FINE NEEDLE ASPIRATION BIOPSY PRE-PROCEDURE DIAGNOSIS: Indeterminate inferior left thyroid lobe nodule. POST-PROCEDURE DIAGNOSIS: Same as pre-procedure diagnosis INDICATION FOR PROCEDURE: Indeterminate inferior left thyroid lobe nodule, previous FNA 03/2024 was nondiagnostic RELEVANT PRIOR STUDIES: US thyroid 01/26/2024 and 06/07/2024 STAFF RADIOLOGIST: Dr. Cesar PROCESS CONTROL SPECIALIST: Dr. Olea CONSENT: The risks, benefits, treatment options, potential complications and personnel involved were discussed with the patient. All questions were answered and consent was obtained. The patient indicated willingness to proceed. The staff physician personally verified consent. TIME OUT: A time out was performed immediately prior to procedure start with the nursing, anesthesia and interventional team, correctly identifying the patient name, date of , procedure, anatomy (including marking of site and side), patient position, procedure consent form, relevant diagnostic and radiology test results, antibiotic administration, safety precautions, and procedure-specific equipment needs. RESULT: PROCEDURE: After performing the time out, the inferior left thyroid lobe nodule was localized with ultrasound, images were obtained and archived. The anterior neck was prepped and draped in the usual sterile fashion. Under direct ultrasound guidance, 5 passes was/were made into the left thyroid nodule using a 25 gauge needle. The procedure was performed by the: Supervisor [employer], and the attending radiologist personally supervised the entire procedure The attending radiologist performed the following procedural activities: Personal supervision of the operator/assistant foreman throughout the entire procedure ANESTHESIA/SEDATION: Local anesthesia: Lidocaine (2%): 3 cc Vital signs: Monitored by the nurse START TIME/TIMEOUT TIME: 14:45/14:34 END TIME: 15:00 PATIENT MONITORING: The staff physician personally supervised and directed an independent trained observer who assisted in monitoring the patient?s level of consciousness and physiological status throughout the procedure. SIGNIFICANT COMPLICATIONS: None MINOR COMPLICATIONS: None SIGN-OUT DISCUSSION: Completed ESTIMATED BLOOD LOSS: Minimal SPECIMENS: 5 fine needle aspiration biopsy specimens were placed on slides and in cytolyte as well as afirma, evaluated by cytology team and determined to be adequate BIOPSY DEVICE: 25 gauge spinal needle IMPRESSION: Ultrasound guided inferior left thyroid nodule fine-needle aspiration biopsy, as described. Suction Worker: PSCB Transcribe Date/Time: Jun 07 2024 3:17P Dictated by : ANA OLEA MD This examination was interpreted and the report reviewed and electronically signed by: TANG CESAR MD on Jun 07 2024 4:40PM EST [id number] Normal [facility] US THYROID/PARATHYROIDon US THYROID/PARATHYROID * * *Final Report* * * DATE OF EXAM: Jun 07 2024 9:08AM [facility] 1048 - US THYROID/PARATHYROID / PROCEDURE REASON: Thyroid nodule * * * * Physician Interpretation * * * * EXAMINATION: THYROID ULTRASOUND CLINICAL HISTORY: Thyroid nodule TECHNIQUE: Sonography and Doppler imaging of the thyroid was performed. Images were obtained and stored in a permanent archive. MQ: UST_1 COMPARISON: Ultrasound 12/08/2023 RESULT: Right Lobe: 3.0 x 1.4 x 1.4 cm; homogeneous echogenicity, expected vascular flow. Left Lobe: 5.4 x 1.8 x 1.8 cm; homogeneous echogenicity, expected vascular flow. Isthmus: 0.2 cm The most suspicious thyroid nodule(s) (up to four) as below: NODULE 1: Location: Right mid Size: 0.9 x 0.8 x 0.6 cm, previously 1.1 x 0.8 x 0.7 cm Characteristics: Composition: Solid or almost completely solid, 2 points Echogenicity: Isoechoic, 1 point Shape: Fsmtj-wgfk-rccm, 0 points Margin: Ill-defined, 0 points Echogenic foci (add points for all that apply): None, 0 points Internal vascularity: absent Interval growth: Stable TI-RADS Category: TR3 ACR Recommendation: TI-RADS 3 nodule. No FNA or further imaging is advised. NODULE 2: Location: Left lower Size: 2.0 x 1.9 x 1.4 cm, previously 1.9 x 1.9 x 1.5 cm Characteristics: Composition: Solid or almost completely solid, 2 points Echogenicity: Hypoechoic, 2 points Shape: Iowvv-guci-cxtq, 0 points Margin: Smooth, 0 points Echogenic foci (add points for all that apply): None, 0 points Internal vascularity: present Interval growth: Stable TI-RADS Category: TR4 ACR Recommendation: TI-RADS 4 nodule. FNA is recommended. NODULE 3: Location: Left upper Size: 0.8 x 0.5 x 0.5 cm, previously 1.0 x 0.6 x 0.5 cm Characteristics: Composition: Mixed cystic and solid, 1 point Echogenicity: Hypoechoic, 2 points Shape: Ggqxg-hrmg-taew, 0 points Margin: Smooth, 0 points Echogenic foci (add points for all that apply): None, 0 points Internal vascularity: absent Interval growth: Stable TI-RADS Category: TR3 ACR Recommendation: TI-RADS 3 nodule. No FNA or further imaging is advised. NODULE 4: Location: Left lower Size: 0.9 x 0.7 x 0.5 cm, previously 0.7 x 0.4 cm Characteristics: Composition: Solid or almost completely solid, 2 points Echogenicity: Isoechoic, 1 point Shape: Nzmtd-qnzs-avyd, 0 points Margin: Smooth, 0 points Echogenic foci (add points for all that apply): None, 0 points Internal vascularity: present Interval growth: Stable TI-RADS Category: TR3 ACR Recommendation: TI-RADS 3 nodule. No FNA or further imaging is advised. IMPRESSION: Thyroid nodules are again seen, unchanged from prior study TI-RADS Category: TR4 ACR Recommendation: TI-RADS 4 nodule. FNA is recommended. ACR recommendations are strictly based on the size and imaging appearance at the time of the exam and do not consider stability or previous biopsy results. Suction Worker: PSCB Transcribe Date/Time: Jun 09 2024 10:17A Dictated by : GABINO MCDONALD MD This examination was interpreted and the report reviewed and electronically signed by: GABINO MCDONALD MD on Jun 09 2024 10:26AM EST [id number] [facility] NURSING PROGon 05-30-2024 NURSING PROG HNO ID: [id number] Author: SHERI WALDRON LPN Service: ? Author Type: LICENSED NURSE Type: Nursing Progress Note Filed: 05/30/2024 14:40 Note Text: Pre- e instructions: Contacted patient and confirmed appt. for biopsy scheduled on 06/07/24, at [facility]. Diet: Procedure to be done with local anesthetic, you may eat, drink and take medications as prescribed the day of this procedure. Medications: IF ok with your Prescribing Provider: RADIOLOGY RECOMMENDS THESE MEDICATION RESTRICTIONS : None Arrival: Please bring your Photo ID and Insurance Card. A general consent may need to be signed. Arrival at 12:30pm to desk QB[facility] ([facility]) and check in for your procedure. Steam Hoist Operator/Transportation: Steam Hoist Operator not necessary Written instructions provided to patient via [employer] If you have any questions please call [phone] [facility] Jose Manuel 05-19-2024 [facility] KILO CASTANON ([id number]) 1950 F Date Time Provider Department 05/19/24 YESSI CARSON [facility] During your visit today, we recorded the following information about you: Kimberly Reagan 05/19/2024 12:05 PM Signed RADIOLOGY CALL CENTER INTAKE BURNISHER: Qiana EXT: [id number] DATE: 05/19/24 TIME: 11:51am TRACKING #. [id number] REQUESTING PERSON: Kaylin PHONE/PAGER: [phone] REQUESTING STAFF: Yessi Carson PHONE/PAGER: [phone] SPECIFICS OF THE REQUEST: (Please be as detailed as possible. If request is lymph node biopsy, specify LOCATION of the node if possible): IMAGING GUIDED BIOPSY THYROID (For example: ?biopsy liver mass? or ?biopsy pelvic lymph node?) SPECIAL REQUESTS: TISSUE SAMPLE, LABWORK: Special Requests: Fine needle us guided biopsy -Fine needle aspiration (FNA), core biopsy, no preference, unsure, specific processing request for pathology (For example: ?send for ER, [place], HER2/gorge? or ?possible lymphoma send in RPMI solution?) IS THIS REQUEST PART OF A RESEARCH PROTOCOL: No IF YES: List specifics of request and name/contact number of research coordinator and primary physician. MEDICAL DIAGNOSIS: Graves disease [E05.00] Thyroid nodule [E04.1] (For example: ?history of breast cancer with liver mass? or ?history of lymphoma?) TYPE AND DATE OF THE EXAM THAT IS THE BASIS OF THE REQUEST: US Date: 03/09/24 (Note: Requests for random organ biopsies, specifically liver and kidney random biopsies do not need imaging. ALL OTHER CASES NEED IMAGING TO EVALUATE APPROPRIATENESS/FEASIB ILITY OF THE REQUEST) IMAGING: OUTSIDE [facility] Films: Where is study now: Imported to [facility] (If the imaging was obtained outside the [facility] system, then it needs to be submitted for review prior to approval.) Note to all persons requesting biopsies: All biopsy requests will be scheduled as quickly as possible, based on the clinical urgency, availability of appointment times, the need to hold anti-thrombolytic therapy (aspirin, blood thinners) and the patient?s schedule, including the need for an available services delivery driver. If a percutaneous biopsy or drainage is not felt to be safe or an alternative method for establishing a diagnosis is possible, this will be discussed directly with the requesting physician. Sherry Quiroz RN 05/19/2024 12:18 PM Signed BX. COORDINATOR INFORMATION LAB RESULTS: No results found for: INR No results found for: APTT No results found for: PLT Current Outpatient Medications Medication Sig methIMAzole (TAPAZOLE) 5 mg tablet 1/2 tab Wednesday, Wed and Wednesday. rosuvastatin (CRESTOR) 10 mg tablet Take 1 tablet by mouth daily at bedtime. omeprazole (PRILOSEC) 20 mg capsule Take 20 mg by mouth once daily. alendronate (FOSAMAX) 70 mg tablet Take 70 mg by mouth one time a week. In AM with cup of water on empty stomach. Nothing else by mouth and stay upright for 30 min. No current facility-administered medications for this visit. ALLERGIES No Known Allergies GUIDELINES FOR HOLDING ANTI-PLATELET AND ANTI- COAGULATION THERAPY: None on file. NURSE SIGNATURE: Sherry Quiroz RN DATE: May 19, 2024 TIME: 12:17 PM Akin Parsons MD 05/24/2024 2:51 PM Addendum 8.16 and 8.19 and 8.21 - Attempted to contact Dr. Carson for further discussion. Waiting for call back, Akin Parsons MD 05/25/2024 2:46 PM Signed RADIOLOGIST REQUEST / APPROVAL FORM STAFF RADIOLOGIST:Akin Parsons MD PROCEDURE TO BE DONE UNDER: US (Please also schedule routine thyroid US to be done earlier the same day few hours prior to thyroid bx) PROCEDURE REQUESTED: FNA Requested PROCEDURE: Approved TIME SLOT NEEDED: 1 Hour NOTES: Spoke with Ammy Carson and Jud request biopsy of left lower lobe nodule (previous bx by Dr. Marks non-dx) patient to have routine US prior to bx (outside images are inadequate) SPECIAL LABS/ PROCESSING: routine plus afirma Pre-procedure labs: CBC: not needed INR: not needed COVID: not needed SIR Bleeding risk category for this procedure: low risk. Reference from [facility] Food Counter Worker: [email or web address]://ccf.policyGreen [email or web address] Produ[employer] .com/dotNet/documents/ ?psqji=36010 STAFF SIGNATURE: Akin Parsons MD DATE: May 25, 2024 TIME: 2:40 PM . Webster, Nancie 05/26/2024 8:45 AM Signed Called pt to schedule and a message was left. 1st attempt Darin Nancie 05/26/2024 9:36 AM Signed Spoke to pt and scheduled biopsy for 06/07/24. Allergies As of Date: 05/19/2024 (No Known Allergies) Date Reviewed: 03/29/2024 Reviewed by: Zee Kc MA - Fully Assessed Reason for Visit: Biopsy Request [1576] Primary Visit Diagnosis:Thyroid nodule [E04.1] Order(s):US THYROID/PARATHYROID [[id number]] Order #: [id number] FUTURE Prescriptions as of 05/26/2024 - methIMAzole (TAPAZOLE) 5 mg tablet 1/2 tab Wednesday, Wed and Wednesday. - rosuvastatin (CRESTOR) 10 mg tablet Take 1 tablet by mo (more content not included)... Normal [facility] T3Free SerPl-mCncon 04-21-20 Free T3 [Mass/Vol] 2.9 pg/mL Normal 2.3-4.1 [facility] Comment on above: Order Comment: Speci men Type: BLOOD SPECIMEN Ordering Facility: [facility] Address: [address] [place] [address] Performed By: #### 2 4325-3 #### [facility] CLIA [id number] [address] [place] [address] T4 Free SerPl-mCncon 024 Free T4 [Mass/Vol] 1.0 ng/dL Normal 0.9-1.7 [facility] Comment on above: Order Comment: Speci men Type: BLOOD SPECIMEN Ordering Facility: [facility] Address: [address] [place] [address] Performed By: #### 2 4325-3 #### [facility] CLIA [id number] [address] [place] [address] TSH SerPl-aCncon 04-21-2024 TSH Qn 1.650 m[IU]/L Normal 0.270-4.200 [facility] Comment on above: Order Comment: Speci men Type: BLOOD SPECIMEN Ordering Facility: [facility] Address: [address] [place] [address] Performed By: #### 2 4325-3 #### [facility] CLIA [id number] [address] [place] [address] CNOVon 03-29-2024 CNOV Office Visit (ENDOLN ) KILO CASTANON ([id number]) 1950 F Date Time Provider Department 03/29/24 11:20 AM ANTHONY MARKS ENDOLN During your visit today, we recorded the following information about you: Pulse Blood pressure 63/minute 132/73 Zee Kc MA 03/29/2024 12:28 PM Signed UNIVERSAL PROTOCOL / SAFETY CHECKLIST Procedure to be Performed: Fine needle aspiration of the Left thyroid nodule. Sign In: A Moment of CARE was completed. Personnel directly involved with the procedure wore the appropriate PPE (Personal Protective Equipment). Patient/Surrogate Stated/Verified: PATIENT VERIFIED(optional for EMERGENT procedures): Patient name, Date of , Relevant allergies, and The intended procedure Time Out Communication: Intended patient and procedure match the source documents. Consent documented and matches the intended procedure. Relevant labs, photos, and/or imaging studies have been reviewed. Correct side/site marked and visible. No medications required for procedure. Fire risk assessed and interventions discussed. No implant(s) inserted. Sign Out: SIGN OUT (optional for EMERGENT procedures): All specimen containers correctly labeled. All instruments, equipment, possible retained foreign bodies accounted for. Post-procedure follow-up management communicated and Plan of Care Visit completed when applicable. 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 Patient on anti-platelet or anticoagulant drugs: No The risks, benefits and anticipated outcomes of the procedure, the risks and benefits of the alternatives to the procedure, and the roles and tasks of the personnel to be involved, were discussed with the patient. UNIVERSAL PROTOCOL / SAFETY CHECKLIST Procedure to be Performed: FNA of left lobe thyroid nodule Sign In: A Moment of CARE was completed. Personnel directly involved with the procedure wore the appropriate PPE (Personal Protective Equipment). Patient/Surrogate Stated/Verified: PATIENT VERIFIED(optional for EMERGENT procedures): Patient name, Date of , Relevant allergies, and The intended procedure Time Out Communication: Intended patient and procedure match the source documents. Consent documented and matches the intended procedure. Relevant labs, photos, and/or imaging studies have been reviewed. Sign Out: SIGN OUT (optional for EMERGENT procedures): All specimen containers correctly labeled. Anthony Marks MD, PhD She was positionned in decubitus with the neck in extension. FNA of left lobe thyroid nodule: I used Ice pack to numb the skin overlying the area of the nodule. The skin was prepped in the usual aseptic manner. I performed 3 passes through target nodule using G-25 needles under sonographic guidance. Character of the aspirate: A small drop of blood Afirma sample sent: Yes The patient tolerated the procedure. Complications: No She was told to go the emergency room if there is severe pain or swelling in the neck area. She will be notified of the result by telephone. Follow up:With Dr. Dagoberto Marks MD, PhD Referring Provider: YESSI CARSON [[id number]] Allergies As of Date: 03/29/2024 (No Known Allergies) Date Reviewed: 03/29/2024 Reviewed by: Zee Kc MA - Fully Assessed Reason for Visit: Thyroid Problem [110] Primary Visit Diagnosis:Thyroid nodule [E04.1] Order(s):US THYROID FNA (POC) ENDO USE ONLY [[id number]] Order #: [id number]. #:[id number]: 1 CYTOLOGY NON-ASSISTANT WOMEN'S ROWING COACH [GNI3932] Order #: [id number]. #:[id number] Prescriptions as of 03/29/2024 - methIMAzole (TAPAZOLE) 5 mg tablet 1/2 tab Wednesday, Wed and Wednesday. - rosuvastatin (CRESTOR) 10 mg tablet Take 1 tablet by mouth daily at bedtime. - omeprazole (PRILOSEC) 20 mg capsule Take 20 mg by mouth once daily. - alendronate (FOSAMAX) 70 mg tablet Take 70 mg by mouth one time a week. In AM with cup of water on empty stomach. Nothing else by mouth and stay upright for 30 min. Problem List As Of Date 03/29/2024 Noted Resolved Graves disease [E05.00] 01/23/2023 Thyroid nodule [E04.1] 01/23/2023 Hypertension [I10] 02/26/2023 Osteoporosis [M81.0] 02/26/2023 Visit Notes: >> Zee Kc MA WedMar 29, 2024 11:49 AM Status: Signed UNIVERSAL PROTOCOL / SAFETY CHECKLIST Procedure to be Performed: Fine needle aspiration of the Left thyroid nodule. (more content not included)... Normal [facility] CYTOLOGY NON-GYNon CASE REPORT Normal [facility] Comment on above: Order Comment: Speci men Type: SPECIMEN OBTAINED BY ASPIRATIONOrdering Facility: [facility] Address: [address] [place] [address] Result Comment: [facility] Cytology Report Case: [id number] Authorizing Provider: Anhtony Marks MD, PhD Collected: 03/29/2024 12:24 PM Ordering Location: Endocrinology Received: 03/29/2024 04:23 PM Pathologist: Enriqueta Piña MD Specimen: Thyroid, Left, Lobe Performed By: #### C YTONOCesar ####[facility] [id number] [place] [address] [place] CLINICAL HISTORY thyroid nodule Normal [facility] Comment on above: Order Comment: Speci men Type: SPECIMEN OBTAINED BY ASPIRATIONOrdering Facility: [facility] Address: [address] [place] [address] Result Comment: Afirma sample received Performed By: #### C YTONON ####[facility] [id number] [address] STATES OF [facility] FINAL DIAGNOSIS Normal [facility] Comment on above: Order Comment: Speci men Type: SPECIMEN OBTAINED BY ASPIRATIONOrdering Facility: [facility] Address: [address] [place] [address] Result Comment: A - Thyroid, Left Lobe, Fine Needle Aspirate Non-diagnostic aspirate sample. Predominantly blood. Insufficient follicular cells present for evaluation. The following cell blocks were associated with this case: A1 Cell Block, Alcohol Fixed Performed By: #### C YTONON ####[facility] [id number] [address] STATES OF [facility] FINAL PERFORMING LAB Normal [facility] Comment on above: Order Comment: Speci men Type: SPECIMEN OBTAINED BY ASPIRATIONOrdering Facility: [facility] Address: [address] [place] [address] Result Comment: Tech nical component, duplex trimmer screening performed at [facility], [address] [place] [address] CLIA# [id number] Diagnostic interpretation performed at [facility], [address] [place], [place] [id number] CLIA# [id number] Director Sterile Processing: Ren Dial M.D. Performed By: #### C YTONON ####[facility] [id number] [place] [address] [place] GROSS DESCRIPTION Normal [facility] Comment on above: Order Comment: Speci men Type: SPECIMEN OBTAINED BY ASPIRATIONOrdering Facility: [facility] Address: [address] [place] [address] Result Comment: A. T hyroid, Left, Lobe 30 cc clear pink CytoLyt with scant particles. ThinPrep and Cell Block prepared and 2 smears. Afirma sample received Performed By: #### C YTONON ####[facility]IA [id number] [place] [address] [place] US THYROID FNA (POC) ENDO US E ONLYon 03-29-2024 [facility] ALKALINE PHOSPHATASE ISOENZY MES (P)on 03-15-2024 ALK PHOS BONE % 49.7 % Normal 10.7-68.3 [facility] Comment on above: Order Comment: Speci men Type: BLOOD SPECIMENOrdering Facility: [facility] Address: [address] [place] [address] Performed By: #### A LKISOP ####[facility]IA [id number] [place] [address] [place] ALK PHOS LIVER % 50.3 % Normal 26.0-86.2 [facility] Comment on above: Order Comment: Speci men Type: BLOOD SPECIMENOrdering Facility: [facility] Address: [address] [place] [address] Performed By: #### A LKISOP ####[facility]IA [id number] [place] [address] [place] BONE FRACTION 39.8 U/L Normal 12.9-52.6 [facility] Comment on above: Order Comment: Speci men Type: BLOOD SPECIMENOrdering Facility: [facility] Address: [address] [place] [address] Performed By: #### A LKISOP ####[facility]IA [id number] [place] [address] [place] INTESTINE FRACTION 0.0 U/L Normal 0.0-16.3 [facility] Comment on above: Order Comment: Speci men Type: BLOOD SPECIMENOrdering Facility: [facility] Address: [address] [place] [address] Performed By: #### A LKISOP ####[facility]IA [id number] [place] [address] [place] LIVER FRACTION 40.2 U/L Normal 16.0-69.3 [facility] Comment on above: Order Comment: Speci men Type: BLOOD SPECIMENOrdering Facility: [facility] Address: [address] [place] [address] Performed By: #### A LKISOP ####[facility]CLIA [id number] [place] [address] [place] Neutrophils/100 WBC (Bld) 0.0 % Normal 0.0-24.2 [facility] Comment on above: Order Comment: Speci men Type: BLOOD SPECIMENOrdering Facility: [facility] Address: [address] [place] [address] Performed By: #### A LKISOP ####[facility]CLIA [id number] [place] [address] [place] ALP SerPl-cCncon 03-15-2024 ALP [Catalytic activity/Vol] 80 U/L Normal 34-123 [facility] Comment on above: Order Comment: Speci men Type: BLOOD SPECIMENOrdering Facility: [facility] Address: [address] [place] [address] Performed By: #### 6 768-6, 2324-2 ####[facility]IA [id number] [place] [address] [place] GGT SerPl-cCncon 03-15-2024 Gamma glutamyl transferase [Catalytic activity/Vol] 9 U/L Normal 6-46 [facility] Comment on above: Order Comment: Speci men Type: BLOOD SPECIMENOrdering Facility: [facility] Address: [address] [place] [address] Performed By: #### 6 768-6, 2324-2 ####[facility]IA [id number] [place] [address] [place] Hepatic function 2000 panelo n 03-15-2024 Albumin [Mass/Vol] 4.5 g/dL Normal 3.9-4.9 [facility] Comment on above: Order Comment: Speci men Type: BLOOD SPECIMEN [facility] Address: [address] [place] [address] Performed By: #### 2 4325-3 #### [facility] CLIA [id number] [address] [place] [address] ALP [Catalytic activity/Vol] 85 U/L Normal 34-123 [facility] Comment on above: Order Comment: Speci men Type: BLOOD SPECIMEN Order[facility] Address: [address] [place] [address] Performed By: #### 2 4325-3 #### [facility] CLIA [id number] [address] [place] [address] ALT [Catalytic activity/Vol] 43 U/L High 7-38 [facility] Comment on above: Order Comment: Speci men Type: BLOOD SPECIMEN Ordering Facility[facility] Address: [address] [place] [address] Performed By: #### 2 4325-3 #### [facility] CLIA [id number] [address] [place] [address] AST [Catalytic activity/Vol] 27 U/L Normal 13-35 [facility] Comment on above: Order Comment: Speci men Type: BLOOD SPECIMEN Ordering Facility[facility] Address: [address] [place] [address] Performed By: #### 2 4325-3 #### [facility] CLIA [id number] [address] [place] [address] Bilirubin [Mass/Vol] 0.3 mg/dL Normal 0.2-1.3 [facility] Comment on above: Order Comment: Speci men Type: BLOOD SPECIMEN Order[facility] Address: [address] [place] [address] Performed By: #### 2 4325-3 #### [facility] CLIA [id number] [address] [place] [address] Bilirubin.conjugated [Mass/Vol] mg/dL Normal <0.2 [facility] Comment on above: Order Comment: Speci men Type: BLOOD SPECIMEN [facility] Address: [address] [place] [address] Performed By: #### 2 4325-3 #### [facility] CLIA [id number] [address] [place] [address] Protein [Mass/Vol] 7.6 g/dL Normal 6.3-8.0 [facility] Comment on above: Order Comment: Speci men Type: BLOOD SPECIMEN [facility] Address: [address] [place] [address] Performed By: #### 2 4325-3 #### [facility] CLIA [id number] [address] [place] [address] Mitochondria Ab IF Ql (S)on 03-15-2024 Mitochondria M2 Ab IA Qn (S) 2.9 Units Normal <=20.0 [facility] Comment on above: Order Comment: Speci men Type: BLOOD SPECIMENOrdering Facility: [facility] Address: [address] [place] [address] Performed By: #### 1 7284-1 ####[facility] [id number] [place] [address] [place] Mitochondria M2 Ab Ql (S) Negative Normal Negative [facility] Comment on above: Order Comment: Speci men Type: BLOOD SPECIMENOrdering Facility: [facility] Address: [address] [place] [address] Result Comment: Anti -mitochondrial antibody test is used as an aid in diagnosis of primary biliary cholangitis. Clinical correlation is required. Performed By: #### 1 7284-1 ####[facility]IA [id number] [place] [address] [place] CNOVon 03-09-2024 CNOV Office Visit (GASTA5 ) KILO CASTANON ([id number]) 1950 F Date Time Provider Department 03/09/24 10:00 AM NICOLE THOMAS GASTA5 During your visit today, we recorded the following information about you: Nicole Thomas MD 03/09/2024 11:23 AM Signed [facility] HPI: 73 yo with chronic elevation of liver enzymes. Here for fup. started in 2020, was on statins these were stopped after >20 years Lft remained elevated she is asymptomatic past note: ast.alt 33/66 alpho 150 In 2020: ast/alt 124/285 prior No liver biopsy dx with Darrell Morrow in Fall 2021 started on metoprolol and Methimazole started these meds: 09/2022 and Oct 2022 respect an US liver was normal weight fluctuates, was overweight until sohalynnettechristy jeffed has done liver us at [facility], it is unremarkable GENERAL REVIEW OF SYSTEMS: GENERAL: No unexplained [...] facility-administered medications on file prior to visit. methIMAzole (TAPAZOLE) 5 mg tablet 1/2 tab Wednesday, Wed and Wednesday. rosuvastatin (CRESTOR) 10 mg tablet Take 1 tablet by mouth daily at bedtime. omeprazole (PRILOSEC) 20 mg capsule Take 20 mg by mouth once daily. alendronate (FOSAMAX) 70 mg tablet Take 70 mg by mouth one time a week. In AM with cup of water on empty stomach. Nothing else by mouth and stay upright for 30 min. PHYSICAL EXAMINATION: There were no vitals taken for this visit. 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 Allergies As of Date: 03/09/2024 (No Known Allergies) Date Reviewed: 01/21/2024 Reviewed by: Yessi Carson MD - Fully Assessed Reason for Visit: Established Patient [175] Cmt: Follow up Primary Visit Diagnosis:Abnormal alkaline phosphatase test [R74.8] Order(s):HEPATIC FUNCTION PNL [SQHFP] Order #: [id number] FUTURE MITOCHONDRIAL M2 IGG SERUM [SQMITOS] Order #: [id number] FUTURE HEP A VACCINE, ADULT (HAVRIX, VAQTA) [76966RVS] Order #: [id number] ALK PHOS ISOENZYM BL [SQALKISO] Order #: [id number] FUTURE GGT [SQGGT] Order #: [id number] FUTURE Prescriptions as of 03/09/2024 - methIMAzole (TAPAZOLE) 5 mg tablet 1/2 tab Wednesday, Wed and Wednesday. - rosuvastatin (CRESTOR) 10 mg tablet Take 1 tablet by mouth daily at bedtime. - omeprazole (PRILOSEC) 20 mg capsule Take 20 mg by mouth once daily. - alendronate (FOSAMAX) 70 mg tablet Take 70 mg by mouth one time a week. In AM with cup of water on empty stomach. Nothing else by mouth and stay upright for 30 min. Problem List As Of Date 03/09/2024 Noted Resolved Graves disease [E05.00] 01/23/2023 Thyroid nodule [E04.1] 01/23/2023 Hypertension [I10] 02/26/2023 Osteoporosis [M81.0] 02/26/2023 Follow-up and Disposition History for Encounter Date Provider Department Center 03/09/2024 [id number] THOMASGASTA5 [facility] Encounter Status:Closed by NICOLE MADISON on 03/09/24 Normal [facility] thyroidon 12-08-2023 thyroid [facility] [place] [place] [address] Ultrasound Report Signed Patient: Kilo Castanon MR#: [id number] : 1950 Acct:[id number] Age/Sex: 73 / F ADM Date: 12/08/23 Loc: Room: Type: [facility] Attending Dr: Yessi Carson Ordering Provider: Yessi Carson Date of Service: 12/08/23 US/US thyroid: E04.1, E05.00 Copies to: Yessi Carson THYROID ULTRASOUND CLINICAL DATA: Follow-up thyroid nodules. COMPARISON: 03/19/2023 The right thyroid lobe measures 3.0 x 0.9 x 1.6 cm. The left lobe is larger measuring 5.1 x 1.9 x 1.9 cm. The isthmus measures 2 - 3 mm. The lobes are slightly lobulated and show mild heterogeneity. There is a hypoechoic nodular area posterior to the right thyroid lobe measuring 11 x 7 x 8 mm . It may be related to the parathyroid gland and correlation is recommended as to any possibility of hypercalcemia. On the left, at the inferior pole, there is redemonstration of a mildly heterogeneous hypoechoic nodule measuring 19 x 15 x 19 mm. This has not changed. Adjacent to it at the midpole superficially there is a subtle, iso/hyperechoic nodular area approximately 7 mm in size that was also visualized previously. At the superior pole, there is a heterogeneous mixed echogenicity nodular area measuring 10 x 5 x 6 mm. This is also unchanged. US/US thyroid IMPRESSION: SIMILAR THYROID NODULARITY. POSSIBLE PARATHYROID GLAND ON THE RIGHT. CORRELATION WITH LABORATORY DATA IS SUGGESTED. Impression dictated by: Lisa Vang M.D.12/08/2023 10:11 AM Dictation Location: [place] [address] Tech: uDnia Dunlapanna Transcribed By: ALEX 12/08/23 1011 Dictated By: Lisa Vang MD 12/08/23 1002 Signed By: 12/08/23 1011 Normal [facility] T3Free SerPl-mCncon 12-03-19 24 Free T3 [Mass/Vol] 2.7 pg/mL Normal 2.3-4.1 [facility] Comment on above: Order Comment: Speci men Type: BLOOD SPECIMENOrdering Facility: [facility] Address: [address] [place] [address] Performed By: #### 3 051-0, 3016-3, 3024-7 ####[facility] LABIA [id number] [place] [address] [place] T4 Free SerPl-mCncon 024 Free T4 [Mass/Vol] 1.0 ng/dL Normal 0.9-1.7 [facility] Comment on above: Order Comment: John skinner Type: BLOOD SPECIMENOrdering Facility: [facility] Address: [address] [place] [address] Performed By: #### 3 051-0, 3016-3, 3024-7 ####[facility] LABIA [id number] [place] [address] [place] TSH SerPl-aCncon 12-03-2023 TSH Qn 0.943 m[IU]/L Normal 0.270-4.200 [facility] Comment on above: Order Comment: Speci men Type: BLOOD SPECIMENOrdering Facility: [facility] Address: [address] [place] [address] Performed By: #### 3 051-0, 3016-3, 3024-7 ####[facility] LABCLIA [id number] ROXLachelle [facility] [id number] [place] [address] [place] T3Free SerPl-mCncon 10-15-19 24 Free T3 [Mass/Vol] 3.1 pg/mL Normal 2.3-4.1 [facility] Comment on above: Order Comment: Speci men Type: BLOOD SPECIMEN [facility] Address: [address] [place] [address] Performed By: #### 2 4325-3 #### [facility] CLIA [id number] [address] [place] [address] T4 Free SerPl-mCncon 024 Free T4 [Mass/Vol] 1.0 ng/dL Normal 0.9-1.7 [facility] Comment on above: Order Comment: Speci men Type: BLOOD SPECIMEN [facility] Address: [address] [place] [address] Performed By: #### 2 4325-3 #### [facility] CLIA [id number] [address] [place] [address] TSH SerPl-aCncon 10-15-2023 TSH Qn 0.567 m[IU]/L Normal 0.270-4.200 [facility] Comment on above: Order Comment: Speci men Type: BLOOD SPECIMEN [facility] Address: [address] [place] [address] Performed By: #### 2 4325-3 #### [facility] CLIA [id number] [address] [place] [address] T3Free SerPl-mCncon 08-27-20 23 Free T3 [Mass/Vol] 2.7 pg/mL Normal 2.3-4.1 [facility] Comment on above: Order Comment: Josiahi susanne Type: BLOOD SPECIMENOrdering Facility: [facility] Address: [address] [place] [address] Performed By: #### 3 051-0, 6-3, 7 ####[facility] LABCLIA [id number] [place] [address] [place] T4 Free SerPl-mCncon 023 Free T4 [Mass/Vol] 0.9 ng/dL Normal 0.9-1.7 [facility] Comment on above: Order Comment: John men Type: BLOOD SPECIMENOrdering Facility: [facility] Address: [address] [place] [address] Performed By: #### 3 051-0, 3, 3024-04 ####[facility] LABCLIA [id number] [place] [address] [place] THYROID STIMULATING IMMUNOGL OBULIN BLOODon 08-27-2023 Thyroid stimulating immunoglobulins actual/normal (S) [Relative mass conc] 0.83 IU/L High <0.55 [facility] Comment on above: Order Comment: John skinner Type: BLOOD SPECIMENOrdering Facility: [facility] Address: [address] [place] [address] Result Comment: Thyr oid Stimulating Immunoglobulin test is used as an aid in diagnosis of autoimmune hyperthyroidism especially in patients with Grave's orbitopathy and dermopathy. Low positive TSH receptor stimulating antibody levels may occasionally be found in patients with autoimmune hypothyroidism. Clinical correlation is required. Performed By: #### T SIGIM ####[facility] LABCLIA [id number] [place] [address] [place] TSI QUALITATIVE Positive Abnormal Negative [facility] Comment on above: Order Comment: John skinner Type: BLOOD SPECIMENOrdering Facility: [facility] Address: [address] [place] [address] Performed By: #### T SIGIM ####[facility] LABCLIA [id number] [place] [id number] [place] TSH SerPl-aCncon 08-27-2023 TSH Qn 4.480 m[IU]/L High 0.270-4.200 [facility] Comment on above: Order Comment: Speci men Type: BLOOD SPECIMENOrdering Facility: [facility] Address: [address] [place] [address] Performed By: #### 3 051-0, 3016-3, 3024-7 ####[facility] LABCLIA [id number] [place] [id number] [place] US thyroidon 03-19-2023 thyroid [facility] Main [address] [address] Ultrasound Report Signed Patient: Kilo Castanon MR#: [id number] : 1950 Acct:[id number] Age/Sex: 72 / F ADM Date: 03/19/23 Loc: Room: Type: [facility] Attending Dr: Yessi Carson Ordering Provider: Yessi [...] Lisa Vang M.D.03/19/2023 9:35 AM Dictation Location: [place] [address] Tech: Monica Lane Transcribed By: ALEX 03/19/2335 Dictated By: Lisa Vang MD 03/19/2330 Signed By: 03/19/23934 Normal [facility] ALKALINE PHOSPHATASEon 01-15 ALP [Catalytic activity/Vol] 147 U/L Abnormal 34 - 104 U/L [facility] Alanine aminotransferase [En zymatic activity/volume] in Serum or PlasmaOrdered By: Yamila Ang on 01-13-2023 ALT [Catalytic activity/Vol] 18 U/L 7-52 [facility] Albumin [Mass/volume] in Ser um or Plasma by Bromocresol green (BCG) dye binding methoOrdered By: Yamila Ang on 01-13-2023 Albumin BCG dye [Mass/Vol] 4.2 g/dL 3.5-5.7 [facility] Alkaline phosphatase [Enzyma tic activity/volume] in Serum or PlasmaOrdered By: Yamila Ang on 01-13-2023 ALP [Catalytic activity/Vol] 147 U/L 34-104 [facility] Aspartate aminotransferase [ Enzymatic activity/volume] in Serum or PlasmaOrdered By: Yamila Ang on 01-13-2023 AST [Catalytic activity/Vol] 17 U/L 13-39 [facility] Bilirubin.direct [Mass/volum e] in Serum or PlasmaOrdered By: Yamila Ang on 01-13-2023 Bilirubin.direct [Mass/Vol] 0.10 mg/dL 0.03-0.18 [facility] Bilirubin.total [Mass/volume ] in Serum or PlasmaOrdered By: Yamila Ang on 01-13-2023 Bilirubin [Mass/Vol] 0.5 mg/dL 0.3-1.0 [facility] FREE T4on 01-13-2023 Free T3 [Mass/Vol] 3.2 pg/mL 2.5 - 3.9 pg/mL [facility] Globulin Calc (S) [Mass/Vol] Ordered By: Yamila Ang on 01-13-2023 Globulin (S) [Mass/Vol] 2.4 g/dL [facility] Protein [Mass/volume] in Ser um or PlasmaOrdered By: Yamila Ang on 01-13-2023 Protein [Mass/Vol] 6.6 g/dL 6.4-8.9 [facility] Serum or plasma albumin/glob ulin mass ratioOrdered By: Yamila Ang on 01-13-2023 Albumin/Globulin [Mass ratio] 1.8 {ratio} [facility] Serum or plasma non-glucuron idated bilirubin measurement (mass/volume)Ordered By: Yamila Ang on 01-13-2023 Bilirubin.indirect [Mass/Vol] 0.4 mg/dL [facility] Thyrotropin [Units/volume] i n Serum or PlasmaOrdered By: Yamila Ang on 01-13-2023 TSH Qn 9.54 m[IU]/L 0.45-5.33 [facility] Thyroxine (T4) free [Mass/vo lume] in Serum or PlasmaOrdered By: Yamila Ang on 01-13-2023 Free T4 [Mass/Vol] 0.46 ng/dL Abnormal 0.61 - 1.[address] [facility] Triiodothyronine (T3) Free [ Mass/volume] in Serum or PlasmaOrdered By: Yamila Ang on 01-13-2023 Free T3 [Mass/Vol] 3.17 pg/mL 2.50-3.90 [facility] FERRITIN BLDon 11-18-2022 Ferritin [Mass/Vol] 125.1 ng/mL 14.7 - 2 05.1 ng/mL [facility] GGT BLDon 11-18-2022 Gamma glutamyl transferase [Catalytic activity/Vol] 21 U/L 6 - 46 U/L [facility] HEP B SURF AG SCRNon 023 HBV surface Ag Ql (S) Negative Negative [facility] HEPATITIS A ANTIBODY, IGGon 11-18-2022 Hepatitis A IgG Negative Negative [facility] Iron and Iron binding capaci ty panelon 11-18-2022 Iron [Mass/Vol] 61 ug/dL 41 - 186 ug/dL [facility] Iron binding capacity [Mass/Vol] 323 ug/dL 232 - 386 ug/dL [facility] Iron/TIBC [Molar ratio] 18.9 % 15.0 - 57.0 % [facility] THYROID ANTIBODIESon 022 Thyroglobulin Antibody 42.2 IU/mL Critically high 0.0-0.9 [facility] Comment on above: Result Comment: Thyr oglobulin Antibody measured by [employer] Performed By: #### T HYRABS #### [facility] [address] [place] [address] [address] Machelle Archer Thyroid Peroxidase (TPO) Ab 128 IU/mL Critically high 0-34 [facility] Comment on above: Performed By: #### T HYRABS #### [facility] [address] [place] [address] [address] Machelle Archer FREE T3on 08-25-2022 FREE T3 10.08 pg/mlL Critically high 2.18-3.98 [facility] Comment on above: Performed By: #### T SH, LIVER, FT3 #### [facility] [address] [place] [address] [address] Machelle Archer FREE T4on 08-25-2022 Free T4 [Mass/Vol] 2.47 ng/dL Critically high 0.76-1.46 [facility] Comment on above: Performed By: #### F T4 ####[facility] [address] [place], [place] [address]ZlDr. Machelle Archer LIVER PROFILEon 08-25-2022 Albumin [Mass/Vol] 3.5 g/dL Normal 3.4-5.0 [facility] Comment on above: Performed By: #### T SH, LIVER, FT3 #### [facility] [address] [place] [address] [address] Machelle Archer Albumin/Globulin [Mass ratio] 1.1 {ratio} Normal [facility] Comment on above: Performed By: #### T SH, LIVER, FT3 #### [facility] [address] [place] [address] [address] Machelle Archer ALP [Catalytic activity/Vol] 159 U/L Critically high 46-116 [facility] Comment on above: Performed By: #### T SH, LIVER, FT3 #### [facility] [address] [place] [address] [address] Machelle Archer ALT [Catalytic activity/Vol] 98 U/L Critically high 14-59 [facility] Comment on above: Performed By: #### T SH, LIVER, FT3 #### [facility] [address] [place] [address] [address] Machelle Archer AST [Catalytic activity/Vol] 41 U/L Critically high 15-37 [facility] Comment on above: Performed By: #### T SH, LIVER, FT3 #### [facility] [address] [place] [address] Dr. Machelle Archer BILI, CONJUGATED 0.1 mg/dL Normal 0.0-0.2 [facility] Comment on above: Performed By: #### T SH, LIVER, FT3 #### [facility] [address] [place] [address] Dr. Machelle Archer Bilirubin [Mass/Vol] 0.2 mg/dL Normal 0.2-1.0 [facility] Comment on above: Performed By: #### T SH, LIVER, FT3 #### [facility] [address] [place] [address] Dr. Machelle Archer Globulin (S) [Mass/Vol] 3.3 g/dL Normal [facility] Comment on above: Performed By: #### T SH, LIVER, FT3 #### [facility] [address] [place] [address] Dr. Machelle Archer Protein [Mass/Vol] 6.8 g/dL Normal 6.4-8.2 [facility] Comment on above: Performed By: #### T SH, LIVER, FT3 #### [facility] [address] [place] [address] Dr. Machelle Archer TSHon 08-25-2022 TSH Qn m[IU]/L Critically low 0.358-3.740 [facility] Comment on above: Performed By: #### T SH, LIVER, FT3 #### [facility] [address] [place], [place] [address] Dr. Machelle Archer MG MAMM SCREEN 3D NIDA CADon 08-14-2022 MG MAMM SCREEN 3D NIDA CAD Patient: KILO CASTANON Exam Date: 08/14/2022 : 1950 Gender:F Ordering : DR ROSALIE MONCADA M.D. Admission #: [id number] Family : Order #: [id number] CLICK HERE TO VIEW EXAM RADIOLOGY REPORT [...] uterine cancer at age 70. LOCATION: [facility] BREAST COMPOSITION: Extremely dense, which lowers [...] Montoya MD on 08/14/2022 at 09:17 Normal [facility] XR DEXA BONE DENSITYon 08-14 XR [...] by: LINDSEY AMADOR Date: 2022-08-14 07:57 Normal [facility] VIT D 1 25 DIHYDROXYon 07-31 Calcitriol(1,25 di-OH Vit D) 28.9 pg/mL Normal 24.8-81.5 [facility] Comment on above: Performed By: #### V [id number] ####[facility] [address] [place] [address]Dr. Machelle Archer CBC AUTO DIFFon 07-29-2022 BASO # 0.0 103/ul Normal 0.0-0.1 [facility] Comment on above: Performed By: #### C BC #### [facility] [address] [place] [address] [address] Machelle Archer Basophils/100 WBC (Bld) 0.7 % Normal 0.2-2.0 [facility] Comment on above: Performed By: #### C BC #### [facility] [address] [place] [address] [address] Machelle Archer EO # 0.1 103/ul Normal 0.0-0.7 [facility] Comment on above: Performed By: #### C BC #### [facility] [address] [place] [address] [address] Machelle Archer Eosinophils/100 WBC (Bld) 1.2 % Normal 0.9-7.0 [facility] Comment on above: Performed By: #### C BC #### [facility] [address] [place] [address] [address] Machelle Archer Erythrocyte distribution width (RBC) [Ratio] 13.7 % Normal 11.0-15.0 [facility] Comment on above: Performed By: #### C BC #### [facility] [address] [place] [address] [address] Machelle Archer Hematocrit (Bld) [Volume fraction] 38.6 % Normal 36.0-48.0 [facility] Comment on above: Performed By: #### C BC #### [facility] [address] [place] [address] Dr. Machelle Archer Hemoglobin (Bld) [Mass/Vol] 12.2 g/dL Normal 12.0-16.0 [facility] Comment on above: Performed By: #### C BC #### [facility] [address] [place] [address] Dr. Machelle Archer IG # 0.01 10e3/ul Normal 0.00-0.03 [facility] Comment on above: Performed By: #### C BC #### [facility] [address] [place] [address] Dr. Machelle Archer IG % 0.2 % Normal 0.0-0.5 [facility] Comment on above: Performed By: #### C BC #### [facility] [address] [place] [address] Dr. Machelle Archer LYMPH # 1.2 103/ul Normal 1.2-3.8 [facility] Comment on above: Performed By: #### C BC #### [facility] [address] [place] [address] Dr. Machelle Archer Lymphocytes/100 WBC (Bld) 29.0 % Normal 20.5-60.0 [facility] Comment on above: Performed By: #### C BC #### [facility] [address] [place] [address] Dr. Machelle Archer MANUAL DIFF REQ NO Normal [facility] Comment on above: Performed By: #### C BC #### [facility] [address] [place] [address] Dr. Machelle Archer MCH (RBC) [Entitic mass] 25.4 pg Critically low 26.7-34.0 [facility] Comment on above: Performed By: #### C BC #### [facility] [address] [place] [address] Dr. Machelle Archer MCHC (RBC) [Mass/Vol] 31.6 g/dL Normal 29.9-35.2 [facility] Comment on above: Performed By: #### C BC #### [facility] [address] [place] [address] Dr. Machelle Archer MCV (RBC) [Entitic vol] 80.2 fL Critically low 81.0-99.0 [facility] Comment on above: Performed By: #### C BC #### [facility] [address] [place] [address] Dr. Machelle Archer MONO # 0.4 103/ul Normal 0.3-0.8 [facility] Comment on above: Performed By: #### C BC #### [facility] [address] [place] [address] Dr. Machelle Archer Monocytes/100 WBC (Bld) 8.9 % Normal 1.7-12.0 [facility] Comment on above: Performed By: #### C BC #### [facility] [address] [place] [address] Dr. Machelle Archer NEUT # 2.6 103/ul Normal 1.4-6.5 [facility] Comment on above: Performed By: #### C BC #### [facility] [address] [place] [address] Dr. Machelle Archer Neutrophils/100 WBC (Bld) 60.0 % Normal 43.0-75.0 [facility] Comment on above: Performed By: #### C BC #### [facility] [address] [place] [address] Dr. Machelle Archer Platelet mean volume (Bld) [Entitic vol] 12.6 fL Normal 9.5-13.5 [facility] Comment on above: Performed By: #### C BC #### [facility] [address] [place] [address] Dr. Machelle Archer PLT 185 103/ul Normal 150-450 [facility] Comment on above: Performed By: #### C BC #### [facility] [address] [place] [address] Dr. Machelle Archer RBC 4.81 106/ul Normal 4.20-5.40 [facility] Comment on above: Performed By: #### C BC #### [facility] [address] [place] [address] Dr. Machelle Archer WBC 4.3 103/ul Normal 4.0-11.0 [facility] Comment on above: Performed By: #### C BC #### [facility] [address] [place], [place] [address] Dr. Machelle Archer LIPID PROFILEon 07-29-2022 CHOL-HDL RATIO NORM SEE BELOW Normal [facility] Comment on above: Result Comment: 3.3 - 4.4 LOW RISK 4.4 - 7.1 AVERAGE RISK 7.1 - 11.0 MODERATE RISK >11.0 HIGH RISK Performed By: #### L IPID, TSH, CMP ####[facility] [address] [place], [place] [address]Op. Machelle Archer Cholesterol [Mass/Vol] 201 mg/dL Critically high <=200 [facility] Comment on above: Performed By: #### L IPID, TSH, CMP ####[facility] [address] [place], [place] [address]Up. Machelle Archer Cholesterol in HDL [Mass/Vol] 55 mg/dL Normal 40-60 [facility] Comment on above: Performed By: #### L IPID, TSH, CMP ####[facility] [address] [place], [place] [address]Bq. Machelle Archer Cholesterol in LDL [Mass/Vol] 125.8 mg/dL Normal [facility] Comment on above: Performed By: #### L IPID, TSH, CMP ####[facility] [address] [place], [place] [address]Uo. Machelle Archer Cholesterol.total/Ch olesterol in HDL [Mass ratio] 3.7 {ratio} Normal [facility] Comment on above: Performed By: #### L IPID, TSH, CMP ####[facility] [address] [place], [place] [address]Dh. Machelle Archer HDL NORMAL > or = 60 mg/dl - LO W CARDIOVASCULAR RISK <40 mg/dl - HIGH CARDIOVASCULAR RISK Normal [facility] Comment on above: Performed By: #### L IPID, TSH, CMP ####[facility] [address] [place], [place] [address]Sk. Machelle Archer LDL CALC NORMAL SEE BELOW Normal [facility] Comment on above: Result Comment: <100 mg/dl OPTIMAL 100 - 129 mg/dl NEAR OR ABOVE OPTIMAL 130 - 159 mg/dl BORDERLINE HIGH 160 - 189 mg/dl HIGH >190 mg/dl VERY HIGH Performed By: #### L IPID, TSH, CMP ####[facility] [address] [place] [address]Dr. Machelle Archer Triglyceride [Mass/Vol] 101 mg/dL Normal <=150 [facility] Comment on above: Performed By: #### L IPID, TSH, CMP ####[facility] [address] [place] [address]Dr. Machelle Archer VLDL CALC 20.2 mg/dL Normal [facility] Comment on above: Performed By: #### L IPID, TSH, CMP ####[facility] [address] [place] [address]Dr. Machelle Archer PROF 14(COMP METB)on 022 Albumin [Mass/Vol] 3.5 g/dL Normal 3.4-5.0 [facility] Comment on above: Performed By: #### L IPID, TSH, CMP ####[facility] [address] [place] [address]Dr. Machelle Archer Albumin/Globulin [Mass ratio] 1.0 {ratio} Normal [facility] Comment on above: Performed By: #### L IPID, TSH, CMP ####[facility] [address] [place] [address]Dr. Machelle Archer ALP [Catalytic activity/Vol] 150 U/L Critically high 46-116 [facility] Comment on above: Performed By: #### L IPID, TSH, CMP ####[facility] [address] [place] [address]Dr. Machelle Archer ALT [Catalytic activity/Vol] 66 U/L Critically high 14-59 [facility] Comment on above: Performed By: #### L IPID, TSH, CMP ####[facility] [address] [place] [address]Dr. Machelle Archer Anion gap [Moles/Vol] 10.2 mmol/L Normal [facility] Comment on above: Performed By: #### L IPID, TSH, CMP ####[facility] [address] [place] [address]Dr. Machelle Archer AST [Catalytic activity/Vol] 33 U/L Normal 15-37 [facility] Comment on above: Performed By: #### L IPID, TSH, CMP ####[facility] [address] [place] [address]Dr. Machelle Archer Bilirubin [Mass/Vol] 0.5 mg/dL Normal 0.2-1.0 [facility] Comment on above: Performed By: #### L IPID, TSH, CMP ####[facility] [address] [place], [place] [address]Dr. Machelle Archer Calcium [Mass/Vol] 9.7 mg/dL Normal 8.5-10.1 [facility] Comment on above: Performed By: #### L IPID, TSH, CMP ####[facility] [address] [place], [place] [address]Dr. Machelle Archer Chloride [Moles/Vol] 106 mmol/L Normal 98-107 [facility] Comment on above: Performed By: #### L IPID, TSH, CMP ####[facility] [address] [place], [place] [address]Dr. Machelle Archer CO2 [Moles/Vol] 30.1 mmol/L Normal 21.0-32.0 [facility] Comment on above: Performed By: #### L IPID, TSH, CMP ####[facility] [address] [place], [place] [address]Dr. Machelle Archer Creatinine [Mass/Vol] 0.57 mg/dL Normal 0.55-1.02 [facility] Comment on above: Performed By: #### L IPID, TSH, CMP ####[facility] [address] [place] [address]Dr. Machelle Archer EGFR-AF POLISH >60 Normal >=60 [facility] Comment on above: Performed By: #### L IPID, TSH, CMP ####[facility] [address] [place] [id number]. Machelle Archer EGFR-NON AF POLISH >60 Normal >=60 [facility] Comment on above: Performed By: #### L IPID, TSH, CMP ####[facility] [address] [place] [address]Dr. Machelle Archer Globulin (S) [Mass/Vol] 3.4 g/dL Normal [facility] Comment on above: Performed By: #### L IPID, TSH, CMP ####[facility] [address] [place] [address]Dr. Machelle Archer Glucose [Mass/Vol] 103 mg/dL Normal 74-106 [facility] Comment on above: Performed By: #### L IPID, TSH, CMP ####[facility] [address] [place] [address]Dr. Machelle Archer Potassium [Moles/Vol] 4.3 mmol/L Normal 3.5-5.1 [facility] Comment on above: Performed By: #### L IPID, TSH, CMP ####[facility] [address] [place] [address]Dr. Machelle Archer Protein [Mass/Vol] 6.9 g/dL Normal 6.4-8.2 [facility] Comment on above: Performed By: #### L IPID, TSH, CMP ####[facility] [address] [place] [address]Dr. Machelle Archer Sodium [Moles/Vol] 142 mmol/L Normal 136-145 [facility] Comment on above: Performed By: #### L IPID, TSH, CMP ####[facility] [id number] [place] [address]Dr. Machelle Archer Urea nitrogen [Mass/Vol] 9.0 mg/dL Normal 7.0-18.0 [facility] Comment on above: Performed By: #### L IPID, TSH, CMP ####[facility] [id number] [address]Dr. Machelle Archer Urea nitrogen/Creatinine [Mass ratio] 15.8 mg/mg Normal [facility] Comment on above: Performed By: #### L IPID, TSH, CMP ####[facility] [address] [place], [place] [address]EmMukul Archer TSHon 07-29-2022 TSH Qn m[IU]/L Critically low 0.358-3.740 [facility] Comment on above: Performed By: #### L IPID, TSH, CMP ####[facility] [id number] [place], [place] [address]Or. Machelle Archer XR Ribs w/ PA Chest Left*on 03-17-2022 XR Ribs w/ PA Chest Left* Comparison: Findings: The cardiomediastinal silhouette is unremarkable. The lungs are free of infiltrates or effusions. The bones and soft tissues are intact. There is no evidence of rib fracture. Impression: There are no acute changes. Report reported and signed by LEANDER MARTINEZ on 03/17/2022 1715 Normal [facility] [employer] XR Wrist Complete Left*on XR Wrist Complete Left* CLINICAL HISTORY: Pain after the fall COMPARISON: TECHNIQUE: AP, lateral, oblique, and scaphoid views of the wrist. FINDINGS: No acute fracture. Radiocarpal and carpal alignment is within normal limits. Soft tissues are within normal limits. IMPRESSION: No acute osseous abnormality. Report reported and signed by LEANDER MARTINEZ on 03/17/2022 1716 Normal [facility] [employer] VIT D 1 25 DIHYDROXYon 12-12 Calcitriol(1,25 di-OH Vit D) 47.1 pg/mL Normal 19.9-79.3 [facility] Comment on above: Performed By: #### V [id number] #### [facility] [address] [address] [address] Machelle Archer LIPID PROFILEon 12-10-2021 CHOL-HDL RATIO NORM SEE BELOW Normal [facility] Comment on above: Result Comment: 3.3 - 4.4 LOW RISK 4.4 - 7.1 AVERAGE RISK 7.1 - 11.0 MODERATE RISK >11.0 HIGH RISK Performed By: #### L IPID, LIVER #### [facility] [address] [address] [address] Machelle Archer Cholesterol [Mass/Vol] 227 mg/dL Critically high <=200 [facility] Comment on above: Performed By: #### L IPID, LIVER #### [facility] [address] [address] [address] Machelle Archer Cholesterol in HDL [Mass/Vol] 43 mg/dL Normal [facility] Comment on above: Performed By: #### L IPID, LIVER #### [facility] [address] [address] [address] Machelle Archer Cholesterol in LDL [Mass/Vol] 158.0 mg/dL Normal [facility] Comment on above: Performed By: #### L IPID, LIVER #### [facility] [address] [address] [address] Machelle Archer Cholesterol.total/Ch olesterol in HDL [Mass ratio] 5.3 {ratio} Normal [facility] Comment on above: Performed By: #### L IPID, LIVER #### [facility] [address] [place] [address] Dr. Machelle Archer HDL NORMAL > or = 60 mg/dl - LO W CARDIOVASCULAR RISK <40 mg/dl - HIGH CARDIOVASCULAR RISK Normal [facility] Comment on above: Performed By: #### L IPID, LIVER #### [facility] [address] [place] [address] Dr. Machelle Archer LDL CALC NORMAL SEE BELOW Normal [facility] Comment on above: Result Comment: <100 mg/dl OPTIMAL 100 - 129 mg/dl NEAR OR ABOVE OPTIMAL 130 - 159 mg/dl BORDERLINE HIGH 160 - 189 mg/dl HIGH >190 mg/dl VERY HIGH Performed By: #### L IPID, LIVER #### [facility] [address] [address] [address] Machelle Archer Triglyceride [Mass/Vol] 130 mg/dL Normal <=150 [facility] Comment on above: Performed By: #### L IPID, LIVER #### [facility] [address] [address] [address] Machelle Archer VLDL CALC 26.0 mg/dL Normal [facility] Comment on above: Performed By: #### L IPID, LIVER #### [facility] [address] [address] [address] Machelle Archer LIVER PROFILEon 12-10-2021 Albumin [Mass/Vol] 3.6 g/dL Normal 3.5-5.0 [facility] Comment on above: Performed By: #### L IPID, LIVER #### [facility] [address] [address] [address] Machelle Archer Albumin/Globulin [Mass ratio] 1.1 {ratio} Normal [facility] Comment on above: Performed By: #### L IPID, LIVER #### [facility] [address] [address] [address] Machelle Archer ALP [Catalytic activity/Vol] 91 U/L Normal 38-126 [facility] Comment on above: Performed By: #### L IPID, LIVER #### [facility] [address] [place] [address] Dr. Machelle Archer ALT [Catalytic activity/Vol] 23 U/L Normal 9-52 [facility] Comment on above: Performed By: #### L IPID, LIVER #### [facility] [address] [address] [address] Machelle Archer AST [Catalytic activity/Vol] 13 U/L Critically low 14-36 [facility] Comment on above: Performed By: #### L IPID, LIVER #### [facility] [address] [address] [address] Machelle Archer BILI, CONJUGATED 0.1 mg/dL Normal 0.0-0.3 [facility] Comment on above: Performed By: #### L IPID, LIVER #### [facility] [address] [address] [address] Machelle Archer Bilirubin [Mass/Vol] 0.5 mg/dL Normal 0.2-1.3 [facility] Comment on above: Performed By: #### L IPID, LIVER #### [facility] [address] [address] [address] Machelle Archer Globulin (S) [Mass/Vol] 3.4 g/dL Normal [facility] Comment on above: Performed By: #### L IPID, LIVER #### [facility] [address] [place], [place] [address] Dr. Machelle Archer Protein [Mass/Vol] 7.0 g/dL Normal 6.1-8.2 [facility] Comment on above: Performed By: #### L IPID, LIVER #### [facility] [address] [place], [place] [address] Dr. Machelle Archer Vital Signs Date Time Vital Sign Value Performing Clinician Facility 08-01-2024 15:46-0400 Body height 162.56 cm [facility] 08-01-2024 15:46-0400 Body mass index (BMI) [Ratio] 25.9 kg/m2 [facility] 08-01-2024 15:46-0400 Body weight 68.49 kg [facility] 08-01-2024 15:46-0400 Diastolic blood pressure 74 mm[Hg] [facility] 08-01-2024 15:46-0400 Heart rate 59 /min [facility] 08-01-2024 15:46-0400 Systolic blood pressure 154 mm[Hg] [facility] 03-29-2024 11:54-0400 Diastolic blood pressure 73 mm[Hg] Anthony Marks MD, PhD Work Phone: [facility] 03-29-2024 11:54-0400 Heart rate 63 /min Anthony Marks MD, PhD Work Phone: [facility] 03-29-2024 11:54-0400 Systolic blood pressure 132 mm[Hg] Anthony Marks MD, PhD Work Phone: [facility] 07-30-2023 12:30-0400 Body height 162.56 cm Rosalie Moncada Other [facility] Other 07-30-2023 12:30-0400 Body mass index (BMI) [Ratio] 26.64 kg/m2 Rosalie Moncada Other [facility] Other 07-30-2023 12:30-0400 Body weight 70.4 kg Rosalie Moncada Other [facility] Other 07-30-2023 12:30-0400 Diastolic blood pressure 70 mm[Hg] Rosalie Moncada Other [facility] Other 07-30-2023 12:30-0400 Systolic blood pressure 121 mm[Hg] Rosalie Moncada Other [facility] Other 07-30-2023 11:30-0400 Body height 162.56 cm Rosalie Moncada Other [facility] Other 07-30-2023 11:30-0400 Body mass index (BMI) [Ratio] 26.64 kg/m2 Rosalie Moncada Other [facility] Other 07-30-2023 11:30-0400 Body weight 70.4 kg Rosalie Moncada Other [facility] Other 07-30-2023 11:30-0400 Diastolic blood pressure 70 mm[Hg] Rosalie Moncada Other [facility] Other 07-30-2023 11:30-0400 Systolic blood pressure 121 mm[Hg] Rosalie Moncada Other [facility] Other 01-20-2023 11:20-0400 Diastolic blood pressure 65 mm[Hg] Yessi Carson MD Work Phone: [facility] 01-20-2023 11:20-0400 Systolic blood pressure 155 mm[Hg] Yessi Carson MD Work Phone: [facility] 01-20-2023 10:01-0400 Body height 162.6 cm Yessi Carson MD Work Phone: [facility] 01-20-2023 10:01-0400 Body weight 66.32 kg Yessi Carson MD Work Phone: [facility] 01-20-2023 10:01-0400 Heart rate 62 /min Yessi Carson MD Work Phone: [facility] 11-18-2022 13:23-0500 Body weight 61.55 kg Nicole Smith MD Work Phone: [facility] Encounters Encounter Date Encounter Type Care Provider Facility Start: 08-18-2024 End: 08-18-2024 ambulatory Yessi Carson MD Work Phone: Endocrinology Comment on above: Graves disease (Prim vickey Dx); Thyroid nodule; Hypertension, unspecified type; Other osteoporosis, unspecified pathological fracture presence Start: 08-18-2024 End: 08-18-2024 Telemedicine consultation with patient Yessi Carson MD Work Phone: Endocrinology Start: 08-11-2024 End: 08-11-2024 ambulatory YESSI CARSON Facility:[facility] Start: 08-01-2024 End: 08-01-2024 ambulatory [facility] Work Phone: Start: 08-01-2024 End: 08-01-2024 Patient encounter procedure [facility] Physician [facility] Work Phone: Start: 06-07-2024 End: 06-07-2024 ambulatory TANG CESAR Facility:[facility] Start: 06-07-2024 ambulatory ANTHONY Bone y:[facility] Start: 06-07-2024 End: 06-07-2024 Subsequent hospital visit by physician Lissette [facility] Work Phone: [facility] Radiology Ultrasound Comment on above: Thyroid nodule [E04. 1] Start: 05-19-2024 End: 05-26-2024 Telephone encounter Yessi Carson MD Work Phone: Appointment Center Comment on above: Biopsy Request Start: 05-12-2024 End: 05-12-2024 ambulatory Yessi Carson MD Work Phone: Endocrinology Comment on above: Graves disease (Prim vickey Dx); Vitamin D deficiency; Thyroid nodule Start: 05-12-2024 End: 05-12-2024 Telemedicine consultation with patient Yessi Carson MD Work Phone: Endocrinology Start: 04-21-2024 End: 04-21-2024 ambulatory YESSI CARSON Facility:[facility] Start: 03-29-2024 End: 03-29-2024 ambulatory ANTHONY MARKS Facility:[facility] Start: 03-29-2024 End: 03-29-2024 Patient encounter procedure Anthony Marks MD, PhD Work Phone: Endocrinology Comment on above: Thyroid nodule (Prim vickey Dx) Start: 03-15-2024 End: 03-15-2024 ambulatory NICOLE SMITH Facility:[facility] Start: 03-09-2024 End: 03-09-2024 ambulatory NICOLE SMITH Facility:[facility] Start: 03-09-2024 End: 03-09-2024 Patient encounter procedure Nicloe Smith MD Work Phone: Gastroenterology Comment on above: Abnormal alkaline ph osphatase test (Primary Dx) Start: 02-10-2024 Refill Yessi Carson MD Work Phone: Endocrinology Comment on above: Refill Request Start: 01-21-2024 End: 01-21-2024 ambulatory Yessi Carson MD Work Phone: Endocrinology Comment on above: Graves disease (Prim vickey Dx); Thyroid nodule; Other osteoporosis, unspecified pathological fracture presence Start: 01-21-2024 End: 01-21-2024 Telemedicine consultation with patient Yessi Carson MD Work Phone: [facility] Start: 12-08-2023 End: 12-08-2023 ambulatory Yessi Carson Facility:[facility] Start: 12-03-2023 End: 12-03-2023 ambulatory YESSI CARSON Facility:[facility] Start: 11-02-2023 End: 11-02-2023 ambulatory Rosalie Moncada Other [facility] Other Start: 11-02-2023 Telephone encounter Rosalie Antwan [facility] Start: 10-15-2023 End: 10-15-2023 ambulatory YESSI CARSON Facility:[facility] Start: 09-03-2023 End: 09-03-2023 ambulatory Yessi Carson MD Work Phone: Endocrinology Comment on above: Graves disease (Prim vickey Dx); Thyroid nodule Start: 09-03-2023 End: 09-03-2023 Telemedicine consultation with patient Yessi Carson MD Work Phone: [facility] Start: 08-27-2023 End: 08-27-2023 ambulatory YESSI CARSON Facility:[facility] Start: 08-12-2023 Telephone encounter Nicole Smith MD Work Phone: Gastroenterology Start: 08-11-2023 Telephone encounter Nicole Smith MD Work Phone: Gastroenterology Comment on above: Results Start: 08-09-2023 End: 08-09-2023 ambulatory Rosalie Moncada Other [facility] Other Start: 08-09-2023 Telephone encounter Rosalie Antwan [facility] Start: 07-30-2023 End: 07-30-2023 ambulatory Rosalie Antwan Other [facility] Other Start: 07-30-2023 Patient encounter procedure Rosalie Moncada [facility] Start: 05-28-2023 ambulatory Yessi Carson MD Work Phone: Endocrinology Comment on above: thyroid scan Start: 03-19-2023 End: 03-19-2023 ambulatory Rosalie Moncada Facility:[facility] Start: 03-02-2023 Refill Yessi Carson MD Work Phone: Endocrinology Comment on above: Refill Request Start: 01-20-2023 End: 01-20-2023 Patient encounter procedure Yessi Carson MD Work Phone: Endocrinology Comment on above: Graves disease (Prim vickey Dx); Thyroid nodule Start: 01-15-2023 Orders Only Yessi Carson MD Work Phone: Endocrinology Start: 01-13-2023 End: 01-13-2023 ambulatory MD Rosalie Moncada Work Phone: [facility] Work Phone: Start: 01-13-2023 End: 01-13-2023 Patient encounter procedure MD Rosalie Moncada Work Phone: [facility] Work Phone: Start: 12-09-2022 End: 12-09-2022 ambulatory MD Rosalie Moncada Work Phone: [facility] Work Phone: Start: 12-09-2022 End: 12-09-2022 Patient encounter procedure MD Rosalie Moncada Work Phone: [facility]-Ultrasound [facility] [place] Work Phone: Start: 11-18-2022 End: 11-18-2022 Patient encounter procedure Nicole Smith MD Work Phone: Gastroenterology Comment on above: Abnormal liver enzym es (Primary Dx) Start: 09-03-2022 End: 09-03-2022 ambulatory MD Rosalie Moncada Work Phone: [facility] Work Phone: Start: 09-03-2022 End: 09-03-2022 Patient encounter procedure MD Rosalie Moncada Work Phone: [facility]Nuc Med [facility] [place] Start: 08-28-2022 End: 08-28-2022 Patient encounter procedure MD Rosalie Moncada Work Phone: [facility]Ultrasound [facility] [place] Start: 08-25-2022 End: 08-26-2022 ambulatory [facility] Facility: Start: 08-14-2022 End: 08-15-[address] ROSALIE MONCADA Facility:[facility] Start: 07-29-2022 Adult health examination Rosalie Moncada Other [facility] Other Start: 07-29-2022 End: 07-30-[address] ROSALIE MONCADA Facility:[facility] Start: 12-10-2021 End: 12-11-[address] ROSALIE MONCADA Facility:[facility] Start: 05-10-2020 End: 05-11-2020 ambulatory MD ROSALIE MONCADA Facility:[facility] Procedures Date Procedure Procedure Detail Performing Clinician Start: 03-29-2024 Us soft tissue head & neck real time imge docm Anthony Marks MD, PhD Work Phone: Start: 01-13-2023 Alkaline phosphatase [Enzymatic activity/volume] in Serum or Plasma [facility] Provider Start: 01-13-2023 Thyroxine (T4) free [Mass/volume] in Serum or Plasma [facility] Provider Start: 12-09-2022 Ultrasonography of abdomen MD Rosalie Moncada Work Phone: Start: 12-09-2022 US scan of spleen MD Chaitanya Moncada Work Phone: Start: 08-28-2022 US scan of thyroid MD Bladimir Moncada Work Phone: Start: 03-26-2015 General examination of patient Rosalie Moncada Other Start: 03-26-2015 Screening mammography Bladimir Moncada Other Laboratory test resu lt abnormal Rosalie Moncada Other Screening for malign ant neoplasm of breast Rosalie Moncada Other Plan of Treatment Date Care Activity Detail Author Start: 02-19-2026 DIABETES SCREEN DIABETES SCREEN [facility] Start: 02-19-2026 Diabetes Screening Diabetes Screening [facility] Start: 2025 RSV Vaccine (1 - 1-dose 75+ series) RSV Vaccine (1 - 1-dose 75+ series) [facility] Start: 03-12-2025 End: 03-12-2025 Patient encounter procedure 03/12/2025 10:00 AM EDT Office Visit Gastroenterology [address] [address] Nicole Thomas MD [address] [place] [address] follow up liver enzymes Gastroenterology Comment on above: follow up liver enzymes Start: 02-16-2025 End: 02-16-2025 ambulatory 02/16/2025 8:00 AM EDT Results Only [facility] [address] [place] [address] [place] [address] Labs [facility] Comment on above: Labs Start: 02-15-2025 End: 05-17-2025 Thyrotropin [Units/volume] in Serum or Plasma THYROID STIMULATING HORMONE Lab Routine Graves disease Expected: 02/15/2025, Expires: 05/17/2025 [facility] Comment on above: Expected: 02/15/2025, Expires: Start: 02-15-2025 End: 05-17-2025 Thyroxine (T4) free [Mass/volume] in Serum or Plasma T4 FREE/FREE THYROXINE Lab Routine Graves disease Expected: 02/15/2025, Expires: 05/17/2025 [facility] Comment on above: Expected: 02/15/2025, Expires: Start: 02-15-2025 End: 05-17-2025 Triiodothyronine (T3) Free [Mass/volume] in Serum or Plasma T3, FREE Lab Routine Graves disease Expected: 02/15/2025, Expires: 05/17/2025 [facility] Comment on above: Expected: 02/15/2025, Expires: Start: 11-18-2024 End: 02-17-2025 Thyrotropin [Units/volume] in Serum or Plasma THYROID STIMULATING HORMONE Lab Routine Graves disease Expected: 11/18/2024, Expires: 02/17/2025 [facility] Work Phone: Comment on above: Expected: 11/18/2024, Expires: Start: 11-18-2024 End: 02-17-2025 Thyroxine (T4) free [Mass/volume] in Serum or Plasma T4 FREE/FREE THYROXINE Lab Routine Graves disease Expected: 11/18/2024, Expires: 02/17/2025 [facility] Comment on above: Expected: 11/18/2024, Expires: Start: 11-18-2024 End: 02-17-2025 Triiodothyronine (T3) Free [Mass/volume] in Serum or Plasma T3, FREE Lab Routine Graves disease Expected: 11/18/2024, Expires: 02/17/2025 [facility] Comment on above: Expected: 11/18/2024, Expires: Start: 11-17-2024 End: 11-17-2024 ambulatory 11/17/2024 8:00 AM EST Results Only [facility] [address] [place] [address] [place] [address] Labs [facility] Comment on above: Labs Start: 08-18-2024 End: 08-18-2024 Follow-up encounter 08/18/2024 6:40 AM EST [facility] Health Endocrinology [address] [place] [address] Yessi Carson MD [address] [place], [place] [id number] follow up Endocrinology Comment on above: follow up Start: 08-12-2024 End: 11-11-2024 25-hydroxyvitamin D3 [Mass/volume] in Serum or Plasma VITAMIN D 25 HYDROXY Lab Routine Vitamin D deficiency Expected: 08/12/2024, Expires: 11/11/2024 [facility] Comment on above: Expected: 08/12/2024, Expires: Start: 08-12-2024 End: 11-11-2024 Calcium [Mass/volume] in Serum or Plasma CALCIUM, TOTAL Lab Routine Graves disease Expected: 08/12/2024, Expires: 11/11/2024 [facility] Comment on above: Expected: 08/12/2024, Expires: Start: 08-12-2024 End: 11-11-2024 Parathyrin.intact [Mass/volume] in Serum or Plasma PTH INTACT Lab Routine Graves disease Expected: 08/12/2024, Expires: 11/11/2024 [facility] Comment on above: Expected: 08/12/2024, Expires: Start: 08-11-2024 End: 11-10-2024 THYROID STIMULATING IMMUNOGLOBULIN BLOOD THYROID STIMULATING IMMUNOGLOBULIN BLOOD Lab Routine Graves disease Expected: 08/11/2024, Expires: 11/10/2024 [facility] Comment on above: Expected: 08/11/2024, Expires: Start: 08-11-2024 End: 11-10-2024 Thyrotropin [Units/volume] in Serum or Plasma THYROID STIMULATING HORMONE Lab Routine Graves disease Expected: 08/11/2024, Expires: 11/10/2024 [facility] Work Phone: Comment on above: Expected: 08/11/2024, Expires: Start: 08-11-2024 End: 11-10-2024 Thyroxine (T4) free [Mass/volume] in Serum or Plasma T4 FREE/FREE THYROXINE Lab Routine Graves disease Expected: 08/11/2024, Expires: 11/10/2024 [facility] Comment on above: Expected: 08/11/2024, Expires: Start: 08-11-2024 End: 11-10-2024 Triiodothyronine (T3) Free [Mass/volume] in Serum or Plasma T3, FREE Lab Routine Graves disease Expected: 08/11/2024, Expires: 11/10/2024 [facility] Comment on above: Expected: 08/11/2024, Expires: Start: 08-11-2024 End: 08-11-2024 ambulatory 08/11/2024 8:00 AM EST Results Only [facility] [address] [place] [address] [place] [address] [facility] Start: 06-07-2024 End: 06-07-2024 Admission to same day surgery center 06/07/2024 2:00 PM EDT - 06/07/2024 3:00 PM EDT Surgery [facility] [address] [place] [address] Tang Cesar MD [address] [place] [address] BIOPSY THYROID [facility]io Comment on above: BIOPSY THYROID Start: 06-07-2024 End: 06-07-2024 Biopsy thyroid percutaneous core needle BIOPSY THYROID Graves disease Thyroid nodule 06/07/2024 2:00 PM EDT [facility] HB6 Start: 06-07-2024 Subsequent hospital visit by physician 06/07/2024 2:00 PM EDT Hospital Encounter [facility] [address] [place] [address] Tang Cesar MD [address] [place] [address] Graves disease [E05.00] [facility] Comment on above: Graves disease [E05.00] Start: 06-07-2024 End: 06-07-2024 Patient encounter procedure 06/07/2024 8:45 AM EDT Appointment [facility] Radiology Ultrasound [address] [place] [address] Thyroid nodule [E04.1] [facility]ound Comment on above: Thyroid nodule [E04.1] Start: 06-04-2024 Covid-19 Vaccine ( season) Covid-19 Vaccine ( season) [facility] Start: 06-04-2024 Covid-19 Vaccine ( season) Covid-19 Vaccine ( season) [facility] Start: 06-04-2024 Influenza vaccination Influenza Vaccine (#1) [facility] Start: 05-12-2024 End: 05-12-2024 Follow-up encounter 05/12/2024 7:00 AM EDT [facility] Endocrinology [address], [place] [phone] Yessi Carson MD [address] [place], [place] [phone] follow Up to thyroid Endocrinology Comment on above: follow Up to thyroid Start: 05-01-2024 End: 05-01-2024 Follow-up encounter 05/01/2024 3:00 PM EDT [facility] Endocrinology [address] [place] [address] Yessi Carson MD [address] [place] [address] follow Up to thyroid Endocrinology Comment on above: follow Up to thyroid Start: 04-21-2024 End: 07-21-2024 Thyrotropin [Units/volume] in Serum or Plasma THYROID STIMULATING HORMONE Lab Routine Graves disease Thyroid nodule Expected: 04/21/2024, Expires: 07/21/2024 [facility] Work Phone: Comment on above: Expected: 04/21/2024, Expires: Start: 04-21-2024 End: 07-21-2024 Thyroxine (T4) free [Mass/volume] in Serum or Plasma T4 FREE/FREE THYROXINE Lab Routine Graves disease Thyroid nodule Expected: 04/21/2024, Expires: 07/21/2024 [facility] Work Phone: Comment on above: Expected: 04/21/2024, Expires: Start: 04-21-2024 End: 07-21-2024 Triiodothyronine (T3) Free [Mass/volume] in Serum or Plasma T3, FREE Lab Routine Graves disease Thyroid nodule Expected: 04/21/2024, Expires: 07/21/2024 [facility] Work Phone: Comment on above: Expected: 04/21/2024, Expires: 4 Start: 04-21-2024 End: 04-21-2024 ambulatory 04/21/2024 8:00 AM EDT Results Only [facility] [address] [place] [address] [place] [address] [facility] Start: 03-29-2024 End: 03-29-2024 Patient encounter procedure 03/29/2024 11:20 AM EDT Office Visit Endocrinology [address] [place] [address] Anthony Marks MD, PhD [address] [place] [address] Graves disease [E05.00] Endocrinology Comment on above: Graves disease [E05.00] Start: 03-09-2024 End: 06-08-2024 ALK PHOS ISOENZYM BL ALK PHOS ISOENZYM BL Lab Routine Abnormal alkaline phosphatase test Expected: 03/09/2024, Expires: 06/08/2024 [facility] [facility] Comment on above: Expected: 03/09/2024, Expires: 4 Start: 03-09-2024 End: 06-08-2024 Gamma glutamyl transferase [Enzymatic activity/volume] in Serum or Plasma GGT Lab Routine Abnormal alkaline phosphatase test Expected: 03/09/2024, Expires: 06/08/2024 [facility] Comment on above: Expected: 03/09/2024, Expires: Start: 03-09-2024 End: 06-08-2024 Hepatic function 2000 panel - Serum or Plasma HEPATIC FUNCTION PNL Lab Routine Abnormal alkaline phosphatase test Expected: 03/09/2024, Expires: 06/08/2024 [facility] Work Phone: Comment on above: Expected: 03/09/2024, Expires: Start: 03-09-2024 End: 06-08-2024 Mitochondria Ab [Presence] in Serum by Immunofluorescence MITOCHONDRIAL M2 IGG SERUM Lab Routine Abnormal alkaline phosphatase test Expected: 03/09/2024, Expires: 06/08/2024 [facility] Comment on above: Expected: 03/09/2024, Expires: 4 Start: 03-09-2024 End: 03-09-2024 Patient encounter procedure 03/09/2024 10:00 AM EDT Office Visit Gastroenterology [address] [address] Nicole Thomas MD [address] [place] [address] follow up liver enzymes Gastroenterology Comment on above: follow up liver enzymes Start: 12-16-2023 Shingrix Vaccine (2 of 2) Shingrix Vaccine (2 of 2) [facility] Start: 12-03-2023 End: 03-03-2024 Thyrotropin [Units/volume] in Serum or Plasma TSH BLD Lab Routine Graves disease Expected: 12/03/2023, Expires: 03/03/2024 [facility] Work Phone: Comment on above: Expected: 12/03/2023, Expires: Start: 12-03-2023 End: 03-03-2024 Thyroxine (T4) free [Mass/volume] in Serum or Plasma T4 FREE/FREE THYROX Lab Routine Graves disease Expected: 12/03/2023, Expires: 03/03/2024 [facility] Work Phone: Comment on above: Expected: 12/03/2023, Expires: Start: 12-03-2023 End: 03-03-2024 Triiodothyronine (T3) Free [Mass/volume] in Serum or Plasma T3 FREE BLD Lab Routine Graves disease Expected: 12/03/2023, Expires: 03/03/2024 [facility] Work Phone: Comment on above: Expected: 12/03/2023, Expires: Start: 10-15-2023 End: 01-14-2024 Thyrotropin [Units/volume] in Serum or Plasma TSH BLD Lab Routine Graves disease Expected: 10/15/2023, Expires: 01/14/2024 [facility] Work Phone: Comment on above: Expected: 10/15/2023, Expires: 4 Start: 10-15-2023 End: 01-14-2024 Thyroxine (T4) free [Mass/volume] in Serum or Plasma T4 FREE/FREE THYROX Lab Routine Graves disease Expected: 10/15/2023, Expires: 01/14/2024 [facility] Work Phone: Comment on above: Expected: 10/15/2023, Expires: Start: 10-15-2023 End: 01-14-2024 Triiodothyronine (T3) Free [Mass/volume] in Serum or Plasma T3 FREE BLD Lab Routine Graves disease Expected: 10/15/2023, Expires: 01/14/2024 [facility] Work Phone: Comment on above: Expected: 10/15/2023, Expires: Start: 10-04-2023 Advance Directive Discussion Advance Directive Discussion [facility] Start: 10-04-2023 Behavioral Health Screening Behavioral Health Screening [facility] Start: 06-04-2023 Covid-19 Vaccine () Covid-19 Vaccine () [facility] Start: 06-04-2023 Influenza vaccination Influenza Vaccine (#1) [facility] Start: 01-20-2023 End: 03-22-2023 Comprehensive metabolic 2000 panel - Serum or Plasma COMP METABOLIC PANEL Lab Routine Graves disease Expected: 01/20/2023, Expires: 03/22/2023 [facility] Work Phone: Comment on above: Expected: 01/20/2023, Expires: 3 Start: 01-20-2023 End: 03-22-2023 Thyrotropin [Units/volume] in Serum or Plasma TSH BLD Lab Routine Graves disease Expected: 01/20/2023, Expires: 03/22/2023 [facility] Work Phone: Comment on above: Expected: 01/20/2023, Expires: 3 Start: 01-20-2023 End: 03-22-2023 Thyroxine (T4) free [Mass/volume] in Serum or Plasma T4 FREE/FREE THYROX Lab Routine Graves disease Expected: 01/20/2023, Expires: 03/22/2023 [facility] Work Phone: Comment on above: Expected: 01/20/2023, Expires: 3 Start: 01-20-2023 End: 03-22-2023 Triiodothyronine (T3) Free [Mass/volume] in Serum or Plasma T3 FREE BLD Lab Routine Graves disease Expected: 01/20/2023, Expires: 03/22/2023 [facility] Work Phone: Comment on above: Expected: 01/20/2023, Expires: 3 Start: 11-18-2022 End: 01-18-2023 ALPHA 1 ANTITRYPSIN PHENOTYPE [facility] Work Phone: Comment on above: Expected: 11/18/2022, Expires: 3 Start: 11-18-2022 End: 01-18-2023 Hepatitis C virus RNA [Units/volume] (viral load) in Serum or Plasma by HARPREET with probe detection [facility] Work Phone: Comment on above: Expected: 11/18/2022, Expires: 3 Start: 11-18-2022 End: 01-18-2023 Mitochondria Ab [Presence] in Serum by Immunofluorescence [facility] Work Phone: Comment on above: Expected: 11/18/2022, Expires: 3 Start: 11-18-2022 End: 01-18-2023 Smooth muscle Ab [Presence] in Serum [facility] Work Phone: Comment on above: Expected: 11/18/2022, Expires: 3 Start: 10-04-2022 ADVANCE DIRECTIVE DISCUSSION ADVANCE DIRECTIVE DISCUSSION [facility] Start: 10-04-2022 DEPRESSION ASSESSMENT DEPRESSION ASSESSMENT [facility] Start: 09-03-2022 Radionuclide thyroid imaging [facility] Start: 03-18-2022 COVID-19 VACCINE (5 - Booster) COVID-19 VACCINE (5 - Booster) [facility] Start: 03-18-2022 Covid-19 Vaccine (5 - Mixed Product series) Covid-19 Vaccine (5 - Mixed Product series) [facility] Start: 2015 BONE DENSITY BONE DENSITY [facility] Start: 2015 Bone Density Screening Bone Density Screening [facility] Start: 2015 Pneumococcal Vaccine: 65+ (1 - PCV) Pneumococcal Vaccine: 65+ (1 - PCV) [facility] Start: 2015 PNEUMOCOCCAL: 65+ (1 - PCV) PNEUMOCOCCAL: 65+ (1 - PCV) [facility] Start: 2015 Screening for osteoporosis Bone Density Screening [facility] Start: 06-25-2014 Urine microalbumin profile DTaP,Tdap,Td Vaccine (1 - Tdap) [facility] Start: 2010 RSV Vaccine (1 - 1-dose 60+ series) RSV Vaccine (1 - 1-dose 60+ series) [facility] Start: 2000 SHINGRIX VACCINE (1 of 2) SHINGRIX VACCINE (1 of 2) [facility] Start: 1995 COLOGUARD (FIT-DNA) COLOGUARD (FIT-DNA) [facility] Start: 1995 Colonoscopy COLONOSCOPY [facility] Start: 1995 COLORECTAL CANCER SCREENING COLORECTAL CANCER SCREENING [facility] Start: [address] COLONOGRAPHY [facility] Start: 1995 DIABETES SCREEN DIABETES SCREEN [facility] Start: 1995 FECAL OCCULT BLOOD FECAL OCCULT BLOOD [facility] Start: 1995 Lipid 1996 panel - Serum or Plasma Lipid Screening [facility] Start: 1995 Lipid panel Lipid Screening [facility] Start: 1995 LIPID SCREEN LIPID SCREEN [facility] Start: 1995 Screening for malignant neoplasm of colon [facility] Start: 1995 SIGMOIDOSCOPY SIGMOIDOSCOPY [facility] Start: 1990 Mammography [facility] Start: 1990 Screening for malignant neoplasm of breast Mammogram Screening [facility] Start: 1969 Urine microalbumin profile [facility] Start: 1968 ANNUAL PCP TEAM CHRONIC DISEASE VISIT ANNUAL PCP TEAM CHRONIC DISEASE VISIT [facility] Start: 1968 Anxiety Screening Anxiety Screening [facility] Start: 1968 BP CONTROLLED (<130/80) BP CONTROLLED (<130/80) [facility] in Start: 1968 Depression Screening Depression Screening [facility] Start: 1968 HEPATITIS C SCREENING HEPATITIS C SCREENING [facility] Comprehensive metabo lic 2000 panel - Serum or Plasma [facility] CYTOLOGY NON-ASSISTANT WOMEN'S ROWING COACH CYTOLOGY NON-GY N Lab Routine Thyroid nodule 03/29/2024 12:24 PM EDT [facility] Work Phone: DXA Skeletal system. axial Views for bone density [facility] ENDO THYROID/LYMPH N ODE FNA ENDO THYROID/LYMPH NODE FNA Procedures Routine Graves disease Thyroid nodule Ordered: 01/21/2024 [facility] Work Phone: Comment on above: Ordered: 01/21/2024 Guidance for percuta neous biopsy.core needle of Thyroid gland IMAGING GUIDED BIOPSY THYROID Radiology Routine Graves disease Thyroid nodule Ordered: 05/12/2024 [facility] Comment on above: Ordered: 05/12/2024 MG Breast - bilatera l Screening [facility] End: 12-18-2023 Us abdominal real time w/image limited US ABD RT UPPER QUADRANT Radiology Routine Abnormal liver enzymes 1 Occurrences starting 11/18/2022 until 12/18/2023 [facility] Work Phone: Comment on above: 1 Occurrences starting 11/18/2022 until 12/18/2023 End: 02-19-2024 Us soft tissue head & neck real time imge docm US THYROID/PARATHYROID Radiology Routine Graves disease Thyroid nodule 1 Occurrences starting 01/20/2023 until 02/19/2024 [facility] Work Phone: Comment on above: 1 Occurrences starting 01/20/2023 until 02/19/2024 End: 10-02-2024 Us soft tissue head & neck real time imge docm US THYROID/PARATHYROID Radiology Routine Graves disease Thyroid nodule 1 Occurrences starting 09/03/2023 until 10/02/2024 [facility] Work Phone: Comment on above: 1 Occurrences starting 09/03/2023 until 10/02/2024 End: 06-24-2025 US Thyroid gland US THYROID/PARATHYROID Radiology Routine Thyroid nodule 1 Occurrences starting 05/25/2024 until 06/24/2025 [facility] Work Phone: Comment on above: 1 Occurrences starting 05/25/2024 until 06/24/2025 US Thyroid gland US THYROID/PARA THYROID Radiology Routine Thyroid nodule 06/07/2024 9:25 AM EDT [facility] Work Phone: [facility] Immunizations Immunization Date Immunization Notes Care Provider Priyanka elliott 03-09-2024 hepatitis A vaccine, adult dosage Nicole Smith MD Work Phone: [facility] 07-15-2023 influenza virus vaccine, unspecified formulation Yessi Carson MD Work Phone: [facility] 07-08-2022 influenza virus vaccine, split virus (incl. purified surface antigen) Rosalie Moncada Other [facility] Other 07-08-2022 influenza virus vaccine, unspecified formulation Yessi Carson MD Work Phone: [facility] 01-21-2022 COVID-19 vaccine (UNSPECIFIED) Nicole Smith MD Work Phone: [facility] 01-21-2022 COVID-19 Vaccine Pfi zer - Documentation Purposes Only Rosalie Moncada Other [facility] 08-07-2021 pneumococcal polysaccharide vaccine, 23 valent Rosalie Moncada Other [facility] 07-17-2021 influenza virus vaccine, split virus (incl. purified surface antigen) Rosalie Moncada Other [facility] Other 07-17-2021 influenza virus vaccine, unspecified formulation [facility] 07-10-2021 COVID-19 vaccine (UNSPECIFIED) Nicole Smith MD Work Phone: [facility] 12-05-2020 COVID-19 vaccine (UNSPECIFIED) Nicole Smith MD Work Phone: [facility] 12-05-2020 COVID-19 Vaccine Pfi zer - Documentation Purposes Only Rosalie Moncada Other [facility] 11-14-2020 COVID-19 vaccine (UNSPECIFIED) Nicole Smith MD Work Phone: [facility] 07-10-2020 influenza virus vaccine, split virus (incl. purified surface antigen) Rosalie Moncada Other [facility] Other 07-10-2020 influenza virus vaccine, unspecified formulation [facility] 07-10-2018 influenza virus vaccine, split virus (incl. purified surface antigen) Rosalie Moncada Other [facility] Other 07-10-2018 influenza virus vaccine, unspecified formulation [facility] 07-29-2017 influenza virus vaccine, split virus (incl. purified surface antigen) Rosalie Moncada Other [employer] Other 07-29-2017 influenza virus vaccine, unspecified formulation [facility] 08-16-2016 influenza virus vaccine, split virus (incl. purified surface antigen) Rosalie Moncada Other [facility] Other 08-16-2016 influenza virus vaccine, unspecified formulation [facility] 06-24-2014 tetanus and diphther ia toxoids, adsorbed, preservative free, for adult use (5 Lf of tetanus toxoid and 2 Lf of diphtheria toxoid) Rosalie Moncada Other [facility] Payers Date Payer Category Payer Self-pay [id number] 2023 Unknown [id number] 2023 Unknown [id number] 2019 Unknown 2015 Medicare 1959 Medicare [id number] 1959 Unknown [id number] 1950 Unknown [id number] 2.16.8 [id number] 1950 Unknown [id number] 2.16.84 [id number] 1950 Unknown [id number] 2.16.84 [id number] 1950 Unknown [id number] 2.16.84 [id number] 1950 Unknown [id number] 2.16.84 [id number] Unknown [id number] 2.16.8 [id number] Unknown [id number] 2.16.8 [id number] Social History Date Type Detail Facility Tobacco smoking stat us NHIS Unknown if ever smoked [facility] Work Phone: Start: 1950 Sex Assigned At Female [facility] [place] [facility] unknown [facility] Start: 1950 Sex Assigned At Not on file C [facility] Start: 02-26-2023 History of Social function [facility] Start: 02-26-2023 Area Deprivation Index [facility] National Score (1-10 0), lower number is lower risk 64 [facility] Start: 07-30-2023 [facility]finding[facility] Clinical Notes 07-26-2022 to 08-22-2024 Yessi Carson MD - 08/18/2024 6:40 AM Mariano Shirley RT(R) - 06/07/2024 8:45 AM EDTTelephone Encounter - Nancie Webster - 05/26/2024 9:36 AM Yessi Otero MD - 05/12/2024 7:20 AM EDT Note Date & Type Note Facility 08-22-2024 Note HNO ID: [id number] Author: ?, ?, ? Service: ? Author Type: ? Type: Progress Notes Filed: 08/22/2024 09:18 Note Text: Appt scheduled [facility] 08/22/24 [facility] 08-20-2024 Note HNO ID: [id number] Author: ?, ?, ? Service: ? Author Type: ? Type: Progress Notes Filed: 08/20/2024 10:44 Note Text: Summary: 1st attempt [employer] message was sent [facility] 08-18-2024 History of Presen t illness Narrative VIRTUAL VISIT PROGRESS NOTE This is a virtual visit using The [employer] Video Visit. It required patient-provider interaction for the medical decision making as documented below. I have communicated my name and active licensure. The patient's identity and physical location were verified at the time of this visit. Either the patient or their legal publications sales representative has been informed of the risks and benefits of -- and alternatives to -- treatment through a remote evaluation and consents to proceed with the evaluation remotely. Kilo Castanon is a 74 year old female seen for Graves disease. Last seen 05/12/24 HISTORY REVIEWED (electronic chart updated): No past medical history on file. No past surgical history on file. No family history on file. Current Outpatient Medications Medication Sig methIMAzole (TAPAZOLE) 5 mg tablet 1/2 tab Wednesday, Wed and Wednesday. rosuvastatin (CRESTOR) 10 mg tablet Take 1 tablet by mouth daily at bedtime. omeprazole (PRILOSEC) 20 mg capsule Take 20 mg by mouth once daily. alendronate (FOSAMAX) 70 mg tablet Take 70 mg by mouth one time a week. In AM with cup of water on empty stomach. Nothing else by mouth and stay upright for 30 min. No current facility-administered medications for this visit. ALLERGIES No Known Allergies HPI/Interval hx: A pleasant 74 yo female patient presenting for follow up of Graves. Doing well. Feeling good with no complaints. On Methimazole 5 mg 1/2 tab 3 times a week. TFTs are good. No dizziness. No palpitations or tremor. No issues with bowels. No cold or heat intolerance. No hx of head or neck irradiation. No double vision. Eyes sensitive to light. Eyes water easily. Sees ophthalmology regularly for retinal issues left eye. Not on Biotin/hair nail skin supplement. US guided FNA with Dr Marks 03/29/24 was non diagnostic, predominantly blood. US guided FNA left lower nodule 06/07/24 by [facility] kessler. Answers submitted by the patient for this visit: Core Review of Systems (Submitted on 08/18/2024) Fever : No Night sweats: No Recent unintentional weight change: No Nasal Congestion: Yes Hearing Loss: No Vision Disturbance: No A cough: Yes Difficulty Breathing?: No Chest pain: No Irregular heartbeat: No Leg Swelling: No Nausea: No Diarrhea: No Black tarry stools: No Difficulty Urinating?: No Awaken at Night More Than Once to Urinate?: No Joint pain or stiffness: No Muscle aches: No Leg or Foot Discomfort at Night?: Yes A rash: No Dizziness: No Headaches: No Memory Loss: No Seizures: No PHYSICAL EXAMINATION: VIDEO EXAM: (if completed, performed via video enabled technology) GENERAL: alert and appropriate, in no distress, well-hydrated, well nourished, and happy, smiling, interactive Labs Latest Ref Rng 08/27/2023 10/15/2023 12/03/2023 04/21/2024 08/11/2024 TSI Qualitative Negative Positive ! Negative TSI <0.55 IU/L 0.83 (H) 0.45 TSH 0.270 - 4.200 mIU/L 4.480 (H) 0.567 0.943 1.650 1.350 Free T4 0.9 - 1.7 ng/dL 0.9 1.0 1.0 1.0 1.0 Free T3 2.3 - 4.1 pg/mL 2.7 3.1 2.7 2.9 3.0 Calcium 8.5 - 10.2 mg/dL 9.1 PTH, Intact 15 - 65 pg/mL 52 Vitamin D 25 Hydroxy 31.0 - 80.0 ng/mL 37.2 Component Latest Ref Rng & Units 05/21/2023 [...] T4 0.76 free T3 2.51 TRAB high IMAGIN06/09/2024 10:28 AM - Radiology, [place] In Impression IMPRESSION: Thyroid nodules are again seen, unchanged from prior study TI-RADS Category: TR4 ACR Recommendation: TI-RADS 4 nodule. FNA is recommended. ACR recommendations are strictly based on the size and imaging appearance at the time of the exam and do not consider stability or previous biopsy results. Suction Worker: BORA Transcribe Date/Time: Jun 09 2024 10:17A Dictated by : GABINO MCDONALD MD This examination was interpreted and the report reviewed and electronically signed by: GABINO MCDONALD MD on Jun 09 2024 10:26AM EST Results-Findings * * *Final Report* * * DATE OF EXAM: Jun 07 2024 9:08AM [facility] 1048 - US THYROID/PARATHYROID / PROCEDURE REASON: Thyroid nodule * * * * Physician Interpretation * * * * EXAMINATION: THYROID ULTRASOUND CLINICAL HISTORY: Thyroid nodule TECHNIQUE: Sonography and Doppler imaging of the thyroid was performed. Images were obtained and stored in a permanent archive. MQ: [id number] COMPARISON: Ultrasound 12/08/2023 RESULT: Right Lobe: 3.0 x 1.4 x 1.4 cm; homogeneous echogenicity, expected vascular flow. Left Lobe: 5.4 x 1.8 x 1.8 cm; homogeneous echogenicity, expected vascular flow. Isthmus: 0.2 cm The most suspicious thyroid nodule(s) (up to four) as below: NODULE 1: Location: Right mid Size: 0.9 x 0.8 x 0.6 cm, previously 1.1 x 0.8 x 0.7 cm Characteristics: Composition: Solid or almost completely solid, 2 points Echogenicity: Isoechoic, 1 point Shape: Oxhpo-jajr-pfnf, 0 points Margin: Ill-defined, 0 points Echogenic foci (add points for all that apply): None, 0 points Internal vascularity: absent Interval growth: Stable TI-RADS Category: TR3 ACR Recommendation: TI-RADS 3 nodule. No FNA or further imaging is advised. NODULE 2: Location: Left lower Size: 2.0 x 1.9 x 1.4 cm, previously 1.9 x 1.9 x 1.5 cm Characteristics: Composition: Solid or almost completely solid, 2 points Echogenicity: Hypoechoic, 2 points Shape: Bjksu-ltfu-avuz, 0 points Margin: Smooth, 0 points Echogenic foci (add points for all that apply): None, 0 points Internal vascularity: present Interval growth: Stable TI-RADS Category: TR4 ACR Recommendation: TI-RADS 4 nodule. FNA is recommended. NODULE 3: Location: Left upper Size: 0.8 x 0.5 x 0.5 cm, previously 1.0 x 0.6 x 0.5 cm Characteristics: Composition: Mixed cystic and solid, 1 point Echogenicity: Hypoechoic, 2 points Shape: Gytcl-vwag-obxm, 0 points Margin: Smooth, 0 points Echogenic foci (add points for all that apply): None, 0 points Internal vascularity: absent Interval growth: Stable TI-RADS Category: TR3 ACR Recommendation: TI-RADS 3 nodule. No FNA or further imaging is advised. NODULE 4: Location: Left lower Size: 0.9 x 0.7 x 0.5 cm, previously 0.7 x 0.4 cm Characteristics: Composition: Solid or almost completely solid, 2 points Echogenicity: Isoechoic, 1 point Shape: Lounw-gozc-kbun, 0 points Margin: Smooth, 0 points Echogenic foci (add points for all that apply): None, 0 points Internal vascularity: present Interval growth: Stable TI-RADS Category: TR3 ACR Recommendation: TI-RADS 3 nodule. No FNA or further imaging is advised. THYROID ULTRASOUND CLINICAL DATA: Follow-up thyroid nodules. COMPARISON: 03/19/2023 The right thyroid lobe measures 3.0 x 0.9 x 1.6 cm. The left lobe is larger measuring 5.1 x 1.9 x 1.9 cm. The isthmus measures 2 - 3 mm. The lobes are slightly lobulated and show mild heterogeneity. There is a hypoechoic nodular area posterior to the right thyroid lobe measuring 11 x 7 x 8 mm . It may be related to the parathyroid gland and correlation is recommended as to any possibility of hypercalcemia. On the left, at the inferior pole, there is redemonstration of a mildly heterogeneous hypoechoic nodule measuring 19 x 15 x 19 mm. This has not changed. Adjacent to it at the midpole superficially there is a subtle, iso/hyperechoic nodular area approximately 7 mm in size that was also visualized previously. At the superior pole, there is a heterogeneous mixed echogenicity nodular area measuring 10 x 5 x 6 mm. This is also unchanged. US/US thyroid IMPRESSION: SIMILAR THYROID NODULARITY. POSSIBLE PARATHYROID GLAND ON THE RIGHT. CORRELATION WITH LABORATORY DATA IS SUGGESTED. Impression dictated by: Lisa Vang M.D.12/08/2023 10:11 AM Dictation Location: [place] [address] Tech: Dunia Anderson Transcribed By: ALEX 12/08/23 1011 Dictated By: Lisa Vang MD 12/08/23 1002 US liver unremarkable( done for elevation in LFTs, but latter improved as hyperthyroidism improved). Impression/plan: 74 yo female patient presenting for follow up. Graves disease. No clinically significant MICHOACANO. On Methimazole 2.5 mg 3 times a week. Clinically and biochemically euthyroid. TSI normal now. August 2022 - had physical. She reported unintentional 10-12 pds over previous few months, also had tremor and palpitations. She saw Dr Sav Márquez in [place], work up revealed Graves disease. Started Methimazole then, in 2021 Rec: Given options for continuing low dose MMI vs stopping and monitoring. Patient chose later which is reasonable considering on very low dose, has been on MMI for 2 years and TSI normal. She understands risk of recurrence and need to monitor. Would monitor TFTs every 3 months for now. Patient advised to call anytime for sx of hyperthyroidism. Thyroid nodule. 08/28/22 US thyroid Heterogenous thyroid with increased vascularity isoechoic wider than tall nodule, smooth margins, left lobe inf 2.0 cm, smaller 0.5 nodule left lobe, interpolar region. 09/03/22 I 123 uptake/scan Left lobe larger homogenous high I 123 uptake, no cold or hot nodules. F/U thyroid US 03/2023 no sig changes. Thyroid US December 08, 2023 no sig changes, left nodule still around 2 cm. Note of 11 mm nodular area posterior to right lobe may be related to parathyroid gland . Normal serum ca/PTH, US guided FNA with Dr Marks 03/29/24 left 2 cm nodule non diagnostic. US guided FNA left lower nodule 06/07/24 by IR benign. Note IR rec another US thyroid before FNA, completed 06/07 stable B/L nodules Rec: Plan for thyroid US Jun 2024( 1 year follow up from benign FNA) Call earlier if neck lumps. HTN Currently controlled off b-blockers. Rec: F/U with PCP. Osteoporosis on Fosamax. Managed by PCP. Follow with PCP. Some elements copied from my note 05/12/24 which have been updated where appropriate, and all reflect current medical decision making from date of this visit. Follow up 6 months but TFTs 3 and 6 months. Some elements copied from my note 05/12/24 which have been updated where appropriate, and all reflect current medical decision making from date of this visit. Yessi Carson MD. documented in this encounter [facility] 08-18-2024 Note HNO ID: [id number] Author: YESSI CARSON MD Service: ? Author Type: Physician Type: Progress Notes Filed: 08/18/2024 06:58 Note Text: VIRTUAL VISIT PROGRESS NOTE This is a virtual visit using [employer] Zoom Video Visit. It required patient-provider interaction for the medical decision making as documented below. I have communicated my name and active licensure. The patient's identity and physical location were verified at the time of this visit. Either the patient or their legal publications sales representative has been informed of the risks and benefits of -- and alternatives to -- treatment through a remote evaluation and consents to proceed with the evaluation remotely. Kilo Castanon is a 74 year old female seen for Graves disease. Last seen 05/12/24 HISTORY REVIEWED (electronic chart updated): No past medical history on file. No past surgical history on file. No family history on file. Current Outpatient Medications Medication Sig methIMAzole (TAPAZOLE) 5 mg tablet 1/2 tab Wednesday, Wed and Wednesday. rosuvastatin (CRESTOR) 10 mg tablet Take 1 tablet by mouth daily at bedtime. omeprazole (PRILOSEC) 20 mg capsule Take 20 mg by mouth once daily. alendronate (FOSAMAX) 70 mg tablet Take 70 mg by mouth one time a week. In AM with cup of water on empty stomach. Nothing else by mouth and stay upright for 30 min. No current facility-administered medications for this visit. ALLERGIES No Known Allergies HPI/Interval hx: A pleasant 74 yo female patient presenting for follow up of Graves. Doing well. Feeling good with no complaints. On Methimazole 5 mg 1/2 tab 3 times a week. TFTs are good. No dizziness. No palpitations or tremor. No issues with bowels. No cold or heat intolerance. No hx of head or neck irradiation. No double vision. Eyes sensitive to light. Eyes water easily. Sees ophthalmology regularly for retinal issues left eye. Not on Biotin/hair nail skin supplement. US guided FNA with Dr Marks 03/29/24 was non diagnostic, predominantly blood. US guided FNA left lower nodule 06/07/24 by [facility] kessler. Answers submitted by the patient for this visit: Core Review of Systems (Submitted on 08/18/2024) Fever : No Night sweats: No Recent unintentional weight change: No Nasal Congestion: Yes Hearing Loss: No Vision Disturbance: No A cough: Yes Difficulty Breathing?: No Chest pain: No Irregular heartbeat: No Leg Swelling: No Nausea: No Diarrhea: No Black tarry stools: No Difficulty Urinating?: No Awaken at Night More Than Once to Urinate?: No Joint pain or stiffness: No Muscle aches: No Leg or Foot Discomfort at Night?: Yes A rash: No Dizziness: No Headaches: No Memory Loss: No Seizures: No PHYSICAL EXAMINATION: VIDEO EXAM: (if completed, performed via video enabled technology) GENERAL: alert and appropriate, in no distress, well-hydrated, well nourished, and happy, smiling, interactive Labs Latest Ref Rng 08/27/2023 10/15/2023 12/03/2023 04/21/2024 08/11/2024 TSI Qualitative Negative Positive ! Negative TSI <0.55 IU/L 0.83 (H) 0.45 TSH 0.270 - 4.200 mIU/L 4.480 (H) 0.567 0.943 1.650 1.350 Free T4 0.9 - 1.7 ng/dL 0.9 1.0 1.0 1.0 1.0 Free T3 2.3 - 4.1 pg/mL 2.7 3.1 2.7 2.9 3.0 Calcium 8.5 - 10.2 mg/dL 9.1 PTH, Intact 15 - 65 pg/mL 52 Vitamin D 25 Hydroxy 31.0 - 80.0 ng/mL 37.2 Component Latest Ref Rng AND Units 05/21/2023 [...] T4 0.76 free T3 2.51 TRAB high IMAGIN06/09/2024 10:28 AM - Radiology, [place] In Impression IMPRESSION: Thyroid nodules are again seen, unchanged from prior study TI-RADS Category: TR4 ACR Recommendation: TI-RADS 4 nodule. FNA is recommended. ACR recommendations are strictly based on the size and imaging appearance at the time of the exam and do not consider stability or previous biopsy results. Suction Worker: BORA Transcribe Date/Time: Jun 09 2024 10:17A Dictated by : GABINO MCDONALD MD This ex (more content not included)... [facility] 06-07-2024 History of Presen t illness Narrative Radiology Service Progress Note PATIENT NAME: Kilo Castanon DATE OF SERVICE: June 07, 2024 TIME: 9:19 AM PATIENT IDENTITY VERIFICATION COMPLETED USING TWO (2) IDENTIFIERS: Name and Date of confirmed by patient verbally. FALL SCREENING: Has the patient had 2 falls in the last year or 1 fall with injury or currently using an Ambulatory Assistive Device (Walker, Cane, Wheelchair, Crutches, etc.)? No PATIENT GENDER DATA: Female. status: Unknown status: N/A PATIENT RELEVANT IMPLANT DATA REVIEWED: Not Applicable PATIENT PRESENTS WITH AN IMPLANTABLE OR ATTACHED MERCHANDISE COMPLAINT ADJUSTER: No RADIOLOGY DEPARTMENT: Ultrasound PERIPHERAL IV DATA: Not applicable SIGNED BY: RT Mónica(Roberto) June 07, 2024 9:19 AM documented in this encounter [facility] 06-07-2024 Note HNO ID: [id number] Author: MARIANO SUÁREZ RT (R) Service: Radiology Author Type: Technologist Type: Progress Notes Filed: 06/07/2024 09:19 Note Text: Radiology Service Progress Note PATIENT NAME: Kilo Castanon DATE OF SERVICE: June 07, 2024 TIME: 9:19 AM PATIENT IDENTITY VERIFICATION COMPLETED USING TWO (2) IDENTIFIERS: Name and Date of confirmed by patient verbally. FALL SCREENING: Has the patient had 2 falls in the last year or 1 fall with injury or currently using an Ambulatory Assistive Device (Walker, Cane, Wheelchair, Crutches, etc.)? No PATIENT GENDER DATA: Female. status: Unknown status: N/A PATIENT RELEVANT IMPLANT DATA REVIEWED: Not Applicable PATIENT PRESENTS WITH AN IMPLANTABLE OR ATTACHED MERCHANDISE COMPLAINT ADJUSTER: No RADIOLOGY DEPARTMENT: Ultrasound PERIPHERAL IV DATA: Not applicable SIGNED BY: RT Mónica(Roberto) June 07, 2024 9:19 AM [facility] 05-26-2024 Telephone encounter Note Spoke to pt and scheduled biopsy for 06/07/24. [facility] 05-26-2024 Miscellaneous Notes Spoke to pt and scheduled biopsy for 06/07/24. Called pt to schedule and a message was left. 1st attempt RADIOLOGIST REQUEST / APPROVAL FORM STAFF RADIOLOGIST:Akin Parsons MD PROCEDURE TO BE DONE UNDER: US (Please also schedule routine thyroid US to be done earlier the same day few hours prior to thyroid bx) PROCEDURE REQUESTED: FNA Requested PROCEDURE: Approved TIME SLOT NEEDED: 1 Hour NOTES: Spoke with Ammy Carson and Jud request biopsy of left lower lobe nodule (previous bx by Dr. Marks non-dx) patient to have routine US prior to bx (outside images are inadequate) SPECIAL LABS/ PROCESSING: routine plus afirma Pre-procedure labs: CBC: not needed INR: not needed COVID: not needed SIR Bleeding risk category for this procedure: low risk. Reference from [facility] [employer] [facility] Worker: https://[facility].policytech.com/dotN et/documents/?kzclr=72448 STAFF SIGNATURE: Akin Parsons MD DATE: May 25, 2024 TIME: 2:40 PM . 8.16 and 8.19 and 8.21 - Attempted to contact Dr. Carson for further discussion. Waiting for call back, BX. COORDINATOR INFORMATION LAB RESULTS: No results found for: INR No results found for: APTT No results found for: PLT Current Outpatient Medications Medication Sig methIMAzole (TAPAZOLE) 5 mg tablet 1/2 tab Wednesday, Wed and Wednesday. rosuvastatin (CRESTOR) 10 mg tablet Take 1 tablet by mouth daily at bedtime. omeprazole (PRILOSEC) 20 mg capsule Take 20 mg by mouth once daily. alendronate (FOSAMAX) 70 mg tablet Take 70 mg by mouth one time a week. In AM with cup of water on empty stomach. Nothing else by mouth and stay upright for 30 min. No current facility-administered medications for this visit. ALLERGIES No Known Allergies GUIDELINES FOR HOLDING ANTI-PLATELET AND ANTI- COAGULATION THERAPY: None on file. NURSE SIGNATURE: Sherry Quiroz RN DATE: May 19, 2024 TIME: 12:17 PM RADIOLOGY CALL CENTER INTAKE BURNISHER: Qiana EXT: [id number] DATE: 05/19/24 TIME: 11:51am TRACKING #. 0000 REQUESTING PERSON: Kaylin PHONE/PAGER: [phone] REQUESTING STAFF: Yessi Carson PHONE/PAGER: [phone] SPECIFICS OF THE REQUEST: (Please be as detailed as possible. If request is lymph node biopsy, specify LOCATION of the node if possible): IMAGING GUIDED BIOPSY THYROID (For example: biopsy liver mass or biopsy pelvic lymph node ) SPECIAL REQUESTS: TISSUE SAMPLE, LABWORK: Special Requests: Fine needle us guided biopsy -Fine needle aspiration (FNA), core biopsy, no preference, unsure, specific processing request for pathology (For example: send for ER, [place], HER2/gorge or possible lymphoma send in RPMI solution ) IS THIS REQUEST PART OF A RESEARCH PROTOCOL: No IF YES: List specifics of request and name/contact number of research coordinator and primary physician. MEDICAL DIAGNOSIS: Graves disease [E05.00] Thyroid nodule [E04.1] (For example: history of breast cancer with liver mass or history of lymphoma ) TYPE AND DATE OF THE EXAM THAT IS THE BASIS OF THE REQUEST: US Date: 03/09/24 (Note: Requests for random organ biopsies, specifically liver and kidney random biopsies do not need imaging. ALL OTHER CASES NEED IMAGING TO EVALUATE APPROPRIATENESS/FEASIBILITY OF THE REQUEST) IMAGING: OUTSIDE [facility] Films: Where is study now: Imported to [facility] (If the imaging was obtained outside the [facility] system, then it needs to be submitted for review prior to approval.) Note to all persons requesting biopsies: All biopsy requests will be scheduled as quickly as possible, based on the clinical urgency, availability of appointment times, the need to hold anti-thrombolytic therapy (aspirin, blood thinners) and the patient s schedule, including the need for an available services delivery driver. If a percutaneous biopsy or drainage is not felt to be safe or an alternative method for establishing a diagnosis is possible, this will be discussed directly with the requesting physician. documented in this encounter [facility] 05-26-2024 Telephone encounter Note Called pt to schedule and a message was left. 1st attempt [facility] 05-25-2024 Telephone encounter Note RADIOLOGIST REQUEST / APPROVAL FORM STAFF RADIOLOGIST:Akin Parsons MD PROCEDURE TO BE DONE UNDER: US (Please also schedule routine thyroid US to be done earlier the same day few hours prior to thyroid bx) PROCEDURE REQUESTED: FNA Requested PROCEDURE: Approved TIME SLOT NEEDED: 1 Hour NOTES: Spoke with Ammy Carson and Jud request biopsy of left lower lobe nodule (previous bx by Dr. Marks non-dx) patient to have routine US prior to bx (outside images are inadequate) SPECIAL LABS/ PROCESSING: routine plus afirma Pre-procedure labs: CBC: not needed INR: not needed COVID: not needed SIR Bleeding risk category for this procedure: low risk. Reference from [facility] [employer] [facility]: https://[facility].policytech.com/dotN et/documents/?svbaq=64177 STAFF SIGNATURE: Akin Parsons MD DATE: May 25, 2024 TIME: 2:40 PM . [facility] Work Phone: 05-19-2024 Telephone encounter Note 8.16 and 8.19 and 8.21 - Attempted to contact Dr. Carson for further discussion. Waiting for call back, [facility] 05-19-2024 Telephone encounter Note BX. COORDINATOR INFORMATION LAB RESULTS: No results found for: INR No results found for: APTT No results found for: PLT Current Outpatient Medications Medication Sig methIMAzole (TAPAZOLE) 5 mg tablet 1/2 tab Wednesday, Wed and Wednesday. rosuvastatin (CRESTOR) 10 mg tablet Take 1 tablet by mouth daily at bedtime. omeprazole (PRILOSEC) 20 mg capsule Take 20 mg by mouth once daily. alendronate (FOSAMAX) 70 mg tablet Take 70 mg by mouth one time a week. In AM with cup of water on empty stomach. Nothing else by mouth and stay upright for 30 min. No current facility-administered medications for this visit. ALLERGIES No Known Allergies GUIDELINES FOR HOLDING ANTI-PLATELET AND ANTI- COAGULATION THERAPY: None on file. NURSE SIGNATURE: Sherry Quiroz RN DATE: May 19, 2024 TIME: 12:17 PM [facility] 05-19-2024 Telephone encounter Note RADIOLOGY CALL CENTER INTAKE BURNISHER: Qiana EXT: [id number] DATE: 05/19/24 TIME: 11:51am TRACKING #. 0000 REQUESTING PERSON: Kaylin PHONE/PAGER: [phone] REQUESTING STAFF: Yessi Carson PHONE/PAGER: [phone] SPECIFICS OF THE REQUEST: (Please be as detailed as possible. If request is lymph node biopsy, specify LOCATION of the node if possible): IMAGING GUIDED BIOPSY THYROID (For example: biopsy liver mass or biopsy pelvic lymph node ) SPECIAL REQUESTS: TISSUE SAMPLE, LABWORK: Special Requests: Fine needle us guided biopsy -Fine needle aspiration (FNA), core biopsy, no preference, unsure, specific processing request for pathology (For example: send for ER, [place], HER2/gorge or possible lymphoma send in RPMI solution ) IS THIS REQUEST PART OF A RESEARCH PROTOCOL: No IF YES: List specifics of request and name/contact number of research coordinator and primary physician. MEDICAL DIAGNOSIS: Graves disease [E05.00] Thyroid nodule [E04.1] (For example: history of breast cancer with liver mass or history of lymphoma ) TYPE AND DATE OF THE EXAM THAT IS THE BASIS OF THE REQUEST: US Date: 03/09/24 (Note: Requests for random organ biopsies, specifically liver and kidney random biopsies do not need imaging. ALL OTHER CASES NEED IMAGING TO EVALUATE APPROPRIATENESS/FEASIBILITY OF THE REQUEST) IMAGING: OUTSIDE [facility] Films: Where is study now: Imported to [facility] (If the imaging was obtained outside the [facility] system, then it needs to be submitted for review prior to approval.) Note to all persons requesting biopsies: All biopsy requests will be scheduled as quickly as possible, based on the clinical urgency, availability of appointment times, the need to hold anti-thrombolytic therapy (aspirin, blood thinners) and the patient s schedule, including the need for an available services delivery driver. If a percutaneous biopsy or drainage is not felt to be safe or an alternative method for establishing a diagnosis is possible, this will be discussed directly with the requesting physician. [facility] 05-12-2024 History of Presen t illness Narrative VIRTUAL VISIT PROGRESS NOTE This is a virtual visit using [employer] Zoom Video Visit. It required patient-provider interaction for the medical decision making as documented below. I have communicated my name and active licensure. The patient's identity and physical location were verified at the time of this visit. Either the patient or their legal publications sales representative has been informed of the risks and benefits of -- and alternatives to -- treatment through a remote evaluation and consents to proceed with the evaluation remotely. Kilo Castanon is a 74 year old female seen for Graves disease. Last seen 01/21/24 HISTORY REVIEWED (electronic chart updated): No past medical history on file. No past surgical history on file. No family history on file. Current Outpatient Medications Medication Sig methIMAzole (TAPAZOLE) 5 mg tablet 1/2 tab Wednesday, Wed and Wednesday. rosuvastatin (CRESTOR) 10 mg tablet Take 1 tablet by mouth daily at bedtime. omeprazole (PRILOSEC) 20 mg capsule Take 20 [...] visit: Core Review of Systems (Submitted on 05/11/2024) Fever : No Night sweats: No Recent unintentional weight change: No Nasal Congestion: No Hearing Loss: No Vision Disturbance: Yes A cough: No Difficulty Breathing?: No Chest pain: No Irregular heartbeat: No Leg Swelling: No Nausea: No Diarrhea: No Difficulty Urinating?: No Awaken at Night More Than Once to Urinate?: No Joint pain or stiffness: No Muscle aches: No Leg or Foot Discomfort at Night?: Yes A rash: No Dizziness: No Headaches: No Memory Loss: No Seizures: No HPI/Interval hx: A pleasant 74 yo female patient presenting for follow up of Graves. Doing well. Feeling good with no complaints. On Methimazole 5 mg 1/2 tab 3 times a week. TFTs are good. No dizziness. No palpitations or tremor. No issues with bowels. No cold or heat intolerance. No hx of head or neck irradiation. No double vision. Eyes sensitive to light Eyes water easily. Not on Biotin/hair nail skin supplement. She had US guided FNA with Dr Marks 03/29/24 was non diagnostic, predominantly blood. PHYSICAL EXAMINATION: VIDEO EXAM: (if completed, performed via video enabled technology) GENERAL: alert and appropriate, in no distress, well-hydrated, well nourished, and happy, smiling, interactive Labs Latest Ref Rng 04/21/2024 TSH 0.270 - 4.200 mIU/L 1.650 Free T4 0.9 - 1.7 ng/dL 1.0 Free T3 2.3 - 4.1 pg/mL 2.9 Latest Ref Rng 10/15/2023 12/03/2023 TSH 0.270 - 4.200 mIU/L 0.567 0.943 Free T4 0.9 - 1.7 ng/dL 1.0 1.0 Free T3 2.3 - 4.1 pg/mL 3.1 2.7 Component Latest Ref Rng & Units 08/27/2023 [...] T4 0.76 free T3 2.51 TRAB high THYROID ULTRASOUND CLINICAL DATA: Follow-up thyroid nodules. COMPARISON: 03/19/2023 The right thyroid lobe measures 3.0 x 0.9 x 1.6 cm. The left lobe is larger measuring 5.1 x 1.9 x 1.9 cm. The isthmus measures 2 - 3 mm. The lobes are slightly lobulated and show mild heterogeneity. There is a hypoechoic nodular area posterior to the right thyroid lobe measuring 11 x 7 x 8 mm . It may be related to the parathyroid gland and correlation is recommended as to any possibility of hypercalcemia. On the left, at the inferior pole, there is redemonstration of a mildly heterogeneous hypoechoic nodule measuring 19 x 15 x 19 mm. This has not changed. Adjacent to it at the midpole superficially there is a subtle, iso/hyperechoic nodular area approximately 7 mm in size that was also visualized previously. At the superior pole, there is a heterogeneous mixed echogenicity nodular area measuring 10 x 5 x 6 mm. This is also unchanged. US/US thyroid IMPRESSION: SIMILAR THYROID NODULARITY. POSSIBLE PARATHYROID GLAND ON THE RIGHT. CORRELATION WITH LABORATORY DATA IS SUGGESTED. Impression dictated by: Lisa Vang M.D.12/08/2023 10:11 AM Dictation Location: [place] [address] Tech: Dunia Anderson Transcribed By: ALEX 12/08/23 1011 Dictated By: Lisa Vang MD 12/08/23 1002 US liver unremarkable( done for elevation in LFTs, but latter improved as hyperthyroidism improved). Impression/plan: 74 yo female patient presenting for follow up. Graves disease. No clinically significant MICHOACANO. On Methimazole 2.5 mg 3 times a week. Clinically and biochemically euthyroid. August 2022 - had physical. She reported unintentional 10-12 pds over previous few months, also had tremor and palpitations. She saw Dr Sav Márquez in [place], work up revealed Graves disease. Started Methimazole then, in 2021 Continue Methimazole 2.5 mg to three times a week. Continue to monitor TFTs. TSI with next lab work. Thyroid nodule. 08/28/22 US thyroid Heterogenous thyroid with increased vascularity isoechoic wider than tall nodule, smooth margins, left lobe inf 2.0 cm, smaller 0.5 nodule left lobe, interpolar region. 09/03/22 I 123 uptake/scan Left lobe larger homogenous high I 123 uptake, no cold or hot nodules. F/U thyroid US 03/2023 no sig changes. Thyroid US December 08, 2023 no sig changes, left nodule still around 2 cm. Note of 11 mm nodular area posterior to right lobe may be related to parathyroid gland US guided FNA with Dr Marks 03/29/24 non diagnostic. Rec: Repeat US guided FNA in IR Check ca/PTH/25 OH D with next lab work. HTN Currently controlled off b-blockers. Rec: F/U with PCP. Osteoporosis on Fosamax. Managed by PCP. Follow with PCP. Some elements copied from my note 01/21/24 which have been updated where appropriate, and all reflect current medical decision making from date of this visit. Follow up VV 3 months, OV in 6 months. I spent a total of 30 minutes on the date of the service which included preparing to see the patient, [id number] patient care, completing clinical documentation, obtaining and/or reviewing separately obtained history, performing a medically appropriate examination, counseling and educating the patient, ordering medications, tests, or procedures and care coordination. Yessi Carson MD. documented in this encounter [facility] 05-12-2024 Note HNO ID: [id number] Author: YESSI CARSON MD Service: ? Author Type: Physician Type: Progress Notes Filed: 05/12/2024 23:31 Note Text: VIRTUAL VISIT PROGRESS NOTE This is a virtual visit using [employer] Zoom Video Visit. It required patient-provider interaction for the medical decision making as documented below. I have communicated my name and active licensure. The patient's identity and physical location were verified at the time of this visit. Either the patient or their legal publications sales representative has been informed of the risks and benefits of -- and alternatives to -- treatment through a remote evaluation and consents to proceed with the evaluation remotely. Kilo Castanon is a 74 year old female seen for Graves disease. Last seen 01/21/24 HISTORY REVIEWED (electronic chart updated): No past medical history on file. No past surgical history on file. No family history on file. Current Outpatient Medications Medication Sig methIMAzole (TAPAZOLE) 5 mg tablet 1/2 tab Wednesday, Wed and Wednesday. rosuvastatin (CRESTOR) 10 mg tablet Take 1 tablet by mouth daily at bedtime. omeprazole (PRILOSEC) 20 mg capsule Take 20 [...] visit: Core Review of Systems (Submitted on 05/11/2024) Fever : No Night sweats: No Recent unintentional weight change: No Nasal Congestion: No Hearing Loss: No Vision Disturbance: Yes A cough: No Difficulty Breathing?: No Chest pain: No Irregular heartbeat: No Leg Swelling: No Nausea: No Diarrhea: No Difficulty Urinating?: No Awaken at Night More Than Once to Urinate?: No Joint pain or stiffness: No Muscle aches: No Leg or Foot Discomfort at Night?: Yes A rash: No Dizziness: No Headaches: No Memory Loss: No Seizures: No HPI/Interval hx: A pleasant 74 yo female patient presenting for follow up of Graves. Doing well. Feeling good with no complaints. On Methimazole 5 mg 1/2 tab 3 times a week. TFTs are good. No dizziness. No palpitations or tremor. No issues with bowels. No cold or heat intolerance. No hx of head or neck irradiation. No double vision. Eyes sensitive to light Eyes water easily. Not on Biotin/hair nail skin supplement. She had US guided FNA with Dr Marks 03/29/24 was non diagnostic, predominantly blood. PHYSICAL EXAMINATION: VIDEO EXAM: (if completed, performed via video enabled technology) GENERAL: alert and appropriate, in no distress, well-hydrated, well nourished, and happy, smiling, interactive Labs Latest Ref Rng 04/21/2024 TSH 0.270 - 4.200 mIU/L 1.650 Free T4 0.9 - 1.7 ng/dL 1.0 Free T3 2.3 - 4.1 pg/mL 2.9 Latest Ref Rng 10/15/2023 12/03/2023 TSH 0.270 - 4.200 mIU/L 0.567 0.943 Free T4 0.9 - 1.7 ng/dL 1.0 1.0 Free T3 2.3 - 4.1 pg/mL 3.1 2.7 Component Latest Ref Rng AND Units 08/27/2023 [...] T4 0.76 free T3 2.51 TRAB high THYROID ULTRASOUND CLINICAL DATA: Follow-up thyroid nodules. COMPARISON: 03/19/2023 The right thyroid lobe measures 3.0 x 0.9 x 1.6 cm. The left lobe is larger measuring 5.1 x 1.9 x 1.9 cm. The isthmus measures 2 - 3 mm. The lobes are slightly lobulated and show mild heterogeneity. There is a hypoechoic nodular area posterior to the right thyroid lobe measuring 11 x 7 x 8 mm . It may be related to the parathyroid gland and correlation is recommended as to any possibility of hypercalcemia. On the left, at the inferior pole, there is r (more content not included)... [facility] 03-29-2024 Note HNO ID: [id number] Author: ANTHONY MARKS MD, PhD Service: ? 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 Patient on anti-platelet or anticoagulant drugs: No The risks, benefits and anticipated outcomes of the procedure, the risks and benefits of the alternatives to the procedure, and the roles and tasks of the personnel to be involved, were discussed with the patient. UNIVERSAL PROTOCOL / SAFETY CHECKLIST Procedure to be Performed: FNA of left lobe thyroid nodule Sign In: A Moment of CARE was completed. Personnel directly involved with the procedure wore the appropriate PPE (Personal Protective Equipment). Patient/Surrogate Stated/Verified: PATIENT VERIFIED(optional for EMERGENT procedures): Patient name, Date of , Relevant allergies, and The intended procedure Time Out Communication: Intended patient and procedure match the source documents. Consent documented and matches the intended procedure. Relevant labs, photos, and/or imaging studies have been reviewed. Sign Out: SIGN OUT (optional for EMERGENT procedures): All specimen containers correctly labeled. Anthony Marks MD, PhD She was positionned in decubitus with the neck in extension. FNA of left lobe thyroid nodule: I used Ice pack to numb the skin overlying the area of the nodule. The skin was prepped in the usual aseptic manner. I performed 3 passes through target nodule using G-25 needles under sonographic guidance. Character of the aspirate: A small drop of blood Afirma sample sent: Yes The patient tolerated the procedure. Complications: No She was told to go the emergency room if there is severe pain or swelling in the neck area. She will be notified of the result by telephone. Follow up:With Dr. Dagoberto Marks MD, PhD [facility] 03-29-2024 Procedure note Fine needle aspiration of Thyroid Nodule (March 29, 2024) Referring Physician: Yessi Carson MD Primary Care Physician: Rosalie Moncada MD Indication: (E04.1) Thyroid nodule (primary encounter diagnosis) Comment: FNA of left lobe thyroid nodule Plan: US THYROID FNA (POC) ENDO USE ONLY, CYTOLOGY NON-ASSISTANT WOMEN'S ROWING COACH Kilo Castanon was identified by name and date, acknowledges here to have an FNA of left lobe thyroid nodule performed. Patient on anti-platelet or anticoagulant drugs: No The risks, benefits and anticipated outcomes of the procedure, the risks and benefits of the alternatives to the procedure, and the roles and tasks of the personnel to be involved, were discussed with the patient. UNIVERSAL PROTOCOL / SAFETY CHECKLIST Procedure to be Performed: FNA of left lobe thyroid nodule Sign In: A Moment of CARE was completed. Personnel directly involved with the procedure wore the appropriate PPE (Personal Protective Equipment). Patient/Surrogate Stated/Verified: PATIENT VERIFIED(optional for EMERGENT procedures): Patient name, Date of , Relevant allergies, and The intended procedure Time Out Communication: Intended patient and procedure match the source documents. Consent documented and matches the intended procedure. Relevant labs, photos, and/or imaging studies have been reviewed. Sign Out: SIGN OUT (optional for EMERGENT procedures): All specimen containers correctly labeled. Anthony Marks MD, PhD She was positionned in decubitus with the neck in extension. FNA of left lobe thyroid nodule: I used Ice pack to numb the skin overlying the area of the nodule. The skin was prepped in the usual aseptic manner. I performed 3 passes through target nodule using G-25 needles under sonographic guidance. Character of the aspirate: A small drop of blood Afirma sample sent: Yes The patient tolerated the procedure. Complications: No She was told to go the emergency room if there is severe pain or swelling in the neck area. She will be notified of the result by telephone. Follow up:With Dr. Dagoberto Marks MD, PhD [facility] Work Phone: 03-29-2024 Procedure note Fine needle aspiration of Thyroid Nodule (March 29, 2024) Referring Physician: Yessi Carson MD Primary Care Physician: Rosalie Moncada MD Indication: (E04.1) Thyroid nodule (primary encounter diagnosis) Comment: FNA of left lobe thyroid nodule Plan: US THYROID FNA (POC) ENDO USE ONLY, CYTOLOGY NON-ASSISTANT WOMEN'S ROWING COACH Kilo Castanon was identified by name and date, acknowledges here to have an FNA of left lobe thyroid nodule performed. Patient on anti-platelet or anticoagulant drugs: No The risks, benefits and anticipated outcomes of the procedure, the risks and benefits of the alternatives to the procedure, and the roles and tasks of the personnel to be involved, were discussed with the patient. UNIVERSAL PROTOCOL / SAFETY CHECKLIST Procedure to be Performed: FNA of left lobe thyroid nodule Sign In: A Moment of CARE was completed. Personnel directly involved with the procedure wore the appropriate PPE (Personal Protective Equipment). Patient/Surrogate Stated/Verified: PATIENT VERIFIED(optional for EMERGENT procedures): Patient name, Date of , Relevant allergies, and The intended procedure Time Out Communication: Intended patient and procedure match the source documents. Consent documented and matches the intended procedure. Relevant labs, photos, and/or imaging studies have been reviewed. Sign Out: SIGN OUT (optional for EMERGENT procedures): All specimen containers correctly labeled. Anthony Marks MD, PhD She was positionned in decubitus with the neck in extension. FNA of left lobe thyroid nodule: I used Ice pack to numb the skin overlying the area of the nodule. The skin was prepped in the usual aseptic manner. I performed 3 passes through target nodule using G-25 needles under sonographic guidance. Character of the aspirate: A small drop of blood Afirma sample sent: Yes The patient tolerated the procedure. Complications: No She was told to go the emergency room if there is severe pain or swelling in the neck area. She will be notified of the result by telephone. Follow up:With Dr. Dagoberto Marks MD, PhD documented in this encounter [facility] 03-29-2024 Nurse Note UNIVERSAL PROTOCOL / SAFETY CHECKLIST Procedure to be Performed: Fine needle aspiration of the Left thyroid nodule. Sign In: A Moment of CARE was completed. Personnel directly involved with the procedure wore the appropriate PPE (Personal Protective Equipment). Patient/Surrogate Stated/Verified: PATIENT VERIFIED(optional for EMERGENT procedures): Patient name, Date of , Relevant allergies, and The intended procedure Time Out Communication: Intended patient and procedure match the source documents. Consent documented and matches the intended procedure. Relevant labs, photos, and/or imaging studies have been reviewed. Correct side/site marked and visible. No medications required for procedure. Fire risk assessed and interventions discussed. No implant(s) inserted. Sign Out: SIGN OUT (optional for EMERGENT procedures): All specimen containers correctly labeled. All instruments, equipment, possible retained foreign bodies accounted for. Post-procedure follow-up management communicated and Plan of Care Visit completed when applicable. Zee Kc MA [facility] 03-29-2024 Nurse Note UNIVERSAL PROTOCOL / SAFETY CHECKLIST Procedure to be Performed: Fine needle aspiration of the Left thyroid nodule. Sign In: A Moment of CARE was completed. Personnel directly involved with the procedure wore the appropriate PPE (Personal Protective Equipment). Patient/Surrogate Stated/Verified: PATIENT VERIFIED(optional for EMERGENT procedures): Patient name, Date of , Relevant allergies, and The intended procedure Time Out Communication: Intended patient and procedure match the source documents. Consent documented and matches the intended procedure. Relevant labs, photos, and/or imaging studies have been reviewed. Correct side/site marked and visible. No medications required for procedure. Fire risk assessed and interventions discussed. No implant(s) inserted. Sign Out: SIGN OUT (optional for EMERGENT procedures): All specimen containers correctly labeled. All instruments, equipment, possible retained foreign bodies accounted for. Post-procedure follow-up management communicated and Plan of Care Visit completed when applicable. Zee Kc MA documented in this encounter [facility] 03-09-2024 Note HNO ID: [id number] Author: NICOLE THOMAS MD Service: ? Author Type: Physician Type: Progress Notes Filed: 03/09/2024 11:23 Note Text: Hepatology Clinic HPI: 73 yo with chronic elevation of liver enzymes. Here for fup. 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 methIMAzole (TAPAZOLE) 5 mg tablet 1/2 tab Wednesday, Wed and Wednesday. rosuvastatin (CRESTOR) 10 mg tablet Take 1 tablet by mouth daily at bedtime. omeprazole (PRILOSEC) 20 mg capsule Take 20 mg by mouth once daily. alendronate (FOSAMAX) 70 mg tablet Take 70 mg by mouth one time a week. In AM with cup of water on empty stomach. Nothing else by mouth and stay upright for 30 min. PHYSICAL EXAMINATION: There were no vitals taken for this visit. 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 [facility] 03-09-2024 History of Presen t illness Narrative Images from the original note were not included. Hepatology Clinic HPI: 73 yo with chronic elevation of liver enzymes. Here for fup. started in 2020, was on statins these were stopped after >20 years Lft remained elevated she is asymptomatic past note: ast.alt 33/66 alpho 150 In 2020: ast/alt 124/285 prior No liver biopsy dx with Grave's Dz in Fall 2021 started on metoprolol and Methimazole started these meds: 09/2022 and Oct 2022 respect an US liver was normal weight fluctuates, was overweight until grave's occured has done liver us at [facility], it is unremarkable GENERAL REVIEW OF SYSTEMS: GENERAL: No unexplained [...] facility-administered medications on file prior to visit. methIMAzole (TAPAZOLE) 5 mg tablet 1/2 tab Wednesday, Wed and Wednesday. rosuvastatin (CRESTOR) 10 mg tablet Take 1 tablet by mouth daily at bedtime. omeprazole (PRILOSEC) 20 mg capsule Take 20 mg by mouth once daily. alendronate (FOSAMAX) 70 mg tablet Take 70 mg by mouth one time a week. In AM with cup of water on empty stomach. Nothing else by mouth and stay upright for 30 min. PHYSICAL EXAMINATION: There were no vitals taken for this visit. 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 documented in this encounter [facility] 02-11-2024 Telephone encounter Note Requester: Pharmacy Please see additional details below and advise if able to resend Rx. Patients last Endocrinology visit occurred 01/21/24. Follow-up evaluation has been established Upcoming Endocrinology Appointments - Next 365 Days Visit Type Date Time Department THYROID BIOPSY/ULTRASOUND 03/29/2024 11:20 AM [facility] VIDEO SPEC EST 05/01/2024 3:00 PM [facility] Requested Prescriptions Pending Prescriptions Disp Refills methIMAzole (TAPAZOLE) 5 mg tablet [Pharmacy Med Name: METHIMAZOLE 5 MG TABLET] 20 tablet 3 Si/2 tab Wednesday, Wed and Wednesday. TSH (mIU/L) Date Value 12/03/2023 0.943 10/15/2023 0.567 If patient is due for an appointment please route to provider for refill consideration and also to the endo scheduling pool. PSS NOTE: Patient needs scheduled appointment No [facility] 02-11-2024 Miscellaneous Notes Requester: Pharmacy Please see additional details below and advise if able to resend Rx. Patients last Endocrinology visit occurred 01/21/24. Follow-up evaluation has been established Upcoming Endocrinology Appointments - Next 365 Days Visit Type Date Time Department THYROID BIOPSY/ULTRASOUND 03/29/2024 11:20 AM [facility] VIDEO SPEC EST 05/01/2024 3:00 PM [facility] [employer] COMM . Requested Prescriptions Pending Prescriptions Disp Refills methIMAzole (TAPAZOLE) 5 mg tablet [Pharmacy Med Name: METHIMAZOLE 5 MG TABLET] 20 tablet 3 Si/2 tab Wednesday, Wed and Wednesday. TSH (mIU/L) Date Value 12/03/2023 0.943 10/15/2023 0.567 If patient is due for an appointment please route to provider for refill consideration and also to the endo scheduling pool. PSS NOTE: Patient needs scheduled appointment No documented in this encounter [facility] 01-25-2024 Note HNO ID: [id number] Author: ?, ?, ? Service: ? Author Type: ? Type: Progress Notes Filed: 01/25/2024 11:24 Note Text: Pt is scheduled on 03/29/24 for FNA and 05/01/24 for a VV [facility] 01-21-2024 Note HNO ID: [id number] Author: ?, ?, ? Service: ? Author Type: ? Type: Progress Notes Filed: 01/21/2024 16:15 Note Text: Summary: 1st attempt LVM w/callback number for pt to schedule vv fu in 3 months AND Fine Needle Aspiration [facility] 01/21/24 [facility] 01-21-2024 History of Presen t illness Narrative Summary: 1st attempt LVM w/callback number for pt to schedule vv fu in 3 months & Fine Needle Aspiration [facility] 01/21/24 VIRTUAL VISIT PROGRESS NOTE This is a virtual visit using The [employer] Video Visit. It required patient-provider interaction for the medical decision making as documented below. I have communicated my name and active licensure. The patient's identity and physical location were verified at the time of this visit. Either the patient or their legal publications sales representative has been informed of the risks and benefits of -- and alternatives to -- treatment through a remote evaluation and consents to proceed with the evaluation remotely. Kilo Castanon is a 73 year old female seen for Graves disease. Last seen 09/03/23. HISTORY REVIEWED (electronic chart updated): No past medical history on file. No past surgical history on file. No family history on file. Current Outpatient Medications Medication Sig methIMAzole (TAPAZOLE) 5 mg tablet 1/2 tab Wednesday, Wed and Wednesday. rosuvastatin (CRESTOR) 10 mg tablet Take 1 tablet by mouth daily at bedtime. omeprazole (PRILOSEC) 20 mg capsule Take 20 [...] visit: Core Review of Systems (Submitted on 01/19/2024) Fever : No Night sweats: No Recent [...] No Leg or Foot Discomfort at Night?: No A rash: No Dizziness: No Headaches: No Memory Loss: No Seizures: No HPI/Interval hx: A pleasant 73 yo female patient presenting for follow up of Graves. Doing well. Feeling good with no complaints. On Methimazole 5 mg 1/2 tab 3 times a week. She is off Metoprolol since end may. No dizziness. No palpitations or tremor. No issues with bowels. No cold or heat intolerance. No hx of head or neck irradiation. Mother had MNG had surgery age 25. No thyroid cancer in the family. Mom type 2 DM old age. No autoimmune disease in the family. No double vision. Eyes sensitive to light Eyes water easily. Not on Biotin/hair nail skin supplement. PHYSICAL EXAMINATION: VIDEO EXAM: (if completed, performed via video enabled technology) GENERAL: alert and appropriate, in no distress, well-hydrated, well nourished, and happy, smiling, interactive Labs Latest Ref Rng 10/15/2023 12/03/2023 TSH 0.270 - 4.200 mIU/L 0.567 0.943 Free T4 0.9 - 1.7 ng/dL 1.0 1.0 Free T3 2.3 - 4.1 pg/mL 3.1 2.7 Component Latest Ref Rng & Units 08/27/2023 [...] T4 0.76 free T3 2.51 TRAB high THYROID ULTRASOUND CLINICAL DATA: Follow-up thyroid nodules. COMPARISON: 03/19/2023 The right thyroid lobe measures 3.0 x 0.9 x 1.6 cm. The left lobe is larger measuring 5.1 x 1.9 x 1.9 cm. The isthmus measures 2 - 3 mm. The lobes are slightly lobulated and show mild heterogeneity. There is a hypoechoic nodular area posterior to the right thyroid lobe measuring 11 x 7 x 8 mm . It may be related to the parathyroid gland and correlation is recommended as to any possibility of hypercalcemia. On the left, at the inferior pole, there is redemonstration of a mildly heterogeneous hypoechoic nodule measuring 19 x 15 x 19 mm. This has not changed. Adjacent to it at the midpole superficially there is a subtle, iso/hyperechoic nodular area approximately 7 mm in size that was also visualized previously. At the superior pole, there is a heterogeneous mixed echogenicity nodular area measuring 10 x 5 x 6 mm. This is also unchanged. US/US thyroid IMPRESSION: SIMILAR THYROID NODULARITY. POSSIBLE PARATHYROID GLAND ON THE RIGHT. CORRELATION WITH LABORATORY DATA IS SUGGESTED. Impression dictated by: Lisa Vang M.D.12/08/2023 10:11 AM Dictation Location: [place] [address] Tech: Dunia Dunlapanna Transcribed By: ALEX 12/08/23 1011 Dictated By: Lisa Vang MD 12/08/23 1002 US liver unremarkable( done for elevation in LFTs, but latter improved as hyperthyroidism improved). Impression/plan: 73 yo female patient presenting for follow up. Graves disease. No clinically significant MICHOACANO. On Methimazole 2.5 mg 3 times a week. Clinically and biochemically euthyroid. August 2022 - had physical. She reported unintentional 10-12 pds over previous few months, also had tremor and palpitations. She saw Dr aSv Márquez in [place], work up revealed Graves disease. Started Methimazole then, in 2021 Continue Methimazole 2.5 mg to three times a week. TFTs in 3 months. Thyroid nodule. 08/28/22 US thyroid Heterogenous thyroid with increased vascularity isoechoic wider than tall nodule, smooth margins, left lobe inf 2.0 cm, smaller 0.5 nodule left lobe, interpolar region. 09/03/22 I 123 uptake/scan Left lobe larger homogenous high I 123 uptake, no cold or hot nodules. F/U thyroid US 03/2023 no sig changes. Thyroid US December 07 no sig changes, left nodule still around 2 cm. Rec: Discussed US guided FNA left nodule, now that she is euthyroid, and patient is agreeable. Discussed procedure in details and possible results and management plan accordingly. Referral placed. HTN Currently controlled off b-blockers. Rec: F/U with PCP. Osteoporosis on Fosamax for > 20 years. last BMD in August 2022. Managed by PCP. Follow with PCP. Again discuss with PCP consideration for drug holiday, if BMD is good/stable. Some elements copied from my note 09/03/23 which have been updated where appropriate, and all reflect current medical decision making from date of this visit. VV 3 months. Yessi Carson MD. documented in this encounter [facility] 01-21-2024 Note HNO ID: [id number] Author: YESSI CARSON MD Service: ? Author Type: Physician Type: Progress Notes Filed: 01/21/2024 16:15 Note Text: VIRTUAL VISIT PROGRESS NOTE This is a virtual visit using [employer] Video Visit. It required patient-provider interaction for the medical decision making as documented below. I have communicated my name and active licensure. The patient's identity and physical location were verified at the time of this visit. Either the patient or their legal publications sales representative has been informed of the risks and benefits of -- and alternatives to -- treatment through a remote evaluation and consents to proceed with the evaluation remotely. Kilo Castanon is a 73 year old female seen for Graves disease. Last seen 09/03/23. HISTORY REVIEWED (electronic chart updated): No past medical history on file. No past surgical history on file. No family history on file. Current Outpatient Medications Medication Sig methIMAzole (TAPAZOLE) 5 mg tablet 1/2 tab Wednesday, Wed and Wednesday. rosuvastatin (CRESTOR) 10 mg tablet Take 1 tablet by mouth daily at bedtime. omeprazole (PRILOSEC) 20 mg capsule Take 20 [...] visit: Core Review of Systems (Submitted on 01/19/2024) Fever : No Night sweats: No Recent [...] No Leg or Foot Discomfort at Night?: No A rash: No Dizziness: No Headaches: No Memory Loss: No Seizures: No HPI/Interval hx: A pleasant 73 yo female patient presenting for follow up of Graves. Doing well. Feeling good with no complaints. On Methimazole 5 mg 1/2 tab 3 times a week. She is off Metoprolol since end may. No dizziness. No palpitations or tremor. No issues with bowels. No cold or heat intolerance. No hx of head or neck irradiation. Mother had MNG had surgery age 25. No thyroid cancer in the family. Mom type 2 DM old age. No autoimmune disease in the family. No double vision. Eyes sensitive to light Eyes water easily. Not on Biotin/hair nail skin supplement. PHYSICAL EXAMINATION: VIDEO EXAM: (if completed, performed via video enabled technology) GENERAL: alert and appropriate, in no distress, well-hydrated, well nourished, and happy, smiling, interactive Labs Latest Ref Rng 10/15/2023 12/03/2023 TSH 0.270 - 4.200 mIU/L 0.567 0.943 Free T4 0.9 - 1.7 ng/dL 1.0 1.0 Free T3 2.3 - 4.1 pg/mL 3.1 2.7 Component Latest Ref Rng AND Units 08/27/2023 [...] T4 0.76 free T3 2.51 TRAB high THYROID ULTRASOUND CLINICAL DATA: Follow-up thyroid nodules. COMPARISON: 03/19/2023 The right thyroid lobe measures 3.0 x 0.9 x 1.6 cm. The left lobe is larger measuring 5.1 x 1.9 x 1.9 cm. The isthmus measures 2 - 3 mm. The lobes are slightly lobulated and show mild heterogeneity. There is a hypoechoic nodular area posterior to the right thyroid lobe measuring 11 x 7 x 8 mm . It may be related to the parathyroid gland and correlation is recommended as to any possibility of hypercalcemia. On the left, at the inferior pole, there i (more content not included)... [facility] 11-02-2023 Evaluation note Encounter Date Diagnosis Assessment Notes Oct, Hyperlipidemia, unspecified (ICD-10 - E78.5) [employer] Other 12-07-2023 NoteHNO ID: [id number] Author: Mikaela Holley Service: ? Author Type: ? Type: Progress Notes Filed: 09/09/2023 1:26 PM Note Text: [facility] NoteHNO ID: [id number] Author: Mary Juárez Service: ? Author Type: ? Type: Progress Notes Filed: 09/07/2023 8:55 AM Note Text: Summary: 1st attempt Called and lvm with call back number to assist with scheduling.[facility]12-01-2023 History of Present illness Narrative* Yessi Carson MD - 09/03/2023 1:40 PM EST VIRTUAL VISIT PROGRESS NOTE This was changed [...] neck irradiation. Thyroid US March 19 at [facility] showed no sig changes int he thyroid [...] palpitations. She saw Dr Sav Márquez in [place], work up revealed Graves disease. Started Methimazole [...] mins. Yessi Carson MD. [facility] NoteHNO ID: [id number] Author: Yessi Carson MD Service: ? Author [...] neck irradiation. Thyroid US March 19 at [facility] showed no sig changes int he thyroid [...] palpitations. She saw Dr Sav Márquez in [place], work up revealed Graves disease. Started Methimazole [...] nodule left lobe, inte (more content not included)...[facility]11-08-2023 Miscellaneous Notes* Telephone Encounter - Sheri Mcintyre RN - 08/11/2023 3:37 PM EST Patient calling States she had recent lipid [...] may leave a message documented [facility] Evaluation [facility]* Encounter Date Diagnosis Assessment Notes Treatment Notes Treatment Clinical Notes Jul, Medicare annual wellness visit, subsequent [...] labs later this week check fasting labs. [employer] Other 09-12-2023 Miscellaneous Notes* Telephone Encounter - Laquita Correia MA - 06/15/2023 2:25 PM EDT Found the results (clipped to another pt's notes) in your inbox documented in this encounterThe [facility]06-[facility]23 Miscellaneous Notes* Telephone Encounter - Yessi [...] Please schedule appointment: No documented in this encounterThe [facility]04-19-[facility] History of Present illness Narrative* Yessi Carson MD - 01/20/2023 10:21 AM EDT New patient hyperthyroid/Graves disease. HPI: A pleasant 72 yo female patient presenting today with . August 2022 - had physical. She reported unintentional 10-12 pds over previous few months, also had tremor and palpitations. She saw Dr Sav Márquez in [place], work up revealed Graves disease. Started Methimazole [...] palpitations. She saw Dr Sav Márquez in [place], work up revealed Graves disease. Started Methimazole [...] which included preparing to see the patient, hemf-ti-edga patient care, completing clinical documentation, obtaining and/or reviewing separately obtained history, performing a medically appropriate examination, counseling and educating the pat ient, ordering medications, tests, or procedures and care coordination. documented in this encounterThe [facility]02-15-[facility]23 History of Present illness Narrative* Nicole Smith MD - 11/18/2022 2:17 PM EST Images from the original note were not included. [facility]at[facility] Edu Madison MD, FACG, FAASLD Hepatology [facility] Consult Requested By: Rosalie Moncada (DrC) [facility] [phone] for evaluation of liver enzymes.. 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 documented in this encounterThe [facility]10-23-[facility]22 History general Narrative - Reported* Type Description Date Medical History Blood in stool Medical History Hyperlipemia Medical History Hyperthyroidism Surgical History Problem Title : Appe ndectomy, Problem Comment : [facility] 07/26/2022, Problem Status : Active, Surgical History Problem Title : Bridgett ract Extraction-Left, Problem Comment : [facility] 07/26/2022, Problem Status : Active, Surgical History Problem Title : Bridgett ract Extraction-Right, Problem Comment : [facility] 07/26/2022, Problem Status : Active, Surgical History [...] Title : Tons illectomy, Problem Comment : [facility] 07/26/2022, Problem Status : Active, [facility] Other evaluation noteNo assessment information available [facility] Work Phone: evaluation note* Diagnosis Abnormal liver enzymes- Primary Other nonspecific abnormal serum enzyme levels documented in this encounter [facility] note* Diagnosis 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 crisis or storm Thyroid nodule Nontoxic uninodular goiter documented in this encounter [facility] note* Diagnosis Thyrotoxicosis, unspecified without thyrotoxic crisis or storm documented in this encounter [facility] noteNo InformationNort panOpen Other evaluation note* Diagnosis 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 crisis or storm Thyroid nodule Nontoxic uninodular goiter documented in this encounter [facility] note* Diagnosis 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 crisis or storm Thyroid nodule Nontoxic uninodular goiter Other osteoporosis, unspecified pathological fracture presence documented [facility] this encounter [facility]* Diagnosis Abnormal alkaline phosphatase test- Primary Other nonspecific abnormal serum enzyme levels documented in this [facility]* Diagnosis Thyroid nodule- Primary Nontoxic uninodular goiter documented [facility] this [facility]* Diagnosis 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 crisis or storm Vitamin D deficiency Unspecified vitamin D deficiency Thyroid nodule Nontoxic uninodular goiter [facility] Diagnosis Thyroid nodule- Primary Nontoxic uninodular goiter Graves disease Toxic diffuse goiter without mention of thyrotoxic crisis or storm Thyroid nodule Nontoxic uninodular goiter [facility]* Diagnosis Thyroid nodule Nontoxic uninodular goiter documented [facility] this [facility]* Diagnosis Onset Date Resolution Status Hyperlipemia acute Osteoporosis acute Screening mammogram for breast cancer acute [facility] Work Phone: Evaluation note* Diagnosis 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 crisis or storm Thyroid nodule Nontoxic uninodular goiter Hypertension, unspecified type Other osteoporosis, unspecified pathological fracture presence documented in this encounter [facility] general Narrative - Reported* Type Description Date [...] Title : Appe ndectomy, Problem Comment : [employer] 07/26/2022, Problem Status [...] : [employer] 07/26/2022, Problem Status : Active, [facility] Other Reason for referral (narrative)* Diagnostic Procedure Only (Routine) - Pending Review Specialty Diagnoses / Procedures Referred By Nahomi t Referred To Contact US IMAGING Diagnoses Abnormal liver enzymes Procedures US ABD RT UPPER QUADRANT US ABDOMINAL REAL TIME W/IMAGE LIMITED Nicole Thomas MD [address] [address] [facility] Imaging Referral ID Status Reason Start Date Expiration Date Visits Requested Visits Authorized [id number] Pending Review Auto-Generat ed Referral 11/18/2022 12/18/2023 1 1 [facility] for referral (narrative)* Diagnostic Procedure Only (Routine) - Pending Review Specialty Diagnoses / Procedures Referred By Contac t Referred To Contact US IMAGING Diagnoses Graves disease Thyroid nodule Procedures US THYROID/PARATHYROID US SOFT TISSUE HEAD & NECK REAL TIME IMGE Yessi Gruber MD [address] [place] [address] Us Imaging Referral ID Status Reason Start Date Expiration Date Visits Requested Visits Authorized [id number] Pending Review Auto-Generat ed Referral 01/20/2023 02/19/2024 1 1 [facility] for referral (narrative)* Diagnostic Procedure Only (Routine) - Pending Review Specialty Diagnoses / Procedures Referred By Contac t Referred To Contact US IMAGING Diagnoses Graves disease Thyroid nodule Procedures US THYROID/PARATHYROID US SOFT TISSUE HEAD & [place] [address] [place] [address] [place] [address] Referral ID Status Reason Start Date Expiration Date Visits Requested Visits Authorized [id number] Pending Review Auto-Generat ed Referral 09/03/2023 10/02/2024 1 1 [facility] for referral (narrative)* Diagnostic Procedure Only (Routine) - Authorized Specialty Diagnoses / Procedures Referred By Contac t Referred To Contact US IMAGING Diagnoses Thyroid nodule Procedures US THYROID/PARATHYROID US SOFT TISSUE HEAD & NECK REAL TIME IMGE Anthony Franz MD, PhD [address] [place] [address] [place] [address] Referral ID Status Reason Start Date Expiration Date Visits Requested Visits Authorized [id number] Authorized Auto-Generat ed Referral 05/25/2024 06/24/2025 1 1 [facility] for visit Narrative* Diagnostic Procedure Only (Routine) - Closed Specialty Diagnoses / Procedures [facility] Referred To Contact [facility] IMAGING Diagnoses Thyroid nodule Procedures US THYROID/PARATHYROID US SOFT TISSUE HEAD & NECK REAL TIME Anthony Hebert MD, PhD [address] [place] [address] [place] [address] Referral ID Status Reason Start Date Expiration Date V isits Requested Visits Authorized [id number] Closed Auto-Generate d Referral 05/25/2024 06/24/2025 1 1 [facility] Summary Purpose Family History No Family History Records Found Relationship Condition Age at Onset Recorded Date/T sidney father Malignant neoplasm Unknown Hypertension Unknown Unknown Heart disease Unknown mother Diabetes mellitus Unknown Family history of mental disorder Unknown Advance Directives No Advanced Directives Records Found Advance Directive Response Recorded Date/ Time Advance Directives No August 1:33pm Advance Directive Response Recorded Date/ Time Advance Directives No August 2:33pm Chief Complaint and Reason for Visit Chief Complaint E05.90 R63.4 R25.1 R 00.2 E05.90 R63.4 R25.1 R00.2 Chief Complaint r74.8 Chief Complaint r74.8 E05.90;E05.00 Chief Complaint Wellness Reason for Visit Hyperlipemia Osteoporosis Screening mammogram for breast cancer Additional Source Comments INFORMATION SOURCE (unrecogn ized section and content) DATE CREATED AUTHOR 11/25/2021 [facility] DATE CREATED AUTHOR AUTHOR'S ORGANIZ ATION 03/18/2022 [facility] dical Specialist DATE CREATED AUTHOR AUTHOR'S ORGANIZ ATION 08/31/2022 [facility] pital DATE CREATED AUTHOR AUTHOR'S ORGANIZ ATION 02/10/2024 [facility] DATE CREATED AUTHOR AUTHOR'S ORGANIZ ATION 06/11/2024 [facility] DATE CREATED AUTHOR AUTHOR'S ORGANIZ ATION 08/24/2024 [facility] Care Teams (unrecognized sec tion and [...] Rosalie Moncada MD Primary Care Provider Active Academic Administrator Relationship Specialty Start Date End Date Rosalie Moncada MD [address] [place] [address] Referring Family Medicine 10/12/22 Team Status: Inactive Member Role Status Dates Rosalie Moncada MD Primary Care Provider Active Yamila Ang MD Attending Provider Active Yessi Carson Referring Provider Active Academic Administrator Relationship Specialty Start Date End Date Rosalie Moncada MD [address] [place] [address] PCP - General Family Medicine 11/19/22 Rosalie Moncada MD [address] [facility] [address] Referring Family Medicine 10/12/22 Academic Administrator Relationship Specialty Start Date End Date Rosalie Moncada MD [address] [facility] [address] PCP - General Family Medicine 11/19/22 Rosalie Moncada MD [address] [facility] [address] Referring Family Medicine 10/12/22 Academic Administrator Relationship Specialty Start Date End Date Rosalie Moncada MD [address] [facility] [address] PCP - General Family Medicine 11/19/22 Rosalie Moncada MD [address] [facility] [address] Referring Family Medicine 10/12/22 Academic Administrator Relationship Specialty Start Date End Date Rosalie Moncada MD [address] [facility] [address] PCP - General Family Medicine 11/19/22 Rosalie Moncada MD [address] [facility] [address] Referring Family Medicine 10/12/22 Academic Administrator Relationship Specialty Start Date End Date Rosalie Moncada MD [address] [facility] [address] PCP - General Family Medicine 11/19/22 Rosalie Moncada MD [address] [facility] [address] Referring Family Medicine 10/12/22 Academic Administrator Relationship Specialty Start Date End Date Rosalie Moncada MD [address] [facility] [address] PCP - General Family Medicine 11/19/22 Rosalie Moncada MD [address] [facility] [address] Referring Family Medicine 10/12/22 Academic Administrator Relationship Specialty Start Date End Date Rosalie Moncada MD [address] [place] [facility] [place] [address] PCP - General Family Medicine 11/19/22 Rosalie Moncada MD [address] [place] [address] Referring Family Medicine 10/12/22 Academic Administrator Relationship Specialty Start Date End Date Rosalie Moncada MD [address] [facility] [place] [address] PCP - General Family Medicine 11/19/22 Rosalie Moncada MD [address] [place] [address] Referring Family Medicine 10/12/22 Academic Administrator Relationship Specialty Start Date End Date Rosalie Moncada MD [address] [facility] [address] PCP - General Family Medicine 11/19/22 Rosalie Moncada MD [address] [facility] [place] [address] Referring Family Medicine 10/12/22 Academic Administrator Relationship Specialty Start Date End Date Rosalie Moncada MD [address] [facility] [place] [address] PCP - General Family Medicine 11/19/22 Rosalie Moncada MD [address] [facility] [place] [address] Referring Family Medicine 10/12/22 Academic Administrator Relationship Specialty Start Date End Date Rosalie Moncada MD [address] [facility] [place] [address] PCP - General Family Medicine 11/19/22 Rosalie Moncada MD [address] [facility] [place] [address] Referring Family Medicine 10/12/22 Academic Administrator Relationship Specialty Start Date End Date Rosalie Moncada MD [address] [facility] [place] [address] PCP - General Family Medicine 11/19/22 Rosalie Moncada MD [address] [facility] [place] [address] Referring Family Medicine 10/12/22 Academic Administrator Relationship Specialty Start Date End Date oRsalie Moncada MD [address] [facility] [place] [address] PCP - General Family Medicine 11/19/22 Rosalie Moncada MD [address] [facility] [place] [address] Referring Family Medicine 10/12/22 Academic Administrator Relationship Specialty Start Date End Date Rosalie Moncada MD [address] [facility] [place] [address] PCP - General Family Medicine 11/19/22 Rosalie Moncada MD [address] [facility] [place] [address] Referring Family Medicine 10/12/22 Team Status: Inactive Member Role Status Dates Rosalie Moncada MD Primary Care Provide r, Attending Provider Active Start: August 01, 2024 End: August 01, 2024 Goals (unrecognized section and content) Goals may be documented in a n alternate sectionGoals may be documented in an alternate sectionGoals may be documented in an alternate sectionNo InformationNo InformationNo InformationNo InformationGoals may be documented in an alternate section Source Comments (unrecognize d section and content) In the event this informatio n is protected by the Federal Confidentiality of Alcohol and Drug Abuse Patient Records regulations: The Federal rules restrict any use of the information to criminally investigate or prosecute any alcohol or drug abuse patient.[facility] HospitalIn the event this information is protected by the Federal Confidentiality of Alcohol and Drug Abuse Patient Records regulations: The Federal rules restrict any use of the information to criminally investigate or prosecute any alcohol or drug abuse patient.[facility] HospitalIn the event this information is protected by the Federal Confidentiality of Alcohol and Drug Abuse Patient Records regulations: The Federal rules restrict any use of the information to criminally investigate or prosecute any alcohol or drug abuse patient.[facility] HospitalIn the event this information is protected by the Federal Confidentiality of Alcohol and Drug Abuse Patient Records regulations: The Federal rules restrict any use of the information to criminally investigate or prosecute any alcohol or drug abuse patient.[facility] HospitalIn the event this information is protected by the Federal Confidentiality of Alcohol and Drug Abuse Patient Records regulations: The Federal rules restrict any use of the information to criminally investigate or prosecute any alcohol or drug abuse patient.[facility] HospitalIn the event this information is protected by the Federal Confidentiality of Alcohol and Drug Abuse Patient Records regulations: The Federal rules restrict any use of the information to criminally investigate or prosecute any alcohol or drug abuse patient.[facility] HospitalIn the event this information is protected by the Federal Confidentiality of Alcohol and Drug Abuse Patient Records regulations: The Federal rules restrict any use of the information to criminally investigate or prosecute any alcohol or drug abuse patient.[facility] HospitalIn the event this information is protected by the Federal Confidentiality of Alcohol and Drug Abuse Patient Records regulations: The Federal rules restrict any use of the information to criminally investigate or prosecute any alcohol or drug abuse patient.[facility] HospitalIn the event this information is protected by the Federal Confidentiality of Alcohol and Drug Abuse Patient Records regulations: The Federal rules restrict any use of the information to criminally investigate or prosecute any alcohol or drug abuse patient.[facility] HospitalIn the event this information is protected by the Federal Confidentiality of Alcohol and Drug Abuse Patient Records regulations: The Federal rules restrict any use of the information to criminally investigate or prosecute any alcohol or drug abuse patient.[facility] HospitalIn the event this information is protected by the Federal Confidentiality of Alcohol and Drug Abuse Patient Records regulations: The Federal rules restrict any use of the information to criminally investigate or prosecute any alcohol or drug abuse patient.[facility] HospitalIn the event this information is protected by the Federal Confidentiality of Alcohol and Drug Abuse Patient Records regulations: The Federal rules restrict any use of the information to criminally investigate or prosecute any alcohol or drug abuse patient.[facility] HospitalIn the event this information is protected by the Federal Confidentiality of Alcohol and Drug Abuse Patient Records regulations: The Federal rules restrict any use of the information to criminally investigate or prosecute any alcohol or drug abuse patient.[facility] HospitalIn the event this information is protected by the Federal Confidentiality of Alcohol and Drug Abuse Patient Records regulations: The Federal rules restrict any use of the information to criminally investigate or prosecute any alcohol or drug abuse patient.[facility] HospitalIn the event this information is protected by the Federal Confidentiality of Alcohol and Drug Abuse Patient Records regulations: The Federal rules restrict any use of the information to criminally investigate or prosecute any alcohol or drug abuse patient.[facility] HospitalIn the event this information is protected by the Federal Confidentiality of Alcohol and Drug Abuse Patient Records regulations: The Federal rules restrict any use of the information to criminally investigate or prosecute any alcohol or drug abuse patient.[facility] Reason for Visit (unrecogniz ed section and content) Reason Comments New Patient Elevated liver enzym es Reason Comments Consult Reason Comments Refill Request Reason Comments Results Reason Comments Follow Up Reason Comments Follow Up Reason Comments Established Patient Follow up Reason Comments Thyroid Problem Reason Comments Biopsy Request Reason Comments Established Patient Follow-Up FOR RECORDS PERTAINING TO PATIENTS WHO ARE [...] BE BASED ON THE PRIMARY CLINICAL RECORDS. [facility] [employer] [facility]. provides no warranty or guarantee of the accuracy or completeness of information in this document.
[2024-08-30 07:10] LABS: Alanine Aminotransferase 40 U/L (14-59); Albumin Globulin Ratio 1.2; Albumin Level 3.7 g/dL (3.4-5.0); Alkaline Phosphatase 65 U/L (46-116); Anion Gap 10.1; Aspartate Amino Transferase 21 U/L (15-37); BUN Creatinine Ratio 13.5; Bilirubin Total 0.6 mg/dL (0.2-1.0); Calcium 9.1 mg/dL (8.5-10.1); Chloride 107 mmol/L (98-107); Chol HDL Ratio 2.8; Cholesterol 196 mg/dL (<=200); Estimated GFR (African America >60 (>=60 mL/min/1.73m^2); Estimated GFR (Non-African Ame >60 (>=60 mL/min/1.73m^2); Globulin 3.2 g/dL; Glucose 109 mg/dL (74-106); HDL Cholesterol 69 mg/dL (40-60); Potassium 4.1 mmol/L (3.5-5.1); Sodium 142 mmol/L (136-145); Total Protein 6.9 g/dL (6.4-8.2); Triglycerides 69 mg/dL (<=150); VLDL CHOLESTEROL 13.8 mg/dL
== END 2024-08-30 06:42 | disposition home or self-care (01) ==
LOC: MAMMO 06:43
PROVIDERS: PCP Family Medicine; Visit Provider Family Medicine
DX: Z12.31 Encounter for screening mammogram for malignant neoplasm of breast (principal); M81.0 Age-related osteoporosis without current pathological fracture; E78.5 Hyperlipidemia, unspecified; Z80.8 Family history of malignant neoplasm of other organs or systems
CPT/HCPCS: 36415; 77063; 77067; 80053; 80061

== ENCOUNTER 2025-02-12 16:24 | Outpatient (OUT) | payer MEDICARE, OTHER, SELFPAY ==
--- NOTE | 2025-02-12 | XR_ITS ---
[place] [id number] Patient Name: KILO MANTILLA MRN: [id number] date: 1950 Sex: F Assigned Patient Location: [facility] Current Patient Location: [facility] Accession/Order Number: [id number] Exam Date: 02/12/2025 17:03 Report Date: 02/12/2025 17:03 At the request of: ROSALIE MONCADA MD Procedure: XR chest 2V Plain film chest 2 view HISTORY: Chronic cough COMPARISON: None FINDINGS: SUPPORT DEVICES: None POSTSURGICAL CHANGES: None HEART: Within normal limits PULMONARY JANICE: Within normal limits MEDIASTINUM: Unremarkable LUNGS AND PLEURA: No acute lung process, pleural effusion or pneumothorax identified. Tiny left calcified granuloma BONY STRUCTURES: Degenerative change ADDITIONAL FINDINGS None XR/XR chest 2V IMPRESSION: No acute process. Impression dictated by: Juan Henson M.D. 02/12/2025 5:03 PM Dictation Location: [place] [address] Electronically authenticated by: [id number] Date: 02/12/2025 17:03
== END 2025-02-12 16:25 | disposition home or self-care (01) ==
LOC: RAD 16:26
PROVIDERS: PCP Family Medicine; Visit Provider Family Medicine
DX: R05.3 Chronic cough (principal)
CPT/HCPCS: 71046

== ENCOUNTER 2025-08-02 10:26 | Outpatient (OUT) | payer MEDICARE, OTHER, SELFPAY ==
--- OUTSIDE RECORDS SUMMARY | 2025-07-27 08:00 | XMS_ITS | Encounter Summary ---
Author Organization [facility] Address [address] [place] [id number] Care Team Providers Care Event Marketing Manager Name Role Phone Sulma Mcneil MD Unavailable [phone] Sulma Mcneil MD Primary Care Provider Source Comments In the event this information is protected by the Federal Confidentiality of Alcohol and Drug AbusePatient Records regulations: The Federal rules restrict any use of the information to criminally investigate or prosecute any alcohol or drug abuse patient.[facility] Reason for Visit * ReasonCommentsImm/Inj Encounter Details DateTypeDepartmentCare Team (Latest Contact Info)Sidocakeqhy07/24/2025 8:00 AM EDTNurse Visit Endocrinology [address] [facility], [place] [id number] [place], Nurse Endo [facility] [address] [place] [id number] Age-related osteoporosis without current pathological fracture (Primary Dx) Social History Tobacco UseTypesPacks/DayYears UsedDateSmoking Tobacco: NeverArea Deprivation IndexAnswerDate RecordedNational Score (1-100), lower number is lower risk64 02/26/2023State Score (1-10), lower number is lower pjry530/26/2023Data from: https://www.neighborhoodatlas.[facility].edu/. Last address used for [address] [address]CommentsNoSex and Gender InformationValueDate RecordedSex Assigned at UrkxaDlnntq51/05/2023 11:34 AM EDT Legal HapEwkxhj96/14/2022 3:53 PM EDTGender IdentityNot on fileSexual OrientationNot on filedocumented as of this encounter Plan of Treatment DateTypeDepartmentCare Team (Latest Contact Info)Azzlbcxqeui32/28/2025 8:00 AM ESTOffice Visit [facility] [address] [place] [address] lab11/02/2025 8:40 AM ESTDistance Health [facility] [address] [place] [address] Virgen Arenas MD [address] [place], [place] [id number] : Return in about 5 months (around 08/30/2025).01/25/2026 8:00 AM EDTNurse Visit Endocrinology [address] [facility], [place] [phone] Nurse Clarita Endo [facility] [address] [place] [address] also hep her schedule nurse visit for Proliadocumented as of this encounter Visit Diagnoses Diagnosis Age-related osteoporosis without current pathological fracture- Primary Senile osteoporosis documented in this encounter Administered Medications Medication OrderMAR ActionAction DateDoseRateSite denosumab 60 mg injection (PROLIA) 60 mg, SUBCUTANEOUS, EVERY 6 MONTHS, 2 doses, First dose on 07/30/25 at 0000, Last dose on 01/26/26 at 0000, Allow To Come To Room Temperature Before Administration. REFRIGERATE Given07/27/2025 8:19 AM EDT60 mgArm, Rightdocumented in this encounter Care Teams Team MemberRelationshipSpecialtyStart DateEnd Date Sulma Mcneil MD [address] [place] [phone] PCP - GeneralFamily Medicine11/19/22 Sulma Mcneil MD [address] [place] [place] [phone] ReferringFamily Medicine10/12/22documented as of this encounter
--- OUTSIDE RECORDS SUMMARY | 2025-08-02 06:13 | XMS_ITS | Continuity of Care Document ---
Author Organization [facility] Address [address] [place] [address] Phone Care Team Providers Care Registered Nurse Cardiac Telemetry Name Role Phone Sulma Mcneil MD Primary Care Provider Virgen Arenas Attending Provider Daniel Enciso MD Attending Provider Sulma Mcneil MD Attending Provider [phone] Care Teams Patient Care Team Team Status: Active Member Role/Relationship Status Dates Sulma Mcneil MD Primary Care Provider Active Visit Care Team Team Status: Active Member Role/Relationship Status Dates Sulma Mcneil MD Primary Care Provider Active Start: May 18, 2025 Virgen Dias ProviderActiveStart: May 18, 2025 Visit Care Team Team Status: Active Member Role/Relationship Status Dates Sulma Mcneil MD Primary Care Provider Active Start: July 02, 2025 Favian Portillo ProviderActiveStart: July 02, 2025 Visit Care Team Team Status: Inactive Member Role/Relationship Status Dates Sulma Mcneil MD Primary Care Provider Active Start: July 04, 2025 End: July 04, 2025Favian Vicente ProviderActiveStart: July 04, 2025 End: July 04, 2025 Patient Care Team Team Status: Inactive Member Role/Relationship Status Dates Sulma Mcneil MD Primary Care Provider Active Start: August 02, 2025 End: August 02, 2025Favian Vicente ProviderActiveStart: August 02, 2025 End: August 02, 2025 Chief Complaint and Reason for Visit Chief Complaint Admit Date Left Ear Pain July 04, 2025 11 :23am Wellness August 02, 2025 9 :27am Reason for Visit Admit Date Abnormal tympanic membrane of left ear O ctober 2024 11:23am Hyperlipemia August 02, 2025 9 :27am Medicare annual wellness visit, subseque nt August 02, 2025 9:27am Screening mammogram for breast cancer Oc tober 2024 9:27am Allergies, Adverse Reactions, Alerts Allergen Type Severity Reaction Last Updated Verified Status Comments azithromycin Allergy Moderate Swelling July 9:37am Yes Active facial swelling and flushing codeine Allergy Unknown Hives August 02, 2025 9:37am Yes Active Social History Smoking Status Status Start Date End Date Date of Observa tion Never smoked tobacco (finding) July 30, 2023 11:45am Observation Status Observation Response Date of Response Legal Sex Female (finding) Sex Assigned At BirthFemaleJuly 1949 Family History Relationship Condition Age at Onset Recorded Date/T sidney father Malignant neoplasm Unknown HypertensionUnknownDeceasedUnknownHeart diseaseUnknownmotherDiabetes mellitus UnknownDeceasedUnknownFamily history of mental disorderUnknown Problems Active Problems Problem Diagnosis/Recorded Date Onset Date Stat Medicare annual wellness vis it, subsequent August 08, 2024 5:26pm Unknown Active Screening mammogram for breast cancer August 01 4:10pm Unknown Active Osteoporosis December 24, 2023 3:36pm Unknown Acti ve Chronic cough February 08, 2025 10:42am Unknown Activ e Abnormal tympanic membrane of left ear July 04 1:52pm Unknown Active Hyperlipemia August 01, 2024 9:34am Unknown Ac tive Medications Medication Status Dose Units Route Directions Qty Days Refills S tart Date Stop Date End Date Reason(s) Instructions Adherence Omeprazole 20 mg capsule,delayed release(DR/EC) Discon tinued 0 .ROUTE.FDCWDXG495Zlrkl 2023 9:24amMarch 2024 2:26pmTAKE 1 CAPSULE BY MOUTH EVERY DAYRosuvastatin 10 mg tabletDiscontinued0.ROUTE.TSQYZXE706Qcylc 2023 11:28amJuly 2023 11:36amTAKE 1 TABLET BY MOUTH EVERY DAY FOR 90 DAYSRosuvastatin 10 mg tabletDiscontinued0.ROUTE.PMOXDRN024Hblz 2023 11:36amOctober 2023 4:57pmTAKE 1 TABLET BY MOUTH EVERY DAY FOR 90 DAYS Rosuvastatin 10 mg tabletDiscontinued0.ROUTE.UNQRWKJ312Ctqkism 21st, 2024 4:57pm August 01, 2024 3:59pmTAKE 1 TABLET BY MOUTH EVERY DAY FOR 90 DAYSAlendronate 70 mg tabletDiscontinued0.ROUTE.HDWRCZM391Vnzqtnkc 2023 8:11amOctober 2024 9:37amTAKE 1 TABLET BY MOUTH ONE TIME PER WEEKOmeprazole 20 mg capsule,delayed release(DR/EC)Discontinued0.ROUTE.BMNXYPZ841Mcuxq 2024 2:26pmMay 2024 10:24amTAKE 1 CAPSULE BY MOUTH EVERY DAYRosuvastatin 10 mg uyvipcSbernolqedzv45NOGLXdart322Hsrie 2024 1:37pmMarch 2024 8:15am Rosuvastatin 10 mg tabletActive0.ROUTE.XCIBCVL457Dsfez 2024 8:15amTAKE 1 TABLET BY MOUTH EVERY DAY FOR 90 DAYSComplies with drug therapyOmeprazole 20 mg capsule,delayed release(DR/EC)Active0.ROUTE.BSERDZX387Mrfe 25th, 2025 8:31amTAKE 1 CAPSULE BY MOUTH EVERY DAYComplies with drug therapyMethylprednisolone 4 mg tablets,dose roriTxgvkllfictm1AYIWIiixcMwp 8th, 2025 12:00amJune 2024 4:58pmDenosumab (Prolia) 60 mg/mL algfkxgYrrdfb06DDNNTPLGAOLPY 2024 12:00amComplies with drug therapyOmeprazole 20 mg capsule,delayed release(DR/EC)Mupvuoxlnjfg78QCRTDuesyUoxfp 2023 12:00amMarch 2023 9:24amRosuvastatin 10 mg uudifmLjelcpvksgiu53LUTCHucfrKxhrh 2023 12:00am January 28, 2024 11:28amMetoprolol Tartrate 25 mg alsonnDwjmvaawshwv25SWCPHutzb August 01, 2024 12:00amOctober 2023 3:58pmFreeTextSi tablet once a day; Note: Source Status: Taking; Provider: Tarun Ozuna ( ) Alendronate 70 mg tabletDiscontinuedMGPOOctober 2023 12:00amDecember 2023 8:11amFreeTextSig: TAKE 1 TABLET BY MOUTH ONE TIME PER WEEK; Note: Source Status: Taking; Refills: 2; Qty: 12 Tablet; Provider: Tarun Ozuna ( )Methimazole 5 mg edfoxrKyhxdtkipkoz6RTBQHjfvePppvcfw 2023 12:00amOctober 2023 3:59pmFreeTextSi/2 once a day; Note: Source Status: Taking; Provider: Tarun Ozuna ( )Methimazole 5 mg tablet Discontinued2.5MGPO.mon,wed,wed.August 01, 2024 3:58pmOctober 2024 11:31amFreeTextSi/2 once a day; Note: Source Status: Taking; Provider: Tarun Ozuna ( )Rosuvastatin 10 mg tayhkkQymatdlgtigu47NJNP.QOD August 01, 2024 3:59pmMarch 2024 1:40yhBpjxqhxw-Upevavprg-Rn 3.5-10,000-1 mg/mL-unit/mL-% zxazmgzgTqffddvzzvyw2QVNNEFEHKYujxf 8 ykmas808 July 04, 2025 12:00amOctober 2024 9:59am Immunizations Immunization Event Date Not Given Reason Dose Number Egg And Spice Mixer Lot Number Reason(s) Given Vaccine Information Statement (VIS) Detail Administration Location COVID-19 Torin Marin (Digiboo) December 05 COVID-19 mRNATorin (Digiboo)January 21, 2022influenza, unspecified formulationNovember 2015influenza, unspecified formulationOctober 2016influenza, unspecified formulationOctober 2017influenza, unspecified formulationOct2019influenza, unspecified formulationOctober 2020 influenza, unspecified formulationOctober neumococcal Polysacc. Vaccine, 23 valentNovember 2020Tetanus, Diphtheria adult, 5 Lf pres free absSept2013 Relevant Diagnostic Tests and/or Laboratory Data Laboratory Results Test Collection Date/Time Result Date/Time Result Interpretation Reference Range Result Comment Performing Site Thyroid Stimulating Immunoglobulin May 18, 2025 7:04am May 18, 2025 7:04am 0.32 IU/L <0.55Thyroid Stimulating Immunoglobulin test is used as an aid in diagnosis of autoimmune hyperthyroidism especially in patients with Grave's orbitopathy and dermopathy. Low positive TSH receptor stimulating antibody levels may occasionally be found in patients with autoimmune hypothyroidism. Clinical co rrelation is required.Free TriiodothyronineAugu2024 7:04amA2024 5:27pm3.2 pg/mL2.3-4.1Free ThyroxineAugust 2024 7:04amA2024 5:27pm1.0 ng/dL0.9-1.7Thyroid Stimulating Hormone 3rd GenAugus2024 7:04amA2024 7:04am1.690 mIU/L0.270-4.200Collagen Beta-CrossLaps (Beta-CTx)July 02, 2025 9:20amSeptember 2024 9:54ry980 pg/yG296-386 25-Hydroxy Vitamin D TotalSept2024 9:20amSept2024 9:20am 38.5 ng/mL31.0-80.0Classification of 25 [place] Vitamin D status: Deficiency/Insufficiency: < or = 30 ng/ml.Sufficiency/Optimal Levels: 31-80 ng/mLToxicity: > 100 ng/mL. Test performed by chemiluminescent immunoassay. AlbuminSeptember 2024 9:20amSept2024 9:20am4.5 g/dL3.9-4.9 Parathyroid Hormone (Intact)July 02, 2025 9:20amSept2024 5:28pm34 pg/vG99-24Tcrhedk Growth Stim ImmunoglobulinAugust 2024 7:04am May 18, 2025 7:04amNegativeNegativeCarbon Dioxide LevelSeptember 2024 9:20amSeptember 2024 9:20am24 mmol/W95-05Ssnchzoz LevelSeptember 2024 9:20amSeptember 2024 9:45xt677 mmol/S23-889KgikdxbxqtLixcftrgn 2024 9:20amSept2024 9:20am0.85 mg/dL0.58-0.96Random GlucoseSeptember 2024 9:20amSeptember 2024 9:20am89 mg/vK94-71Smg [place] Diabetes Association (ADA) provides guidance for cutoff values for fasting glucose and random glucose. The ADA defines fasting as no caloric intake for at least 8 hours. Fasting plasma glucose results between 100 to 125 mg/dL indicate increased risk for diabetes (prediabetes).Fasting plasma glucose results greater than or equal to 126 mg/dL meet the criteria for diagnosis of diabetes. In the absence of unequivocal hyperglycemia, results should be confirmed by repeat testing. In a patient with classic symptoms of hyperglycemia or hyperglycemic crisis, random plasma glucose resultsgreater than or equal to 200 mg/dL meet the criteria for diagnosis of diabetes.Reference: Standardsof Medical Care in Diabetes 2016, [place] Diabetes Association. Diabetes Care. 2016.39(Suppl 1). Phosphorus LevelSeptember 2024 9:20amSeptember 2024 9:20am3.6 mg/dL 2.7-4.8Potassium LevelSeptember 2024 9:20amSept2024 9:20am5.1 mmol/L3.7-5.1Sodium LevelSeptember 2024 9:20amSept2024 9:20am 145 mmol/LAbove high fvbukk560-852Ibvwl Urea NitrogenSeptember 2024 9:20am July 02, 2025 9:20am10 mg/dL7-21Calcium LevelSeptember 2024 9:20am July 02, 2025 9:20am9.8 mg/dL8.5-10.2Anion GapSeptember 2024 9:20am July 02, 2025 9:20am14 mmol/L8-15Estimated GFR (CKD-EPI)July 02, 2025 9:20amSept2024 9:20am72 mL/min/1.73m???>=60Estimated Glomerular Filtration Rate (eGFR) is calculated using the 2020 CKD-EPI creatinine equation. This equation utilizes serum creatinine, sex, and age as parameters. The creatinine assay has traceable calibration to isotope dilution-mass spectrometry. Refer to KDIGO guidelines for clinical interpretation. In patients with unstable renal function, e.g. those with acute kidney injury, the eGFRmay not accurately reflect actual GFR. Vital Signs Vital Reading Result Reference Range Collection Date/Time Height 64 [in_i] July 04, 2025 11:26hdCcfxrl80.34 kgOctober 2024 11:28amBody Temperature 97.9 [degF]97.6-99.0October 2024 11:28amHeart Rate72 /nli07-943Cstxqbv 2024 11:28amBP Idppasfy931 mm[Hg]100-140October 2024 11:28amBP Hcdxyjaby53 mm[Hg]60-100October 2024 11:28amBMI (Body Mass Index)27.3 kg/o9RumvpbgJuly 04, 2025 11:52hfQgsipj87 [in_i]August 02, 2025 9:19cgHguori87.12 kgOctober 2024 9:36amHeart Rate61 /moh43-601Gyycvce 2024 9:43amBP Fqmkszjh719 mm[Hg]100-140October 2024 10:00amBP Exglzhyez86 mm[Hg]60-100October 2024 10:00amBMI (Body Mass Index)27.3 kg/t6Rbnnvms 2024 9:36am Advance Directives Advance Directive Response Recorded Date/ Time Advance Directives No August 2:33pm Insurance Providers [employer] Address [address] [place] [id number] Info.Home Phone: Payer Group Member ID Coverage Type Subscriber Relationship to Subscriber Effective Date Expiration Date [place] BC/BS [id number] A Falter Id: [id number] [address] [facility] [address] Home Phone: SelfMedicare Retired Id: Ancelmo [id number] A Falter Id: [id number] [address] [facility] [address] Home Phone: Self Encounters Encounter Location(s) Arrival/Admit Date Discharge/Departure Date Discharge/Departure Disposition Provider(s) Non-patient / Non-visit -[facility] ugust 2024 7:04am Virgen SermelindaNon-patient / Djb-fuwaa-[facility]September 2024 9:20amSrito AndrewshDeparted Physician/[facility]am[facility] 2024 11:47amDischarged to home care or self care (routine discharge)CORNELIUS Vicenteeparted Physician/Provider [facility] 9[facility]27am August 02, 2025 10:11amDischarged to home care or self care (routine discharge)Sulma Mcneil MD Recent Diagnosis Onset Date Admit Date Abnormal tympanic membrane of left ear Unknown July 04, 2025 11:23am Hyperlipemia Unknown August 02 9:27am Medicare annual wellness visit, subsequent Unkno wn August 02, 2025 9:27am Screening mammogram for breast cancer Unknown August 02, 2025 9:27am Assessments Diagnosis Onset Date Resolution Status Admit Date Abnormal tympanic membrane of left ear acuteOctober 2024 11:23amHyperlipemiaacuteOctober 2024 9:27amMedicare annual wellness visit, subsequentacuteOctober 2024 9:27amScreening mammogram for breast canceracuteOctober 2024 9:27am Plan of Treatment Author [facility]ored[facility] 20[facility] 1:56pmTrial of ear drops, pt agrees to referral to ENT to further examine the red area about 10:00 on the TM. Former pt of Dr. Beckett. Has plugged sensation through L canal without cerumen. TM appears abnormal. Future Tests Future scheduled test information is unavailable Pending Tests Test Name Ordered Date Scheduled Date Comprehensive Metabolic Panel August 02, 2025 10:05am MM screening mammo BI w/CADOctober 2024 10:07am1 Months Future Visits Future appointment information is unavailable Future Procedures Procedure Name Ordered Date Scheduled Date Lipid Panel August 02, 2025 10:05am Future Medications Future medication information is unavailable Patient Instructions Patient instructions are unavailable
--- OUTSIDE RECORDS SUMMARY | 2025-08-02 10:31 | XMS_ITS | Encounter Summary ---
Author Organization [facility] Address [address] [place] [address] Care Team Providers Care Vulnerability Researcher Name Role Phone Unavailable Primary Care Provider Unavailabl e Encounter Details DateTypeDepartmentCare Team (Latest Contact Info)Fsypuzsomyl43/23/2025Telephone [facility] [address] [address] Terry Chaparor DO [address] [facility] [place] [address] Social History Tobacco UseTypesPacks/DayYears UsedDateSmoking Tobacco: Never Assessed CommentsUnknownSex and Gender InformationValueDate RecordedSex Assigned at Not on fileLegal MsfXmdbwl08/15/2023 6:56 PM EDTGender IdentityNot on fileSexual OrientationNot on filedocumented as of this encounter Miscellaneous Notes * Telephone Encounter - Ashley Freed - 07/26/2025 3:58 PM EDT Pt will go see her PCP if the ear is cleared up she does not need the referral here. If it is not she will call us to schedule. Closing referral at this time documented in this encounter Plan of Treatment Not on file documented as of this encounter Visit Diagnoses Not on filedocumented in this encounter
--- OUTSIDE RECORDS SUMMARY | 2025-08-02 10:31 | XMS_ITS | Clinical Summary ---
Author Organization [facility] Address [address] [place] [address] Care Team Providers Care Shop Service Technician Name Role Phone Sulma Mcneil MD Unavailable [phone] Sulma Mcneil MD Primary Care Provider [phone] Allergies No known active allergies Medications MedicationSigDispense QuantityRefillsLast FilledStart DateEnd DateStatus omeprazole (PRILOSEC) 20 mg capsule Take 20 mg by mouth once daily.10/06/2022ctive rosuvastatin (CRESTOR) 10 mg tablet Take 1 tablet by mouth daily at bedtime.09/03/2023ctive alendronate (FOSAMAX) 70 mg tablet Take 70 mg by mouth one time a week. In AM with cup of water on empty stomach. Nothing else by mouth and stay upright for 30 min.07/20/2025Discontinued(Course of therapy completed)Hospital, Clinic, or Other Facility Administered Medication Ordered DoseRouteFrequencyStart DateEnd DateStatus denosumab 60 mg injection (PROLIA) 60 mgSQEVERY 6 MTATQK30ctive Active Problems ProblemNoted DateDiagnosed DateMultiple thyroid twtqorp9305/30/2025Vitamin D qdvfeuzzhd84/09/5931Nimvgfkmmdks60/26/4113Mwdzfrbrnjxo20/26/2023raves disease 01/23/2023Thyroid idfdoj0201/23/2023 Encounters DateTypeDepartmentCare VvaqOjnzlpxwwog08/24/2025 8:00 AM EDTNurse Visit Endocrinology [address] [facility] [place] [address] Nurse Willi Otto [facility] Age-related osteoporosis without current pathological fracture (Primary Dx) 07/26/20255239Yqiebv38/30/2025Results Follow-Up Endocrinology [address] [place] [address] Daniel Enciso MD 07/02/2025 8:30 AM EDTOffice Visit Endocrinology [address] [place] [address] Daniel Enciso MD Age-related osteoporosis without current pathological fracture (Primary Dx); Vitamin D gypobsouxc90/22/9648Jbxgjk71/14/2025Refill Endocrinology [address] [place] [address] Virgen Arenas MD Refill Gaegarz6605/30/2025 9:00 AM EDTOffice Visit Endocrinology [address] [place] [address] Virgen Arenas MD Graves disease (Primary Dx); Multiple thyroid nodules; Age-related osteoporosis without current pathological hbpydjfe04/27/2025Travel 05/25/20256057Ccsvlg20/15/2025 6:57 AM EDT - 05/18/2025 11:59 PM EDTHospital Encounter Radiology [address] [facility] [place] [address] Graves disease [E05.00] Discharge Disposition: Home05/18/2025Radiology Radiology [address] [facility] [place], [place] [id number] Alyssa Pollack, RT(R) Radiology USfrom Last 3 Months Immunizations ImmunizationAdministration DatesNext DueCOVID-19 vaccine, unspecified nrfucdofzpd70/20/2022,07/10/2021,12/05/2020,11/14/2020hepatitis A (HepA) vaccine, adult (HAVRIX, VAQTA)03/09/2024 Social History Tobacco UseTypesPacks/DayYears UsedDateSmoking Tobacco: Never Tobacco Cessation:Counseling Given: Not Answered Area Deprivation IndexAnswerDate RecordedNational Score (1-100), lower number is lower unkt348602/26/2023State Score (1-10), lower number is lower noda285 Data from: https://www.neighborhoodatlas.medicine.[facility].edu/. Last address used for [address] [place] [place] [address]/26/2023CommentsNoSex and Gender InformationValueDate RecordedSex Assigned at PlcctGvyphn76/05/2023 11:34 AM EDT Legal VbnXcysva34/14/2022 3:53 PM EDTGender IdentityNot on fileSexual OrientationNot on file Last Filed Vital Signs Vital SignReadingTime TakenCommentsBlood Pybxtdbp562/8407/02/2025 8:37 AM EDT Ttqse250007/02/2025 8:37 AM HNFXozszmmfccu75.7 ??C (98.1 ??F)06/07/2024 1:06 PM EDTRespiratory Vypo345206/07/2024 3:40 PM EDTOxygen Psrcubbpnq72%06/07/2024 3:40 PM EDTInhaled Oxygen Concentration--Hshczl91.7 kg (158 lb)07/02/2025 8:37 AM EDT Vnmbfm682.6 cm (5' 4 )05/30/2025 8:48 AM EDTBody Mass Index27.1208 8:48 AM EDT Plan of Treatment DateTypeDepartmentCare Team (Latest Contact Info)Epgmjbuedbd99/28/2025 8:00 AM ESTOffice Visit [facility] [address] [place] [address] [place] [address] lab11/02/2025 8:40 AM ESTDistance Health Endocrinology [address] [place] [address] Virgen Arenas MD [address] [facility] [place] [address] : Return in about 5 months (around 08/30/2025).01/25/2026 8:00 AM EDTNurse Visit Endocrinology [address] [place] [phone] Nurse Clarita Endo [facility] [address] [facility] [place], [place] [id number] also hep her schedule nurse visit for [facility] MaintenanceDue DateLast Done CommentsAnnual PCP Team Chronic Disease Visit07/18/1968Anxiety Screening 1968Depression Krfwelqjm67/18/1968CT Yeemygadvadi89/18/1995Cologuard (FIT-DNA)04/20/19957638Arhlzrvcowk69/18/1995Colorectal Cancer Lhximsniz43/18/1995 Fecal Occult Blood1995Lipid Tmpesxgim64/18/7858Sjwqviwywauuw73/18/1995 DTaP,Tdap,Td Vaccine (1 - Tdap)Medicare Annual Wellness Visit04/03/2015dvance Directive Mcomolcqzv22/01/2025RSV Vaccine (1 - 1-dose 75+ series)2025ovid-19 Vaccine ( - 2024- season)5001/21/2022, 07/10/2021, 12/05/2020, Additional history existsDiabetes Hfkvmoxiq55/19/2026 02/19/2023one Density Evntthvaq99Pneumococcal Vaccine: 50+ Rtmezjhih92/04/2021, 08/06/2020Hepatitis C TqfmggwgvFbwcihtgx64/15/2023Shingrix OkyvambInzfuvtot65/18/2024, 10/21/2023Influenza DvoqrflMuokyvvhp06/21/2025, 07/15/2024, 07/15/2023, Additional history exists Medical Devices ImplantedTypeAreaManufacturerDevice IdentifierShelf Expiration DateModel / Serial / LotImplantImplantEye Procedures Procedure NamePriorityDate/TimeAssociated DiagnosisCommentsPTH INTACT BLDRoutine 07/02/2025 9:20 AM EDT Age-related osteoporosis without current pathological fracture RENAL FUNCTION MVLXGNuotmvn66/29/2025 9:20 AM EDT Age-related osteoporosis without current pathological fracture VITAMIN D 25 IJQUKHJPatfagd68/29/2025 9:20 AM EDT Age-related osteoporosis without current pathological fracture C TELOPEPTIDE, JZQUXbeetfv81/29/2025 9:20 AM EDT Age-related osteoporosis without current pathological fracture US THYROID/BHDOKMAFAAUKjlccie77/15/2025 8:14 AM EDT Graves disease Thyroid nodule THYROID STIMULATING IMMUNOGLOBULIN NYJMRNmxwqgq75/15/2025 7:04 AM EDT Graves disease T3 FREE YMWDfkbsek19/15/2025 7:04 AM EDT Graves disease T4 FREE/FREE GFZEGWPlsciee28/15/2025 7:04 AM EDT Graves disease TSH IPUNyrlmrm96/15/2025 7:04 AM EDT Graves disease DXA-AXIAL OPHLVWNM75/24/2025 8:55 AM EDT COMPREHENSIVE METABOLIC UPUVUVsvtvsf44/19/2023 8:16 AM EDT Graves disease HEPATITIS C VIRUS (HCV) RNA, QUANTITATIVE PCR, PLASMA/WGXCVCehxhvf95/15/2023 3:09 PM EST Abnormal liver enzymes from Last 3 Months or Most Recently Relevant to Health Maintenance Results * C TELOPEPTIDE, BETA (07/02/2025 9:20 AM EDT)ComponentValueRef RangeTest Method Analysis TimePerformed AtPathologist SignatureC Telopeptide, Beta Cross Linked 978477 - 858 pg/mL07/02/2025 7:10 PM EDTCST[facility] Specimen (Source)Anatomical Location / LateralityCollection Method / Volume Collection TimeReceived TimeBloodBLOOD SPECIMEN / UnknownVenipuncture / Epvgoxn9707/02/2025 9:20 AM EDT07/02/2025 9:20 AM EDT Narrative [facility] - 07/02/2025 7:10 PM EDT Premenopausal Ref Range: 138 - 689 pg/mL Postmenopausal Ref Range: 177 - 1015 pg/mL Authorizing ProviderResult TypeResult StatusSamonica Enciso MDLABORATORYFinal ResultPerforming OrganizationAddressCity/State/ZIP CodePhone Number [facility] [address] [facility] [address] [address], * VITAMIN D 25 HYDROXY (07/02/2025 9:20 AM EDT)ComponentValueRef RangeTest MethodAnalysis TimePerformed AtPathologist SignatureVitamin D 25 Zodzxpg95.5 31.0 - 80.0 ng/mL07/02/2025 6:08 PM EDCLEVEL[facility] Comment: Classification of 25 [place] Vitamin D status: Deficiency/Insufficiency: < or = 30 ng/ml. Sufficiency/Optimal Levels: 31-80 ng/mL Toxicity: > 100 ng/mL. Test performed by chemiluminescent immunoassay. Specimen (Source)Anatomical Location / LateralityCollection Method / Volume Collection TimeReceived TimeBloodBLOOD SPECIMEN / UnknownVenipuncture / Unknown 07/02/2025 9:20 AM EDT07/02/2025 9:20 AM EDT Narrative [facility] - 07/02/2025 6:08 PM EDT The reference range interval was based on an analysis of samples from healthy adults and may not pertain to children from 0-18 years old. Authorizing ProviderResult TypeResult StatusDaniel Enciso MDLABORATORYFinal ResultPerforming OrganizationAddressCity/State/ZIP CodePhone Number [facility] [address] [address], * (ABNORMAL) RENAL FUNCTION PANEL (07/02/2025 9:20 AM EDT)ComponentValueRef RangeTest MethodAnalysis TimePerformed AtPathologist SignatureAlbumin4.53.9 - 4.9 g/dL07/02/2025 5:28 PM EDCLEVELAND CLINIC LABCalcium, Total 9.88.5 - 10.2 mg/dL07/02/2025 5:28 PM [facility] Phosphorus3.62.7 - 4.8 mg/dL07/02/2025 5:28 PM [facility] AQTOiuyofc0089 - 99 mg/dL07/02/2025 5:28 PM [facility] LABComment: The [place] Diabetes Association (ADA) provides guidance for cutoff values for fasting glucose andrandom glucose. The ADA defines fasting as no [...] Standards of Medical Care in Diabetes 2016, [place] Diabetes Association. Diabetes Care. 2016.39(Suppl 1). STF976 - 21 mg/dL07/02/2025 5:28 PM [facility] Creatinine0.850.58 - 0.96 mg/dL07/02/2025 5:28 PM [facility] GRYZwritj354(H)136 - 144 mmol/L07/02/2025 5:28 PM [facility] LABPotassium5.13.7 - 5.1 mmol/L07/02/2025 5:28 PM [facility] VOPJufvdots76708 - 107 mmol/L07/02/2025 5:28 PM [facility] GYAQN22125 - 30 mmol/L07/02/2025 5:28 PM [facility] LABAnion Vcm547 - 15 mmol/L07/02/2025 5:28 PM [facility] LABEstimated Glomerular Filtration Rate72>=60 mL/min/1.73m 07/02/2025 5:28 PM [facility] LABComment:Estimated Glomerular Filtration Rate (eGFR) is calculated using the 2020 CKD-EPI creatinine equation. This equation utilizes serum creatinine, sex, and age as parameters. The creatinine assay has traceable calibration to isotope dilution- mass spectrometry. Refer to KDIGO guidelines for clinical interpretation. In patients with unstable renal function, e.g. those with acute kidney injury, the eGFRmay not accurately reflect actual GFR.Specimen (Source)Anatomical Location / LateralityCollection Method / VolumeCollection TimeReceived TimeBloodBLOOD SPECIMEN / UnknownVenipuncture / Zsxpats4007/02/2025 9:20 AM EDT07/02/2025 9:20 AM EDT Narrative Authorizing ProviderResult TypeResult StatusSahar Elsheikh MDLABORATORYFinal ResultPerforming OrganizationAddressCity/State/ZIP CodePhone Number [facility] [address] [facility] [place] [address], * PTH INTACT (07/02/2025 9:20 AM EDT)ComponentValueRef RangeTest MethodAnalysis TimePerformed AtPathologist SignaturePTH, Aqxwrs1242 - 65 pg/mL07/02/2025 5:28 PM EDTCST. VINCENT [facility] LABSpecimen (Source)Anatomical Location / LateralityCollection Method / VolumeCollection TimeReceived TimeBloodBLOOD SPECIMEN / UnknownVenipuncture / Ooqcgix5907/02/2025 9:20 AM EDT07/02/2025 9:20 AM EDT Narrative Authorizing ProviderResult TypeResult StatusDaniel Enciso MDLABORATORYFinal ResultPerforming OrganizationAddressCity/State/ZIP CodePhone Number [facility] [address] [facility] [place] [address], * US THYROID/PARATHYROID (05/18/2025 8:14 AM EDT)Anatomical RegionLaterality ModalityNeckUltrasoundSpecimen (Source)Anatomical Location / Laterality Collection Method / VolumeCollection TimeReceived Time05/18/2025 8:14 AM EDT Impressions 05/18/2025 11:47 AM EDT IMPRESSION: Thyroid nodule(s) is/are present. ??Fine needle aspiration is recommended if not previously performed. TI-RADS Category: TR4 ACR Recommendation: TI-RADS 4 nodule. ?? FNA is recommended. ACR recommendations are strictly based on the size and imaging appearance at the time of the exam and do not consider stability or previous biopsy results. Still Tender: PSCB ?? Transcribe Date/Time: May 18 2025 11:11A Dictated by : BRUCE BEATTY MD This examination was interpreted and the report reviewed and electronically signed by: BRUCE BEATTY MD on May 18 2025 11:45AM ??EST Narrative 05/18/2025 11:47 AM EDT * * *Final Report* * * DATE OF EXAM: May 18 2025 ??8:14AM ?? LNU ?? 1048 ??- ??US THYROID/PARATHYROID ??/ PROCEDURE REASON: multiple diagnoses ? * * * * Physician Interpretation * * * * EXAMINATION: ??THYROID ULTRASOUND CLINICAL HISTORY: Graves disease Thyroid nodule ?? status post benign left thyroid nodule FNA TECHNIQUE: ??Sonography and Doppler imaging of the thyroid was performed. ?? Images were obtained and stored in a permanent archive. MQ: ??UST_1 COMPARISON: 06/07/24. RESULT: Right Lobe: ??3.3 x 1.1 x 1.3 cm; heterogeneous echogenicity, expected vascular flow. Left Lobe: ??5.2 x 1.9 x 1.8 cm; heterogeneous echogenicity, expected vascular flow. Isthmus: 0.3 cm The most suspicious thyroid nodule(s) (up to four) as below: NODULE 1: Location: Right mid Size: 1.1 x 0.9 x 1.0 cm previously 0.9 x 0.6 x 0.8 cm Characteristics: ? Composition: ??Solid or almost completely solid, 2 points ? Echogenicity: Isoechoic, 1 point ? Shape: ??Mnbpc-ttnh-dnbq, 0 points ? Margin: Ill-defined, 0 points ? Echogenic foci (add points for all that apply): ??None, 0 points ? Internal vascularity: ??present ? Interval growth: ??No significant growth given differences in technique TI-RADS Category: TR3 ACR Recommendation: TI-RADS 3 nodule. ??No FNA or further imaging is advised. NODULE 2: Location: Left lower pole Size: 2.0 x 1.2 x 1.9 cm previously 1.9 x 1.4 x 2.0 cm Characteristics: ? Composition: ??Solid or almost completely solid, 2 points ? Echogenicity: Hypoechoic, 2 points ? Shape: ??Tckeh-yafl-rsfr, 0 points ? Margin: Smooth, 0 points ? Echogenic foci (add points for all that apply): ??None, 0 points ? Internal vascularity: ??present ? Interval growth: ??Stable TI-RADS Category: TR4 ACR Recommendation: TI-RADS 4 nodule. ?? FNA is recommended. NODULE 3: Location: Left upper pole Size: 0.8 x 0.6 x 0.6 cm previously 0.8 x 0.5 x 0.5 cm Characteristics: ? Composition: ??Solid or almost completely solid, 2 points ? Echogenicity: Isoechoic, 1 point ? Shape: ??Ppkox-fjgq-opqz, 0 points ? Margin: Smooth, 0 points ? Echogenic foci (add points for all that apply): ??None, 0 points ? Internal vascularity: ??absent ? Interval growth: ??Stable TI-RADS Category: TR3 ACR Recommendation: TI-RADS 3 nodule. ??No FNA or further imaging is advised. NODULE 4: Location: Left lower pole Size: 0.7 x 0.6 x 0.6 cm previously 0.9 x 0.5 x 0.7 cm Characteristics: ? Composition: ??Solid or almost completely solid, 2 points ? Echogenicity: Isoechoic, 1 point ? Shape: ??Delys-hves-ghzi, 0 points ? Margin: Smooth, 0 points ? Echogenic foci (add points for all that apply): ??None, 0 points ? Internal vascularity: ??present ? Interval growth: ??Stable TI-RADS Category: TR3 ACR Recommendation: TI-RADS 3 nodule. ??No FNA or further imaging is advised. Procedure Note Provider, [facility] - 05/18/2025 * * *Final Report* * * DATE OF EXAM: May 18 2025 8:14AM [facility] 1048 - US THYROID/PARATHYROID / PROCEDURE REASON: multiple diagnoses * * * * Physician Interpretation * * * * EXAMINATION: THYROID ULTRASOUND CLINICAL HISTORY: Graves disease Thyroid nodule status post benign left thyroid nodule FNA TECHNIQUE: Sonography and Doppler imaging of the thyroid was performed. Images were obtained and stored in a permanent archive. MQ: UST_1 COMPARISON: 06/07/24. RESULT: Right Lobe: 3.3 x 1.1 x 1.3 cm; heterogeneous echogenicity, expected vascular flow. Left Lobe: 5.2 x 1.9 x 1.8 cm; heterogeneous echogenicity, expected vascular flow. Isthmus: 0.3 cm The most suspicious thyroid nodule(s) (up to four) as below: NODULE 1: Location: Right mid Size: 1.1 x 0.9 x 1.0 cm previously 0.9 x 0.6 x 0.8 cm Characteristics: Composition: Solid or almost completely solid, 2 points Echogenicity: Isoechoic, 1 point Shape: Awjcf-gkmo-xuce, 0 points Margin: Ill-defined, 0 points Echogenic foci (add points for all that apply): None, 0 points Internal vascularity: present Interval growth: No significant growth given differences in technique TI-RADS Category: TR3 ACR Recommendation: TI-RADS 3 nodule. No FNA or further imaging is advised. NODULE 2: Location: Left lower pole Size: 2.0 x 1.2 x 1.9 cm previously 1.9 x 1.4 x 2.0 cm Characteristics: Composition: Solid or almost completely solid, 2 points Echogenicity: Hypoechoic, 2 points Shape: Eiohp-revc-ldzz, 0 points Margin: Smooth, 0 points Echogenic foci (add points for all that apply): None, 0 points Internal vascularity: present Interval growth: Stable TI-RADS Category: TR4 ACR Recommendation: TI-RADS 4 nodule. FNA is recommended. NODULE 3: Location: Left upper pole Size: 0.8 x 0.6 x 0.6 cm previously 0.8 x 0.5 x 0.5 cm Characteristics: Composition: Solid or almost completely solid, 2 points Echogenicity: Isoechoic, 1 point Shape: Tovbk-zukm-kvxd, 0 points Margin: Smooth, 0 points Echogenic foci (add points for all that apply): None, 0 points Internal vascularity: absent Interval growth: Stable TI-RADS Category: TR3 ACR Recommendation: TI-RADS 3 nodule. No FNA or further imaging is advised. NODULE 4: Location: Left lower pole Size: 0.7 x 0.6 x 0.6 cm previously 0.9 x 0.5 x 0.7 cm Characteristics: Composition: Solid or almost completely solid, 2 points Echogenicity: Isoechoic, 1 point Shape: Qnwpw-qznl-qlns, 0 points Margin: Smooth, 0 points Echogenic foci (add points for all that apply): None, 0 points Internal vascularity: present Interval growth: Stable TI-RADS Category: TR3 ACR Recommendation: TI-RADS 3 nodule. No FNA or further imaging is advised. IMPRESSION IMPRESSION: Thyroid nodule(s) is/are present. Fine needle aspiration is recommended if not previously performed. TI-RADS Category: TR4 ACR Recommendation: TI-RADS 4 nodule. FNA is recommended. ACR recommendations are strictly based on the size and imaging appearance at the time of the exam and do not consider stability or previous biopsy results. Still Tender: BORA Transcribe Date/Time: May 18 2025 11:11A Dictated by : BRUCE BEATTY MD This examination was interpreted and the report reviewed and electronically signed by: BRUCE BEATTY MD on May 18 2025 11:45AM EST Authorizing ProviderResult TypeResult Ana Rosa Arenas MDUS-PAMAFinal Result * THYROID STIMULATING IMMUNOGLOBULIN BLOOD (05/18/2025 7:04 AM EDT)Component ValueRef RangeTest MethodAnalysis TimePerformed AtPathologist SignatureTSI HlnammaqwjjYulwbzrwHfivcwko46/18/2025 11:36 AM EDCLEVELAND CLINIC LABTSI0.32<0.55 IU/L05/21/2025 11:36 AM [facility] Comment:Thyroid Stimulating Immunoglobulin test is used as an aid in diagnosis of autoimmune hyperthyroidism especially in patients with Grave's orbitopathy and dermopathy. Low positive TSH receptor stimulating antibody levels may occasionally be found in patients with autoimmune hypothyroidism. Clinical co rrelation is required.Specimen (Source)Anatomical Location / Laterality Collection Method / VolumeCollection TimeReceived TimeBloodBLOOD SPECIMEN / UnknownVenipuncture / Hvrbvwt3205/18/2025 7:04 AM EDT05/18/2025 7:04 AM EDT Narrative Authorizing ProviderResult TypeResult Ana Rosa Arenas MDLABORATORYFinal Result Performing OrganizationAddressCity/State/ZIP CodePhone Number [facility] [address] [address], * THYROID STIMULATING HORMONE (05/18/2025 7:04 AM EDT)ComponentValueRef Range Test MethodAnalysis TimePerformed AtPathologist SignatureTSH1.6900.270 - 4.200 mIU/L05/18/2025 5:27 PM EDCLEVELAND CLINIC LABSpecimen (Source) Anatomical Location / LateralityCollection Method / VolumeCollection Time Received TimeBloodBLOOD SPECIMEN / UnknownVenipuncture / Ydnczap8905/18/2025 7:04 AM EDT05/18/2025 7:04 AM EDT Narrative Authorizing ProviderResult TypeResult StatusVirgen Arenas MDLABORATORYFinal Result Performing OrganizationAddressCity/State/ZIP CodePhone Number [facility] [address] [address], [place] * T4 FREE/FREE THYROXINE (05/18/2025 7:04 AM EDT)ComponentValueRef RangeTest MethodAnalysis TimePerformed AtPathologist SignatureFree T41.00.9 - 1.7 ng/dL 05/18/2025 5:27 PM EDCLEVELAND CLINIC LABSpecimen (Source) Anatomical Location / LateralityCollection Method / VolumeCollection Time Received TimeBloodBLOOD SPECIMEN / UnknownVenipuncture / Dyizuau7405/18/2025 7:04 AM EDT05/18/2025 7:04 AM EDT Narrative Authorizing ProviderResult TypeResult StatusVirgen Arenas MDLABORATORYFinal Result Performing OrganizationAddressCity/State/ZIP CodePhone Number [facility] [address] [place] [id number], [place] * T3, FREE (05/18/2025 7:04 AM EDT)ComponentValueRef RangeTest MethodAnalysis TimePerformed AtPathologist SignatureFree T33.22.3 - 4.1 pg/mL05/18/2025 5:27 PM [facility] LABSpecimen (Source)Anatomical Location / LateralityCollection Method / VolumeCollection TimeReceived TimeBloodBLOOD SPECIMEN / UnknownVenipuncture / Vurmxdl5305/18/2025 7:04 AM EDT05/18/2025 7:04 AM EDT Narrative Authorizing ProviderResult TypeResult StatusVirgen Arenas MDLABORATORYFinal Result Performing OrganizationAddressCity/State/ZIP CodePhone Number [facility] [address] [address], [place] * DXA-AXIAL SKELETON (04/26/2025 8:55 AM EDT)ComponentValueRef RangeTest Method Analysis TimePerformed AtPathologist SignatureLOWEST T-SCORE-2.7DIVISION OF RADIOLOGYAnatomical RegionLateralityModalityRadiographic ImagingSpecimen (Source)Anatomical Location / LateralityCollection Method / VolumeCollection TimeReceived Time04/26/2025 8:55 AM EDT Impressions 04/30/2025 7:29 AM EDT IMPRESSION: THE LOWEST T-SCORE IS -2.7 ??IN THE SPINE 1) DIAGNOSIS (based on BMD alone): ??OSTEOPOROSIS - Caution: Medical conditions other than osteoporosis may cause low bone density, such as osteomalacia or renal osteodystrophy. ??Clinical correlation is necessary. 2) FRACTURE RISK (based on BMD alone) ??INCREASED - Caution: Fracture risk may be increased independent of BMD in patients with corticosteroid use, age greater than 65 years, or a history of prior fragility fracture. ?- FRAX was not calculated: bisphosphonate currently or within the last 2 years RECOMMENDATIONS: Follow-up in 2 years or as clinically indicated. ??Patients that are taking corticosteroids, are transplant recipients or have hyperparathyroidism should have annual follow-up. ??Follow-up scans should always be done on the same machine for accurate comparison. FOR MORE INFORMATION ABOUT DIAGNOSIS AND TREATMENT: [facility] for Osteoporosis and Metabolic Bone Disease:? www.ccf.org/arthritis/osteo National Osteoporosis Foundation:? www.nof.org International Society of Clinical Densitometry www.iscd.org Still Tender: [id number] Transcribe Date/Time: Apr 26 2025 ??8:56A Dictated by : JERRI RICHARDS MD This examination was interpreted and the report reviewed and electronically signed by: JERRI RICHARDS MD on Apr 30 2025 ??7:27AM ??EST Narrative 04/30/2025 7:29 AM EDT * * *Final Report* * * DATE OF EXAM: Apr 26 2025 ??8:55AM ?? LNB ?? 0804 ??- ??BD DXA - AXIAL SKELETON B / PROCEDURE REASON: DENSITY ? * * * * Physician Interpretation * * * * EXAMINATION: DXA BONE DENSITOMETRY BD DXA - AXIAL SKELETON PATIENT DEMOGRAPHICS: ??Age: 75 years, Gender: Female SCANNER INFORMATION: DXA Model: Docphin [id number] Date Scanned: ??04/26/2025 8:55 AM CLINICAL HISTORY: ??DIAGNOSTIC ?? DENSITY. RISK FACTORS FOR OSTEOPOROSIS AND ASSOCIATED FRACTURES REPORTED BY THIS PATIENT: Please refer to Bone Health Questionnaire in the EMR CURRENT THERAPY: Please refer to Bone Health Questionnaire in the EMR TECHNICAL LIMITATIONS: Degenerative disease of the spine L4 is/are deleted, per ISCD guidelines, because changes at this level may artificially alter the bone density measurement. ??-These show greater density compared to adjacent levels, greater than 1 SD. X-rays may be necessary to rule out sclerotic bone lesions or compression deformity at this level, clinical correlation recommended. RESULTS: Lumbar Spine (L1, L2, L3): Total BMD: 0.724 g/cm2, T-score: -2.7 , Z-score: -0.3 Right Femoral Neck: 0.681 g/cm2 , T-score -1.5, Z-score 0.6 Right Total Hip: 0.723 g/cm2 , T-score -1.8, Z-score ??0.0 Left Femoral Neck: 0.643 g/cm2 , T-score -1.9, Z-score 0.2 Left Total Hip: ??0.747 g/cm2 , T-score -1.6 , Z-score 0.2 No comparison data - the patient has not had a previous bone density in the [facility] or the previous bone density was performed on a different DXA machine (new, updated model or different location) within the [facility]. VERTEBRAL FRACTURE ASSESSMENT Not performed. TRABECULAR BONE ASSESSMENT TBS not performed: not ordered Procedure Note Provider, [facility] [place] - 04/30/2025 * * *Final Report* * * DATE OF EXAM: Apr 26 2025 8:55AM LNB 0804 - BD DXA - AXIAL SKELETON B / PROCEDURE REASON: DENSITY * * * * Physician Interpretation * * * * EXAMINATION: DXA BONE DENSITOMETRY BD DXA - AXIAL SKELETON PATIENT DEMOGRAPHICS: Age: 75 years, Gender: Female SCANNER INFORMATION: DXA Model: Docphin [id number] Date Scanned: 04/26/2025 8:55 AM CLINICAL HISTORY: DIAGNOSTIC DENSITY. RISK FACTORS FOR OSTEOPOROSIS AND ASSOCIATED FRACTURES REPORTED BY THIS PATIENT: Please refer to Bone Health Questionnaire in the EMR CURRENT THERAPY: Please refer to Bone Health Questionnaire in the EMR TECHNICAL LIMITATIONS: Degenerative disease of the spine L4 is/are deleted, per ISCD guidelines, because changes at this level may artificially alter the bone density measurement. -These show greater density compared to adjacent levels, greater than 1 SD. X-rays may be necessary to rule out sclerotic bone lesions or compression deformity at this level, clinical correlation recommended. RESULTS: Lumbar Spine (L1, L2, L3): Total BMD: 0.724 g/cm2, T-score: -2.7 , Z-score: -0.3 Right Femoral Neck: 0.681 g/cm2 , T-score -1.5, Z-score 0.6 Right Total Hip: 0.723 g/cm2 , T-score -1.8, Z-score 0.0 Left Femoral Neck: 0.643 g/cm2 , T-score -1.9, Z-score 0.2 Left Total Hip: 0.747 g/cm2 , T-score -1.6 , Z-score 0.2 No comparison data - the patient has not had a previous bone density in the [facility] or the previous bone density was performed on a different DXA machine (new, updated model or different location) within the [facility]. VERTEBRAL FRACTURE ASSESSMENT Not performed. TRABECULAR BONE ASSESSMENT TBS not performed: not ordered IMPRESSION IMPRESSION: THE LOWEST T-SCORE IS -2.7 IN THE SPINE 1) DIAGNOSIS (based on BMD alone): OSTEOPOROSIS - Caution: Medical conditions other than osteoporosis may cause low bone density, such as osteomalacia or renal osteodystrophy. Clinical correlation is necessary. 2) FRACTURE RISK (based on BMD alone) INCREASED - Caution: Fracture risk may be increased independent of BMD in patients with corticosteroid use, age greater than 65 years, or a history of prior fragility fracture. - FRAX was not calculated: bisphosphonate currently or within the last 2 years RECOMMENDATIONS: Follow-up in 2 years or as clinically indicated. Patients that are taking corticosteroids, are transplant recipients or have hyperparathyroidism should have annual follow-up. Follow-up scans should always be done on the same machine for accurate comparison. FOR MORE INFORMATION ABOUT DIAGNOSIS AND TREATMENT: [facility] for Osteoporosis and Metabolic Bone Disease:? www.ccf.org/arthritis/osteo National Osteoporosis Foundation:? www.nof.org International Society of Clinical Densitometry www.iscd.org Still Tender: 91727 Transcribe Date/Time: Apr 26 2025 8:56A Dictated by : JERRI RICHARDS MD This examination was interpreted and the report reviewed and electronically signed by: JERRI RICHARDS MD on Apr 30 2025 7:27AM EST Authorizing ProviderResult TypeResult StatusCcf ProviderRAD-PAMAFinal Result * (ABNORMAL) COMP METABOLIC PANEL (02/19/2023 8:16 AM EDT)ComponentValueRef RangeTest MethodAnalysis TimePerformed AtPathologist SignatureProtein, Total 7.36.3 - 8.0 g/dL02/19/2023 8:45 AM [facility] Albumin4.73.9 - 4.9 g/dL02/19/2023 8:45 AM [facility] LABCalcium, Total9.68.5 - 10.2 mg/dL02/19/2023 8:45 AM [facility]TNORTST[facility] LABBilirubin, Total0.50.2 - 1.3 mg/dL02/19/2023 8:45 AM [facility]TNORTASC[facility] LABAlkaline Wngwyzhebrh886(H)34 - 123 U/L02/19/2023 8:45 AM [facility]ORT[facility] [id number] - 35 U/L 02/19/2023 8:45 AM EDTNORTHCST [facility] SERWYL130 - 38 U/L 02/19/2023 8:45 AM [facility] ESTLcyzjue4516 - 99 mg/dL02/19/2023 8:45 AM [facility]TNORTASC[facility] LABComment: The [place] Diabetes Association (ADA) provides guidance for cutoff values for fasting glucose andrandom glucose. The ADA defines fasting as no [...] Standards of Medical Care in Diabetes 2016, [place] [employer] Association. Diabetes Care. 2016.39(Suppl 1). YOK515 - 21 mg/dL02/19/2023 8:45 AM [facility] Creatinine0.840.58 - 0.96 mg/dL02/19/2023 8:45 AM [facility] GGWNkahsx684774 - 144 mmol/L02/19/2023 8:45 AM [facility] LABPotassium4.13.7 - 5.1 mmol/L02/19/2023 8:45 AM [facility] BMSVaddprto19346 - 105 mmol/L02/19/2023 8:45 AM EDT [facility] HQXCR50838 - 30 mmol/L02/19/2023 8:45 AM T [facility] LABAnion Yug941 - 18 mmol/L02/19/2023 8:45 AM [facility] LABEstimated Glomerular Filtration Rate74 >=60 mL/min/1.73m 02/19/2023 8:45 AM [facility] LABComment:Estimated Glomerular Filtration Rate (eGFR) is calculated using the 2020 CKD-EPI creatinine equation. This equation utilizes serum creatinine, sex, and age as parameters. The creatinine assay has traceable calibration to isotope dilution- mass spectrometry. Refer to KDIGO guidelines for clinical interpretation. In patients with unstable renal function, e.g. those with acute kidney injury, the eGFRmay not accurately reflect actual GFR.Specimen (Source)Anatomical Location / LateralityCollection Method / VolumeCollection TimeReceived TimeBloodBLOOD SPECIMEN / UnknownVenipuncture / Puirklo0902/19/2023 8:16 AM EDT02/19/2023 8:16 AM EDT Narrative Authorizing ProviderResult TypeResult Ana Rosa Arenas MDLABORATORYFinal Result Performing OrganizationAddressCity/State/ZIP CodePhone Number [facility] [address] [place] [address] * HCV QUANT RNA BY PCR (11/18/2022 3:09 PM EST)ComponentValueRef RangeTest MethodAnalysis TimePerformed AtPathologist SignatureHCV RNAHCV RNA not detected by PCR.HCV RNA not detected by PCR. RY GHISLAINE 6800 11/19/2022 4:51 AM ESTPROM[facility] LABSpecimen (Source) Anatomical Location / LateralityCollection Method / VolumeCollection Time Received TimeBloodBLOOD SPECIMEN / UnknownVenipuncture / Ceotzxa6011/18/2022 3:09 PM EST11/18/2022 3:09 PM EST Narrative [facility] - 11/19/2022 4:51 AM EST The Linear Range of this assay is 15 IU/ml to 100,000,000 IU/ml Authorizing ProviderResult TypeResult StatusNicole Smith MDLABORATORY Final ResultPerforming OrganizationAddressCity/State/ZIP CodePhone Number [facility] [address] [address], from Last 3 Months or Most Recently Relevant to Health Maintenance [place] [address] Care Teams Team MemberRelationshipSpecialtyStart DateEnd Date Sulma Mcneil MD [address] [place] [phone] PCP - [facility]11/19/22 Sulma Mcneil MD [address] [place] [phone] [facility]10/12/22
--- OUTSIDE RECORDS SUMMARY | 2025-08-02 10:31 | XMS_ITS | CCD ---
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 Name Role Phone MD ROSALIE MONCADA Consulting [...] Unavailable MONCADA, DR ROSALIE Salguero Consulting Unavailable ANTWAN, DR ROSALIE Salguero Admitting Unavailable MONCADA, DR ROSALIE Salguero Attending Unavailable MONCADA, DR ROSALIE Salguero Primary Care Unavailable REDDING, DR TANG Lane Consulting Unavailable MARJORIE, DR LINDSEY Mejia Consulting Unavailable ANTWAN, DR ROSALIE Salguero Consulting Unavailable MD Yamila Ang Attending Provider MD Rosalie Moncada Primary Care Provider Rosalie Moncada MD Unavailable [phone] MD Rosalie Moncada Primary Care Provider MD Nicole Miranda Attending Provider MD Rosalie Moncada Primary Care Provider MD Nicole Miranda Attending Provider [phone] MD Yamila Ang Attending Provider Yessi Carson Referring Provider Moncada MD, Rosalie E Primary Care Provider Rosalie Moncada Unavailable Rosalie Moncada E Primary Care Unavailable Serhal, Yessi Attending Unavailable Serhal, Yessi Admitting Unavailable Serhal, Yessi Attending Unavailable Serhal, Yessi Admitting Unavailable Moncada, Rosalie E Primary Care Unavailable Rosalie Moncada MD Primary Care Provider ANTHONY MARKS M Referring Unavailable MONCADA, ROSALIE E Primary Care Unavailable Unavailable Primary Care Provider Unavailabl e NEGRITA REDMOND Attending Unavailable Rosalie Moncada MD Primary Care Provider Serhal, Yessi Attending Provider Fernie COLLINS, Kassandra Hardin Attending Provider Rosalie Moncada MD Attending Provider [phone] SERHAL, YESSI Referring Unavailable MONCADA, ROSALIE E Primary Care Unavailable SERHAL, YESSI Referring Unavailable MONCADA, ROSALIE E Primary Care Unavailable SERHAL, YESSI Attending Unavailable MONCADA, ROSALIE E Primary Care Unavailable SERHAL, YESSI Referring Unavailable MONCADA, ROSALIE E Primary Care Unavailable MONCADA, ROSALIE E Primary Care Unavailable ELSHEIKH, SAHAR Referring Unavailable MONCADA, ROSAILE E Primary Care Unavailable MONCADA, ROSALIE E Primary Care Unavailable ELSHEIKLenka, SAHAR Attending Unavailable MONCADA, ROSALIE E Primary Care Unavailable SERHAL, YESSI Attending Unavailable SERHAL, YESSI Referring Unavailable MONCADA, ROSALIE E Primary Care Unavailable SERHAL, YESSI Referring Unavailable MONCADA, ROSALIE E Primary Care Unavailable MONCADA, ROSALIE E Primary Care Unavailable MONCADA, ROSALIE E Primary Care Unavailable SERHAL, YESSI Attending Unavailable Allergies Allergy ClassificationReported Allergen(s)Allergy TypeDate of OnsetReaction(s) Facility (1 source)No Known Medication Allergies; Translations: [No Known Medication Allergies]Propensity to adverse reactions to drug (disorder)[facility] Repository (10 sources)CodeineDrug Uxgydmq58-95-6502PcuqgVPYZ Healthcare (2 sources)patient allergy list reviewed by nurse or physiciaPropensity to adverse aljdgaaht09-44-0313Uhaabdk:[employer] Other (2 sources)Allergies ReconciledPropensity to adverse bagqkkjri20-14-1661Sfrsgjy [employer] Other (1 source)CodeineDrug AllergyUnknowForks Community Hospital [employer] Other (1 source)CodeineDrug Tyadacm69-69-8103QwmlgsosfBlanchard Valley Health System Repository (1 source)AzithromycinDrug Jsuzpwe82-17-6615OglrhznjHnocdxfhhMercy Health Kings Mills HospitalComment on above:facial swelling and flushing Medications Current Medications MedicationDrug Class(es)DatesSig (Normalized)Sig (Original)alendronic acid 70 mg oral tablet (20 sources)BisphosphonateStart: 93-37-4213kxuc 1 tablet by mouth every week Alendronate 70 mg tablet Active 0 .ROUTE .COMPLEX September 16, 2024 8:11am TAKE 1 TABLET BY MOUTH ONE TIME PER WEEK Complies with drug therapyStart: 08-01-2024 End: 93-50-6444qfjw 1 tablet by mouth every weekAlendronate 70 mg tablet Discontinued MG PO August 01, 2024 12:00am September 16, 2024 8:11am Fr eeTextSig: TAKE 1 TABLET BY MOUTH ONE TIME PER WEEK; Note: Source Status: Taking; Refills: 2; Qty: 12 Tablet; Provider: Antwan Ozuna ( ) alendronate (Fosamax) 70 MG tablet Take 70 mg by mouth every 7 (seven) days ActiveComment on above:Take 70 mg by mouth one time a week. In AM with cup of water on empty stomach. Nothing else by mouth and stay upright for 30 min. azithromycin 250 mg oral tablet (2 sources)Macrolide AntimicrobialStart: 44-60-5606pbsukehrkhnh (Zithromax) 250 MG tablet Indications: Bronchitis Take 1 tablet (250 mg) by mouth Daily Take 2 tabs on day 1 and 1 tab on days 2-5 then stop 6 tablet 02/03/2025 Active hydrocortisone 10 mg/ml / neomycin 3.5 mg/ml / polymyxin b 62701 unt/ml otic solution (1 source)Aminoglycoside Antibacterial, Polymyxin-class Antibacterial, CorticosteroidStart: 07-91-2055Msgruzmr-Polymyxin-Hc 3.5-10,000-1 mg/mL-unit/mL-% solution Active 4 DROPS OTIC Every 8 hours July 04, 2025 12:00am Complies with drug therapyomeprazole 20 mg delayed release oral capsule (20 sources)Proton Pump InhibitorStart: 49-84-0096shhv 1 capsule by mouth once dailyOmeprazole 20 mg capsule,delayed release(DR/EC) Active 0 .ROUTE .COMPLEX 90 March 28, 2025 8:31am TAKE 1 CAPSULE BY MOUTH EVERY DAY Complies with drug therapyStart: 12-28-2023 End: 60-68-7731rbof 1 capsule by mouth once dailyOmeprazole 20 mg capsule,delayed release(DR/EC) Discontinued 0 .ROUTE .COMPLEX December 14, 2024 2:26pm February 08, 2025 10:24am TAKE 1 CAPSULE BY MOUTH EVERY DAYStart: 10-06-2022 End: 00-46-2051ccjv 1 capsule by mouth once dailyOmeprazole 20 mg capsule,delayed release(DR/EC) Discontinued 20 MG PO Daily December 28, 2023 12:00am December 28, 2023 9:24amComment on above:Take 20 mg by mouth once daily. rosuvastatin calcium 10 mg oral tablet (20 sources)HMG-CoA Reductase InhibitorStart: 30-50-5299znle 1 tablet by mouth once dailyRosuvastatin 10 mg tablet Active 0 .ROUTE .COMPLEX December 18, 2024 8:15am TAKE 1 TABLET BY MOUTH EVERY DAY FOR 90 DAYS Complies with drug therapy Start: 08-01-2024 End: 84-83-2631prhe 1 tablet by mouth every other dayRosuvastatin 10 mg tablet Discontinued 10 MG PO .QOD August 01, 2024 3:59pm December 15, 2024 1:37pm Start: 01-28-2024 End: 04-34-4986pqzv 1 tablet by mouth once dailyRosuvastatin 10 mg tablet Discontinued 0 .ROUTE .COMPLEX July 24, 2024 4:57pm July 3:59pm TAKE 1 TABLET BY MOUTH EVERY DAY FOR 90 DAYSStart: 09-03-2023 End: 93-55-8276vhru 1 tablet by mouth once dailyRosuvastatin 10 mg tablet Discontinued 10 MG PO Daily January 28, 2024 12:00am January 28, 2024 11:28am Comment on above:Take 1 tablet by mouth daily at bedtime. Completed/Discontinued Medications MedicationDrug Class(es)DatesSig (Normalized)Sig (Original)methIMAzole 5 mg oral tablet (20 sources)Thyroid Hormone Synthesis InhibitorStart: 82-96-1445Zpdpqddorzd Active 2.5 MG PO .wed,wed,wed. August 01, 2024 3:58pm FreeTextSi/2 once a day; Note: Source Status: Taking; Provider: Antwan Ozuna ( ) Start: 08-01-2024 End: 28-30-2293pqez 0.5 tablet by mouth once dailyMethimazole 5 mg tablet Discontinued 2.5 MG PO .wed,wed,wed. August 01, 2024 3:58pm July 11:31am FreeTextSi/2 once a day; Note: Source Status: Taking; Provider: Antwan Ozuna ( )Start: 02-26-2023 End: 75-91-9576hyvdNREcazu (TAPAZOLE) 5 mg tablet 1/2 tab Wednesday, Wed and Wednesday. 20 tablet 3 02/11/2024 08/18/2024 DiscontinuedStart: 10-04-2022 End: 02-01-2469sffj 1 tablet by mouth once daily, then take 0.5 tablet by mouth once dailymethIMAzole (TAPAZOLE) 10 mg tablet Indications: Graves disease Take 1 tablet by mouth once daily. 1/2 tab daily. 0 01/20/2023 ActivemethIMAzole 5 MG 1/2 once a day ActiveComment on above:Take 10 mg by mouth once daily.Take 1 tablet by mouth once daily. 1/2 tab daily.1/2 tab ( 2.5 mg) daily.1/2 tab Wednesday, Wed and Wednesday.methylPREDNISolone 4 mg oral tablet (4 sources)CorticosteroidStart: 02-08-2025 End: 36-01-1058wrpl 1 tablet by mouth once dailyMethylprednisolone 4 mg tablets,dose pack Discontinued 4 MG PO Daily February 08, 2025 12:00am March 26, 2025 4:58pmStart: 02-03-2025 End: 16-95-9977pkmelgIDZVAXLfvpax (Medrol Dospak) 4 MG tablets Indications: Cough in adult Follow schedule on package instructions 21 tablet 02/03/2025 02/10/2025 Activemetoprolol tartrate 25 mg oral tablet (14 sources)beta-Adrenergic BlockerStart: 08-01-2024 End: 96-41-7334xsea 1 tablet by mouth once dailyMetoprolol Tartrate 25 mg tablet Discontinued 25 MG PO Daily August 01, 2024 12:00am August 01, 2024 3:58pm FreeTextSi tablet once a day; Note: Source Status: Taking; Provider: Antwan Ozuna ( )Start: 09-21-2022 End: 97-90-6113iwya 1 tablet by mouth once dailymetoprolol succinate ER (TOPROL XL) 25 mg 24 hr tablet Indications: Thyrotoxicosis, unspecified without thyrotoxic crisis or storm TAKE 1 TABLET BY MOUTH EVERY DAY 90 tablet 1 03/05/2023 09/03/2023 Discontinued (Discontinued by another Health Care Provider)Comment on above:Take 25 mg by mouth once daily.TAKE 1 TABLET BY MOUTH EVERY DAYOmeprazole 20 mg capsule,delayed release(DR/EC) (1 source)Start: 12-14-2024 End: 77-41-6286vvkn 1 capsule by mouth once dailyOmeprazole 20 mg capsule,delayed release(DR/EC) Discontinued 0 .ROUTE .COMPLEX 90 December 14, 2024 2:26pm February 08, 2025 10:24am TAKE 1 CAPSULE BY MOUTH EVERY DAY Problems Active Problems Problem ClassificationProblemDateDocumented DateEpisodic/ChronicCardiac dysrhythmias (3 sources)Palpitations; Translations: [Palpitations]Onset: EpisodicChronic obstructive pulmonary disease and bronchiectasis (2 sources)Bronchitis; Translations: [Bronchitis, not specified as acute or chronic]51-60-3861GnufemqlWzttwmdit of lipid metabolism (16 sources)Hyperlipidemia, unspecified; Translations: [Hyperlipidemia]Onset: 58-04-8553OmcqozfFqoqhrwogb disorders (2 sources)Esophageal reflux finding; Translations: [Esophageal reflux]Onset: 15-79-9286KyvdbraSbkahkkrx hypertension (20 sources)Hypertensive disorder; Translations: [Essential (primary) hypertension]Onset: 193877-56-7626MbjagrzJbnefbuqujltpwqu hemorrhage (4 sources)Hematochezia; Translations: [Melena]EpisodicNutritional deficiencies (15 sources)Vitamin D deficiency, unspecified; Translations: [Vitamin D deficiency]Onset: 179221-55-6617UlqpivyDvtwqbvmizan (20 sources)Age-related osteoporosis without current pathological fracture; Translations: [Osteoporosis]Onset: 012394-52-9649OsnfaxjEyxfp bone disease and musculoskeletal deformities (1 source)Other specified disorders of bone density and structure, unspecified site; Translations: [OTH D/O BONE DEN STRUCT UNS SITE]Onset: 73-10-6787Ysezjzxb Other bone disease and musculoskeletal deformities (2 sources)Bone density finding; Translations: [Other specified disorders of bone density and structure, unspecified site]EpisodicOther liver diseases (1 source)Liver enzymes abnormal; Translations: [Abnormal levels of other serum enzymes]EpisodicOther liver diseases (1 source)Alkaline phosphatase level - finding; Translations: [Abnormal levels of other serum enzymes]14-82-3766AzhcgvsyMryye lower respiratory disease (2 sources)Cough; Translations: [Cough in adult]34-50-2394GwzyzijnNmkyp lower respiratory disease (3 sources)Chronic cough; Translations: [Chronic cough]69-02-3988ChvaxgtvYmxqo nervous system disorders (1 source)Tremor, unspecified; Translations: [TREMOR UNSPECIFIED]Onset: 94-45-1747TnoylqntSvpcg nervous system disorders (2 sources)Tremor; Translations: [Tremor, unspecified]Onset: 01-04-2025 41-66-1666QzpwlaolDldhz nutritional; endocrine; and metabolic disorders (5 sources)Abnormal weight loss; Translations: [ABNORMAL WEIGHT LOSS]Onset: 63-93-3949AvgauvozQluqf nutritional; endocrine; and metabolic disorders (4 sources)Abnormal weight loss; Translations: [Abnormal weight loss]Onset: 359929-09-4953RyovhqxaYwxjr screening for suspected conditions (not mental disorders or infectious disease) (10 sources)Encounter for screening mammogram for malignant neoplasm of breast; Translations: [Patient encounter status]Onset: 96-99-7022AugmcvqyEojiirnu codes; unclassified (1 source)Family history of malignant neoplasm of other organs or systems; Translations: [FAM HX MALIG NEOPLASM OT ORGN/SYS]Onset: 49-05-6193Vbhhuvic Residual codes; unclassified (2 sources)Tobacco user; Translations: [Tobacco use]EpisodicResidual codes; unclassified (2 sources)Family history of malignant neoplasm of gastrointestinal tract; Translations: [Family history of malignant neoplasm of digestive organs]Episodic Residual codes; unclassified (2 sources)Normal body mass index; Translations: [Body mass index (BMI) 21.0- 21.9, adult]EpisodicThyroid disorders (20 sources)Thyrotoxicosis, unspecified without thyrotoxic crisis or storm; Translations: [Graves' disease]Onset: 74-53-1288JtyesgmXxriahejrmer (1 source)Imm/InjOnset: 07-27-2025 Past or Other Problems Problem ClassificationProblemDateDocumented DateEpisodic/ChronicOther liver diseases (1 source)Abnormal levels of other serum enzymes; Translations: [ABNORMAL LEVELS OTHER SERUM ENZYMES]Onset: 57-87-4740UwqpgzdsOkpcy nutritional; endocrine; and metabolic disorders (2 sources)Body mass index 25-29 - overweight; Translations: [Body mass index 29.0-29.9, adult]Onset: 72-13-0710LmnmrbcfHmjzou media and related conditions (2 sources)Acute non-suppurative otitis media - serous; Translations: [Acute serous otitis media]Onset: 57-18-4851PxbakfzcTrkcleywzbb; intervertebral disc disorders; other back problems (2 sources)Neck pain; Translations: [Cervicalgia]Onset: 86-30-9747Hzssuecx Results Test NameValueInterpretationReference RangeFacilityCNNURSEon 25-18-6155ADQYMPX Nurse Visit (ENDOLN) KILO MANTILLA ([id number]) 1950 F Date Time Provider Department 07/27/25 8:00 AM NURSE ENDO [facility] ENDOLN During your visit today, we recorded the following information about you: Allergies As of Date: 07/27/2025 (No Known Allergies) Date Reviewed: 07/02/2025 Reviewed by: Zee Kc MA - Fully Assessed Reason for Visit: Imm/Inj [58] Primary Visit Diagnosis:Age-related osteoporosis without current pathological fracture [M81.0] Prescriptions as of 07/27/2025 - rosuvastatin (CRESTOR) 10 mg tablet Take 1 tablet by mouth daily at bedtime. - omeprazole (PRILOSEC) 20 mg capsule Take 20 mg by mouth once daily. Facility-Administered Medications as of 07/27/2025 - denosumab 60 mg injection (PROLIA) Problem List As Of Date 07/27/2025 Noted Resolved Graves disease [E05.00] 01/23/2023 Thyroid nodule [E04.1] 01/23/2023 Hypertension [I10] 02/26/2023 Osteoporosis [M81.0] 02/26/2023 Vitamin D deficiency [E55.9] 05/12/2024 Multiple thyroid nodules [E04.2] 05/30/2025 Encounter Status:Closed by REGLA LOPEZ on 07/27/25NormalCMercy Health [facility]25([place])D3 [facility] 802111-izfhiforitifca D3 [Mass/Vol]38.5 ng/pPBlwcsr22.0-80.0[facility] HospitalComment on above:Order Comment: Specimen Type: BLOOD SPECIMENOrdering Facility: [facility] Address:[address] [place], [place] [address]Result Comment: Classification of 25 [place] Vitamin D status: Deficiency/Insufficiency: < or = 30 ng/ml. Sufficiency/Optimal Levels: 31-80 ng/mL Toxicity: > 100 ng/mL. Test performed by chemiluminescent immunoassay.Performed By: #### 1989-3 ####[facility] LABCLIA [id number] [address] STATES OF [facility] ONT[facility]IO HOSPITALCNOVon 47-08-2403IBHQXiztcw Visit (ENDOLN) KILO MANTILLA ([id number]) 1950 F Date Time Provider Department 07/02/25 8:30 AM KASSANDRA ENCISO During your visit today, we recorded the following information about you: Pulse Blood pressure Weight 56/minute 137/84 71.7 kg Kassandra Enciso MD 07/02/2025 9:54 AM Signed The patient is a 75-year-old female with osteoporosis and Graves? disease, presenting for evaluation of osteoporosis management. She follows with Dr. Carson for Graves disease , monitored off antithyroid medication Osteoporosis: - Diagnosed in her 40s; unclear etiology. - Menopause in her 50s. - Family history of osteoporosis in mother, who sustained a neck fracture in her 90s. - No personal history of fractures or height loss. - Recent DEXA scan showed a T-score of -2.7 in the lumbar spine. - Previous DEXA scan approximately 5 years ago; results not available ( done in [facility] ) - On Fosamax for over 20 years; no other osteoporosis treatments. - Minimal dairy intake; only calcium and vitamin D supplementation is from a daily multivitamin. - Dentist expressed concern about long-term use of Fosamax. Graves' Disease: - Diagnosed in 2021. - Off all medications for the past year; monitoring for symptom recurrence. - Reports good lab results. Height loss no Family history of osteoporosis yes Fragility fractures no Otherwise, no other acute complaints or concerns today. No past medical history on file. No past surgical history on file. rosuvastatin (CRESTOR) 10 mg tablet Take 1 tablet by mouth daily at bedtime. omeprazole (PRILOSEC) 20 mg capsule Take 20 mg by mouth once daily. alendronate (FOSAMAX) 70 mg tablet Take 70 mg by mouth one time a week. In AM with cup of water on empty stomach. Nothing else by mouth and stay upright for 30 min. ALLERGIES No Known Allergies SOCIAL HISTORY[1] No family history on file. REVIEW OF SYSTEMS: Review of Systems Constitutional: Negative for fatigue, night sweats and recent unintentional weight change. HENT: Negative for trouble swallowing, postnasal drip and thyroid pain (lower neck). Eyes: Positive for visual disturbance. Respiratory: Negative for difficulty breathing. Cardiovascular: Negative for chest pain, leg swelling and claudication. Gastrointestinal: Positive for heartburn. Negative for nausea, vomiting, abdominal pain, diarrhea and constipation. Genitourinary: Positive for amenorrhea. Negative for urgency, frequent urination, slower stream, menstruating and irregular menses. Musculoskeletal: Positive for myalgias and bone pain. Negative for muscle weakness. Skin: Negative for skin color change. Neurological: Negative for dizziness, headaches and numbness. Endo/Heme/Allergies: Positive for heat intolerance when others are comfortable and changes in body hair. Negative for polydipsia, cold intolerance when others are comfortable, hot flashes and flushing. PHYSICAL EXAM: BP 137/84 Pulse 56 Wt 158 lb (71.7kg) BP w/Orthostatic Vitals Date and Time Orthostatic BP Orthostatic Pulse BP Pulse BP Position BP Site BP Cuff Size 07/02/25 0837 -- -- 137/84 56 -- -- -- General appearance: Well appearing, alert, in no acute distress. Skin: Skin color, texture, turgor normal Lungs: Lungs clear to auscultation. . Heart: RRR without murmur Extremities: no edema Neuro: no focal deficit no termors DATA REVIEW: Latest Ref [facility] 08/11/2024 Calcium 8.5 - 10.2 mg/dL 9.1 PTH, Intact 15 - 65 pg/mL 52 Vitamin D 25 Hydroxy 31.0 - 80.0 ng/mL 37.2 IMPRESSION: THE LOWEST T-SCORE IS -2.7 IN [...] FOR MORE INFORMATION ABOUT DIAGNOSIS AND TREATMENT: [facility] for Osteoporosis and Metabolic Bone Disease:? www.ccf.org/arthritis/osteo National Osteoporosis Foundation:? www.nof.org International Society of Clinical Densitometry www.iscd.org Propagator: 57566 Transcribe Date/Time: Apr 26 2025 8:56A Impression/plan: # Age-related osteoporosis without current pathological fracture (M81.0) - Chronic osteoporosi (more content not included)...NormalSelect Medical Trihealth Rehabilitation HospitalCollagen crosslinked C-telopeptide [Mass/Vol]on 07-02-2025 TELOPEPTIDE, BETA CROSS EIPMYF188 pg/zVSciztf582-251WbujuqumvSelect Medical Trihealth Rehabilitation Hospital Comment on above:Order Comment: Specimen Type: BLOOD SPECIMENOrdering Facility: [facility] Address:[address] [place] [address] Performed By: #### 60975-5 ####[facility] LABCLIA [id number] [address] OF [facility] Glomerular filtration rate [Volume Rate/Area] in Serum, Plasma or Blood by CreatinineOrdered By: Kassandra Enciso on 31-83-0682Iszcyoomcj filtration rate [Volume Rate/Area] in Serum, Plasma or Blood by Fcuhyxsihw35 mL/min/1.73m??? Normal>=60Bl[facility] Health SystemComment on above:Estimated Glomerular Filtration Rate (eGFR) is calculated using the 2020 CKD-EPI creatinine equation. This equation utilizes serum creatinine, sex, and age as parameters. The creatinine assay has traceable calibration to isotope dilution-mass spectrometry. Refer to KDIGO guidelines for clinical interpretation. In patients with unstable renal function, e.g. those with acute kidney injury, the eGFRmay not accurately reflect actual GFR.Order Comment: Specimen Type: BLOOD SPECIMENOrdering Facility: [facility] Address:[address] [place], [place] [address]Result Comment: Estimated Glomerular Filtration Rate (eGFR) is calculated using the 2020 CKD-EPI creatinine equation. This equation utilizes serum creatinine, sex, and age as parameters. The creatinine assay has traceable calibration to isotope dilution-mass spectrometry. Refer to KDIGO guidelines for clinical interpretation. In patients with unstable renal function, e.g. those with acute kidney injury, the eGFR may not accurately reflect actual GFR. Performed By: #### 2731-8, 60608-0 ####[facility] LABCLIA [id number] [place] [address] [place] Glucose [Mass/volume] in Serum or PlasmaOrdered By: Kassandra Enciso on 07-02-2025 Glucose [Mass/Vol]89 mg/zEGmzdau81-49BhpszilxhBlanchard Valley Health SystemComment on above:The [place] Diabetes Association (ADA) provides guidance for cutoff [...] diabetes.Reference: Standardsof Medical Care in Diabetes 2016, [place] Diabetes Association. Diabetes Care. 2016.39(Suppl 1).Order Comment: Specimen Type: BLOOD SPECIMENOrdering Facility: [facility] Address:[address] [place], [place] [address]Result Comment: The [place] Diabetes Association (ADA) provides guidance for cutoff [...] Standards of Medical Care in Diabetes 2016, [place] Diabetes Association. Diabetes Care. 2016.39(Suppl 1).Performed By: #### 2731-8, 10793-6 ####[facility] LABCLIA [id number] [address] [place] [address] [place]o Panel InformationOrdered By: Kassandra Enciso on 369094-Aticjup Vitamin D Total38.5 ng/mL31.0-80.0 [facility] SystemComment on above:Classification of 25 [place] Vitamin D status: Deficiency/Insufficiency: < or = 30 ng/ml.Sufficiency/Optimal Levels: 31-80 ng/mLToxicity: > 100 ng/mL. Test performed by chemiluminescent immunoassay.Collagen Beta-CrossLaps (Beta-CTx)293 pg/xX805-801NknbtbputBlanchard Valley Health SystemParathyroid Hormone (Intact)34 pg/tP89-72PxkpuasnfBlanchard Valley Health SystemPhosphorus Level3.6 mg/dL2.7-4.8[facility] PTH-Intact SerPl-mCncon 77-25-5120Gbmqfkscoc.intact [Mass/Vol]34 pg/mLNormal 15-65[facility] Rehabilitation HospitalComment on above:Order Comment: Specimen Type: BLOOD SPECIMENOrdering Facility: [facility] Address:[address] [place], [place] [address]Performed By: #### 2731-8, 41803-7 ####[facility] [id number] [place] [address] [place] OF AMERICARenal Func 2000 Pnl SerPlOrdered By: Kassandra Enciso on 69-56-8977Adiyshj [Mass/Vol]4.5 g/dLNormal3.9-4.9[facility] Health SystemComment on above:Order Comment: Specimen Type: BLOOD SPECIMENOrdering Facility: [facility] Address:[address] [place], [place] [address]Performed By: #### 2731-8, 42969-4 ####[facility] [id number] [address] [address] [place] OF AMERICACalcium [Mass/Vol]9.8 mg/dLNormal8.5-10.2FTriHealth Bethesda Butler HospitalComment on above:Order Comment: Specimen Type: BLOOD SPECIMENOrdering Facility: [facility] Address:[address] [place], [place] [address]Performed By: #### 2731-8, 97790-9 ####[facility] LABCLIA [id number] [place] [id number] [place] AMERICAChloride [Moles/Vol]107 mmol/PPddmtf85-602AqbbndfdeBlanchard Valley Health SystemComment on above:Order Comment: Specimen Type: BLOOD SPECIMENOrdering Facility: [facility] [facility] Address:[address] [place], [place] [address]Performed By: #### 2731-8, 02123-7 ####[facility] LABCLIA [id number] [place] [address] [place] AMERICACO2 [Moles/Vol]24 mmol/MLaipkf05-14ZcmxozduhBlanchard Valley Health System Comment on above:Order Comment: Specimen Type: BLOOD SPECIMENOrdering Facility: [facility] Address:[address] [place] [address] Performed By: #### 2731-8, 31998-7 ####[facility] LABCLIA [id number] [place] [id number] [place] Creatinine [Mass/Vol]0.85 mg/dLNormal0.58-0.96[facility] Comment on above:Order Comment: Specimen Type: BLOOD SPECIMENOrdering Facility: [facility] Address:[address] [place] [address] Performed By: #### 2731-8, 01511-6 ####[facility] LABCLIA [id number] [place] [address] [place] Potassium [Moles/Vol]5.1 mmol/LNormal3.7-5.1FTriHealth [facility] Comment on above:Order Comment: Specimen Type: BLOOD SPECIMENOrdering Facility: [facility] Address:[address] [place] [address] Performed By: #### 2731-8, 00851-8 ####[facility] LABCLIA [id number] [address] [address] [place] Sodium [Moles/Vol]145 mmol/MXshh860-506RrgpclejuBlanchard Valley Health SystemComment on above:Order Comment: Specimen Type: BLOOD SPECIMENOrdering Facility: [facility] Address:[address] [place] [address] Performed By: #### 2731-8, 35496-8 ####[facility] LABCLIA [id number] [place] [address] [place] Urea nitrogen [Mass/Vol]10 mg/dLNormal7-21[facility] Comment on above:Order Comment: Specimen Type: BLOOD SPECIMENOrdering Facility: [facility] Address:[address] [place] [address] Performed By: #### 2731-8, 49347-7 ####[facility] LABCLIA [id number] [place] [address] [place] Renal function 2000 panelon 97-66-6216Aulhrvvrm [Mass/Vol]3.6 mg/dLNormal2.7-4.8 [facility] HospitalComment on above:Order Comment: Specimen Type: BLOOD SPECIMENOrdering Facility: [facility] Address:[address] [place], [place] [address]Performed By: #### 2731-8, 85958-0 ####[facility] LABCLIA [id number] [place] [address] [place] AMERICASerum or plasma anion gap determinationOrdered By: Kassandra Enciso on 42-61-9997Smmoa gap [Moles/Vol]14 mmol/LNormal8-15[facility] SystemComment on above:Order Comment: Specimen Type: BLOOD SPECIMENOrdering Facility: [facility] Address:[address] [place], [place] [address]Performed By: #### 2731-8, 74232-0 ####[facility] LABCLIA [id number] MAVIS SALAZAR [address] [address] [place] OF AMERICACNOVon 12-50-6746LKJMRvvjoa Visit (ENDOCC) KILO MANTILLA ([id number]) 1950 F Date Time Provider Department 05/30/25 9:00 AM YESSI CARSON [facility] During your visit today, we recorded the following information about you: Pulse Blood pressure Weight Height 62/minute 129/82 72.6 kg 1.626 m Jose Trinh LPN 05/30/2025 9:46 AM Signed Labs: 05/18/2025 Yessi Carson MD 05/30/2025 9:46 AM Signed Kilo Mantilla is a 75 year old female seen for Graves disease. Last seen 02/16/25. HISTORY REVIEWED (electronic chart updated): No past medical history on file. No past surgical history on file. No family history on file. Current Outpatient Medications Medication Sig rosuvastatin (CRESTOR) 10 mg tablet Take 1 [...] visit. ALLERGIES No Known Allergies HPI/Interval hx: No acute complaints today. 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 Graves' Disease: - Kilo Mantilla was diagnosed in August 2022 after experiencing unintentional weight loss and symptoms of hyperthyroidism. - Initially treated with methimazole for two years; discontinued in August 2024. - Recent thyroid function tests (TFTs) in February and May were normal. - TSI levels were high in August 2023 but have been negative since discontinuing methimazole. - Denies current symptoms of hyperthyroidism, including palpitations and double vision. - Regular ophthalmology follow-ups for retinal issues in the left eye. Thyroid Nodules: - Initial ultrasound in August 2022 showed a 2 cm hypoechoic nodule in the left lobe and a 0.5 cm nodule in the left lobe. - Iodine scan in September 2022 showed no cold or hot nodules. - Follow-up ultrasounds in March 2023 and December 2023 showed no significant changes. - Ultrasound-guided FNA of the 2 cm left lobe nodule in June, was benign. - Recent ultrasound showed a stable 2 cm hypoechoic solid nodule in the left lobe. - Other nodules include a 1.1 cm isoechoic solid nodule in the right mid-lobe, a 0.8 cm solid isoechoic nodule in the left upper lobe, and a 0.7 cm nodule in the left lower lobe, all stable in size and non-suspicious. Osteoporosis: - Recent DEXA scan showed a T-score of -2.7 in the lumbar spine, indicating osteoporosis. - Kilo gant has been on Fosamax for 20-30 years! Answers submitted by the patient for this visit: Core Review of Systems (Submitted on 05/25/2025) Fever : No Night sweats: No Recent unintentional weight change: No Nasal Congestion: No Hearing Loss: No Vision Disturbance: No A cough: No Difficulty Breathing?: No Chest pain: No Irregular heartbeat: No Leg Swelling: No Nausea: No Diarrhea: No Black tarry stools: No Difficulty Urinating?: No Awaken at Night More Than Once to Urinate?: No Joint pain or stiffness: No Muscle aches: Yes Leg or Foot Discomfort at Night?: Yes A rash: No Dizziness: No Headaches: No Memory Loss: No Seizures: No PHYSICAL EXAMINATION: 05/30/25 0848 BP: 129/82 Pulse: 62 Weight: 72.6 kg (160 lb 0.9 oz) Height: 162.6 cm (5' 4 ) Labs Latest Ref Rng 02/15/2025 05/18/2025 TSI Qualitative Negative Negative TSI <0.55 IU/L 0.32 TSH 0.270 - 4.200 mIU/L 0.768 1.690 Free T4 0.9 - 1.7 ng/dL 1.1 1.0 Free T3 2.3 - 4.1 pg/mL 3.2 3.2 Latest Ref Rng 08/27/2023 10/15/2023 12/03/2023 04/21/2024 08/11/2024 11/17/2024 TSI Qualitative Negative Positive ! Negative TSI <0.55 IU/L 0.83 (H) 0.45 TSH 0.270 - 4.200 mIU/L 4.480 (H) 0.567 0.943 1.650 1.350 0.959 Free T4 0.9 - 1.7 ng/dL 0.9 1.0 1.0 1.0 1.0 1.0 Free T3 2.3 - 4.1 pg/mL 2.7 3.1 2.7 2.9 3.0 3.1 Calcium 8.5 - 10.2 mg/dL 9.1 PTH, [...] 01/13/2023 Free T4 0.61 - 1.12 0.46 (A (more content not included)...NormalShelby Memorial HospitalTORY PHYSICALon 32-49-9945DOECGOO PHYSICALHNO ID: [id number] Author: JOSE TRINH LPN Service: ? Author Type: Licensed Nurse Type: H&P Filed: 05/30/2025 09:46 Note Text: Labs: 05/18/2025NormalCWhite Hospitaltory - Chemistry and Chemistry - challengeOrdered By: Yessi Carson on 66-24-7134Bbgu T4 [Mass/Vol]1.0 ng/dL0.9-1.7FTriHealth Bethesda Butler HospitalTSH Qn1.690 m[IU]/L0.270-4.200 [facility] SystemNo Panel InformationOrdered By: Yessi Carson on 38-02-5971Zcqz Triiodothyronine3.2 pg/mL2.3-4.1FTriHealth [facility] Thyroid Growth Stim ImmunoglobulinNegativeNegativeBlanchard Valley Health SystemT3Free SerPl-mCncon 70-57-5085Pvam T3 [Mass/Vol]3.2 pg/mLNormal2.3-4.1 [facility] on above:Order Comment: Specimen Type: BLOOD SPECIMENOrdering Facility: [facility] Address:[address] [place], [place] [address]Performed By: #### 3051-0, 3024-7, 3016-3 ####[facility] LABCLIA [id number] [facility] P[address]DEZZ[address] [place] [address] [place] AMERICAT4 Free SerPl-mCncon 04-32-1325Rsiq T4 [Mass/Vol] 1.0 ng/dLNormal0.9-1.7CShelby Memorial Hospital on above:Order Comment: Specimen Type: BLOOD SPECIMENOrdering Facility: [facility] Address:[address] [place], [place] [address]Performed By: #### 3051-0, 3024-7, 3016-3 ####[facility] LABIA [id number] [place] [id number] [place] OF AMERICATHYROID STIMULATING IMMUNOGLOBULIN BLOODon 35-70-5076Iocyzkg stimulating immunoglobulins actual/normal (S) [Relative mass conc]0.32 IU/LNormal<0.55[facility] on above:Order Comment: Specimen Type: BLOOD SPECIMENOrdering Facility: [facility] Address:[address] [place], [place] [address]Result Comment: Thyroid Stimulating Immunoglobulin test is used as an aid in diagnosis of autoimmune hyperthyroidism especially in patients with Grave's orbitopathy and dermopathy. Low positive TSH receptor stimulating antibody levels may occasionally be found in patients with autoimmune hypothyroidism. Clinical correlation is required.Performed By: #### TSIGIM ####[facility] LABIA [id number] [place] [address] [place] [facility] HOSPITALTSI QUALITATIVENegativeNormalNegativeSelect [facility] on above:Order Comment: Specimen Type: BLOOD SPECIMENOrdering Facility: [facility] Address:[address] [place], [place] [address]Performed By: #### TSIGIM ####[facility] LABIA [id number] [place] [address] [place] TSH SerPl-aCncon 75-94-1085TJA Qn1.690 m[IU]/LNormal0.270-4.200[facility] on above:Order Comment: Specimen Type: BLOOD SPECIMENOrdering Facility: [facility] Address:[address] [place], [place] [address]Performed By: #### 3051-0, 3024-7, 3016-3 ####[facility] LABIA [id number] [place] [address] [place] AMERICAThyroid stimulating immunoglobulin (TSI) measurementOrdered By: Yessi Brockhal on 15-01-3288Qgkmxdj stimulating immunoglobulins actual/normal (S) [Relative mass conc]0.32 IU/L<0.55Firelands Regional Medical CenterComment on above:Thyroid Stimulating Immunoglobulin test is used as an aid in diagnosis of autoimmune hyperthyroidism especially in patients with Grave's orbitopathy and dermopathy. Low positive TSH receptor stimulating antibody levels may occasionally be found in patients with autoimmune hypothyroidism. Clinical co rrelation is required.US THYROID/PARATHYROIDon 31-96-9133HE THYROID/PARATHYROID* * *Final Report* * * DATE OF EXAM: May 18 2025 8:14AM [facility] 1048 - US THYROID/PARATHYROID / PROCEDURE REASON: [...] 2 points Echogenicity: Isoechoic, 1 point Shape: Bpkcn-zpbc-ochs, 0 points Margin: Ill-defined, 0 points Echogenic [...] 2 points Echogenicity: Hypoechoic, 2 points Shape: Wjpuj-makc-yrkf, 0 points Margin: Smooth, 0 points Echogenic [...] 2 points Echogenicity: Isoechoic, 1 point Shape: Kcprc-skog-rngy, 0 points Margin: Smooth, 0 points Echogenic [...] 2 points Echogenicity: Isoechoic, 1 point Shape: Dgsqf-iusq-okik, 0 points Margin: Smooth, 0 points Echogenic foci (add points for all that apply): None, 0 points Internal vascularity: present Interval growth: Stable TI-RADS Category: TR3 ACR Recommendation: TI-RADS 3 nodule. No FNA or further imaging is advised. IMPRESSION: Thyroid nodule(s) is/are present. Fine needle aspiration is recommended if not previously performed. TI-RADS Category: TR4 ACR Recommendation: TI-RADS 4 nodule. FNA is recommended. ACR recommendations are strictly based on the size and imaging appearance at the time of the exam and do not consider stability or previous biopsy results. Propagator: ROBERTS [place]APEL Transcribe Date/Time: May 18 2025 11:11A Dictated by : BRUCE BEATTY MD This examination was interpreted and the report reviewed and electronically signed by: BRUCE BEATTY MD on May 18 2025 11:45AM EST [id number] County Hospital Thyroid glandon 09-45-7736XHEPSUIOLI: Thyroid nodule(s) is/are present. Fine needle aspiration is recommended if not previously performed. TI-RADS Category: TR4 ACR Recommendation: TI-RADS 4 nodule. FNA is recommended. ACR recommendations are strictly based on the size and imaging appearance at the time of the exam and do not consider stability or previous biopsy results. Propagator: ROBERTS [place]EL Transcribe Date/Time: May 18 2025 11:11A Dictated by : BRUCE BEATTY MD This examination was interpreted and the report reviewed and electronically signed by: BRUCE BEATTY MD on May 18 2025 11:45AM [facility] DIVISION OF RADIOLOGY* * *Final Report* * * DATE OF EXAM: May 18 2025 8:14AM [facility] 1048 - US THYROID/PARATHYROID / PROCEDURE REASON: [...] 2 points Echogenicity: Isoechoic, 1 point Shape: Zvgaj-wnjp-qsmm, 0 points Margin: Ill-defined, 0 points Echogenic [...] 2 points Echogenicity: Hypoechoic, 2 points Shape: Zjyij-vmyw-rbzh, 0 points Margin: Smooth, 0 points Echogenic [...] 2 points Echogenicity: Isoechoic, 1 point Shape: Mdaqc-iwww-ipif, 0 points Margin: Smooth, 0 points Echogenic [...] 2 points Echogenicity: Isoechoic, 1 point Shape: Cbwrr-dnyw-tjrj, 0 points Margin: Smooth, 0 points Echogenic foci (add points for all that apply): None, 0 points Internal vascularity: present Interval growth: Stable TI-RADS Category: TR3 ACR Recommendation: TI-RADS 3 nodule. No FNA or further imaging is advised. DIVISION OF RADIOLOGYProvider, [facility] - 05/18/2025 * * *Final Report* * * DATE OF EXAM: May 18 2025 8:14AM [facility] 1048 - US THYROID/PARATHYROID / PROCEDURE REASON: [...] 2 points Echogenicity: Isoechoic, 1 point Shape: Dmeae-nrce-qwml, 0 points Margin: Ill-defined, 0 points Echogenic [...] 2 points Echogenicity: Hypoechoic, 2 points Shape: Yzzxk-mvgr-kzbz, 0 points Margin: Smooth, 0 points Echogenic [...] 2 points Echogenicity: Isoechoic, 1 point Shape: Rcacf-taef-jmiv, 0 points Margin: Smooth, 0 points Echogenic [...] 2 points Echogenicity: Isoechoic, 1 point Shape: Goxjh-aikf-ibon, 0 points Margin: Smooth, 0 points Echogenic [...] not consider stability or previous biopsy results. Propagator: PSCB Transcribe Date/Time: May 18 2025 11:11A Dictated by : BRUCE BEATTY MD This examination was interpreted and the report reviewed and electronically signed by: BRUCE BEATTY MD on May 18 2025 11:45AM EST [facility] CenterRadiology Study observation (narrative)[facility] Thyroid glandOrdered By: Ccf Provider on 58-84-8535Yrhkxekth ClinicBD DXA - AXIAL SKELETONon 52-90-4213EF DXA - AXIAL SKELETON* * *Final Report* * * DATE OF EXAM: Apr 26 2025 8:55AM [facility] 0804 - BD DXA - AXIAL SKELETON B / PROCEDURE REASON: DENSITY * * * * Physician Interpretation * * * * EXAMINATION: DXA BONE DENSITOMETRY BD DXA - AXIAL SKELETON PATIENT DEMOGRAPHICS: Age: 75 years, Gender: Female SCANNER INFORMATION: DXA Model: Rapid Mobile [id number] Date Scanned: 04/26/2025 8:55 AM CLINICAL HISTORY: [...] had a previous bone density in the [facility] or the previous bone density was performed on a different DXA machine (new, updated model or different location) within the [facility]. VERTEBRAL FRACTURE ASSESSMENT Not performed. TRABECULAR BONE ASSESSMENT TBS not performed: not ordered IMPRESSION: THE LOWEST T-SCORE IS -2.7 IN [...] FOR MORE INFORMATION ABOUT DIAGNOSIS AND TREATMENT: [facility] for Osteoporosis and Metabolic Bone Disease:? www.ccf.org/arthritis/osteo National Osteoporosis Foundation:? www.nof.org International Society of Clinical Densitometry www.iscd.org Propagator: 28433 Transcribe Date/Time: Apr 26 2025 8:56A Dictated by : JERRI RICHARDS MD This examination was interpreted and the report reviewed and electronically signed by: JERRI RICHARDS MD on Apr 30 2025 7:27AM EST [id number] -2.7NormalCMercy Health St. Elizabeth Youngstown HospitalHISTORY PHYSICALon 63-45-9764GNDJCBU PHYSICALHNO ID: [id number] Author: JOSE TRINH LPN Service: ? Author Type: LICENSED NURSE Type: H&P Filed: 02/16/2025 07:06 Note Text: Labs: 11/17/2024NormMorrow County HospitalT3Free Lorrainel-mCncon 02-15-2025 Free T3 [Mass/Vol]3.2 pg/mLNormal2.3-4.1CMercy Health St. Elizabeth Youngstown HospitalComment on above:Order Comment: Specimen Type: BLOOD SPECIMENOrdering Facility: [facility] Address:[address] [place], [place] [address]Performed By: #### 3051-0, 3024-7, 3016-3 ####[facility] LABCLIA [id number] [place] [id number] [place] [facility] HOSPITALT4 Free SerPl-mCncon 83-17-5098Mzkz T4 [Mass/Vol]1.1 ng/dLNormal0.9-1.7CShelby Memorial Hospital on above:Order Comment: Specimen Type: BLOOD SPECIMENOrdering Facility: [facility] Address:[address] [place], [place] [address]Performed By: #### 3051-0, 3024-7, 3016-3 ####[facility] LABIA [id number] [place] [id number] [facility] SerPl-aCncon 31-88-3469UIH Qn0.768 m[IU]/LNormal0.270-4.200[facility] on above:Order Comment: Specimen Type: BLOOD SPECIMENOrdering Facility: [facility] Address:[address] [place], [place] [address]Performed By: #### 3051-0, 3024-7, 3016-3 ####[facility] LABIA [id number] [place] [address] [place] AMERICALaboratory - Chemistry and Chemistry - challengeon 50-40-1485Jnap T4 [Mass/Vol]1.0 ng/dL0.9-1.7FTriHealth [facility] TSH Qn0.959 m[IU]/L0.270-4.200[facility] SystemNo Panel Informationon 12-37-8788Fxbw Triiodothyronine3.1 pg/mL2.3-4.1FTriHealth Bethesda Butler HospitalT3Free SerPl-mCncon 02-36-5748Bpcw T3 [Mass/Vol]3.1 pg/mLNormal 2.3-4.1CShelby Memorial Hospital on above:Order Comment: Specimen Type: BLOOD SPECIMENOrdering Facility: [facility] Address:[address] [place], [place] [address]Performed By: #### 3051-0, 3024-7, 3016-3 ####[facility] LABCLIA [id number] [place] [address] [place] AMERICAT4 Free SerPl-mCncon 77-93-8172Ggql T4 [Mass/Vol] 1.0 ng/dLNormal0.9-1.7CShelby Memorial Hospital on above:Order Comment: Specimen Type: BLOOD SPECIMENOrdering Facility: [facility] Address:[address] [place], [place] [address]Performed By: #### 3051-0, 3024-7, 3016-3 ####[facility] LABCLIA [id number] [place] [address] [place] AMERICATS SerPl-aCncon 15-97-1995UWY Qn0.959 m[IU]/LNormal0.270-4.200[facility] on above:Order Comment: Specimen Type: BLOOD SPECIMENOrdering Facility: [facility] Address:[address] [place], [place] [address]Performed By: #### 3051- 0, 3024-7, 3016-3 ####[facility] LABIA [id number] [place] [address] [place] WYTPOAY32([place])D3 SerPl-mCncon 72-64-011776127847-nmxtgmiaxkljta D3 [Mass/Vol]37.2 ng/cIOhjwas41.0-80.0[facility] on above:Order Comment: Specimen Type: BLOOD SPECIMENOrdering Facility: [facility] Address:[address] [place], [place] [address]Performed By: #### 1989-3 ####[facility] LABIA [id number] [place] [address] [place] AMERICACalcium SerPl-mCncon 90-23-1765Yhummed [Mass/Vol]9.1 mg/dLNormal8.5-10.2 [facility] on above:Order Comment: Specimen Type: BLOOD SPECIMENOrdering Facility: [facility] Address:[address] [place], [place] [address]Performed By: #### 48420-5 ####[facility] LABCLIA [id number] [place], [place] [address]QVJ-Hgsngm SerPl-mCncon 58-31-7641Eniklgrnwu.intact [Mass/Vol]52 pg/tTYpfxiu04-65NdlnaaaawSelect Medical Specialty [facility] on above:Order Comment: Specimen Type: BLOOD SPECIMENOrdering Facility: [facility] Address:[address] [place], [place] [address]Performed By: #### 3051-0, 3024-7, 3016-3, 2730-8 ####[facility] LABCLIA [id number] [place] [address] [place] LKNDIPVT5Uedk SerPl-mCncon 08-11-2024 Free T3 [Mass/Vol]3.0 pg/mLNormal2.3-4.1CShelby Memorial Hospital on above:Order Comment: Specimen Type: BLOOD SPECIMENOrdering Facility: [facility] Address:[address] [place], [place] [address]Performed By: #### 3051-0, 3024-7, 3016-3, 273-8 ####[facility] LABCLIA [id number] [address] STATES OF [place] T4 Free SerPl-mCncon 80-60-1053Lban T4 [Mass/Vol]1.0 ng/dLNormal0.9-1.7CShelby Memorial Hospital on above:Order Comment: Specimen Type: BLOOD SPECIMENOrdering Facility: [facility] Address:[address] [place], [place] [address]Performed By: #### 3051-0, 3024-7, 3016-3, 273-8 ####[facility] LABCLIA [id number] [place] [address] [place] AMERICATHYROID STIMULATING IMMUNOGLOBULIN BLOODon 08-72-2732Hqutloa stimulating immunoglobulins actual/normal (S) [Relative mass conc]0.45 IU/LNormal<0.55[facility] on above:Order Comment: Specimen Type: BLOOD SPECIMENOrdering Facility: [facility] Address:[address] [place], [place] [address]Result Comment: Thyroid Stimulating Immunoglobulin test is used as an aid in diagnosis of autoimmune hyperthyroidism especially in patients with Grave's orbitopathy and dermopathy. Low positive TSH receptor stimulating antibody levels may occasionally be found in patients with autoimmune hypothyroidism. Clinical correlation is required.Performed By: #### TSIGIM ####[facility] LABIA [id number] [address] STATES OF [facility] HOSPITALTSI QUALITATIVENegativeNormalNegativeSelect Medical [facility] on above:Order Comment: Specimen Type: BLOOD SPECIMENOrdering Facility: [facility] Address:[address] [place], [place] [address]Performed By: #### TSIGIM ####[facility] LABIA [id number] [place] [address] [place] TSH SerPl-aCncon 29-76-5430OQD Qn1.350 m[IU]/LNormal0.270-4.200[facility] on above:Order Comment: Specimen Type: BLOOD SPECIMENOrdering Facility: [facility] Address:[address] [place], [place] [address]Performed By: #### 3051-0, 3024-7, 3016-3, 2731-8 ####[facility] LABIA [id number] [place] [address] [place] AMERICAUS THYROID/PARATHYROIDon 82-50-7438LA THYROID/PARATHYROID* * *Final Report* * * DATE OF EXAM: Jun 07 2024 9:08AM [address] THYROID/PARATHYROID / PROCEDURE REASON: Thyroid nodule * [...] 2 points Echogenicity: Isoechoic, 1 point Shape: Jzqms-qyrf-cowz, 0 points Margin: Ill-defined, 0 points Echogenic [...] 2 points Echogenicity: Hypoechoic, 2 points Shape: Yphjb-lrqn-igcd, 0 points Margin: Smooth, 0 points Echogenic [...] 1 point Echogenicity: Hypoechoic, 2 points Shape: Prehp-nmcy-ynky, 0 points Margin: Smooth, 0 points Echogenic [...] 2 points Echogenicity: Isoechoic, 1 point Shape: Wtylm-jrjj-vgoc, 0 points Margin: Smooth, 0 points Echogenic [...] not consider stability or previous biopsy results. Propagator: BORA Transcribe Date/Time: Jun 09 2024 10:17A Dictated by : GABINO MCDONALD MD This examination was interpreted and the report reviewed and electronically signed by: GABINO MCDONALD MD on Jun 09 2024 10:26AM EST [id number] HospitalUS THYROID FNA (POC) ENDO USE ONLYon 07-45-3499Xkbtmmygx ClinicUS thyroidon 05-47-4913HL [facility] [place] [address] Ultrasound Report Signed Patient: Kilo Mantilla MR#: [id number] : 1950 Acct:[id number] Age/Sex: 73 / F ADM Date: 12/08/23 Loc: Room: Type: [facility] Attending Dr: Yessi Carson Ordering Provider: Yessi [...] Lisa Vang M.D.12/08/2023 10:11 AM Dictation Location: [place] [address] Tech: Dunia Justin Transcribed By: ALEX 12/08/23 1011 Dictated By: Lisa Vang MD 12/08/23 1002 Signed By: 12/08/23 1011[facility] Physician GroupUS thyroidon 26-91-8892IA [facility] [place] [address] [place] [address] Ultrasound Report Signed Patient: Kilo Mantilla MR#: [id number] : 1950 Acct:[id number] Age/Sex: 72 / F ADM Date: 03/19/23 Loc: Room: Type: [facility] Attending Dr: Yessi Carson Ordering Provider: Yessi [...] Lisa Vang M.D.03/19/2023 9:35 AM Dictation Location: [place] [address] Tech: Monica Lane Transcribed By: ALEX 03/19/23 0935 Dictated By: Lisa Vang MD 03/19/23 0930 Signed By: 03/19/23 0935[facility] Physician GroupALKALINE PHOSPHATASEon 09-34-8908TPJ [Catalytic activity/Vol]147 U/OMkpmtpca98 - 104 U/LCleveland ClinicAlanine aminotransferase [Enzymatic activity/volume] in Serum or Plasma Ordered By: Yamila Ang on 31-79-4645IXA [Catalytic activity/Vol]18 U/L7-52 [facility] SystemAlbumin [Mass/volume] in Serum or Plasma by Bromocresol green (BCG) dye binding methoOrdered By: Yamila Ang on 01-13-2023 Albumin BCG dye [Mass/Vol]4.2 g/dL3.5-5.7FTriHealth [facility] Alkaline phosphatase [Enzymatic activity/volume] in Serum or PlasmaOrdered By: Yamila Ang on 85-41-0225XXZ [Catalytic activity/Vol]147 U/G28-747YhgthgfogBlanchard Valley Health SystemAspartate aminotransferase [Enzymatic activity/volume] in Serum or PlasmaOrdered By: Yamila Ang on 23-99-7969DYN [Catalytic activity/Vol]17 U/R66-43ZfdpsvjumBlanchard Valley Health SystemBilirubin.direct [Mass/volume] in Serum or PlasmaOrdered By: Yamila Ang on 01-13-2023 Bilirubin.direct [Mass/Vol]0.10 mg/dL0.03-0.18FTriHealth [facility] Bilirubin.total [Mass/volume] in Serum or PlasmaOrdered By: Yamila Riverogh on 94-92-9172Eursovxsh [Mass/Vol]0.5 mg/dL0.3-1.0[facility] FREE T4on 88-88-4500Vnrs T3 [Mass/Vol]3.2 pg/mL2.5 - 3.9 pg/mLCleveland Clinic Globulin Calc (S) [Mass/Vol]Ordered By: Yamila Ang on 13-75-8578Tirdcazs (S) [Mass/Vol]2.4 g/dLBlanchard Valley Health SystemProtein [Mass/volume] in Serum or PlasmaOrdered By: Yamila Riverogh on 93-24-3354Whjewmp [Mass/Vol]6.6 g/dL 6.4-8.9[facility] Rehabilitation Hospitalerum or plasma albumin/globulin mass ratioOrdered By: [facility] Medical Centerjaylin Riverogh 13-43-6571Cfaaivi/Globulin [Mass ratio]1.8 {ratio}[facility] Rehabilitation Hospitalerum or plasma non-glucuronidated bilirubin measurement (mass/volume)Ordered By: Stantonmsjaylin Ang on 01-13-2023 Bilirubin.indirect [Mass/Vol]0.4 mg/dLBlanchard Valley Health System Thyrotropin [Units/volume] in Serum or PlasmaOrdered By: Yamila Ang on 12-13-8694NLW Qn9.54 m[IU]/L0.45-5.33[facility] SystemThyroxine (T4) free [Mass/volume] in Serum or PlasmaOrdered By: Yamila Ang on 21-45-2704Rsxw T4 [Mass/Vol]0.46 ng/dLAbnormal0.61 - 1.12[facility] SystemTriiodothyronine (T3) Free [Mass/volume] in Serum or PlasmaOrdered By: Yamila Ang on 02-44-4320Lrab T3 [Mass/Vol]3.17 pg/mL2.50-3.90[facility] SystemFERRITIN BLDon 59-13-5768Pgfbglgv [Mass/Vol]125.1 ng/mL 14.7 - 205.1 ng/mLCleveland ClinicGGT BLDon 05-83-2481Sykgx glutamyl transferase [Catalytic activity/Vol]21 U/L6 - 46 U/LCleveland ClinicHEP B SURF AG SCRNon 11-97-0013TTJ surface Ag Ql (S)NegativeNegativeCleGalion Community HospitalHEPATITIS A ANTIBODY, IGGon 95-44-6574Lzrdcgbjz A IgGNegativeNegativeDayton Va Medical CenterIron and Iron binding capacity panelon 26-20-6518Yzur [Mass/Vol]61 ug/dL41 - 186 ug/dLDayton Va Medical CenterIron binding capacity [Mass/Vol]323 ug/dL232 - 386 ug/dL [facility] Medical CenterIron/TIBC [Molar ratio]18.9 %15.0 - 57.0 %[facility] THYROID ANTIBODIESon 98-20-2850Ikfelsqbsgtvi Azouwjjd75.2 IU/mLCritically high 0.0-0.9The [facility]opedic CenterComment on above:Result Comment: Thyroglobulin Antibody measured by To The Tops MethodologyPerformed By: #### THYRABS #### [facility] [address] [address] [address] Machelle ArcherThyroid Peroxidase (TPO) Ab128 IU/mLCritically high0-34The [facility]opedic CenterComment on above:Performed By: #### THYRABS #### [facility] [address] [address] [address] Machelle Nation T3on 23-42-6077FUUY T310.08 pg/mlLCritically high2.18-3.98 [facility] CenterComment on above:Performed By: #### TSH, LIVER, FT3 #### [facility] [address] [address] [address] Machelle Nation T4on 55-00-1566Jjrl T4 [Mass/Vol]2.47 ng/dLCritically high 0.76-1.46The [facility] CenterComment on above:Performed By: #### FT4 ####[facility] [address] [address]Dr. Machelle Phelan PROFILEon 40-58-4361Klwiwcv [Mass/Vol]3.5 g/dLNormal3.4-5.0The [facility] CenterComment on above:Performed By: #### TSH, LIVER, FT3 #### [facility] [address] [place] [address] Dr. Machelle ArcherAlbumin/Globulin [Mass ratio]1.1 {ratio}NormalThe [facility] Orthopedic CenterComment on above:Performed By: #### TSH, LIVER, FT3 #### [facility] [address] [place] [address] Dr. Machelle Kellogg [Catalytic activity/Vol]159 U/LCritically tbcs51-944Bit [facility] CenterComment on above:Performed By: #### TSH, LIVER, FT3 #### [facility] [address] [place] [address] Dr. Machelle Humphrey [Catalytic activity/Vol]98 U/LCritically imhr62-21Wrr [facility] CenterComment on above:Performed By: #### TSH, LIVER, FT3 #### [facility] [address] [place] [address] Dr. Machelle Moreno [Catalytic activity/Vol]41 U/LCritically adhf95-58Xef [facility] Hospitalment on above:Performed By: #### TSH, LIVER, FT3 #### [facility] [address] [place] [address] Dr. Machelle Barroso, CONJUGATED0.1 mg/dLNormal0.0-0.2[facility] Comment on above:Performed By: #### TSH, LIVER, FT3 #### [facility] [address] [place] [address] Dr. Machelle Pendletonirubin [Mass/Vol]0.2 mg/dLNormal0.2-1.0[facility] Comment on above:Performed By: #### TSH, LIVER, FT3 #### [facility] [address] [place] [address] Dr. Machelle ArcherGlobulin (S) [Mass/Vol]3.3 g/dLNormalThe [facility] CenterComment on above:Performed By: #### TSH, LIVER, FT3 #### [facility] [address] [address] [address] Machelle ArcherProtein [Mass/Vol]6.8 g/dLNormal6.4-8.2The [facility] Comment on above:Performed By: #### TSH, LIVER, FT3 #### [facility] [address] [place], [place] [address] Dr. Machelle CurtisHosotero 75-43-4258HBH Qnm[IU]/LCritically low0.358-3.740The [facility] CenterComment on above:Performed By: #### TSH, LIVER, FT3 #### [facility] [address] [address] [address] Machelle ArcherMG MAMM SCREEN 3D NIDA CADon 34-87-5751OE MAMM SCREEN 3D NIDA CAD Patient: KILO MANTILLA Exam Date: 08/14/2022 : 1950 Gender:F Ordering : DR ROSALIE MONCADA M.D. Admission #: [id number] Family : Order #: [id number] CLICK HERE TO VIEW EXAM RADIOLOGY REPORT [...] uterine cancer at age 70. LOCATION: [facility] BREAST COMPOSITION: Extremely dense, which lowers the [...] by: Tang Montoya MD on 08/14/2022 at 09:17[facility] HospitalXR DEXA BONE DENSITYon 67-60-8711RL DEXA BONE DENSITYEXAMINATION: XR DEXA BONE DENSITY, 08/14/2022 7:18 AM EST HISTORY: [...] Electronically authenticated by: LINDSEY AMADOR Date: 2022-08-14 07:57NormCommunity Memorial HospitalVIT D 1 25 DIHYDROXYon 88-10-4947Xwsohwidal(1,25 di-OH Vit D) 28.9 pg/aZTohfvu44.8-81.5The [facility] CenterComment on above:Performed By: #### [id number] ####[facility] [address] [address]Dr. Machelle De La Garza AUTO DIFFon 11-98-9386BZMN #0.0 103/ulNormal0.0-0.1[facility] HospitalComment on above:Performed By: #### CBC #### [facility] [address] [address] [address] Machelle Rivassophils/100 WBC (Bld)0.7 %Normal0.2-2.0The [facility] Comment on above:Performed By: #### CBC #### [facility] [address] [address] [address] Machelle Stern #0.1 103/ulNormal0.0-0.7The [facility] CenterComment on above: Performed By: #### CBC #### [facility] [address] [address] [address] Machelle Mcnultyosinophils/100 WBC (Bld)1.2 %Normal0.9-7.0[facility] Comment on above:Performed By: #### CBC #### [facility] [address] [place] [address] Dr. Machelle Mcnultyrythrocyte distribution width (RBC) [Ratio]13.7 %Xbevym38.0-15.0 The [facility] CenterComment on above:Performed By: #### CBC #### [facility] [address] [place] [address] Dr. Machelle ArcherHematocrit (Bld) [Volume fraction]38.6 %Juhpfh50.0-48.0The [facility] CenterComment on above:Performed By: #### CBC #### [facility] [address] [place] [address] Dr. Machelle ArcherHemoglobin (Bld) [Mass/Vol]12.2 g/uTCttahx32.0-16.0The [facility] CenterComment on above:Performed By: #### CBC #### [facility] [address] [place] [address] Dr. Machelle ArcherIG #0.01 10e3/ulNormal0.00-0.03The [facility] CenterComment on above:Performed By: #### CBC #### [facility] [address] [place] [address] Dr. Machelle ArcherIG %0.2 %Normal0.0-0.5The [facility] CenterComment on above: Performed By: #### CBC #### [facility] [address] [place] [address] Dr. Machelle StarkMPH #1.2 103/ulNormal1.2-3.8The [facility] CenterComment on above:Performed By: #### CBC #### [facility] [address] [place] [address] Dr. Machelle Starkmphocytes/100 WBC (Bld)29.0 %Yoexra44.5-60.0The [facility] CenterComment on above:Performed By: #### CBC #### [facility] [address] [place] [address] Dr. Machelle Alvarenga DIFF REQNONormalThe [facility]opedic CenterComment on above: Performed By: #### CBC #### [facility] [address] [place] [address] Dr. Machelle Taylor (RBC) [Entitic mass]25.4 pgCritically low26.7-34.0The [facility] CenterComment on above:Performed By: #### CBC #### [facility] [address] [place] [address] Dr. Machelle Taylor (RBC) [Mass/Vol]31.6 g/yPBkejno59.9-35.2The [facility] CenterComment on above:Performed By: #### CBC #### [facility] [address] [place] [address] Dr. Machelle Taylor (RBC) [Entitic vol]80.2 fLCritically low81.0-99.0The [facility] CenterComment on above:Performed By: #### CBC #### [facility] [address] [place] [address] Dr. Machelle Gonzalez #0.4 103/ulNormal0.3-0.8The [facility] CenterComment on above:Performed By: #### CBC #### [facility] [address] [place] [address] Dr. Machelle Eldridgeocytes/100 WBC (Bld)8.9 %Normal1.7-12.0The [facility] Comment on above:Performed By: #### CBC #### [facility] [address] [place] [address] Dr. Machelle Hoyos #2.6 103/ulNormal1.4-6.5The [facility] CenterComment on above:Performed By: #### CBC #### [facility] [address] [place] [address] Dr. Machelle Forbesutrophils/100 WBC (Bld)60.0 %Nfailc13.0-75.0The [facility] CenterComment on above:Performed By: #### CBC #### [facility] [address] [address] [address] Machelle Parkerlet mean volume (Bld) [Entitic vol]12.6 fLNormal9.5-13.5The [facility] CenterComment on above:Performed By: #### CBC #### [facility] [address] [address] [address] Machelle ArcherPLT185 103/puWnsntt557-779Fxi [facility] CenterComment on above: Performed By: #### CBC #### [facility] [address] [address] [address] Machelle ArcherRBC4.81 106/ulNormal4.20-5.40The [facility] CenterComment on above:Performed By: #### CBC #### [facility] [address] [place] [address] Dr. Machelle ArcherWBC4.3 103/ulNormal4.0-11.0The [facility] CenterComment on above: Performed By: #### CBC #### [facility] [address] [place] [address] Dr. Machelle RodriguesID PROFILEon 04-64-4214WJYH-HDL RATIO NORMSMercy Health St. Rita's Medical CenterComment on above:Result Comment: 3.3 - 4.4 LOW RISK 4.4 - 7.1 AVERAGE RISK 7.1 - 11.0 MODERATE RISK >11.0 HIGH RISKPerformed By: #### LIPID, TSH, CMP ####[facility] [address] [address]DrMukul Carty ChangCholesterol [Mass/Vol]201 mg/dLCritically high<=200The [facility] CenterComment on above:Performed By: #### LIPID, TSH, CMP ####[facility] [address] [address]DrMukul ArcherCholesterol in HDL [Mass/Vol]55 mg/bTTzbyov23-18Ryx [facility] Comment on above:Performed By: #### LIPID, TSH, CMP ####[facility] [address] [address]Dr. Yilan ChangCholesterol in LDL [Mass/Vol]125.8 mg/dLMemorial Health System Marietta Memorial HospitalComment on above:Performed By: #### LIPID, TSH, CMP ####[facility] [address] [address]Dr. Machelle ArcherCholesterol.total/Cholesterol in HDL [Mass ratio]3.7 {ratio}NormalGuernsey Memorial HospitalComforest health medical center on above:Performed By: #### LIPID, TSH, CMP ####[facility] [address] [address]Dr. Yilan ChangHDL NORMAL> or = 60 mg/dl - LOW CARDIOVASCULAR RISK <40 mg/dl - HIGH CARDIOVASCULAR RISKMemorial Health System Marietta Memorial HospitalComment on above:Performed By: #### LIPID, TSH, CMP ####[facility] [address] [place], [place] [address]Dr. Yilan ChangLDL CALC NORMALSEE BELOWNoSumma Health Wadsworth - Rittman Medical CenterComment on above:Result Comment: <100 mg/dl OPTIMAL 100 - 129 mg/dl NEAR OR ABOVE OPTIMAL 130 - 159 mg/dl BORDERLINE HIGH 160 - 189 mg/dl HIGH >190 mg/dl VERY HIGHPerformed By: #### LIPID, TSH, CMP ####[facility] [address] [place], [place] [address]Dr. Mounalan ChangTriglyceride [Mass/Vol]101 mg/dLNormal<=150The [facility] Orthopedic CenterComforest health medical center on above:Performed By: #### LIPID, TSH, CMP ####[facility] [address] [place], [place] [address]Dr. Yilan ChangVLDL CALC20.2 mg/dLNoSumma Health Wadsworth - Rittman Medical CenterComforest health medical center on above:Performed By: #### LIPID, TSH, CMP ####[facility] [address] [place], [place] [address]Dr. Yilan ChangPROF 14(COMP METB)on 46-26-1343Xhfikak [Mass/Vol]3.5 g/dLNormal3.4-5.0The [facility] CenterComment on above:Performed By: #### LIPID, TSH, CMP ####[facility] [address] [address]Dr. Yilan ChangAlbumin/Globulin [Mass ratio]1.0 {ratio}NormalThe [facility] CenterComment on above:Performed By: #### LIPID, TSH, CMP ####[facility] [address] [address]Dr. Yilan ChangALP [Catalytic activity/Vol]150 U/LCritically hhjl68-848Ymo [facility] CenterComment on above:Performed By: #### LIPID, TSH, CMP ####[facility] [address] [place], [place] [address]Dr. Yilan ChangALT [Catalytic activity/Vol] 66 U/LCritically rlzr64-19Vbm [facility] CenterComment on above:Performed By: #### LIPID, TSH, CMP ####[facility] Erbssg[address] [place], [place] [address]Dr. Yilan ChangAnion gap [Moles/Vol]10.2 mmol/LNormal The [facility] CenterComment on above:Performed By: #### LIPID, TSH, CMP ####[facility] [address] [place], [place] [address]Dr. Yilan ChangAST [Catalytic activity/Vol]33 U/WSqxakp21-42Mto [facility] Comment on above:Performed By: #### LIPID, TSH, CMP ####[facility] [address] [place], [place] [address]Dr. Yilan ChangBilirubin [Mass/Vol]0.5 mg/dLNormal0.2-1.0The [facility] CenterComment on above:Performed By: #### LIPID, TSH, CMP ####[facility] [address] [place], [place] [address]Dr. Yilan ChangCalcium [Mass/Vol]9.7 mg/dLNormal 8.5-10.1The [facility] CenterComment on above:Performed By: #### LIPID, TSH, CMP ####[facility] [address] [place], [place] [address]Dr. Yilan ChangChloride [Moles/Vol]106 mmol/SBypwsi17-231Skm [facility] Comment on above:Performed By: #### LIPID, TSH, CMP ####[facility] [address] [address]Dr. Yilan ChangCO2 [Moles/Vol]30.1 mmol/WSxhcqk25.0-32.0The [facility] CenterComment on above: Performed By: #### LIPID, TSH, CMP ####[facility] [address] [address]Dr. Yilan ChangCreatinine [Mass/Vol]0.57 mg/dL Normal0.55-1.02The [facility] CenterComment on above:Performed By: #### LIPID, TSH, CMP ####[facility] R[address] [place], [place] [address]Dr. Yilan ChangEGFR-AF AUSTRIAN>60Normal>=60The [facility] CenterComment on above:Performed By: #### LIPID, TSH, CMP ####[facility] [address] [place], [place] [address]Dr. Yilan ChangEGFR-NON AF AUSTRIAN>60Normal >=60The [facility] CenterComment on above:Performed By: #### LIPID, TSH, CMP ####[facility] [address]se[address] [place], [place] [address]Dr. Yilan ChangGlobulin (S) [Mass/Vol]3.4 g/dLNormalThe [facility] CenterComment on above:Performed By: #### LIPID, TSH, CMP ####[facility] [address] [place], [place] [address]Dr. Yilan ChangGlucose [Mass/Vol]103 mg/dL Qdpxeq67-035Dgy [facility] CenterComment on above:Performed By: #### LIPID, TSH, CMP ####[facility] [address] [place], [place] [address]Dr. Yilan ChangPotassium [Moles/Vol]4.3 mmol/LNormal3.5-5.1The [facility] CenterComment on above:Performed By: #### LIPID, TSH, CMP ####[facility] [address] [place], [place] [address]Dr. Yilan Archer Protein [Mass/Vol]6.9 g/dLNormal6.4-8.2The [facility] CenterComment on above: Performed By: #### LIPID, TSH, CMP ####[facility] [address] [place], [place] [address]Op. Machelle ArcherSodium [Moles/Vol]142 mmol/LNormal 136-145The [facility] CenterComment on above:Performed By: #### LIPID, TSH, CMP ####[facility] [address] [place], [place] [address]To. Machelle ChangUrea nitrogen [Mass/Vol]9.0 mg/dLNormal7.0-18.0The [facility] Comment on above:Performed By: #### LIPID, TSH, CMP ####[facility] [address] [place], [place] [address]Qm. Machelle ChangUrea nitrogen/Creatinine [Mass ratio]15.8 mg/mgNormalThe [facility] CenterComment on above:Performed By: #### LIPID, TSH, CMP ####[facility] [address] [place], [place] [address]Yn. Machelle ArcherTSHon 41-81-5771YMB Qnm[IU]/L Critically low0.358-3.740The [facility]opedic CenterComment on above:Performed By: #### LIPID, TSH, CMP ####[facility] [address] [id number]. Mounalan ChangXR Ribs w/ PA Chest Left*on 03-17-2022 XR Ribs w/ PA Chest Left*Comparison: Findings: The cardiomediastinal silhouette is unremarkable. The lungs are free of infiltrates or effusions. The bones and soft tissues are intact. There is no evidence of rib fracture. Impression: There are no acute changes. Report reported and signed by LEANDER MARTINEZ on 03/17/2022 1715NoSelect Specialty Hospitaln [facility] Medical SpecialistXR Wrist Complete Left*on 94-20-0213WI Wrist Complete Left*CLINICAL HISTORY: Pain after the fall COMPARISON: TECHNIQUE: AP, lateral, oblique, and scaphoid views of the wrist. FINDINGS: No acute fracture. Radiocarpal and carpal alignment is within normal limits. Soft tissues are within normal limits. IMPRESSION: No acute osseous abnormality. Report reported and signed by LEANDER MARTINEZ on 03/17/2022 1716NolinaalNortn [place] Medical SpecialistVIT D 1 25 DIHYDROXYon 43-06-7105Zjglrszznp(1,25 di-OH Vit D)47.1 pg/oBDqcsyu31.9-79.3The [facility] CenterComment on above:Performed By: #### PARR984 #### [facility] [address] [address] [address] Machelle RodriguesID PROFILEon 99-74-8661RJWE-HDL RATIO NORMSEE [facility] CompanyComment on above:Result Comment: 3.3 - 4.4 LOW RISK 4.4 - 7.1 AVERAGE RISK 7.1 - 11.0 MODERATE RISK >11.0 HIGH RISKPerformed By: #### LIPID, LIVER #### [facility] [address] [place] [address] Dr. Machelle Polancoesterol [Mass/Vol]227 mg/dLCritically high<=200The [facility] CenterComment on above:Performed By: #### LIPID, LIVER #### [facility] [address] [address] [address] Machelle Polancoesterol in HDL [Mass/Vol]43 mg/dLMemorial Health System [facility] Comment on above:Performed By: #### LIPID, LIVER #### [facility] [address] [address] [address] Machelle Polancoesterol in LDL [Mass/Vol]158.0 mg/dLMemorial Health System Marietta Memorial HospitalComment on above:Performed By: #### LIPID, LIVER #### [facility] [address] [address] [address] Machelle Alex.total/Cholesterol in HDL [Mass ratio]5.3 {ratio} NormalThe [facility] Orthopedic CenterComment on above:Performed By: #### LIPID, LIVER #### [facility] [address] [place] [address] Dr. Machelle Alva NORMAL> or = 60 mg/dl - LOW CARDIOVASCULAR RISK <40 mg/dl - HIGH CARDIOVASCULAR RISKMemorial Health System Marietta Memorial HospitalComment on above:Performed By: #### LIPID, LIVER #### [facility] [address] [address] [address] Machelle Jones CALC NORMALSEE BELOWMemorial Health System Marietta Memorial HospitalComment on above:Result Comment: <100 mg/dl OPTIMAL 100 - 129 mg/dl NEAR OR ABOVE OPTIMAL 130 - 159 mg/dl BORDERLINE HIGH 160 - 189 mg/dl HIGH >190 mg/dl VERY HIGH Performed By: #### LIPID, LIVER #### [facility] [address] [place] [address] Dr. Machelle ArcherTriglyceride [Mass/Vol]130 mg/dLNormal<=150[facility] Comment on above:Performed By: #### LIPID, LIVER #### [facility] [address] [place] [address] Dr. Machelle WadsworthLDL CALC26.0 mg/dLNoSumma Health Wadsworth - Rittman Medical CenterComment on above: Performed By: #### LIPID, LIVER #### [facility] [address] [place] [address] Dr. Machelle Phelan PROFILEon 11-31-5686Vqedywp [Mass/Vol]3.6 g/dLNormal3.5-5.0 [facility] HospitalComforest health medical center on above:Performed By: #### LIPID, LIVER #### [facility] [address] [place] [address] Dr. Machelle ArcherAlbumin/Globulin [Mass ratio]1.1 {ratio}NormalThe [facility] Orthopedic CenterComforest health medical center on above:Performed By: #### LIPID, LIVER #### [facility] [address] [place] [address] Dr. Machelle Kellogg [Catalytic activity/Vol]91 U/CIznddu76-070ZesGuernsey Memorial HospitalComforest health medical center on above:Performed By: #### LIPID, LIVER #### [facility] [facility] [address] [place] [address] Dr. Machelle Humphrey [Catalytic activity/Vol]23 U/LNormal9-52[facility] Comment on above:Performed By: #### LIPID, LIVER #### [facility] [address] [address] [address] Machelle ArcherAST [Catalytic activity/Vol]13 U/LCritically yha73-99QjnGuernsey Memorial HospitalComment on above:Performed By: #### LIPID, LIVER #### [facility] [address] [address] [address] Machelle PendletonI, CONJUGATED0.1 mg/dLNormal0.0-0.3[facility] Comment on above:Performed By: #### LIPID, LIVER #### [facility] [address] [address] [address] Machelle Pendletonirubin [Mass/Vol]0.5 mg/dLNormal0.2-1.3TC[facility] Comment on above:Performed By: #### LIPID, LIVER #### [facility] [address] [address] [address] Machelle ArcherGlobulin (S) [Mass/Vol]3.4 g/dLNormalThe [facility] CenterComment on above:Performed By: #### LIPID, LIVER #### [facility] [address] [address] [address] Machelle ArcherProtein [Mass/Vol]7.0 g/dLNormal6.1-8.2[facility] Comment on above:Performed By: #### LIPID, LIVER #### [facility] [address] [place] [address] Dr. Machelle Archer Vital Signs Date TimeVital SignValuePerforming GgtzhekgrXzssisqx36-78-7107 11:28-0400Body ygozqz661.56 cmRosalie Moncada MD Work Phone: [facility]10-01-2025 11:28-0400 Body mass index (BMI) [Ratio]27.3 kg/j6PlfxugRosalie Moncada MD Work Phone: [facility]10-01-2025 11:28-0400 Body zhwlskeqsuq03.9 [degF]Rosalie Moncada MD Work Phone: [facility]10-01-2025 11:28-0400 Body mlvihe85.34 kgRosalie Moncada MD Work Phone: [facility]10-01-2025 11:28-0400 Diastolic blood mrmwicsp70 mm[Hg]Rosalie Moncada MD Work Phone: [facility]10-01-2025 11:28-0400 Heart rate72 /minRosalie Moncada MD Work Phone: [facility]10-01-2025 11:28-0400 Systolic blood cyqxcxxj994 mm[Hg]Rosalie Moncada MD Work Phone: [phone]08-27-2025 08:48-0400 Body qqpwti550.6 cmYessi Carson MD Work Phone: [facility]08-27-2025 08:48-0400Body mass index (BMI) [Ratio]27.47 kg/m2Yessi Carson MD Work Phone: [facility]08-27-2025 08:48-0400Body .6 kgYessi Carson MD Work Phone: [phone]08-27-2025 08:48-0400Diastolic blood xauzmccn75 mm[Hg]Yessi Carson MD Work Phone: [phone]08-27-2025 08:48-0400Heart rate62 /min Yessi Carson MD Work Phone: [phone]08-27-2025 08:48-0400Systolic blood qxlwiuap459 mm[Hg]Yessi Carson MD Work Phone: [facility]05-08-2025 10:17-0400Body .56 cmBl[facility]05-08-2025 10:17-0400Body mass index (BMI) [Ratio]26.9 kg/y4LpmnojrtgBlanchard Valley Health System05-08-2025 10:17-0400Body gxsikn72.21 kgBlanchard Valley Health System05-08-2025 10:17-0400Diastolic blood obrdgzxa70 mm[Hg][facility]05-08-2025 10:17-0400 Heart rate61 /[facility]05-08-2025 10:17-0400 Respiratory rate12 /[facility]05-08-2025 10:17-0400 SaO2% (BldA) [Mass fraction]97 %[facility]05-08-2025 10:17-0400Systolic blood ajncfdlc271 mm[Hg][facility] 02-03-2025 10:08-0400Body jdhugzjfwei06.39 [degF]Negrita Redmond [employer]REATING AND [employer]MPING SUPERVISOR Work Phone: [phone]05-03-2025 10:08-0400Diastolic blood hncejeoc46 mm[Hg]Negrita Redmond [employer]ATING [employer]ING SUPERVISOR Work Phone: [phone]05-03-2025 10:08-0400Heart rate83 /min Negrita Redmond T[employer]ATING [employer]ING SUPERVISOR Work Phone: [phone] [place], [place] 1722205-03-2025 10:08-0400Respiratory rate20 /minNegrita Redmond TREATING AND PUMPING SUPERVISOR Work Phone: [phone]05-03-2025 10:08-2870PrK3% (BldA) [Mass fraction]96 %Negrita Redmond [employer]ATING [employer]ING SUPERVISOR Work Phone: [phone]05-03-2025 10:08-0400Systolic blood irmplaau080 mm[Hg]Negrita Redmond [employer]ATING AND [employer]ING SUPERVISOR Work Phone: [phone] [place], [place] [address]Cbtibbnqid20-88-5573 15:46-0400Body mneotb501.56 cmBl[facility]ard [facility] System10-29-2024 15:46-0400Body mass index (BMI) [Ratio]25.9 kg/k0KygkefcyeBlanchard Valley Health System10-29-2024 15:46-0400Body .49 kgBlanchard Valley Health System10-29-2024 15:46-0400Diastolic blood nxyysqmk42 mm[Hg][facility]10-29-2024 15:46-0400 Heart rate59 /[facility]10-29-2024 15:46-0400Systolic blood egupvqgt753 mm[Hg][facility]06-26-2024 11:54-0400 Diastolic blood nlfxreyx56 mm[Hg]Anthony Marks MD, PhD Work Phone: [facility]06-26-2024 11:54-0400Heart rate63 /min Anthony Marks MD, PhD Work Phone: [facility]06-26-2024 11:54-0400Systolic blood hgggacfm844 mm[Hg]Anthony Marks MD, PhD Work Phone: [facility]10-27-2023 12:30-0400Body .56 cmRosalie Moncada Other [employer] Other 10-27-2023 12:30-0400Body mass index (BMI) [Ratio] 26.64 kg/c2JyhjhqRosalie Moncada Other [employer] Other 10-27-2023 12:30-0400Body wxraei78.4 kgRosalie Moncada Other [employer] Other 10-27-2023 12:30-0400Diastolic blood yhrypzbq34 mm[Hg] Rosalie Moncada Other [employer] Other 10-27-2023 12:30-0400Systolic blood hhjelbpu019 mm[Hg] Rosalie Moncada Other [employer] Other 10-27-2023 11:30-0400Body sfqehm772.56 cmRosalie Moncada Other [employer] Other 10-27-2023 11:30-0400Body mass index (BMI) [Ratio] 26.64 kg/v7VrxcsaRosalie Moncada Other [employer] Other 10-27-2023 11:30-0400Body .4 kgRosalie Moncada Other [employer] Other 10-27-2023 11:30-0400Diastolic blood mm[Hg] Rosalie Moncada Other [employer] [employer] Other 10-27-2023 11:30-0400Systolic blood isgzsedl740 mm[Hg] Rosalie Moncada Other [facility] [employer] Other 04-19-2023 11:20-0400Diastolic blood hrssbrir79 mm[Hg] Yessi Carson MD Work Phone: [facility]04-19-2023 11:20-0400Systolic blood iiitytsm400 mm[Hg]Yessi Carson MD Work Phone: [facility]04-19-2023 10:01-0400Body ywqwkc108.6 cmYessi Carson MD Work Phone: [facility]04-19-2023 10:01-0400Body cvefka34.32 kgYessi Carson MD Work Phone: [facility]04-19-2023 10:01-0400Heart rate62 /min Yessi Carson MD Work Phone: [facility]02-15-2023 13:23-0500Body vibtlv88.55 kgNicole Smith MD Work Phone: [facility] Encounters Encounter DateEncounter TypeCare ProviderFacilityStart: 07-27-2025 End: 74-36-8453rjbppcmcnzMOIPUQ E BRAUNFacility:[facility]tart: 07-04-2025 End: 66-96-8884eaiouyotnyAcdzak E Braun MD Work Phone: [facility] Work Phone: Start: 07-04-2025 End: 54-34-4237Kxlyqqx encounter Fredo Moncada MD-[facility] Work Phone: Start: 61-81-2243Fkm-patient / Non-visitSrito EncisoState Mental Health Facility [facility] Work Phone: Start: 07-02-2025 End: 56-96-4912twhmgtjybxJIVNP ELSHEIKHFacility:[facility]tart: 07-02-2025 End: 13-13-6993vppcanwqurVDSKEA E BRAUNFacility:[facility]tart: 05-30-2025 End: 25-53-9097Aticvnb encounter Gaudencio Carson MD Work Phone: EndocrinologyComment on above:Graves disease (Primary Dx); Multiple thyroid nodules; Age-related osteoporosis without current pathological fractureStart: 05-30-2025 End: 85-65-7565domgrtzztaFIAEBT E BRAUNFacility:[facility]tart: 03-01-0235Epk-patient / Non-visitYessi CarsonState Mental Health Facility [facility] Work Phone: Start: 05-18-2025 End: 74-03-9204harhfngsumVASU SERHALFacility:[facility] Foundationtart: 05-18-2025 End: 14-31-4208Oyfnjagutn hospital visit by Shoshana [facility] LoraRadiologyComment on above:Graves disease [E05.00]Start: 84-18-8002pfgtufqgbhNJQBSZ E BRAUN Facility:[facility] HospitalStart: 04-26-2025 End: 77-28-5529Yktovnpoqt hospital visit by Audelia Riojas [facility] Clar[place] RadiologyStart: 02-16-2025 End: 60-77-0104Mudzwcollrir consultation with Stefania Carson MD Work Phone: EndocrinologyStart: 02-16-2025 End: 40-38-0204dvkwitcliuNzpe Serhal MD Work Phone: EndocrinologyComment on above:Graves disease (Primary Dx); Thyroid noduleStart: 02-15-2025 End: 10-90-7736gblekgzqpsHVGL SERHALFacility:[facility] Foundationtart: 02-08-2025 End: 25-38-5710jltqkrnamfFxszrbhlpOhioHealth [facility] Work Phone: Start: 02-08-2025 End: 46-90-3687Ypsxatq encounter procedureFirsthealth [facility] GroupOhio [facility] Work Phone: Start: 02-07-2025 End: 74-01-8689squlbzgpvfEnrw Serhal MD Work Phone: EndocrinologyComment on above:antibioticStart: 02-03-2025 End: 49-55-7291Yngphi outpatient visit 25 minutesLinjohn Redmond 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 AND 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 Work Phone: [facility] SWS UCComment on above:Cough in adult (Primary Dx); BronchitisStart: 02-03-2025 End: 30-13-8750hqrltlehcnGXIVTFG N AUSTINNot AvailableStart: 11-19-2024 End: 12-63-1069Iyooli-up encounterYessi Carson MD Work Phone: EndocrinologyStart: 11-17-2024 End: 78-40-7117xrhsvlucsfNUJX SERHALFacility:[facility] Foundationtart: 83-42-7064Kps-patient / Non-visitFirsthealth [facility] Physician GroupState [facility] Facility [facility] Work Phone: Start: 08-18-2024 End: 48-69-2180wupnifexbzSksk Serhal MD Work Phone: EndocrinologyComment on above:Graves disease (Primary Dx); Thyroid nodule; Hypertension, unspecified type; Other osteoporosis, unspecified pathological fracture presenceStart: 08-18-2024 End: 66-19-0518Vcxtpisoooco consultation with patientYessi Carson MD Work Phone: EndocrinologyStart: 08-11-2024 End: 95-03-0350hzygrmhrcrXLLL SERHALFacility:[facility]tart: 20-21-9428Jodmdzh encounter procedureSelect Medical TriHealth Rehabilitation Hospitaltart: 08-01-2024 End: 25-36-5955ucfatrojkcGzejdstyfCherrington Hospital Work Phone: Start: 08-01-2024 End: 17-29-7205Srqujdp encounter procedureFirsthealth [facility] Physician GroupOhio [facility] Work Phone: Start: 55-09-8006idrldvbntmPTUAQR M LASHIN Facility[facility]: 06-07-2024 End: 60-65-9774Twmiqwoucb hospital visit by physicianUltra St. [facility] Work Phone: [facility] Radiology UltrasoundComment on above: Thyroid nodule [E04.1]Start: 05-19-2024 End: 34-58-3374Zrimntdhr encounterYessi Carson MD Work Phone: Appointment CenterComment on above:Biopsy Request Start: 05-12-2024 End: 30-91-7045dozrywcxpuJilc Serhal MD Work Phone: EndocrinologyComment on above:Graves disease (Primary Dx); Vitamin D deficiency; Thyroid noduleStart: 05-12-2024 End: 59-02-4615Jlsfbkrusmqh consultation with Stefania Carson MD Work Phone: EndocrinologyStart: 03-29-2024 End: 70-63-4618Elzpylx encounter Connie Marks MD, PhD Work Phone: EndocrinologyComment on above:Thyroid nodule (Primary Dx)Start: 03-09-2024 End: 47-87-7352Kauadoe encounter Rylee Smith MD Work Phone: GastroenterologyComment on above:Abnormal alkaline phosphatase test (Primary Dx)Start: 36-41-3540CzppvcWasy Serhal MD Work Phone: EndocrinologyComment on above:Refill RequestStart: 01-21-2024 End: 74-04-0109dpkzfzxkgtTtta Serhal MD Work Phone: EndocrinologyComment on above:Graves disease (Primary Dx); Thyroid nodule; Other osteoporosis, unspecified pathological fracture presenceStart: 01-21-2024 End: 99-12-9236Gqkpvhjnmufh consultation with Stefania Carson MD Work Phone: [facility]ENTERStart: 12-08-2023 End: 73-37-2564fzczjoaelcHole SerhalFacility:[facility] Start: 11-02-2023 End: 38-53-2049ljoqfqpttjLwnctl Braun Other [employer] Other Start: 68-05-9248Zqgciojji encounterRosalie MoncadaWexner Medical Centertart: 09-03-2023 End: 16-64-7266gehmsvulqwOilb Serhal MD Work Phone: EndocrinologyComment on above:Graves disease (Primary Dx); Thyroid noduleStart: 09-03-2023 End: 27-86-4946Vjwajqkvnvjc consultation with Stefania Carson MD Work Phone: [facility] CENTERStart: 47-36-9815Qtjhbhmhd encounterNicole Smith MD Work Phone: GastroenterologyStart: 83-23-5735Htgdsswsj encounter Nicole Smith MD Work Phone: GastroenterologyComment on above:ResultsStart: 08-09-2023 End: 15-28-9107ujbqmmsqeoYpkswu Braun Other [employer] Other Start: 56-49-8463Vifzkmtyk encounterRosalie [facility] Centertart: 07-30-2023 End: 25-19-8177ddhdbypnazDszvqh Braun Other [employer] Other Start: 31-82-2306Dtvzwzb encounter procedureRosalie WillisG [facility] Healthcare Centertart: 03-78-7661ddvydelxnrUlpp Serhal MD Work Phone: EndocrinologyComment on above:thyroid scanStart: 03-19-2023 End: 69-55-2160mooaisyrwnSepwpk E BraunFacility:[facility] Hospitaltart: 70-55-4027TqekukAjtb Serhal MD Work Phone: EndocrinologyComment on above:Refill RequestStart: 01-20-2023 End: 06-95-8648Yfuwisu encounter Gaudencio Carson MD Work Phone: EndocrinologyComment on above:Graves disease (Primary Dx); Thyroid noduleStart: 74-60-9266Ufmexn Mario Carson MD Work Phone: EndocrinologyStart: 01-13-2023 End: 56-04-0356eomjvhxtcaIK Marcia E Braun Work Phone: [facility] Work Phone: Start: 01-13-2023 End: 29-66-5727Kwnxdki encounter procedureMD Rosalie Moncada Work Phone: [facility] [place] Work Phone: Start: 12-09-2022 End: 97-58-0166dreeeiqdpbCP Marcia E Braun Work Phone: [facility] Work Phone: Start: 12-09-2022 End: 06-75-8307Qxhjnye encounter procedureMD Rosalie Moncada Work Phone: [facility] [place] Work Phone: Start: 11-18-2022 End: 24-16-1250Ackhuhv encounter procedureNicole Smith MD Work Phone: GastroenterologyComment on above:Abnormal liver enzymes (Primary Dx)Start: 09-03-2022 End: 65-72-0590opsiuerdzjQI Marcia E Braun Work Phone: [facility] Work Phone: Start: 09-03-2022 End: 10-07-5235Jamvyxu encounter procedureMD Rosalie Moncada Work Phone: [facility] [place] Start: 08-28-2022 End: 87-26-6398Edukxis encounter procedureMD Rosalie Moncada Work Phone: [facility] [place] Start: 08-25-2022 End: 49-81-4018acidtvtlcjRSKME SABBAGHFacility:N9Tphit: 08-14-2022 End: 85-07-0983cogxjgknwzYX MARCIA E BRAUNFacility:L1Lcmzx: 79-17-3398Cknfi health examinationRosalie Moncada Other [employer] Other Start: 07-29-2022 End: 13-23-0912ekqcvclngoLP MARCIA E BRAUNFacility:I0Hfrnk: 12-10-2021 End: 17-37-3724ubgrgsudahQW MARCIA E BRAUNFacility:I9Iouzw: 05-10-2020 End: 17-64-9506uibwwpootjRR MARCIA ELIZABETH BRAUNFacility:[facility] Procedures DateProcedureProcedure DetailPerforming ClinicianStart: 56-74-3805Bo soft tissue head & neck real time imge Isabella Carson MD Work Phone: Start: 50-63-3535Yy soft tissue head & neck real time imge Montana Marks MD, PhD Work Phone: Start: 64-12-2990Bsxjecue phosphatase [Enzymatic activity/volume] in Serum or PlasmaCcf ProviderStart: 62-70-9351Wodxtjpzo (T4) free [Mass/volume] in Serum or PlasmaCcf ProviderStart: 12-09-2022 Ultrasonography of abdomenMD Rosalie Moncada Work Phone: Start: 78-55-7221ZC scan of spleenMD Rosalie Moncada Work Phone: Start: 74-95-8910JC scan of thyroidMD Rosalie Moncada Work Phone: Start: 57-83-9693Qjhmwcm examination of patientRosalie Moncada Other Start: 13-51-0692Ksqxkuvmm mammographyRosalie Moncada Other Laboratory test result abnormalRosalie Moncada Other Screening for malignant neoplasm of breastRosalie Moncada Other Plan of Treatment DateCare ActivityDetailAuthorStart: 66-58-1610Ugtvxgwpb for osteoporosisBone Density ScreeningUniversity Hospitals St. John Medical Centertart: 81-60-4431MHORPIKC SCREENDIABETES SCREEN [facility] Centertart: 80-79-4660Qtlnhqtk ScreeningDiabetes ScreeningUniversity Hospitals St. John Medical Centertart: 11-02-2025 End: 53-58-0019yeffzhyiek57/30/2026 8:40 AM [facility] Endocrinology [address] [place] [address] [id number] Yessi Carson MD [address] [place], [place] [id number] : Return in about 5 months (around 08/30/2025).EndocrinologyComment on above:: Return in about 5 months (around 08/30/2025).Start: 08-30-2025 End: 67-08-4555Clboasxpawi [Units/volume] in Serum or PlasmaTHYROID STIMULATING HORMONE Lab Routine Graves disease Expected: 08/30/2025, Expires: 11/29/2025 [facility] Work Phone: Comment on above:Expected: 08/30/2025, Expires: 11/29/2025Start: 08-30-2025 End: 01-66-5028Pearmxmha (T4) free [Mass/volume] in Serum or PlasmaT4 FREE/FREE THYROXINE Lab Routine Graves disease Expected: 08/30/2025, Expires: 11/29/2025 [facility] CenterComment [facility]:Expected: 08/30/2025, Expires: 11/29/2025Start: 08-30-2025 End: 98-07-0692Eorcbxgkjsjldwnm (T3) Free [Mass/volume] in Serum or PlasmaT3, FREE Lab Routine Graves disease Expected: 08/30/2025, Expires: 11/29/2025 [facility] CenterComment on above:Expected: 08/30/2025, Expires: 11/29/2025Start: 07-02-2025 End: 59-72-7240Mjtkfqj encounter fnpqcogoc65/29/2025 8:30 AM EDT Office Visit Endocrinology [address] [place] [address] Kassandra Enciso MD [address] [facility] [place] [address] osteoporosisEndocrinologyComment on above:osteoporosisStart: 76-04-4381Czocwboxb vaccinationInfluenza Vaccine (#1)[facility]ertart: 05-30-2025 End: 68-66-6385Keupwpp encounter xdhwdazuw96/27/2025 9:00 AM EDT Office Visit Endocrinology [address] [place] [address] Yessi Carson MD [address] [place] [address] f/u 3-4 months IN THE OFFICE with thyroid US before the visit. May use a 40 mins new patient slot.EndocrinologyComment on above:f/u 3-4 months IN THE OFFICE with thyroid US before the visit. May use a 40 mins new patient slot. Start: 05-19-2025 End: 75-34-4665JTZEZGH STIMULATING IMMUNOGLOBULIN BLOODTHYROID STIMULATING IMMUNOGLOBULIN BLOOD Lab Routine Graves disease Expected: 05/19/2025, Expires: 10/18/2024leveland ClinicComment on above:Expected: 05/19/2025, Expires: 08/18/2025Start: 05-19-2025 End: 87-36-3866Udjbwydtvey [Units/volume] in Serum or PlasmaTHYROID STIMULATING HORMONE Lab Routine Graves disease Expected: 05/19/2025, Expires: 08/18/2025 [facility] CenterComment on above:Expected: 05/19/2025, Expires: 08/18/2025Start: 05-19-2025 End: 37-70-7983Newelabdm (T4) free [Mass/volume] in Serum or PlasmaT4 FREE/FREE THYROXINE Lab Routine Graves disease Expected: 05/19/2025, Expires: 08/18/2025 [facility] CenterComment on above:Expected: 05/19/2025, Expires: 08/18/2025Start: 05-19-2025 End: 54-73-7402Xunbbytkyvmsjjhj (T3) Free [Mass/volume] in Serum or PlasmaT3, FREE Lab Routine Graves disease Expected: 05/19/2025, Expires: 08/18/2025 [facility] CenterComment on above:Expected: 05/19/2025, Expires: 08/18/2025Start: 05-18-2025 End: 42-73-1961Cglvcme encounter zgadeaubc03/15/2025 7:45 AM EDT Appointment Radiology [address] [facility] [place] [address] Graves disease [E05.00]RadiologyComment on above:Graves disease [E05.00]Start: 05-18-2025 End: 96-42-3625shwjlzybyk73/15/2025 7:15 AM EDT Results Only Benjie [facility] Laboratory [address] [place] [address] ApptLorain [facility] LaboratoryComment on above:ApptStart: 05-10-2025 End: 76-30-5556Kilgukq encounter sbjtpyydj38/07/2025 8:20 AM EDT Office Visit Rheumatology [address] [place] [address] [place] [address] [place] [address] ostioparosisRheumatologyComment on above:ostioparosisStart: 04-26-2025 End: 76-28-9911Azqbsuq encounter xpetkjesd65/24/2025 8:55 AM EDT Appointment Radiology [address] [place], [place] [address] bone density has outside orderRadiologyComment on above:bone density has outside orderStart: 73-40-1763QKN Vaccine (1 - 1-dose 75+ series)RSV Vaccine (1 - 1-dose 75+ series) [facility]: 03-12-2025 End: 30-62-3820Byjyplt encounter ylgrvxlko50/09/2025 10:00 AM EDT Office Visit Gastroenterology [address] [address] Nicole Wilson MD [address] [place] [address] follow up liver enzymesGastroenterologyComment on above: follow up liver enzymesStart: 02-16-2025 End: 17-24-6099rtcdoemmekIevidWheeling Hospital LaboratoryComment on above:LabsReturn in about 6 months VVStart: 02-15-2025 End: 51-95-3342Xsmfmyllfki [Units/volume] in Serum or PlasmaTHYROID STIMULATING HORMONE Lab Routine Graves disease Expected: 02/15/2025, Expires: 05/17/2025 [facility] CenterComment on above:Expected: 02/15/2025, Expires: 05/17/2025Start: 02-15-2025 End: 61-45-2847Mogzotnpz (T4) free [Mass/volume] in Serum or PlasmaT4 FREE/FREE THYROXINE Lab Routine Graves disease Expected: 02/15/2025, Expires: 05/17/2025 [facility] CenterComment on above:Expected: 02/15/2025, Expires: 05/17/2025Start: 02-15-2025 End: 45-71-9086Jrqwwqfdzxmblnne (T3) Free [Mass/volume] in Serum or PlasmaT3, FREE Lab Routine Graves disease Expected: 02/15/2025, Expires: 05/17/2025 [facility] CenterComment on above:Expected: 02/15/2025, Expires: 05/17/2025Start: 02-15-2025 End: 46-55-3325Hmnizyd encounter zgtjklagi89/15/2025 8:00 AM EDT Office Visit [facility] Laboratory [address] [place] [address] [facility] LaboratoryComment on above:labStart: 11-18-2024 End: 77-56-6205Ryppitlogrp [Units/volume] in Serum or PlasmaTHYROID STIMULATING HORMONE Lab Routine Graves disease Expected: 11/18/2024, Expires: 02/17/2025 [facility] Work Phone: Comment on above:Expected: 11/18/2024, Expires: 02/17/2025Start: 11-18-2024 End: 93-08-0069Gloayhvha (T4) free [Mass/volume] in Serum or PlasmaT4 FREE/FREE THYROXINE Lab Routine Graves disease Expected: 11/18/2024, Expires: 02/17/2025 [facility] CenterComment on above:Expected: 11/18/2024, Expires: 02/17/2025Start: 11-18-2024 End: 34-68-4610Jssdurxkyzbmwvvr (T3) Free [Mass/volume] in Serum or PlasmaT3, FREE Lab Routine Graves disease Expected: 11/18/2024, Expires: 02/17/2025 [facility] CenterComment on above:Expected: 11/18/2024, Expires: 02/17/2025Start: 11-17-2024 End: 95-89-2393adspunlube07/14/2025 8:00 AM EST Results Only [facility] Laboratory [address] [place] [address] [facility] LaboratoryComment on above: LabsStart: 30-33-0748Ypopmvg Directive DiscussionAdvance Directive Discussion [facility]ertart: 08-18-2024 End: 36-56-6973Caxaqy-up /15/2024 6:40 AM EST [facility] [address] [place], [place] [id number] Yessi Carson MD [address] [facility] [place] [address] follow upEndocrinologyComment on above:follow upStart: 08-12-2024 End: 396008-hgiwripqjllbqf D3 [Mass/volume] in Serum or PlasmaVITAMIN D 25 HYDROXY Lab Routine Vitamin D deficiency Expected: 08/12/2024, Expires: 11/11/2024[facility] ClinicComment on above:Expected: 08/12/2024, Expires: 11/11/2024Start: 08-12-2024 End: 38-33-4125Tyhjlud [Mass/volume] in Serum or PlasmaCALCIUM, TOTAL Lab Routine Graves disease Expected: 08/12/2024, Expires: [facility] Comment on above:Expected: 08/12/2024, Expires: 11/11/2024Start: 08-12-2024 End: 01-78-4148Nvhekpkoty.intact [Mass/volume] in Serum or PlasmaPTH INTACT Lab Routine Graves disease Expected: 08/12/2024, Expires: 11/11/2024[facility] Comment on above:Expected: 08/12/2024, Expires: 11/11/2024Start: 08-11-2024 End: [id number] STIMULATING IMMUNOGLOBULIN BLOODTHYROID STIMULATING IMMUNOGLOBULIN BLOOD Lab Routine Graves disease Expected: 08/11/2024, Expires: 0 [facility]Expected: 08/11/2024, Expires: 11/10/2024Start: 08-11-2024 End: [id number] [Units/volume] in Serum or PlasmaTHYROID STIMULATING HORMONE Lab Routine Graves disease Expected: 08/11/2024, Expires: 11/10/2024 [facility] Work Phone: Comment on above:Expected: 08/11/2024, Expires: 11/10/2024Start: 08-11-2024 End: 47-42-6607Oucrogsxu (T4) free [Mass/volume] in Serum or PlasmaT4 FREE/FREE THYROXINE Lab Routine Graves disease Expected: 08/11/2024, Expires: 11/10/2024 [facility]Expected: 08/11/2024, Expires: 11/10/2024Start: 08-11-2024 End: 00-12-2491Ouwymtyqmxpzbjwx (T3) Free [Mass/volume] in Serum or PlasmaT3, FREE Lab Routine Graves disease Expected: 08/11/2024, Expires: 11/10/2024 [facility] CenterComment [facility]:Expected: 08/11/2024, Expires: 11/10/2024Start: 08-11-2024 End: 85-55-4375edtzoickaq30/08/2024 8:00 AM EST Results Only [facility] [address] [place] [address] [facility] LaboratoryStart: 06-07-2024 End: 54-24-9794Jrverezib to same day surgery xgosfj3106/07/2024 2:00 PM EDT - 06/07/2024 3:00 PM EDT Surgery Angio [address] [place] [address] Tang Cesar MD [address] [place] [address] BIOPSY THYROIDAngioComment on above:BIOPSY THYROIDStart: 06-07-2024 End: 90-03-6707Gwacts thyroid percutaneous core needleBIOPSY THYROID Graves disease Thyroid nodule 06/07/2024 2:00 PM EDTMC ANGIO PT1Mkbal: 06-07-2024 Subsequent hospital visit by znxizctji23/04/2024 2:00 PM EDT Hospital Encounter Angio [address] [place] [address] Tang Cesar MD [address] [place] [address] Graves disease [E05.00]AngioComment on above:Graves disease [E05.00]Start: 06-07-2024 End: 21-90-7573Eszgudx encounter xixxkidnq47/04/2024 8:45 AM EDT Appointment [facility] Radiology Ultrasound [address] [place] [address] Thyroid nodule [E04.1][facility] Radiology UltrasoundComment on above:Thyroid nodule [E04.1]Start: 53-93-6639Wfkis-19 Vaccine ( season)Covid-19 Vaccine ()[facility]: 06-04-2024 Covid-19 Vaccine ()Covid-19 Vaccine () [facility]: 28-80-6866Glfakokvj vaccinationInfluenza Vaccine (#1) [facility]: 05-12-2024 End: 79-99-6428Yetknv-up rjcypmbnm08/09/2024 7:00 AM EDT [facility] Endocrinology [address] [place] [address] Yessi Carson MD [address] [facility] [place] [address] follow Up to thyroidEndocrinologyComment on above:follow Up to thyroid Start: 05-01-2024 End: 33-58-4974Ebodjk-up oduzgpiot12/29/2024 3:00 PM EDT [facility] Endocrinology [address] [place] [address] Yessi Carson MD [address] [place] [address] follow Up to thyroidEndocrinologyComment on above:follow Up to thyroid Start: 04-21-2024 End: 10-91-5419Ezdxmvjszph [Units/volume] in Serum or PlasmaTHYROID STIMULATING HORMONE Lab Routine Graves disease Thyroid nodule Expected: 04/21/2024, Expires: 07/21/2024[facility] Work Phone: Comment on above:Expected: 04/21/2024, Expires: 07/21/2024Start: 04-21-2024 End: 35-28-7449Bfuogqvpa (T4) free [Mass/volume] in Serum or PlasmaT4 FREE/FREE THYROXINE Lab Routine Graves disease Thyroid nodule Expected: 04/21/2024, Expires: 07/21/2024[facility] Work Phone: Comment on above:Expected: 04/21/2024, Expires: 07/21/2024Start: 04-21-2024 End: 30-58-8289Xwphogqejebvgvnz (T3) Free [Mass/volume] in Serum or PlasmaT3, FREE Lab Routine Graves disease Thyroid nodule Expected: 04/21/2024, Expires: 07/21/2024[facility] Work Phone: Comment on above:Expected: 04/21/2024, Expires: 07/21/2024Start: 04-21-2024 End: 73-42-3503xcboxcahjz87/19/2024 8:00 AM EDT Results Only [facility] [address] [place] [address] [facility] LaboratoryStart: 03-29-2024 End: 22-39-5125Pbkrwvw encounter gjvsyptat64/26/2024 11:20 AM EDT Office Visit Endocrinology [address] [place] [address] Anthony Marks MD, PhD [address] [place] [address] Graves disease [E05.00]EndocrinologyComment on above:Graves disease [E05.00]Start: 03-09-2024 End: 60-64-0878IHW PHOS ISOENZYM BLALK PHOS ISOENZYM BL Lab Routine Abnormal alkaline phosphatase test Expected: 03/09/2024, Expires: 06/08/2024[facility] ClinicComment on above:Expected: 03/09/2024, Expires: 06/08/2024Start: 03-09-2024 End: 20-96-6238Zpvwb glutamyl transferase [Enzymatic activity/volume] in Serum or PlasmaGGT Lab Routine Abnormal alkaline phosphatase test Expected: 03/09/2024, Expires: 06/08/2024[facility] ClinicComment on above:Expected: 03/09/2024, Expires: 06/08/2024Start: 03-09-2024 End: 71-17-9343Dsvsdwj function 2000 panel - Serum or PlasmaHEPATIC FUNCTION PNL Lab Routine Abnormal alkaline phosphatase test Expected: 03/09/2024, Expires: 0 06/08/2024[facility] Work Phone: Comment on above:Expected: 03/09/2024, Expires: 06/08/2024Start: 03-09-2024 End: 48-85-0666Sdxerhrogdbf Ab [Presence] in Serum by Immunofluorescence MITOCHONDRIAL M2 IGG SERUM Lab Routine Abnormal alkaline phosphatase test Expected: 03/09/2024, Expires: 06/08/2024[facility] ClinicComment on above: Expected: 03/09/2024, Expires: 06/08/2024Start: 03-09-2024 End: 34-59-6992Bsjsyhy encounter adizelqsq95/06/2024 10:00 AM EDT Office Visit Gastroenterology [address] [address] Nicole Wilson MD [address] [facility] [address] [place] [id number] follow up liver enzymesGastroenterologyComment on above: follow up liver enzymesStart: 95-37-1878Ecabscre Vaccine (2 of 2)Shingrix Vaccine (2 of 2)[facility]: 12-03-2023 End: 73-30-4303Nlpkyxzmhnb [Units/volume] in Serum or PlasmaTSH BLD Lab Routine Graves disease Expected: 12/03/2023, Expires: 03/03/2024[facility] Work Phone: Comment on above:Expected: 12/03/2023, Expires: 03/03/2024Start: 12-03-2023 End: 28-99-0844Uxzcrwkoi (T4) free [Mass/volume] in Serum or PlasmaT4 FREE/FREE THYROX Lab Routine Graves disease Expected: 12/03/2023, Expires: 03/03/2024 [facility] Work Phone: Comment on above:Expected: 12/03/2023, Expires: 03/03/2024Start: 12-03-2023 End: 85-26-6670Shxgapjjvcpnniom (T3) Free [Mass/volume] in Serum or PlasmaT3 FREE BLD Lab Routine Graves disease Expected: 12/03/2023, Expires: 03/03/2024 [facility] Work Phone: Comment on above:Expected: 12/03/2023, Expires: 03/03/2024Start: 10-15-2023 End: 23-65-6841Cvqepsghwjx [Units/volume] in Serum or PlasmaTSH BLD Lab Routine Graves disease Expected: 10/15/2023, Expires: 01/14/2024[facility] Work Phone: Comment on above:Expected: 10/15/2023, Expires: 01/14/2024Start: 10-15-2023 End: 71-11-3599Rkljzuzob (T4) free [Mass/volume] in Serum or PlasmaT4 FREE/FREE THYROX Lab Routine Graves disease Expected: 10/15/2023, Expires: 01/14/2024 [facility] Work Phone: Comment on above:Expected: 10/15/2023, Expires: 01/14/2024Start: 10-15-2023 End: 57-87-6798Umihksshjvvpdlqe (T3) Free [Mass/volume] in Serum or PlasmaT3 FREE BLD Lab Routine Graves disease Expected: 10/15/2023, Expires: 01/14/2024 [facility] Work Phone: Comment on above:Expected: 10/15/2023, Expires: 01/14/2024Start: 33-38-2835Dmdhnxv Directive DiscussionAdvance Directive DiscussionUniversity Hospitals St. John Medical Centertart: 58-39-4499Lkcbdjlhre Health ScreeningBehavioral Health ScreeningUniversity Hospitals St. John Medical Centertart: 50-72-6502Iddgo-19 Vaccine ()Covid-19 Vaccine ()[facility]: 06-04-2023 Influenza vaccinationInfluenza Vaccine (#1)[facility]: 01-20-2023 End: 11-38-8750Vjqlujavrxwai metabolic 2000 panel - Serum or PlasmaCOMP METABOLIC PANEL Lab Routine Graves disease Expected: 01/20/2023, Expires: 03/22/2023[facility] Work Phone: Comment on above:Expected: 01/20/2023, Expires: 03/22/2023Start: 01-20-2023 End: 32-81-7182Xldkwmligkt [Units/volume] in Serum or PlasmaTSH BLD Lab Routine Graves disease Expected: 01/20/2023, Expires: 03/22/2023[facility] Work Phone: Comment on above:Expected: 01/20/2023, Expires: 03/22/2023Start: 01-20-2023 End: 99-47-4983Ctzxwqoux (T4) free [Mass/volume] in Serum or PlasmaT4 FREE/FREE THYROX Lab Routine Graves disease Expected: 01/20/2023, Expires: 03/22/2023 [facility] Work Phone: Comment on above:Expected: 01/20/2023, Expires: 03/22/2023Start: 01-20-2023 End: 19-19-8684Pqpzjkrjgchdgbdb (T3) Free [Mass/volume] in Serum or PlasmaT3 FREE BLD Lab Routine Graves disease Expected: 01/20/2023, Expires: 03/22/2023 [facility] Work Phone: Comment on above:Expected: 01/20/2023, Expires: 03/22/2023Start: 11-18-2022 End: 76-68-9196TJEVP 1 ANTITRYPSIN PHENOTYPEParkview Health Bryan Hospital Work Phone: Comment on above:Expected: 11/18/2022, Expires: 01/18/2023Start: 11-18-2022 End: 91-82-3546Fintyycyh C virus RNA [Units/volume] (viral load) in Serum or Plasma by HARPREET with probe detectionParkview Health Bryan Hospital Work Phone: Comment on above:Expected: 11/18/2022, Expires: 01/18/2023Start: 11-18-2022 End: 54-18-0452Euinrdoboiws Ab [Presence] in Serum by Immunofluorescence [facility] Work Phone: Comment on above:Expected: 11/18/2022, Expires: 01/18/2023Start: 11-18-2022 End: 47-33-0011Qajrcg muscle Ab [Presence] in SerumParkview Health Bryan Hospital Work Phone: Comment on above:Expected: 11/18/2022, Expires: 01/18/2023Start: 18-51-5683KORTCWD DIRECTIVE DISCUSSIONADVANCE DIRECTIVE DISCUSSIONUniversity Hospitals St. John Medical Centertart: 06-15-3818JGIMSMUWXR ASSESSMENTDEPRESSION ASSESSMENTUniversity Hospitals St. John Medical Centertart: 31-29-1988Uogfoykbrbdu thyroid imagingSelect Medical TriHealth Rehabilitation Hospitaltart: 92-91-1867FSRBG-19 VACCINE (5 - Booster)COVID-19 VACCINE (5 - Booster)[facility]: 48-93-8966Daumc-19 Vaccine (5 - Mixed Product series)Covid-19 Vaccine (5 - Mixed Product series)[facility] Start: 76-91-9613TKIN DENSITYBONE DENSITYUniversity Hospitals St. John Medical Centertart: 69-15-8450Tyvh Density ScreeningBone Density ScreeningUniversity Hospitals St. John Medical Centertart: 2015 Pneumococcal Vaccine: 65+ (1 - PCV)Pneumococcal Vaccine: 65+ (1 - PCV)[facility]: 85-69-6232XCSRJTEGGAWA: 65+ (1 - PCV)PNEUMOCOCCAL: 65+ (1 - PCV) [facility]: 67-48-0492Nluastzbd for osteoporosisBone Density ScreeningUniversity Hospitals St. John Medical Centertart: 07-01-2015Medicare Annual Wellness VisitMedicare Annual Wellness VisitUniversity Hospitals St. John Medical Centertart: 18-11-5411Xlkah microalbumin profileDTaP,Tdap,Td Vaccine (1 - Tdap)[facility]: 22-80-5973RJV Vaccine (1 - 1-dose 60+ series)RSV Vaccine (1 - 1-dose 60+ series)[facility]: 08-59-8060BFRKDBST VACCINE (1 of 2)SHINGRIX VACCINE (1 of 2) [facility]: 50-10-9357VIIFIKVQQ (FIT-DNA)COLOGUARD (FIT-DNA)[facility]ertart: 32-76-9467KhkznwxllxvUNULSNAXPKQNkjblydkp ClinicStart: 1995 COLORECTAL CANCER SCREENINGCOLORECTAL CANCER SCREENINGUniversity Hospitals St. John Medical Centertart: 31-72-0021VQ COLONOGRAPHYCT COLONOGRAPHYUniversity Hospitals St. John Medical Centertart: 1995 DIABETES SCREENDIABETES SCREENUniversity Hospitals St. John Medical Centertart: 67-12-7572NNXHV OCCULT BLOODFECAL OCCULT BLOODUniversity Hospitals St. John Medical Centertart: 24-80-0425Aziha 1996 panel - Serum or PlasmaLipid ScreeningUniversity Hospitals St. John Medical Centertart: 10-15-9339Oerwn panelLipid ScreeningUniversity Hospitals St. John Medical Centertart: 82-39-5360ZRPDA SCREENLIPID SCREENUniversity Hospitals St. John Medical Centertart: 32-72-3297Xzqyyzlcx for malignant neoplasm of colonDayton Va Medical Center Start: 88-38-4706SVUEZADYLRNXHOWUMOQTAMGJGNFublpzhcp ClinicStart: [address] John Medical Centertart: 53-62-9604Kpdvxgtcq for malignant neoplasm of breastUniversity Hospitals St. John Medical Centertart: 88-48-2124Nlrjc microalbumin profileUniversity Hospitals St. John Medical Centertart: 05-68-8564MAWZZJ PCP TEAM CHRONIC DISEASE VISITANNUAL PCP TEAM CHRONIC DISEASE VISITUniversity Hospitals St. John Medical Centertart: 18-22-9492Dkkuzrt ScreeningAnxiety ScreeningUniversity Hospitals St. John Medical Centertart: 81-57-3426LD CONTROLLED (<130/80)BP CONTROLLED (<130/80)[facility]: 18-99-2094Mmmheekgoe ScreeningDepression ScreeningUniversity Hospitals St. John Medical Centertart: 64-45-2075ESOYGQRUS C SCREENINGHEPATITIS C SCREENINGUniversity Hospitals St. John Medical Centertart: 58-91-3008Vmikposzr for malignant neoplasm of colonNODC HealthcareComprehensive metabolic 2000 panel - Serum or Plasma [facility] SystemCYT[facility] NON-GYNCYTOLOGY NON-MANAGER SWITCH Lab Routine Thyroid nodule 03/29/2024 12:24 PM [facility] Work Phone: DXA Skeletal system.axial Views for bone density [facility] End: 23-65-7577QFR Skeletal system.axial Views for bone densityParkview Health Bryan HospitalComment on above:ONCE for 1 Occurrences starting 04/26/2025 until 04/26/2025ENDO THYROID/LYMPH NODE FNAENDO THYROID/LYMPH NODE FNA Procedures Routine Graves disease Thyroid nodule Ordered: [address] [place] [address] Work Phone: Comment on above:Ordered: 01/21/2024Guidance for percutaneous biopsy.core needle of Thyroid glandIMAGING GUIDED BIOPSY THYROID Radiology Routine Graves disease Thyroid nodule Ordered: [address] [place], [place] [address]Comment on above:Ordered: 05/12/2024MG Breast - bilateral Screening [facility] End: 83-71-6915Ee abdominal real time w/image limitedUS ABD RT UPPER QUADRANT Radiology Routine Abnormal liver enzymes 1 Occurrences starting 11/18/2022until [address] [place] [address] Work Phone: Comment on above:1 Occurrences starting 11/18/2022 until 12/18/2023 End: 14-42-5143Vt soft tissue head & neck real time imge docmUS THYROID/PARATHYROID Radiology Routine Graves disease Thyroid nodule 1 Occurrences starting 01/20/[address] [place] [address] Work Phone: Comment on above:1 Occurrences starting 01/20/2023 until 02/19/2024 End: 12-16-0384Gn soft tissue head & neck real time imge docmUS THYROID/PARATHYROID Radiology Routine Graves disease Thyroid nodule 1 Occurrences starting 09/03/[address] [place] [address] Work Phone: Comment on above:1 Occurrences starting 09/03/2023 until 10/02/2024 End: 64-49-9560BQ Thyroid glandUS THYROID/PARATHYROID Radiology Routine Thyroid nodule 1 Occurrences starting 05/25/[address] [place] [address] Work Phone: Comment on above:1 Occurrences starting 05/25/2024 until 06/24/2025US Thyroid glandUS THYROID/PARATHYROID Radiology Routine Thyroid nodule 06/07/2024 9:25 [facility] Work Phone: End: 52-44-3153KP Thyroid glandUS THYROID/PARATHYROID Radiology Routine Graves disease Thyroid nodule 1 Occurrences starting 02/16/2025 until 03/18/2026 [facility] Work Phone: Comment on above:1 Occurrences starting 02/16/2025 until 03/18/2026XR Chest 2 [facility] Immunizations Immunization DateImmunizationNotesCare DcjmkphhDidxqdos98-94-7720ipnhmvkax virus vaccine, unspecified formulationSelect [facility]06-06-2024hepatitis A vaccine, adult dosageNicole Smith MD Work Phone: [facility] CenterRdtaxo68-16-4061rmypzanbp virus vaccine, unspecified formulationYessi Carson MD Work Phone: [facility] CenterOqgnxu60-71-8675cbirtzjgv virus vaccine, split virus (incl. purified surface antigen)Rosalie Moncada Other [employer] Other [id number] virus vaccine, unspecified formulationYessi Carson MD Work Phone: [facility]2022COVID-19 vaccine (UNSPECIFIED)Nicole Smith MD Work Phone: [facility] CenterCeytpk13-74-9232TWWSV-66 Vaccine Pfizer - Documentation Purposes OnlyRosalie Moncada Other [facility]11-04-2021 pneumococcal polysaccharide vaccine, 23 valentRosalie Moncada Other [facility]10-14-2021influenza virus vaccine, split virus (incl. purified surface antigen)Rosalie Moncada Other [employer] Other [id number] virus vaccine, unspecified formulationBlanchard Valley Health System10-07-2021COVID-19 vaccine (UNSPECIFIED)Nicole Smith MD Work Phone: [phone] CenterFrmlnh96-30-5582OLRYZ-80 vaccine (UNSPECIFIED)Nicole Smith MD Work Phone: [facility] CenterLdidcy38-87-3953ZZUXH-74 Vaccine Pfizer - Documentation Purposes OnlyRosalie Moncada Other [facility]02-11-2021COVID-19 vaccine (UNSPECIFIED)Nicole Smith MD Work Phone: [facility] CenterLnstxz57-29-8787yizwqgyed virus vaccine, split virus (incl. purified surface antigen)Rosalie Moncada Other [employer] Other 10582299-02-0925hanalbdtn virus vaccine, unspecified formulationBl[facility]ard Valley Health System10-07-2018influenza virus vaccine, split virus (incl. purified surface antigen)Rosalie Moncada Other [employer] Other [id number] virus vaccine, unspecified formulationBlanchard Valley Health System10-26-2017influenza virus vaccine, split virus (incl. purified surface antigen)Rosalie Moncada Other [employer] Other 10922348-01-8187qntmhilem virus vaccine, unspecified formulationBlanchard Valley Health System11-13-2016influenza virus vaccine, split virus (incl. purified surface antigen)Rosalie Moncada Other [employer] Other 11640131-84-2416ipsbolotm virus vaccine, unspecified formulationBlanchard Valley Health System09-21-2014tetanus and diphtheria toxoids, adsorbed, preservative free, for adult use (5 Lf of tetanus toxoid and 2 Lf of diphtheria toxoid)Rosalie Moncada Other [facility] Payers DatePayer CategoryPayerPolicy [id number] Health InsuranceST. [facility] .[id number] [id number] [id number] [id number] 2..[id number] 2..1.957331.3.57[id number] 2..1.390181.3.57[id number] 2..1.975682.3.57[id number] 2..1.234974.3.57[id number] 2..840.1.61[id number] 2..840.1.265584.3.579.2.531 [id number] [id number] Social History DateTypeDetailFacilityTobacco smoking status NHISUnknown if ever smokedSelect Medical Specialty [facility] Work Phone: Start: 50-66-7779Wlg Assigned At BirthFeUniversity Hospitals Cleveland Medical CenterTobacco smoking status NHISTobacco smoking consumption unknownUniversity Hospitals St. John Medical Centertart: 61-56-9594Aac Assigned At BirthNot on file [facility] Centertart: 02-26-2023 End: 25-80-9953Cdcoaub of Social functionUniversity Hospitals St. John Medical Centertart: 02-26-2023 End: 12-18-9812Upco Deprivation IndexUniversity Hospitals St. John Medical Centertart: 38-55-4441Ytuppxih Score (1-100), lower number is lower yjwl92TyvpixwmkUniversity Hospitals St. John Medical Centertart: 07-30-2023 End: 73-47-8303Quqsoxi smoking status NHISNever smoked tobacco (finding) [facility] Hospitaltart: 76-97-2433EqgOgcoml (finding)[facility] Clinical Notes 07-26-2022 to 07-02-2025 Note Date & JetbYhubTofzhrmb54-30-0353 NoteHNO ID: [id number] Author: KASSANDRA ENCISO MD Service: ? Author Type: Physician Type: Progress Notes Filed: 07/02/2025 09:54 Note Text: The patient is a 75-year-old female with osteoporosis and Graves? disease, presenting for evaluation of osteoporosis management. She follows with Dr. Carson for Graves disease , monitored off antithyroid medication Osteoporosis: - Diagnosed in her 40s; unclear etiology. - Menopause in her 50s. - Family history of osteoporosis in mother, who sustained a neck fracture in her 90s. - No personal history of fractures or height loss. - Recent DEXA scan showed a T-score of -2.7 in the lumbar spine. - Previous DEXA scan approximately 5 years ago; results not available ( done in [facility] ) - On Fosamax for over 20 years; no other osteoporosis treatments. - Minimal dairy intake; only calcium and vitamin D supplementation is from a daily multivitamin. - Dentist expressed concern about long-term use of Fosamax. Graves' Disease: - Diagnosed in 2021. - Off all medications for the past year; monitoring for symptom recurrence. - Reports good lab results. Height loss no Family history of osteoporosis yes Fragility fractures no Otherwise, no other acute complaints or concerns today. No past medical history on file. No past surgical history on file. rosuvastatin (CRESTOR) 10 mg tablet Take 1 tablet by mouth daily at bedtime. omeprazole (PRILOSEC) 20 mg capsule Take 20 mg by mouth once daily. alendronate (FOSAMAX) 70 mg tablet Take 70 mg by mouth one time a week. In AM with cup of water on empty stomach. Nothing else by mouth and stay upright for 30 min. ALLERGIES No Known Allergies SOCIAL HISTORY[1] No family history on file. REVIEW OF SYSTEMS: Review of Systems Constitutional: Negative for fatigue, night sweats and recent unintentional weight change. HENT: Negative for trouble swallowing, postnasal drip and thyroid pain (lower neck). Eyes: Positive for visual disturbance. Respiratory: Negative for difficulty breathing. Cardiovascular: Negative for chest pain, leg swelling and claudication. Gastrointestinal: Positive for heartburn. Negative for nausea, vomiting, abdominal pain, diarrhea and constipation. Genitourinary: Positive for amenorrhea. Negative for urgency, frequent urination, slower stream, menstruating and irregular menses. Musculoskeletal: Positive for myalgias and bone pain. Negative for muscle weakness. Skin: Negative for skin color change. Neurological: Negative for dizziness, headaches and numbness. Endo/Heme/Allergies: Positive for heat intolerance when others are comfortable and changes in body hair. Negative for polydipsia, cold intolerance when others are comfortable, hot flashes and flushing. PHYSICAL EXAM: BP 137/84 Pulse 56 Wt 158 lb (71.7kg) BP w/Orthostatic Vitals Date and Time Orthostatic BP Orthostatic Pulse BP Pulse BP Position BP Site BP Cuff Size 07/02/25 0837 -- -- 137/84 56 -- -- -- General appearance: Well appearing, alert, in no acute distress. Skin: Skin color, texture, turgor normal Lungs: Lungs clear to auscultation. . Heart: RRR without murmur Extremities: no edema Neuro: no focal deficit no termors DATA REVIEW: Latest Ref Rng 08/11/2024 Calcium 8.5 - 10.2 mg/dL 9.1 PTH, Intact 15 - 65 pg/mL 52 Vitamin D 25 Hydroxy 31.0 - 80.0 ng/mL 37.2 IMPRESSION: THE LOWEST T-SCORE IS -2.7 IN [...] FOR MORE INFORMATION ABOUT DIAGNOSIS AND TREATMENT: [facility] for Osteoporosis and Metabolic Bone Disease:? www.ccf.org/arthritis/osteo National Osteoporosis Foundation:? www.nof.org International Society of Clinical Densitometry www.iscd.org Propagator: 86814 Transcribe Date/Time: Apr 26 2025 8:56A Impression/plan: # Age-related osteoporosis without current pathological fracture (M81.0) - Chronic osteoporosis with lumbar spine T-score of -2.7; prior DEXA scan reportedly performed ~5 years ago, but records unavailable for comparison. - Long-term Fosamax therapy (over 20 years) with persistent osteoporosis suggests suboptimal response or medication (more content not included)... [facility] [facility] History and physical note* Jose Trinh LPN - 05/30/2025 9:00 AM EDT Labs: 05/18/2025 [facility]08-27-2025 History and physical note* Jose Trinh LPN - 05/30/2025 9:00 AM EDT Labs: 05/18/2025 [facility] History of Present illness Narrative* Yessi Carson MD - 05/30/2025 9:00 AM EDT Kilo Mantilla is a 75 year old female seen for Graves disease. Last seen 02/16/25. HISTORY REVIEWED (electronic chart updated): No past medical history on file. No past surgical history on file. No family history on file. Current Outpatient Medications Medication Sig rosuvastatin (CRESTOR) 10 mg tablet Take 1 [...] visit. ALLERGIES No Known Allergies HPI/Interval hx: No acute complaints today. 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 Graves' Disease: - Kilo Mantilla was diagnosed in August 2022 after experiencing unintentional weight loss and symptoms of hyperthyroidism. - Initially treated with methimazole for two years; discontinued in August 2024. - Recent thyroid function tests (TFTs) in February and May were normal. - TSI levels were high in August 2023 but have been negative since discontinuing methimazole. - Denies current symptoms of hyperthyroidism, including palpitations and double vision. - Regular ophthalmology follow-ups for retinal issues in the left eye. Thyroid Nodules: - Initial ultrasound in August 2022 showed a 2 cm hypoechoic nodule in the left lobe and a 0.5 cmnodule in the left lobe. - Iodine scan in September 2022 showed no cold or hot nodules. - Follow-up ultrasounds in March 2023 and December 2023 showed no significant changes. - Ultrasound-guided FNA of the 2 cm left lobe nodule in June, was benign. - Recent ultrasound showed a stable 2 cm hypoechoic solid nodule in the left lobe. - Other nodules include a 1.1 cm isoechoic solid nodule in the right mid-lobe, a 0.8 cm solid isoechoic nodule in the left upper lobe, and a 0.7 cm nodule in the left lower lobe, all stable in size and non-suspicious. Osteoporosis: - Recent DEXA scan showed a T-score of -2.7 in the lumbar spine, indicating osteoporosis. - Kilo gant has been on Fosamax for 20-30 years! Answers submitted by the patient for this visit: Core Review of Systems (Submitted on 05/25/2025) Fever : No Night sweats: No Recent unintentional weight change: No Nasal Congestion: No Hearing Loss: No Vision Disturbance: No A cough: No Difficulty Breathing?: No Chest pain: No Irregular heartbeat: No Leg Swelling: No Nausea: No Diarrhea: No Black tarry stools: No Difficulty Urinating?: No Awaken at Night More Than Once to Urinate?: No Joint pain or stiffness: No Muscle aches: Yes Leg or Foot Discomfort at Night?: Yes A rash: No Dizziness: No Headaches: No Memory Loss: No Seizures: No PHYSICAL EXAMINATION: 05/30/25 0848 BP: 129/82 Pulse: 62 Weight: 72.6 kg (160 lb 0.9 oz) Height: 162.6 cm (5' 4 ) Labs Latest Ref Rng 02/15/2025 05/18/2025 TSI Qualitative Negative Negative TSI <0.55 IU/L 0.32 TSH 0.270 - 4.200 mIU/L 0.768 1.690 Free T4 0.9 - 1.7 ng/dL 1.1 1.0 Free T3 2.3 - 4.1 pg/mL 3.2 3.2 Latest Ref Rng 08/27/2023 10/15/2023 12/03/2023 04/21/2024 08/11/2024 11/17/2024 TSI Qualitative Negative Positive ! Negative TSI <0.55 IU/L 0.83 (H) 0.45 TSH 0.270 - 4.200 mIU/L 4.480 (H) 0.567 0.943 1.650 1.350 0.959 Free T4 0.9 - 1.7 ng/dL 0.9 1.0 1.0 1.0 1.0 1.0 Free T3 2.3 - 4.1 pg/mL 2.7 3.1 2.7 2.9 3.0 3.1 Calcium 8.5 - 10.2 mg/dL 9.1 PTH, [...] T4 0.76 free T3 2.51 TRAB high IMAGIN05/18/2025 11:47 AM - Radiology, Oru In Impression IMPRESSION: Thyroid nodule(s) is/are present. Fine needle aspiration is recommended if not previously performed. TI-RADS Category: TR4 ACR Recommendation: TI-RADS 4 nodule. FNA is recommended. ACR recommendations are strictly based on the size and imaging appearance at the time of the exam and do not consider stability or previous biopsy results. Propagator: PSCB Transcribe Date/Time: May 18 2025 11:11A Dictated by : BRUCE BEATTY MD This examination was interpreted and the report reviewed and electronically signed by: BRUCE BEATTY MD on May 18 2025 11:45AM EST Results-Findings * * *Final Report* * * DATE OF EXAM: May 18 2025 8:14AM LNU 1048 - US THYROID/PARATHYROID / PROCEDURE REASON: [...] 2 points Echogenicity: Isoechoic, 1 point Shape: Fzhia-[id number]-fbqd, 0 points Margin: Ill-defined, 0 points Echogenic [...] 2 points Echogenicity: Hypoechoic, 2 points Shape: Fdfty-mrml-gyph, 0 points Margin: Smooth, 0 points Echogenic [...] 2 points Echogenicity: Isoechoic, 1 point Shape: Ghdfq-[id number]-edwl, 0 points Margin: Smooth, 0 points Echogenic [...] 2 points Echogenicity: Isoechoic, 1 point Shape: Fqtxa-qbek-ubmo, 0 points Margin: Smooth, 0 points Echogenic [...] Lisa Vang M.D.12/08/2023 10:11 AM Dictation Location: [place] [address] Tech: Dunia Anderson Transcribed By: ALEX 12/08/23 1011 Dictated By: Lisa Vang MD 12/08/23 1002 US liver unremarkable( done for elevation in LFTs, but latter improved as hyperthyroidism improved). Impression/plan: 74 yo female patient presenting for follow up. 1. Graves disease (E05.00) 2. Multiple thyroid nodules (E04.2) - Graves' disease in remission; no current symptoms of hyperthyroidism; most recent TFTs (May 18) normal; TSI negative on two most recent tests. - Discontinued methimazole in August 2024 after 2 years of therapy. - Multiple thyroid nodules stable in size on serial ultrasounds; largest nodule (2 cm, left lower pole) benign on FNA biopsy (June 2024). - Continue to monitor TFTs every 3 months; if stable at next check, will extend interval to every 6months. - Continue annual thyroid ultrasound for now to monitor nodule stability. - Educated patient on rationale for ongoing surveillance despite benign biopsy results. - Follow-up after next TFTs (in 3 months) via MyChart or virtual visit. 3. Age-related osteoporosis without current pathological fracture (M81.0) - Reviewed DEXA scan results: lumbar spine T-score -2.7, consistent with osteoporosis. - Patient has been on Fosamax for more than 20 years! - Referred to osteoporosis specialist for further management and consideration of alternative therapies. Some elements copied from my note 05/12/24 which have been updated where appropriate, and all reflectcurrent medical decision making from date of this visit. Follow up 3 months VV Some elements copied from my note 02/16/25 which have been updated where appropriate, and all reflect current medical decision making from date of this visit. Yessi Carson MD. documented in this [facility]Day[facility]25 NoteHNO ID: [id number] Author: YESSI CARSON MD Service: ? Author Type: Physician Type: Progress Notes Filed: 05/30/2025 09:46 Note Text: Kilo Mantilla is a 75 year old female seen for Graves disease. Last seen 02/16/25. HISTORY REVIEWED (electronic chart updated): No past medical history on file. No past surgical history on file. No family history on file. Current Outpatient Medications Medication Sig rosuvastatin (CRESTOR) 10 mg tablet Take 1 [...] visit. ALLERGIES No Known Allergies HPI/Interval hx: No acute complaints today. 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 Graves' Disease: - Kilo Mantilla was diagnosed in August 2022 after experiencing unintentional weight loss and symptoms of hyperthyroidism. - Initially treated with methimazole for two years; discontinued in August 2024. - Recent thyroid function tests (TFTs) in February and May were normal. - TSI levels were high in August 2023 but have been negative since discontinuing methimazole. - Denies current symptoms of hyperthyroidism, including palpitations and double vision. - Regular ophthalmology follow-ups for retinal issues in the left eye. Thyroid Nodules: - Initial ultrasound in August 2022 showed a 2 cm hypoechoic nodule in the left lobe and a 0.5 cm nodule in the left lobe. - Iodine scan in September 2022 showed no cold or hot nodules. - Follow-up ultrasounds in March 2023 and December 2023 showed no significant changes. - Ultrasound-guided FNA of the 2 cm left lobe nodule in June, was benign. - Recent ultrasound showed a stable 2 cm hypoechoic solid nodule in the left lobe. - Other nodules include a 1.1 cm isoechoic solid nodule in the right mid-lobe, a 0.8 cm solid isoechoic nodule in the left upper lobe, and a 0.7 cm nodule in the left lower lobe, all stable in size and non-suspicious. Osteoporosis: - Recent DEXA scan showed a T-score of -2.7 in the lumbar spine, indicating osteoporosis. - Kilo gant has been on Fosamax for 20-30 years! Answers submitted by the patient for this visit: Core Review of Systems (Submitted on 05/25/2025) Fever : No Night sweats: No Recent unintentional weight change: No Nasal Congestion: No Hearing Loss: No Vision Disturbance: No A cough: No Difficulty Breathing?: No Chest pain: No Irregular heartbeat: No Leg Swelling: No Nausea: No Diarrhea: No Black tarry stools: No Difficulty Urinating?: No Awaken at Night More Than Once to Urinate?: No Joint pain or stiffness: No Muscle aches: Yes Leg or Foot Discomfort at Night?: Yes A rash: No Dizziness: No Headaches: No Memory Loss: No Seizures: No PHYSICAL EXAMINATION: 05/30/25 0848 BP: 129/82 Pulse: 62 Weight: 72.6 kg (160 lb 0.9 oz) Height: 162.6 cm (5' 4 ) Labs Latest Ref Rng 02/15/2025 05/18/2025 TSI Qualitative Negative Negative TSI <0.55 IU/L 0.32 TSH 0.270 - 4.200 mIU/L 0.768 1.690 Free T4 0.9 - 1.7 ng/dL 1.1 1.0 Free T3 2.3 - 4.1 pg/mL 3.2 3.2 Latest Ref Rng 08/27/2023 10/15/2023 12/03/2023 04/21/2024 08/11/2024 11/17/2024 TSI Qualitative Negative Positive ! Negative TSI <0.55 IU/L 0.83 (H) 0.45 TSH 0.270 - 4.200 mIU/L 4.480 (H) 0.567 0.943 1.650 1.350 0.959 Free T4 0.9 - 1.7 ng/dL 0.9 1.0 1.0 1.0 1.0 1.0 Free T3 2.3 - 4.1 pg/mL 2.7 3.1 2.7 2.9 3.0 3.1 Calcium 8.5 - 10.2 mg/dL 9.1 PTH, [...] 10.08( 2.18-3.98) High AST/ALT 41.88 and AP 1/4/23 LFTs better free T4 0.76 free T3 2.51 TRAB high IMAGIN05/18/2025 11:47 AM - Radiology, Or (more content not included)...[facility]08-15-2025 NoteHNO ID: [id number] Author: LINDA HUANG RT(R) Service: ? Author Type: Padder Cushion Type: Progress Notes Filed: 05/18/2025 08:04 Note Text: Radiology Service Progress Note PATIENT NAME: Kilo Mantilla DATE OF SERVICE: May 18, 2025 TIME: 8:04 AM PATIENT IDENTITY VERIFICATION COMPLETED USING TWO (2) IDENTIFIERS: Name and Date of confirmed by patient verbally. FALL SCREENING: Has the patient had 2 falls in the last year or 1 fall with injury or currently using an Ambulatory Assistive Device (Walker, Cane, Wheelchair, Crutches, etc.)? No PATIENT GENDER DATA: Assigned female at . status: : No status: N/A PATIENT RELEVANT IMPLANT DATA REVIEWED: Not Applicable PATIENT PRESENTS WITH AN IMPLANTABLE OR ATTACHED SEARCH OPTIMIZATION ANALYST: No RADIOLOGY DEPARTMENT: Ultrasound PERIPHERAL IV DATA: Not applicable SIGNED BY: RT Murtaza(R) May 18, 2025 8:04 [facility]07-24-2025 History of Present illness Narrative* Rin Stanford RT(R) - 04/26/2025 8:55 AM EDT Radiology Service Progress Note PATIENT NAME: Kilo Mantilla DATE OF SERVICE: April 26, 2025 TIME: 8:48 AM PATIENT IDENTITY VERIFICATION COMPLETED USING TWO (2) IDENTIFIERS: Name and Date of confirmedby patient verbally. FALL SCREENING: Has the patient had 2 falls in the last year or 1 fall with injury or currently using an Ambulatory Assistive Device (Walker, Cane, Wheelchair, Crutches, etc.)? No PATIENT GENDER DATA: Assigned female at . status: : No status:NO. PATIENT RELEVANT IMPLANT DATA REVIEWED: Not Applicable PATIENT PRESENTS WITH AN IMPLANTABLE OR ATTACHED SEARCH OPTIMIZATION ANALYST: No RADIOLOGY DEPARTMENT: Bone Density PERIPHERAL IV DATA: Not applicable SIGNED BY: RT Michael(R) April 26, 2025 8:48 AM documented in this encounterDay[facility]07-24-2025 NoteHNO ID: [id number] Author: RIN STANFORD RT(R) Service: ? Author Type: Technologist Type: Progress Notes Filed: 04/26/2025 08:48 Note Text: Radiology Service Progress Note PATIENT NAME: Kilo Mantilla DATE OF SERVICE: April 26, 2025 TIME: 8:48 AM PATIENT IDENTITY VERIFICATION COMPLETED USING TWO (2) IDENTIFIERS: Name and Date of confirmed by patient verbally. FALL SCREENING: Has the patient had 2 falls in the last year or 1 fall with injury or currently using an Ambulatory Assistive Device (Walker, Cane, Wheelchair, Crutches, etc.)? No PATIENT GENDER DATA: Assigned female at . status: : No status: NO. PATIENT RELEVANT IMPLANT DATA REVIEWED: Not Applicable PATIENT PRESENTS WITH AN IMPLANTABLE OR ATTACHED SEARCH OPTIMIZATION ANALYST: No RADIOLOGY DEPARTMENT: Bone Density PERIPHERAL IV DATA: Not applicable SIGNED BY: RT Michael(Roberto) April 26, 2025 8:48 [facility]05-19-2025 NoteHNO ID: [id number] Author: ?, ?, ? Service: ? Author Type: ? Type: Progress Notes Filed: 02/19/2025 09:56 Note Text: Pt is scheduled on 05/18 for labs and US and 05/30 for an [facility]25 NoteHNO ID: [id number] Author: ?, ?, ? Service: ? Author Type: ? Type: Progress Notes Filed: 02/17/2025 13:09 Note Text: Dunamu message was sent on 02/17/25[facility]05[facility]25 NoteHNO ID: [id number] Author: ?, ?, ? Service: ? Author Type: ? Type: Progress Notes Filed: 02/16/2025 08:52 Note Text: Summary: 1st attempt Called and LVM to patient to schedule follow up and US on 02/16/2025 at 8:50am- [facility]05-16-2025 History of Present illness Narrative* Marco Tripathi - 02/16/2025 8:44 AM EDTSummary: 1st attempt Called and LVM to patient to schedule follow up and US on 02/16/2025 at 8:50am- AM * Yessi Carson MD - 02/16/2025 6:40 AM EDT VIRTUAL VISIT PROGRESS NOTE This is a virtual visit using [employer] Video Visit. It required patient- provider interaction for the medical decision making as documented below. I have communicated my name and active licensure. The patient's identity and physical location wereverified at the time of this visit. Either the patient or their legal customer retention representative has been informed of the risks and benefits of -- and alternatives to -- treatment through a remote evaluation andconsents to proceed with the evaluation remotely. Kilo Mantilla is a 74 year old female seen for Graves disease. Last seen 08/18/24 HISTORY REVIEWED (electronic chart updated): No past medical history on file. No past surgical history on file. No family history on file. Current Outpatient Medications Medication Sig rosuvastatin (CRESTOR) 10 mg tablet Take 1 [...] Graves. Doing well. Feeling good with no complaints except for some hot flashes on and off in the last couple years. Off Methimazole since Aug 2024. TFTs have been normal. No dizziness. No palpitations or tremor. No issues with bowels. No hx of head or neck irradiation. No double vision. Eyes sensitive to light. Eyes water easily. Sees ophthalmology regularly for retinal issues left eye. Not on Biotin/hair nail skin supplement. Answers submitted by the patient for this visit: Core Review of Systems (Submitted on 02/14/2025) Fever : No Night sweats: No Recent unintentional weight change: No Nasal Congestion: No Hearing Loss: No Vision Disturbance: Yes A cough: Yes Difficulty Breathing?: No Chest [...] (if completed, performed via video enabled technology) Not done. Labs Latest Ref Rng 02/15/2025 TSH 0.270 - 4.200 mIU/L 0.768 Free T4 0.9 - 1.7 ng/dL 1.1 Free T3 2.3 - 4.1 pg/mL 3.2 Latest Ref Rng 08/27/2023 10/15/2023 12/03/2023 04/21/2024 08/11/2024 11/17/2024 TSI Qualitative Negative Positive ! Negative TSI <0.55 IU/L 0.83 (H) 0.45 TSH 0.270 - 4.200 mIU/L 4.480 (H) 0.567 0.943 1.650 1.350 0.959 Free T4 0.9 - 1.7 ng/dL 0.9 1.0 1.0 1.0 1.0 1.0 Free T3 2.3 - 4.1 pg/mL 2.7 3.1 2.7 2.9 3.0 3.1 Calcium 8.5 - 10.2 mg/dL 9.1 PTH, [...] not consider stability or previous biopsy results. Propagator: PSCB Transcribe Date/Time: Jun 09 2024 10:17A Dictated by : GABINO MCDONALD MD This examination was interpreted and the report reviewed and electronically signed by: GABINO MCDONALD MD on Jun 09 2024 10:26AM EST Results-Findings * * *Final Report* * * DATE OF EXAM: Jun 07 2024 9:08AM U 1048 - US THYROID/PARATHYROID / PROCEDURE REASON: [...] 2 points Echogenicity: Isoechoic, 1 point Shape: Ivrei-rifg-jkge, 0 points Margin: Ill-defined, 0 points Echogenic [...] 2 points Echogenicity: Hypoechoic, 2 points Shape: Nbltj-bmzu-naee, 0 points Margin: Smooth, 0 points Echogenic [...] 1 point Echogenicity: Hypoechoic, 2 points Shape: Tknzz-rdfh-kqda, 0 points Margin: Smooth, 0 points Echogenic [...] 2 points Echogenicity: Isoechoic, 1 point Shape: Glxqm-quxs-jytg, 0 points Margin: Smooth, 0 points Echogenic [...] Lisa Vang M.D.12/08/2023 10:11 AM Dictation Location: [place] [address] Tech: Dunia Anderson Transcribed By: ALEX 12/08/23 1011 Dictated By: Lisa Vang MD 12/08/23 1002 US liver unremarkable( done for elevation in LFTs, but latter improved as hyperthyroidism improved). Impression/plan: 74 yo female patient presenting for follow up. Graves disease. No clinically significant MICHOACANO. Clinically and biochemically euthyroid off MMI since Aug 2024. TSH low normal. August 2022 - had physical. She reported unintentional 10-12 pds over previous few months, also had tremor and palpitations. She saw Dr Sav Márquez in [place], work up revealed Graves disease. Started Methimazole then, in 2021 Rec: Continue to monitor TFTs every 3 months. Call anytime if worsening hot flashes/sx of hyperthyroidism. Thyroid nodule. 08/28/22 US thyroid [...] FNA left lower nodule 06/07/24 by [facility] benign. Note IR rec another US thyroid before FNA, completed 06/07/24 stable B/L nodules Rec: Thyroid US Jun 2025( 1 year follow up from benign FNA) Call earlier if neck lumps. HTN Currently controlled off b-blockers. Rec: F/U with PCP. Osteoporosis on Fosamax. Managed by PCP. Follow with PCP. Some elements copied from my note 05/12/24 which have been updated where appropriate, and all reflectcurrent medical decision making from date of this visit. Follow up 3-4 months with thyroid US before the visit. Some elements copied from my note 08/18/24 which have been updated where appropriate, and all reflect current medical decision making from date of this visit. Yessi Carson MD. documented in this encounterDay[facility]05-16-2025 History and physical note * Jose Trinh LPN - 02/16/2025 6:40 AM EDT Labs: 11/17/2024 [facility]05-16-2025 History and physical note* Jose Trinh LPN - 02/16/2025 6:40 AM EDT Labs: 11/17/2024 documented in this encounterDayton [facility]05-16-2025 NoteHNO ID: [id number] Author: YESSI CARSON MD Service: ? Author Type: Physician Type: Progress Notes Filed: 02/16/2025 07:06 Note Text: VIRTUAL VISIT PROGRESS NOTE This is a virtual visit using [employer] Video Visit. It required patient-provider interaction for the medical decision making as documented below. I have communicated my name and active licensure. The patient's identity and physical location were verified at the time of this visit. Either the patient or their legal customer retention representative has been informed of the risks and benefits of -- and alternatives to -- treatment through a remote evaluation and consents to proceed with the evaluation remotely. Kilo Mantilla is a 74 year old female seen for Graves disease. Last seen 08/18/24 HISTORY REVIEWED (electronic chart updated): No past medical history on file. No past surgical history on file. No family history on file. Current Outpatient Medications Medication Sig rosuvastatin (CRESTOR) 10 mg tablet Take 1 [...] Graves. Doing well. Feeling good with no complaints except for some hot flashes on and off in the last couple years. Off Methimazole since Aug 2024. TFTs have been normal. No dizziness. No palpitations or tremor. No issues with bowels. No hx of head or neck irradiation. No double vision. Eyes sensitive to light. Eyes water easily. Sees ophthalmology regularly for retinal issues left eye. Not on Biotin/hair nail skin supplement. Answers submitted by the patient for this visit: Core Review of Systems (Submitted on 02/14/2025) Fever : No Night sweats: No Recent unintentional weight change: No Nasal Congestion: No Hearing Loss: No Vision Disturbance: Yes A cough: Yes Difficulty Breathing?: No Chest [...] (if completed, performed via video enabled technology) Not done. Labs Latest Ref Rng 02/15/2025 TSH 0.270 - 4.200 mIU/L 0.768 Free T4 0.9 - 1.7 ng/dL 1.1 Free T3 2.3 - 4.1 pg/mL 3.2 Latest Ref Rng 08/27/2023 10/15/2023 12/03/2023 04/21/2024 08/11/2024 11/17/2024 TSI Qualitative Negative Positive ! Negative TSI <0.55 IU/L 0.83 (H) 0.45 TSH 0.270 - 4.200 mIU/L 4.480 (H) 0.567 0.943 1.650 1.350 0.959 Free T4 0.9 - 1.7 ng/dL 0.9 1.0 1.0 1.0 1.0 1.0 Free T3 2.3 - 4.1 pg/mL 2.7 3.1 2.7 2.9 3.0 3.1 Calcium 8.5 - 10.2 mg/dL 9.1 PTH, [...] not consider stability or previous biopsy results. Propagator: BORA Transcribe Date/Time: Jun 09 2024 10:17A Dictated by : GABINO MCDONALD MD This examination was interpreted and the report reviewed and electronically signed by: GABINO MCDONALD MD on Jun 09 2024 10:26AM EST (more content not included)...[facility]05-[facility] History of Present illness Narrative* Negrita Redmond NP - 02/03/2025 10:00 AM EDT Images from the original note were not included. [address] , [address] [facility] [place], [address] P: [phone] F: [phone] HPI Historian of HPI: patient Kilo Mantilla is a 74 y.o. female who presents today to the Urgent Care with the following complaints and denials which have been present for 2 month(s). C/O Denies Symptom Comments [x] [] Runny Nose [] [x] Difficulty Swallowing [] [x] Sore Throat [x] [] Cough Dry and productive [] [x] Ear Pain [] [x] Fever [] [x] Chills [x] [] Nasal Congestion [x] [] Chest Congestion [] [x] Sinus Pain [] [x] Sinus Pressure Additional Comments: pt has taken mucinex OTC medication without relief Cough since 12/10. Symptoms began to worsen on Wednesday. ROS A complete system ROS was performed and negative aside from the pertinent positives noted in the HPI and PE. Visit Vitals BP 142/78 Pulse 83 Temp 97.4 F Resp 20 SpO2 96% IH Testing: PHYSICAL EXAM Physical Exam Vitals reviewed. Constitutional: General: She is not in acute distress. Appearance: Normal appearance. HENT: Head: Normocephalic and atraumatic. Right Ear: Hearing, tympanic membrane, ear canal and external ear normal. Left Ear: Hearing, tympanic membrane, ear canal and external ear normal. Nose: Right Turbinates: Enlarged and swollen. Left Turbinates: Enlarged and swollen. Mouth/Throat: Lips: [place]. Mouth: Mucous membranes are moist. Pharynx: Oropharynx is clear. Uvula midline. Postnasal drip present. Eyes: Extraocular Movements: Extraocular movements intact. Conjunctiva/sclera: Conjunctivae normal. Pupils: Pupils are equal, round, and reactive to light. Cardiovascular: Rate and Rhythm: Normal rate and regular rhythm. Pulses: Normal pulses. Heart sounds: Normal heart sounds. Pulmonary: Effort: Pulmonary effort is normal. No respiratory distress. Breath sounds: No wheezing, rhonchi or rales. Musculoskeletal: General: Normal range of motion. Cervical back: Normal range of motion and neck supple. Skin: General: Skin is warm and dry. Findings: No rash. Neurological: General: No focal deficit present. Mental Status: She is alert and oriented to person, place, and time. Psychiatric: Mood and Affect: Mood normal. TREATMENT PLAN 1. Cough in adult (Primary) Presents today for evaluation of cough for over a month . She and her were ill beginning of December and she states, He had Influenza so I assumed that's what I had . All other symptoms have resolved, however, she is still coughing. The cough is productive with clear, yellow . Declines chest x ray today, but advised to follow up with PCP if no improvement on medications for imaging. She expressed an understanding. New medication as directed. Acetaminophen for reduction of fever and pain. Increase fluids. Good handwashing. Discussed warning signs of worsening infection and when to report to ER. New toothbrush in 24 hours. Call office if symptoms have not started to improve within thenext 72 hours. Patient verbalized understanding of instructions. - methylPREDNISolone (Medrol Dospak) 4 MG tablets; Follow schedule on package instructions Dispense: 21 tablet; Refill: 0 2. Bronchitis -Take medication as prescribed below to completion -cough and deep breathe -May use Tylenol for pain/fever -May use OTC medication such as cough syrups especially at night time for relief, pseudoephedrine for nasal congestion, and/or Frances Pot or saline rinses. -Follow up with in 1 week if no improvement or go to the ED for worsening of symptoms such as SOB or CP. - azithromycin (Zithromax) 250 MG tablet; Take 1 tablet (250 mg) by mouth Daily Take 2 tabs on day 1 and 1 tab on days 2-5 then stop Dispense: 6 tablet; Refill: 0 documented in this [facility]11-19-2024 NoteHNO ID: [id number] Author: ?, ?, ? Service: ? Author Type: ? Type: Progress Notes Filed: 08/22/2024 09:18 Note Text: Appt scheduled [facility] 08/22/24[facility]11-17-2024 NoteHNO ID: [id number] Author: ?, ?, ? Service: ? Author Type: ? Type: Progress Notes Filed: 08/20/2024 10:44 Note Text: Summary: 1st attempt Neituihart message was sent[facility] History of Present illness Narrative* Yessi Carson MD - 08/18/2024 6:40 AM EST VIRTUAL VISIT PROGRESS NOTE This is a virtual visit using Dun[employer] Zoom Video Visit. It required patient- provider interaction for the medical decision making as documented below. I have communicated my name and active licensure. The patient's identity and physical location wereverified at the time of this visit. Either the patient or their legal customer retention representative has been informed of the risks and benefits of -- and alternatives to -- treatment through a remote evaluation andconsents to proceed with the evaluation remotely. Kilo Mantilla is a 74 year old female seen [...] not consider stability or previous biopsy results. Propagator: BORA Transcribe Date/Time: Jun 09 2024 10:17A [...] 2 points Echogenicity: Isoechoic, 1 point Shape: Elfdf-ccdt-vsua, 0 points Margin: Ill-defined, 0 points Echogenic [...] 2 points Echogenicity: Hypoechoic, 2 points Shape: Syjrn-gwoc-mjcf, 0 points Margin: Smooth, 0 points Echogenic [...] 1 point Echogenicity: Hypoechoic, 2 points Shape: Wnyde-hmce-sqwd, 0 points Margin: Smooth, 0 points Echogenic [...] 2 points Echogenicity: Isoechoic, 1 point Shape: Jyfqy-ywvo-zqxm, 0 points Margin: Smooth, 0 points Echogenic [...] Lisa Vang M.D.12/08/2023 10:11 AM Dictation Location: [place] [address] Tech: Dunia Anderson Transcribed By: ALEX 12/08/23 [...] palpitations. She saw Dr Sav Márquez in [place], work up revealed Graves disease. Started Methimazole then, in 2021 Rec: Given options for continuing low dose MMI vs stopping and monitoring. Patient chose later which is reasonable considering on very low dose, has been on MMI for 2 years and TSI normal. She understandsrisk of recurrence and need to monitor. Would [...] have been updated where appropriate, and all reflectcurrent medical decision making from date of this visit. Follow up 6 months but TFTs 3 and 6 months. Some elements copied from my note 05/12/24 which have been updated where appropriate, and all reflectcurrent medical decision making from date of this visit. Yessi Carson MD. documented in this encounterDayton [facility]11-15-2024 NoteHNO ID: [id number] Author: YESSI CARSON MD Service: ? Author Type: Physician Type: Progress Notes Filed: 08/18/2024 06:58 Note Text: VIRTUAL VISIT PROGRESS NOTE This is a virtual visit using Videon Centralom Video Visit. It required patient-provider interaction for the medical decision making as documented below. I have communicated my name and active licensure. The patient's identity and physical location were verified at the time of this visit. Either the patient or their legal customer retention representative has been informed of the risks and benefits of -- and alternatives to -- treatment through a remote evaluation and consents to proceed with the evaluation remotely. Kilo Mantilla is a 74 year old female seen [...] not consider stability or previous biopsy results. Propagator: BORA Transcribe Date/Time: Jun 09 2024 10:17A Dictated by : GABINO MCDONALD MD This ex (more content not included)...[facility]09-04-2024 History of Present illness Narrative* Mariano Rojas RT(R) - 06/07/2024 8:45 AM EDT Radiology Service Progress Note PATIENT NAME: Kilo Mantilla DATE OF SERVICE: June 07, 2024 TIME: 9:19 AM PATIENT IDENTITY VERIFICATION COMPLETED USING TWO (2) IDENTIFIERS: Name and Date of confirmedby patient verbally. FALL SCREENING: Has the patient had 2 falls in the last year or 1 fall with injury or currently using an Ambulatory Assistive Device (Walker, Cane, Wheelchair, Crutches, etc.)? No PATIENT GENDER DATA: Female. status: Unknown status: N/A PATIENT RELEVANT IMPLANT DATA REVIEWED: Not Applicable PATIENT PRESENTS WITH AN IMPLANTABLE OR ATTACHED SEARCH OPTIMIZATION ANALYST: No RADIOLOGY DEPARTMENT: Ultrasound PERIPHERAL IV DATA: Not applicable SIGNED BY: RT Mónica(Roberto) June 07, 2024 9:19 AM documented in this encounterDayton Va Medical Center09-04-2024 NoteHNO ID: [id number] Author: MARIANO ROJAS RT(R) Service: Radiology Author Type: Technologist Type: Progress Notes Filed: 06/07/2024 09:19 Note Text: Radiology Service Progress Note PATIENT NAME: Kilo Mantilla DATE OF SERVICE: June 07, 2024 TIME: [...] PATIENT PRESENTS WITH AN IMPLANTABLE OR ATTACHED SEARCH OPTIMIZATION ANALYST: No RADIOLOGY DEPARTMENT: Ultrasound PERIPHERAL IV DATA: Not applicable SIGNED BY: AMALIA Sales) June 07, 2024 9:19 AMDelta Community Medical [id number] Telephone encounter Note* Telephone Encounter - Nancie Webster - 05/26/2024 9:36 AM EDT Spoke to pt and scheduled biopsy for 06/07/24. [facility]08-23-2024 Miscellaneous Notes* Telephone Encounter - Nancie Webster - 05/26/2024 9:36 AM EDT Spoke to pt and scheduled biopsy for 06/07/24. * Telephone Encounter - Nancie Webster - 05/26/2024 8:45 AM EDT Called pt to schedule and a message was left. 1st attempt * Telephone Encounter - Akin Parsons MD - 05/25/2024 2:40 PM EDT RADIOLOGIST REQUEST / APPROVAL FORM STAFF RADIOLOGIST:Akin Parsons MD PROCEDURE TO BE DONE UNDER: US (Please also schedule routine thyroid US to be done earlier the sameday few hours prior to thyroid bx) PROCEDURE [...] for this procedure: low risk. Reference from [facility] Cot Assembler: https://cc[facility].[email or web address]/dotNet/documents/?[email or web address] STAFF SIGNATURE: Akin Parsons MD DATE: May 25, 2024 TIME: 2:40 PM . * Telephone Encounter - Akin Parsons MD - 05/19/2024 5:13 PM EDT 8.16 and 8.19 and 8.21 - Attempted to contact Dr. Carson for further discussion. Waiting for call back, * Telephone Encounter - Sherry Quiroz RN - 05/19/2024 12:17 PM EDT BX. COORDINATOR INFORMATION LAB RESULTS: No results [...] DATE: May 19, 2024 TIME: 12:17 PM * Telephone Encounter - Kimberly Reagan - 05/19/2024 11:51 AM EDT RADIOLOGY CALL CENTER INTAKE DOCKETING SPECIALIST: Qiana EXT: [id number] DATE: 05/19/24 TIME: 11:51am TRACKING #. [id number] REQUESTING PERSON: Kaylin PHONE/PAGER: [phone] REQUESTING STAFF: Yessi Carson PHONE/PAGER: [phone] SPECIFICS OF THE REQUEST: (Please be as [...] for pathology (For example: send for ER, PA, HER2/gorge or possible lymphoma send in RPMI [...] EVALUATE APPROPRIATENESS/FEASIBILITY OF THE REQUEST) IMAGING: OUTSIDE [facility] Films: Where is study now: Imported to [employer] (If the imaging was obtained outside the [facility] system, then it needs to be submitted for review prior to approval.) Note to all persons requesting biopsies: All biopsy requests will be scheduled as quickly as possible, based on the clinical urgency, availability of appointment times, the need to hold anti-thrombolytic therapy (aspirin, blood thinners) and the patient s schedule, including the need for an available flatbed company driver. If a percutaneous biopsy or drainage is not felt to be safe or an alternative method for establishing a diagnosis is possible, this will be discussed directly with the requesting physician. documented in this encounterDayton Va Medical Center08-23-2024 Telephone encounter Note * Telephone Encounter - Nancie Webster - 05/26/2024 8:45 AM EDT Called pt to schedule and a message was left. 1st attempt [facility]08-22-2024 Telephone encounter Note* Telephone Encounter - Akin Parsons MD - 05/25/2024 2:40 PM EDT RADIOLOGIST REQUEST / APPROVAL FORM STAFF RADIOLOGIST:Akin Parsons MD PROCEDURE TO BE DONE UNDER: US (Please also schedule routine thyroid US to be done earlier the sameday few hours prior to thyroid bx) PROCEDURE [...] this procedure: low risk. Reference from [facility] Cot Assembler: https://ccf.[employer].com/dotNet/documents/?rfafj=29812 STAFF SIGNATURE: Akin Parsons MD DATE: May 25, 2024 TIME: 2:40 PM . [facility] Work Phone: 1(200) 625-632608-16-2024 Telephone encounter Note* Telephone Encounter - Akin Parsons MD - 05/19/2024 5:13 PM EDT 8.16 and 8.19 and 8.21 - Attempted to contact Dr. Carson for further discussion. Waiting for call back, [facility]08-16-[facility] Telephone encounter Note* Telephone Encounter - Sherry Quiroz RN - 05/19/2024 12:17 PM EDT BX. COORDINATOR INFORMATION LAB RESULTS: No results [...] DATE: May 19, 2024 TIME: 12:17 PM [facility]08-16-2024 Telephone encounter Note* Telephone Encounter - Kimberly Reagan - 05/19/2024 11:51 AM EDT RADIOLOGY CALL CENTER INTAKE DOCKETING SPECIALIST: Qiana EXT: [id number] DATE: 05/19/24 TIME: 11:51am TRACKING #. [id number] REQUESTING PERSON: Kaylin PHONE/PAGER: [phone] REQUESTING STAFF: Yessi Carson PHONE/PAGER: [phone] SPECIFICS OF THE REQUEST: (Please be as [...] for pathology (For example: send for ER, PA, HER2/gorge or possible lymphoma send in RPMI [...] EVALUATE APPROPRIATENESS/FEASIBILITY OF THE REQUEST) IMAGING: OUTSIDE [facility] Films: Where is study now: Imported to [employer] (If the imaging was obtained outside the [facility] system, then it needs to be submitted for review prior to approval.) Note to all persons requesting biopsies: All biopsy requests will be scheduled as quickly as possible, based on the clinical urgency, availability of appointment times, the need to hold anti-thrombolytic therapy (aspirin, blood thinners) and the patient s schedule, including the need for an available flatbed company driver. If a percutaneous biopsy or drainage is not felt to be safe or an alternative method for establishing a diagnosis is possible, this will be discussed directly with the requesting physician. [facility]08-09-2024 History of Present illness Narrative* Yessi Carson MD - 05/12/2024 7:20 AM EDT VIRTUAL VISIT PROGRESS NOTE This is a virtual visit using Videon Centralom Video Visit. It required patient- provider interaction for the medical decision making as documented below. I have communicated my name and active licensure. The patient's identity and physical location wereverified at the time of this visit. Either the patient or their legal customer retention representative has been informed of the risks and benefits of -- and alternatives to -- treatment through a remote evaluation andconsents to proceed with the evaluation remotely. Kilo Mantilla is a 74 year old female seen [...] Lisa Vang M.D.12/08/2023 10:11 AM Dictation Location: [place] [address] Tech: Dunia Justin Transcribed By: ALEX 12/08/23 1011 Dictated By: [...] palpitations. She saw Dr Sav Márquez in [place], work up revealed Graves disease. Started Methimazole [...] which included preparing to see the patient, zvup-xe-vbsi patient care, completing clinical documentation, obtaining and/or reviewing separately obtained history, performing a medically appropriate examination, counseling and educating the pat ient, ordering medications, tests, or procedures and care coordination. Yessi Carson MD. documented in this encounterDayton Va Medical Center06-26-2024 Procedure note* Anthony Marks MD, PhD - 03/29/2024 12:01 PM EDT Fine needle aspiration of Thyroid Nodule (March 29, 2024) Referring Physician: Yessi Carson MD Primary Care Physician: Rosalie Moncada MD Indication: (E04.1) Thyroid nodule (primary encounter diagnosis) Comment: FNA of left lobe thyroid nodule Plan: US THYROID FNA (POC) ENDO USE ONLY, CYTOLOGY NON-MANAGER SWITCH Kilo Mantilla was identified by name and date, acknowledges here to have an FNA of left lobethyroid nodule performed. Patient on anti-platelet or anticoagulant [...] Follow up:With Dr. Dagoberto Marks MD, PhD [facility] Work Phone: 1(403) 159-653206-26-2024 Procedure note* Anthony Marks MD, PhD - 03/29/2024 12:01 PM EDT Fine needle aspiration of Thyroid Nodule (March 29, 2024) Referring Physician: Yessi Carson MD Primary Care Physician: Rosalie Moncada MD Indication: (E04.1) Thyroid nodule (primary encounter diagnosis) Comment: FNA of left lobe thyroid nodule Plan: US THYROID FNA (POC) ENDO USE ONLY, CYTOLOGY NON-MANAGER SWITCH Kilo Mantilla was identified by name and date, acknowledges here to have an FNA of left lobethyroid nodule performed. Patient on anti-platelet or anticoagulant [...] Dagoberto Marks MD, PhD documented in this encounterDayton Va Medical Center06-26-2024 Nurse Note* Zee Kc MA - 03/29/2024 11:49 AM EDT UNIVERSAL PROTOCOL / SAFETY CHECKLIST Procedure to [...] Visit completed when applicable. Zee Kc MA [facility]06-26-2024 Nurse Note* Zee Kc MA - 03/29/2024 11:49 AM EDT UNIVERSAL PROTOCOL / SAFETY CHECKLIST Procedure to [...] applicable. Zee Kc MA documented in this encounterDayton Va Medical Center06-06-2024 History of Present illness Narrative* Nicole Wilson MD - 03/09/2024 9:46 AM EDT Images from the original note were not [...] grave's occured has done liver us at [facility], it is unremarkable GENERAL REVIEW OF SYSTEMS: [...] no edema no spiders no palmar erythema MANAGER SPRING no asterixis , a+0 X3 A/p: Kilo has chronic mild elevation of alk phosphatase unclear etiology liver function is normal I will obtain more labs today if alk phosph and GGT are elevated consider an MRI hep A vaccine today Immune to hep B Nicole Miranda MD {I spent 30 minutes in the visit, with more than 50% of the total nepz-bz-yuin time of the visit incounseling / coordination of care. documented in this encounterDayton Va Medical Center05-10-2024 Telephone encounter Note * Telephone Encounter - Herberth Quinn, RN - 02/11/2024 8:43 AM EDT Requester: Pharmacy Please see additional details below and advise if able to resend Rx. Patients last Endocrinology visit occurred 01/21/24. Follow-up evaluation has been established Upcoming Endocrinology Appointments - Next 365 Days Visit Type Date Time Department THYROID BIOPSY/ULTRASOUND 03/29/2024 11:20 AM [facility] VIDEO SPEC EST 05/01/2024 3:00 PM [facility] . Requested Prescriptions Pending Prescriptions Disp [...] PSS NOTE: Patient needs scheduled appointment No [facility]05-10-2024 Miscellaneous Notes* Telephone Encounter - Herberth Quinn, RN - 02/11/2024 8:43 AM EDT Requester: Pharmacy Please see additional details below and advise if able to resend Rx. Patients last Endocrinology visit occurred 01/21/24. Follow-up evaluation has been established Upcoming Endocrinology Appointments - Next 365 Days Visit Type Date Time Department THYROID BIOPSY/ULTRASOUND 03/29/2024 11:20 AM [facility] VIDEO SPEC EST 05/01/2024 3:00 PM [facility] . Requested Prescriptions Pending Prescriptions Disp [...] needs scheduled appointment No documented in this encounterDayton Va Medical Center04-19-2024 History of Present illness Narrative* Lisa Hagen - 01/21/2024 1:46 PM EDTSummary: 1st attempt LVM w/callback number for pt to schedule vv fu in 3 months & Fine Needle Aspiration US [facility] 01/21/24 * Yessi Carson MD - 01/21/2024 7:00 AM EDT VIRTUAL VISIT PROGRESS NOTE This is a virtual visit using Neituihart Zoom Video Visit. It required patient- provider interaction for the medical decision making as documented below. I have communicated my name and active licensure. The patient's identity and physical location wereverified at the time of this visit. Either the patient or their legal customer retention representative has been informed of the risks and benefits of -- and alternatives to -- treatment through a remote evaluation andconsents to proceed with the evaluation remotely. Kilo Mantilla is a 73 year old female seen [...] week. She is off Metoprolol since end of [...] Lisa Vang M.D.12/08/2023 10:11 AM Dictation Location: [place] [address] Tech: Dunia Dunlapanna Transcribed By: ALEX 12/08/23 [...] palpitations. She saw Dr Sav Márquez in [place], work up revealed Graves disease. Started Methimazole [...] months. Yessi Carson MD. documented in this encounterDayton Va Medical Center01-30-2024 Evaluation note* Encounter Date Diagnosis Assessment Notes Treatment Notes Treatment Clinical Notes Oct, Hyperlipidemia, unspecified (ICD -10 - E78.5) [employer] Other 12-01-2023 History of Present illness Narrative* Yessi Carson MD - 09/03/2023 1:40 PM EST VIRTUAL VISIT PROGRESS NOTE This was changed to phone enc d/t connectivity issues. Patient confirmed by name and . Kilo Mantilla is a 73 year old female seen [...] daily. She is off Metoprolol since end may. No dizziness. No palpitations or tremor. No issues with bowels. No cold or heat intolerance. No hx of head or neck irradiation. Thyroid US March 19 at [facility] showed no sig changes int he thyroid [...] palpitations. She saw Dr Sav Márquez in [place], work up revealed Graves disease. Started Methimazole [...] mins. Yessi Carson MD. documented in this encounterDayton Va Medical Center11-08-2023 Miscellaneous Notes* Telephone Encounter - Sheri Mcintyre [...] may leave a message documented in this encounterDayton Va Medical Center10-27-2023 Evaluation note* Encounter Date Diagnosis Assessment Notes [...] reviewed and amended by provider signed below. Jul,Screening mammogram, encounter for (ICD-10 - Z12.31) Jul,Hyperthyroidism (ICD-10 - E05.90)Continue care with CC. on methimazole. followup as scheduled. Mar,Hyperlipidemia, unspecified (ICD-10 - E78.5)off crestor - hopefully chol still good without med. will do labs later this weekche fasting labs. [employer] Other 09-12-2023 Miscellaneous Notes* Telephone Encounter - Laquita Correia MA - 06/15/2023 2:25 PM EDT Found the results (clipped to another pt's notes) in your inbox documented in this encounterDayton Va Medical Center06-02-2023 Miscellaneous Notes* Telephone Encounter - Yessi Carson [...] Please schedule appointment: No documented in this encounterDayton Va Medical Center04-19-2023 History of Present illness Narrative* Yessi Carson MD - 01/20/2023 10:21 AM EDT New patient hyperthyroid/Graves disease. HPI: A pleasant 72 yo female patient presenting today with . August 2022 - had physical. She reported unintentional 10-12 pds over previous few months, also had tremor and palpitations. She saw Dr Sav Márquez in [place], work up revealed Graves disease. Started Methimazole [...] palpitations. She saw Dr Sav Márquez in [place], work up revealed Graves disease. Started Methimazole [...] which included preparing to see the patient, azrg-oq-gfom patient care, completing clinical documentation, obtaining and/or reviewing separately obtained history, performing a medically appropriate examination, counseling and educating the pat ient, ordering medications, tests, or procedures and care coordination. documented in this encounterDayton Va Medical Center02-15-2023 History of Present illness Narrative* Nicole Smith MD - 11/18/2022 2:17 PM EST Images from the original note were not included. Hepatology Clinic Edu Miranda MD, FACG, FAASLD Hepatology [facility] Consult Requested By: Rosalie Moncada ([facility]) [address] [address] for evaluation of liver enzymes.. Thank you [...] no edema no spiders no palmar erythema MANAGER SPRING no asterixis , a+0 X3 no imaging [...] be of further assistance to you Nicole Miranda MD {I spent 30 minutes in the visit, with more than 50% of the total mngx-dm-rpzm time of the visit incounseling / coordination of care. documented in this encounterDayton Va Medical Center10-23-2022 History general Narrative - Reported* Type Description Date Medical History Blood in stool Medical HistoryHyperlipemiaMedical HistoryHyperthyroidismSurgical HistoryProblem Title : Appendectomy, Problem Comment : [employer] 07/26/2022, Problem Status : Active,Surgical HistoryProblem Title : Cataract Extraction-Left, Problem Comment : [employer] 07/26/2022, Problem Status : Active,Surgical HistoryProblem Title : Cataract Extraction-Right, Problem Comment : [employer] 07/26/2022, Problem Status : Active,Surgical HistoryProblem Title : past surgical history reviewed, Problem Description : past surgical history reviewed, Problem Comment : reviewed - no changes required, Problem Status : Active,Surgical HistoryProblem Title : surgical procedures, hx of, Problem Description : surgical procedures, hx of, Problem Comment : D&C Appy Tonsillectomy Colonoscopy 2006, Problem Status : Active,Surgical HistoryProblem Title : surgical procedures, hx of, Problem Description : surgical procedures, hx of, Problem Comment : D&C Appy Tonsillectomy, Problem Status : Active,Surgical HistoryProblem Title : Tonsillectomy, Problem Comment : [employer] 07/26/2022, Problem Status : Active, [employer] Other evaluation noteNo assessment information [facility] Work Phone: evalufmpiz note* Diagnosis Abnormal liver enzymes- Primary Other nonspecific abnormal serum enzyme levels [facility]* Diagnosis 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 crisis or storm Thyroid nodule Nontoxic uninodular goiter documented in this encounter [facility] note* Diagnosis Thyrotoxicosis, unspecified without thyrotoxic crisis or storm documented in this encounter [facility] noteNo InformationNort [employer] Other evaluation note* Diagnosis 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 crisis or storm Thyroid nodule Nontoxic uninodular goiter documented [facility] this encounter [facility]* Diagnosis 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 crisis or storm Thyroid nodule Nontoxic uninodular goiter Other osteoporosis, unspecified pathological fracture presence documented [facility] this [facility]* Diagnosis Abnormal alkaline phosphatase test- Primary Other nonspecific abnormal serum enzyme levels [facility]* Diagnosis Thyroid nodule- Primary Nontoxic uninodular goiter documented [facility] this [facility]* Diagnosis 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 crisis or storm Vitamin D deficiency Unspecified vitamin D deficiency Thyroid nodule Nontoxic uninodular goiter documented [facility] this encounter [facility]* Diagnosis Thyroid nodule- Primary Nontoxic uninodular goiter Graves disease Toxic diffuse goiter without mention of thyrotoxic crisis or storm Thyroid nodule Nontoxic uninodular goiter [facility] Diagnosis Thyroid nodule Nontoxic uninodular goiter [facility]* Diagnosis Onset Date Resolution Status Hyperlipemia acuteOsteoporosisacuteScreening mammogram for breast canceracute [facility] Work Phone: Evaluation note* Diagnosis 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 crisis or storm Thyroid nodule Nontoxic uninodular goiter Hypertension, unspecified type Other osteoporosis, unspecified pathological fracture presence [facility] encounter [facility]* Diagnosis Cough in adult- Primary Bronchitis Bronchitis, not specified as acute or chronic [facility]* Diagnosis Onset Date Resolution Status Admit Date Chronic cough acuteMay 2024 10:16am [facility] Work Phone: Evaluation note* Diagnosis 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 crisis or storm Thyroid nodule Nontoxic uninodular goiter documented [facility]* Diagnosis Graves disease Toxic diffuse goiter without mention of thyrotoxic crisis or storm Thyroid nodule Nontoxic uninodular goiter documented in this encounter [facility] note* Diagnosis 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 crisis or storm Multiple thyroid nodules Nontoxic multinodular goiter Age-related osteoporosis without current pathological fracture Senile osteoporosis documented in this encounter [facility] general Narrative - Reported* Type Description Date Medical History Problem Title : comp liance with medical treatment, Problem Description : compliance with medical treatment, Problem Comment : Done, Problem Status : Active,, Medical HistoryProblem Title : Depression Screening, Problem Description : Depression Screening, Problem Comment :Negative, Problem Status : Active,, Medical HistoryProblem Title : Fall assessment-Total score, Problem Description : Fall assessment-Total score, Problem Comment : Complete Low Risk, Problem Status : Active,,Medical HistoryProblem Title : Fall Risk Assessment: I am worried about falling, Problem Description : Fall Risk Assessment: I am worried about falling, Problem Comment : No, Problem Status : Active,,Medical History Problem Title : Fall Risk Assessment: Sometimes I feel unsteady when I am walking, Problem Description : Fall Risk Assessment: Sometimes I feel unsteady when I am walking, Problem Comment : No, Problem Status : Active,,Medical HistoryProblem Title : falls in the last twelve months, Problem Description : falls in the last twelve months, Problem Comment : No, Problem Status : Active,, Medical HistoryProblem Title : Falls: Risk Assessment - Patient screened for falls, fall risk, Problem Description: Falls: Risk Assessment - Patient screened for falls, fall risk, Problem Comment : Done, Problem Status : Active,,Medical HistoryProblem Title : Gastroesophageal Reflux Disease, Problem Comment : [facility] 07/26/2022, Problem Status : Active,,Medical HistoryProblem Title : Injury sustained from fall(s)?, Problem Description : Injury sustained from fall(s)?, Problem Comment : No, Problem Status : Active,,Medical HistoryProblem Title : no known problems, Problem Description : no known problems, Problem Comment : F, Problem Status : Active,,Medical HistoryProblem Title : Number of previous fall in past year, Problem Description : Number of previous fallin past year, Problem Comment : 0, Problem Status : Active,,Medical HistoryProblem Title : past medical history E&M, Problem Description : past medical history E&M, Pr oblem Comment : Seasonal allergies Osteopenia Vit D Deficiency, Problem Status : Active,,Medical HistoryProblem Title : past medical history reviewed, Problem Description : past medical history reviewed,Problem Comment : reviewed - no changes required, Problem Status : Active,,Medical HistoryProblem Title : PHQ2 Questionairre Score, Problem Description : PHQ2 Questionairre Score, Problem Co mment : 0, Problem Status : Active,,Medical HistoryProblem Title : PHQ9 Question One score, Problem Description : PHQ9 Question One score, Problem Comment : 0, Problem Status : Active,,Medical HistoryProblem Title : PHQ9 Question Two score, Problem Description : PHQ9 Question Two score, Problem Comment : 0, Problem Status : Active,,Medical HistoryProblem Title : Plan for BMI Management Documented, Problem Description : Plan for BMI Management Documented, Problem Comment : documented follow-up plan, Problem Status : Active,,Medical History Problem Title : Problems Reconciled, Problem Status : Active,,Medical History Problem Title : very low density lipoproteins, Problem Description : very low density lipoproteins,Problem Comment : 17.4, Problem Status : Active,,Surgical HistoryProblem Title : Appendectomy, Problem Comment : [facility] 07/26/2022, Problem Status : Active,Surgical HistoryProblem Title : Cataract Extraction- Left, Problem Comment : [facility] 07/26/2022, Problem Status : Active,Surgical HistoryProblem Title : Cataract Extraction-Right, Problem Comment : [facility] 07/26/2022, Problem Status : Active,Surgical HistoryProblem Title : past surgical history reviewed, Problem Description : past surgical history reviewed, Problem Comment : reviewed - no changes required, Problem Status : Active, Surgical HistoryProblem Title : surgical procedures, hx of, Problem Description : surgical procedures, hx of, Problem Comment : [facility] Tonsillectomy Colonoscopy 2006, Problem Status : Active,Surgical HistoryProblem Title : surgical procedures, hx of, Problem Description : surgical procedures, hx of, Problem Comment : [facility] Tonsillectomy, Problem Status : Active,Surgical HistoryProblem Title : Tonsillectomy, Problem Comment : [facility] 07/26/2022, Problem Status : Active, [employer] Other Reason for referral (narrative)* Diagnostic Procedure Only (Routine) - Pending ReviewSpecialtyDiagnoses / ProceduresReferred By ContactReferred To Contact[facility] IMAG[facility] Diagnoses Abnormal liver enzymes Procedures US ABD RT UPPER QUADRANT US ABDOMINAL REAL TIME W/IMAGE LIMITED Nicole Wilson MD [address] [place] [address] [facility] Referral IDStatusReasonStart DateExpiration DateVisits RequestedVisits [id number] Review Auto-Generated Referral / [facility] for referral (narrative)* Diagnostic Procedure Only (Routine) - Pending ReviewSpecialtyDiagnoses / ProceduresReferred By Contact Referred To [facility] Diagnoses Graves disease Thyroid nodule Procedures US THYROID/PARATHYROID US SOFT TISSUE HEAD & NECK REAL TIME IMGE Yessi Gruber MD [address] [place] [address] Us Imaging Referral IDStatusReasonStart DateExpiration DateVisits RequestedVisits [id number] Review Auto-Generated Referral / [facility] for referral (narrative)* Diagnostic Procedure Only (Routine) - Pending ReviewSpecialtyDiagnoses / ProceduresReferred By Contact Referred To [facility] Diagnoses Graves disease Thyroid nodule Procedures US THYROID/PARATHYROID US SOFT TISSUE HEAD & NECK REAL TIME IMGE Yessi Gruber MD [address] [place] [address] [place] [id number] Referral IDStatusReasonStart DateExpiration DateVisits RequestedVisits [id number] Review Auto-Generated Referral / [facility] for referral (narrative)* Diagnostic Procedure Only (Routine) - AuthorizedSpecialtyDiagnoses / ProceduresReferred By Contact Referred To [facility] Diagnoses Thyroid nodule Procedures US THYROID/PARATHYROID US SOFT TISSUE HEAD & NECK [place] [address] [place] [address] [place] [id number] Referral IDStatusReasonStart DateExpiration DateVisits RequestedVisits [id number] Auto-Generated Referral / [facility] for referral (narrative)No reason for referral information [facility]: [facility] Narrative* Diagnostic Procedure Only (Routine) - ClosedSpecialtyDiagnoses / ProceduresReferred By ContactReferred To [facility] IMAG[facility] Diagnoses Thyroid nodule Procedures US THYROID/PARATHYROID US SOFT TISSUE HEAD & NECK REAL TIME IMGE Anthony Franz MD, PhD [address] [place] [address] [place] [address] Referral IDStatusReasonStart DateExpiration DateVisits RequestedVisits [id number] Auto-Generated Referral / [facility] N[facility]* Diagnostic Procedure Only (Routine) - ClosedSpecialtyDiagnoses / ProceduresReferred By ContactReferred To Contact US IMAGING Diagnoses Graves disease Thyroid nodule Procedures US THYROID/PARATHYROID US SOFT TISSUE HEAD & NECK REAL TIME IMGE DOCYessi Morrell MD [address] [place] [address] Phone: tel: fax: [facility]95 Referral IDStatusReasonStart DateExpiration DateVisits RequestedVisits [id number] Auto-Generated Referral / [facility] Summary Purpose Family History No Family History Records Found Relationship Condition Age at Onset Recorded Date/T sidney father Malignant neoplasm Unknown HypertensionUnknownDeceasedUnknownHeart diseaseUnknownmotherDiabetes mellitus UnknownFamily history of mental disorderUnknown Advance Directives No Advanced Directives Records Found [...] Hyperlipemia Osteoporosis Screening mammogram for breast cancer Chief Complaint Admit Date NOMS UC f/u, allergic reaction to meds M ay 2024 10:16am Reason for Visit Admit Date Chronic cough February 08, 2025 10:16a m Chief Complaint Admit Date Left Ear Pain July 04, 2025 11 :23am Additional Source Comments INFORMATION SOURCE (unrecogn ized section and content) DATE CREATED AUTHOR 11/25/2021 [facility] DATE CREATED AUTHOR AUTHOR'S ORGANIZ ATION 03/18/2022 [facility] [employer] DATE CREATED AUTHOR AUTHOR'S ORGANIZ ATION 08/31/2022 [facility] DATE CREATED AUTHOR AUTHOR'S ORGANIZ ATION 02/10/2024 [facility] DATE CREATED AUTHOR AUTHOR'S ORGANIZ ATION 06/11/2024 [facility] DATE CREATED AUTHOR AUTHOR'S ORGANIZ ATION 02/08/2025 [facility] DATE CREATED AUTHOR AUTHOR'S ORGANIZ ATION 07/29/2025 [facility] Care Teams (unrecognized sec tion and content) Team Status: Active Member Role Status Dates Rosalie Moncada MD Primary Care Provider Active Team Status: Active Member Role Status Dates Rosalie Moncada MD Primary Care Provider Active Start: November 17, 2024 Yessi SerhalAttending ProviderActiveStart: November 17, 2024 Team Status: Inactive Member Role Status Dates Rosalie Moncada MD Primary Care Provide r, Attending Provider Active Start: February 08, 2025 End: February 08, 2025 Team Status: Inactive Member Role Status Dates Rosalie Moncada MD Primary Care Provider Active Favian Brown ProviderActive Team Status: Inactive Member Role Status Dates Rosalie Moncada MD Primary Care Provider Active Favian Pearl ProviderActive Team Status: Inactive Member Role Status Dates Yamila Ang MD Attending Provider Active Bobby Vicente Care ProviderActiveTeam MemberRelationshipSpecialty Start DateEnd Date Rosalie Moncada MD [address] [place] [address] [facility]10/12/22 Team Status: Inactive Member Role Status Dates Rosalie Moncada MD Primary Care Provider Active Favian Pearl ProviderActiveDina SermelindaReferring ProviderActive Team MemberRelationshipSpecialtyStart DateEnd Date Rosalie Moncada MD [address] [place] [address] PCP - GeneralFamily Medicine11/19/22 Rosalie Moncada MD [address] [place] [address] ReferringFamily Medicine10/12/22Team MemberRelationshipSpecialtyStart DateEnd Date Rosalie Moncada MD [address] [place] [address] PCP - GeneralFamily Medicine11/19/22 Rosalie Moncada MD [address] [place] [address] ReferringFamily Medicine10/12/22Team MemberRelationshipSpecialtyStart DateEnd Date Rosalie Moncada MD [address] [place] [address] PCP - GeneralFamily Medicine11/19/22 Rosalie Moncada MD [address] [place] [address] ReferringFamily Medicine10/12/22Team MemberRelationshipSpecialtyStart DateEnd Date Rosalie Moncada MD [address] [place] [address] PCP - GeneralFamily Medicine11/19/22 Rosalie Moncada MD [address] [place] [address] ReferringFamily Medicine10/12/22Team MemberRelationshipSpecialtyStart DateEnd Date Rosalie Moncada MD [address] [facility] [place] [address] PCP - GeneralFamily Medicine11/19/22 Rosalie Moncada MD [address] [facility] [place] [address] ReferringFamily Medicine10/12/22Team MemberRelationshipSpecialtyStart DateEnd Date Rosalie Moncada MD [address] [facility] [place] [address] PCP - GeneralFamily Medicine11/19/22 Rosalie Moncada MD [address] [facility] [place] [address] ReferringFamily Medicine10/12/22Team MemberRelationshipSpecialtyStart DateEnd Date Rosalie Moncada MD [address] [facility] [place] [address] PCP - GeneralFamily Medicine11/19/22 Rosalie Moncada MD [address] [facility] [place] [address] ReferringFamily Medicine10/12/22Team MemberRelationshipSpecialtyStart DateEnd Date Rosalie Moncada MD [address] [place] [address] PCP - GeneralFamily Medicine11/19/22 Rosalie Moncada MD [address] [facility] [place] [address] ReferringFamily Medicine1/9/23Team MemberRelationshipSpecialtyStart DateEnd Date Rosalie Moncada MD [address] [place] [address] PCP - GeneralFamily Medicine11/19/22 Rosalie Moncada MD [address] [place] [address] ReferringFamily Medicine10/12/22Team MemberRelationshipSpecialtyStart DateEnd Date Rosalie Moncada MD [address] [place] [address] PCP - GeneralFamily Medicine11/19/22 Rosalie Moncada MD [address] [place] [address] ReferringFamily Medicine10/12/22Team MemberRelationshipSpecialtyStart DateEnd Date Rosalie Moncada MD [address] [place] [address] PCP - GeneralFamily Medicine11/19/22 Rosalie Moncada MD [address] [place] [address] ReferringFamily Medicine10/12/22Team MemberRelationshipSpecialtyStart DateEnd Date Rosalie Moncada MD [address] [place] [address] PCP - GeneralFamily Medicine11/19/22 Rosalie Moncada MD [address] [facility] [place] [address] ReferringFamily Medicine10/12/22Team MemberRelationshipSpecialtyStart DateEnd Date Rosalie Moncada MD [address] [facility] [place] [address] PCP - GeneralFamily Medicine11/19/22 Rosalie Moncada MD [address] [facility] [place] [address] [facility]erringW[facility]hendon [facility] Medicine10/12/22Team MemberRelationshipSpecialtyStart DateEnd Date Rosalie Moncada MD [address] [place] [address] [facility] - [facility] Medicine11/19/22 Rosalie Moncada MD [address] [place] [address] ReferringFaJefferson Hospital10/12/22 Team Status: Inactive Member Role Status Dates Rosalie Moncada MD Primary Care Provide r, Attending Provider Active Start: August 01, 2024 End: August 01, 2024Team MemberRelationshipSpecialtyStart DateEnd Date Rosalie Moncada MD [address] [facility] [place] [address] PCP - GeneralFamily Medicine11/19/22 Rosalie Moncada MD [address] [facility] [place] [address] ReferringFami Medicine10/12/22Team MemberRelationshipSpecialtyStart DateEnd Date Rosalie Moncada MD [address] [place] [address] PCP - [facility] Medicine11/19/22 Rosalie Moncada MD [address] [place] [address] [facility]erring[facility]10/12/22Team MemberRelationshipSpecialtyStart DateEnd Date Rosalie Moncada MD [address] [place] [address] PCP - [facility]11/19/22 Rosalie Moncada MD [address] [place] [address] ReferringFlint River Hospital10/12/22Team MemberRelationshipSpecialtyStart DateEnd Date Rosalie Moncada MD [address] [place] [address] PCP - [facility]11/19/22 Rosalie Moncada MD [address] [place] [address] ReferringFlint River Hospital10/12/22 Team Status: Active Member Role Status Dates Rosalie Moncada MD Primary Care Provider Active Start: May 18, 2025 Yessi CarsonAttending ProviderActiveStart: May 18, 2025 Team Status: Active Member Role Status Dates Rosalie Moncada MD Primary Care Provider Active Start: July 02, 2025 Kassandra Enciso MDAttending ProviderActiveStart: July 02, 2025 Team Status: Inactive Member Role Status Dates Rosalie Moncada MD Primary Care Provider Active Start: July 04, 2025 End: July 04, 2025Rosalie Moncada MDAttending ProviderActiveStart: July 04, 2025 End: July 04, 2025 Goals (unrecognized section and content) Goals may be documented in a n alternate sectionGoals may be documented in an alternate sectionGoals may be documented in an alternate sectionNo InformationNo InformationNo InformationNo InformationGoals may be documented in an alternate sectionGoals may be documented in an alternate sectionGoals may be documented in an alternate section Source Comments (unrecognize d section and content) In the event this informatio n is protected by the Federal Confidentiality of Alcohol and Drug Abuse Patient Records regulations: The Federal rules restrict any use of the information to criminally investigate or prosecute any alcohol or drug abuse patient.[facility] Center[facility] the event this information is protected by the Federal Confidentiality of Alcohol and Drug Abuse Patient Records regulations: The Federal rules restrict any use of the information to criminally investigate or prosecute any alcohol or drug abuse patient.[facility] CenterIn the event this information is protected by the Federal Confidentiality of Alcohol and Drug Abuse Patient Records regulations: The Federal rules restrict any use of the information to criminally investigate or prosecute any alcohol or drug abuse patient.[facility] CenterIn the event this information is protected by the Federal Confidentiality of Alcohol and Drug Abuse Patient Records regulations: The Federal rules restrict any use of the information to criminally investigate or prosecute any alcohol or drug abuse patient.[facility] CenterIn the event this information is protected by the Federal Confidentiality of Alcohol and Drug Abuse Patient Records regulations: The Federal rules restrict any use of the information to criminally investigate or prosecute any alcohol or drug abuse patient.[facility] CenterIn the event this information is protected by the Federal Confidentiality of Alcohol and Drug Abuse Patient Records regulations: The Federal rules restrict any use of the information to criminally investigate or prosecute any alcohol or drug abuse patient.[facility] CenterIn the event this information is protected by the Federal Confidentiality of Alcohol and Drug Abuse Patient Records regulations: The Federal rules restrict any use of the information to criminally investigate or prosecute any alcohol or drug abuse patient.[facility] CenterIn the event this information is protected by the Federal Confidentiality of Alcohol and Drug Abuse Patient Records regulations: The Federal rules restrict any use of the information to criminally investigate or prosecute any alcohol or drug abuse patient.[facility] CenterIn the event this information is protected by the Federal Confidentiality of Alcohol and Drug Abuse Patient Records regulations: The Federal rules restrict any use of the information to criminally investigate or prosecute any alcohol or drug abuse patient.[facility] CenterIn the event this information is protected by the Federal Confidentiality of Alcohol and Drug Abuse Patient Records regulations: The Federal rules restrict any use of the information to criminally investigate or prosecute any alcohol or drug abuse patient.[facility] CenterIn the event this information is protected by the Federal Confidentiality of Alcohol and Drug Abuse Patient Records regulations: The Federal rules restrict any use of the information to criminally investigate or prosecute any alcohol or drug abuse patient.[facility] CenterIn the event this information is protected by the Federal Confidentiality of Alcohol and Drug Abuse Patient Records regulations: The Federal rules restrict any use of the information to criminally investigate or prosecute any alcohol or drug abuse patient.[facility] CenterIn the event this information is protected by the Federal Confidentiality of Alcohol and Drug Abuse Patient Records regulations: The Federal rules restrict any use of the information to criminally investigate or prosecute any alcohol or drug abuse patient.[facility] CenterIn the event this information is protected by the Federal Confidentiality of Alcohol and Drug Abuse Patient Records regulations: The Federal rules restrict any use of the information to criminally investigate or prosecute any alcohol or drug abuse patient.[facility] CenterIn the event this information is protected by the Federal Confidentiality of Alcohol and Drug Abuse Patient Records regulations: The Federal rules restrict any use of the information to criminally investigate or prosecute any alcohol or drug abuse patient.[facility] CenterIn the event this information is protected by the Federal Confidentiality of Alcohol and Drug Abuse Patient Records regulations: The Federal rules restrict any use of the information to criminally investigate or prosecute any alcohol or drug abuse patient.[facility] CenterIn the event this information is protected by the Federal Confidentiality of Alcohol and Drug Abuse Patient Records regulations: The Federal rules restrict any use of the information to criminally investigate or prosecute any alcohol or drug abuse patient.[facility] CenterIn the event this information is protected by the Federal Confidentiality of Alcohol and Drug Abuse Patient Records regulations: The Federal rules restrict any use of the information to criminally investigate or prosecute any alcohol or drug abuse patient.[facility] CenterIn the event this information is protected by the Federal Confidentiality of Alcohol and Drug Abuse Patient Records regulations: The Federal rules restrict any use of the information to criminally investigate or prosecute any alcohol or drug abuse patient.[facility] CenterIn the event this information is protected by the Federal Confidentiality of Alcohol and Drug Abuse Patient Records regulations: The Federal rules restrict any use of the information to criminally investigate or prosecute any alcohol or drug abuse patient.[facility] CenterIn the event this information is protected by the Federal Confidentiality of Alcohol and Drug Abuse Patient Records regulations: The Federal rules restrict any use of the information to criminally investigate or prosecute any alcohol or drug abuse patient.[facility] CenterIn the event this information is protected by the Federal Confidentiality of Alcohol and Drug Abuse Patient Records regulations: The Federal rules restrict any use of the information to criminally investigate or prosecute any alcohol or drug abuse patient.[facility] Reason for Visit (unrecogniz ed section and content) ReasonCommentsNew PatientElevated liver enzymesReasonCommentsConsultReason CommentsRefill RequestReasonCommentsResultsReasonCommentsFollow UpReasonComments Follow UpReasonCommentsEstablished PatientFollow upReasonCommentsThyroid Problem ReasonCommentsBiopsy RequestReasonCommentsEstablished Patient Follow-UpReason CommentsEstablished Patient Follow-UpReasonCommentsGraves DiseaseFollow up/no issues other than gets warm FOR RECORDS PERTAINING TO PATIENTS WHO ARE [...] BE BASED ON THE PRIMARY CLINICAL RECORDS. [employer] [facility]. provides no warranty or guarantee of the accuracy or completeness of information in this document.
--- OUTSIDE RECORDS SUMMARY | 2025-08-02 10:31 | XMS_ITS | Clinical Summary ---
Author Organization [facility] Address [address] [place] [address] Care Team Providers Care Electrical Systems Drafter Name Role Phone Unavailable Primary Care Provider Unavailabl e Allergies Active AllergyReactionsCriticalityNoted HijuKgonvkoeOwdeekfWnozp79/03/2025 Medications MedicationSigDispense QuantityRefillsLast FilledStart DateEnd DateStatus alendronate (Fosamax) 70 MG tablet Take 70 mg by mouth every 7 (seven) daysActive omeprazole (PriLOSEC) [address] capsule Take 20 mg by mouth in the morning. Take before meals.Active methIMAzole (Tapazole) 10 MG tablet Take 10 mg by mouth in the morning and 10 mg before bedtime.Active metoprolol succinate XL (Toprol-XL) 25 MG 24 hr tablet Take 25 mg by mouth Daily Do not crush or chew.Active rosuvastatin (Crestor) 10 MG tablet TAKE 1 TABLET BY MOUTH EVERY DAY FOR 90 DAYS5Active azithromycin (Zithromax) 250 MG tablet Indications:BronchitisTake 1 tablet (250 mg) by mouth Daily Take 2 tabs on day 1 and 1 tab on days 2-5 then stop 6 tablet 5Active Active Problems ProblemNoted DateDiagnosed DateThyrotoxicosis, unspecified without thyrotoxic crisis or storm01/04/20250285Pejsyfnegvvs52/03/2025bnormal weight loss01/04/2025 Meayfr3701/04/2025Nontoxic multinodular bkchoh8601/04/2025 Encounters DateTypeDepartmentCare PhsdOfooppgffhs20/23/2025Telephone [facility] [address] [place] [phone] Terry Chaparro, DO from Last 3 Months Family History Medical HistoryRelationNameCommentsCancerFatherHeart diseaseFatherDepression MotherDiabetesMotherHeart diseaseMotherHyperlipidemiaMotherRelationNameStatus CommentsFatherMother Social History Tobacco UseTypesPacks/DayYears UsedDateSmoking Tobacco: Never Assessed CommentsUnknownSex and Gender InformationValueDate RecordedSex Assigned at Not on fileLegal PcoFezpca43/15/2023 6:56 PM EDTGender IdentityNot on fileSexual OrientationNot on file Last Filed Vital Signs Vital SignReadingTime TakenCommentsBlood Vkpdjoml606/78002/03/2025 10:08 AM EDT Qtppr692902/03/2025 10:08 AM OVTLlmdrxeiyfo38.3 ??C (97.4 ??F)02/03/2025 10:08 AM EDTRespiratory Gvfs277402/03/2025 10:08 AM EDTOxygen Fzsbegedlx02%02/03/2025 10:08 AM EDTInhaled Oxygen Concentration--Afkzhl20.2 kg (135 lb)10/21/2022 1:58 PM EST Hltleb358.6 cm (5' 4 )10/21/2022 1:58 PM ESTBody Mass Index23.17010/21/2022 1:58 PM EST Plan of Treatment Health MaintenanceDue DateLast DoneCommentsCT Isozrfxgtyhl1950Colonoscopy 1950Colorectal Cancer Tqjercgjk1950FIT-DNA1950FIT1950 FOBT1950 1746Kjatqndbvpggs1950Influenza Vaccine (#1)51, 07/15/2023, 07/08/2022, Additional history existsPneumococcal Vaccine: 65+ Years Ythskxdmc10/04/2021, 08/06/2020 Insurance * Guarantor: Day Castanon AAccount TypeRelation to PatientDate of BirthPhone Billing AddressPersonal/VdpjspIjsr[address] [address]
--- OUTSIDE RECORDS SUMMARY | 2025-08-02 10:31 | XMS_ITS | Encounter Summary ---
Author Organization [facility] Address [address] [place] [address] Care Team Providers Care Optical Fabrication Technician Name Role Phone Sulma Mcneil MD Unavailable [phone] Sulma Mcneil MD Primary Care Provider Source Comments In the event this information is protected by the Federal Confidentiality of Alcohol and Drug AbusePatient Records regulations: The Federal rules restrict any use of the information to criminally investigate or prosecute any alcohol or drug abuse patient.[facility] Encounter Details DateTypeDepartmentCare Team (Latest Contact Info)Cnjnxkckrsr23/30/2025Results Follow-Up Endocrinology [address] [facility] [place] [address] Daniel Enciso MD [address] [place] [address] Social History Tobacco UseTypesPacks/DayYears UsedDateSmoking Tobacco: NeverArea Deprivation IndexAnswerDate RecordedNational Score (1-100), lower number is lower risk64 02/26/2023State Score (1-10), lower number is lower mvio0513Data from: https://www.neighborhoodatlas.medicine.[facility]/. Last address used for [address] [place] [address]CommentsNoSex and Gender InformationValueDate RecordedSex Assigned at LcdihIyjmjh19/05/2023 11:34 AM EDT Legal RnfLmgerx55/14/2022 3:53 PM EDTGender IdentityNot on fileSexual OrientationNot on filedocumented as of this encounter Miscellaneous Notes * Telephone Encounter - Karen Evans - 07/26/2025 8:44 AM EDT Spoke to patient and scheduled Prolia nurse visit on 07/27/2025. * Telephone Encounter - Beti Judge LPN - 07/25/2025 6:08 PM EDT Please let her know that I sent her a chart message , also hep her schedule nurse visit for Prolia ----- Message ----- From: Cory Mccullough MA Sent: 07/20/2025 11:57 AM EDT To: Daniel Enciso MD ----- Message ----- From: Mikel Sykes Sent: 07/20/2025 11:13 AM EDT To: Willi Waldrop [facility] ----- Message from Mikel Sykes sent at 07/20/2025 11:13 AM EDT ----- * Telephone Encounter - Zee Kc MA - 07/24/2025 9:33 AM EDT Please contact patient to schedule nurse visit for Prolia * Telephone Encounter - Mikel Sykes - 07/20/2025 11:12 AM EDT Please advise patient is calling for an update on this. * Telephone Encounter - Zee Kc MA - 07/06/2025 8:49 AM EDT Printed and placed on Dr. Enciso's desk for review documented in this encounter Plan of Treatment DateTypeDepartmentCare Team (Latest Contact Info)Zcfbebijtsw16/28/2025 8:00 AM ESTOffice Visit [facility] [address] [place] [address] lab11/02/2025 8:40 AM ESTDistance Health [facility] [address] [place] [address] Virgen Arenas MD [address] [facility] [place] [id number] : Return in about 5 months (around 08/30/2025).01/25/2026 8:00 AM EDTNurse Visit Endocrinology [address] [facility] [place], [place] [phone] Nurse Clarita Endo [facility] [address] [facility] [place] [address] also hep her schedule nurse visit for Proliadocumented as of this encounter Visit Diagnoses Not on filedocumented in this encounter Care Teams Team MemberRelationshipSpecialtyStart DateEnd Date Sulma Mcneil MD [address] [place] [address] PCP - GeneralFamily Medicine11/19/22 Sulma Mcneil MD [address] [place] [address] ReferringFamily Medicine10/12/22documented as of this encounter
--- OUTSIDE RECORDS SUMMARY | 2025-08-02 10:31 | XMS_ITS | Encounter Summary ---
Author Organization [facility] Address [address] [place] [address] Care Team Providers Care Quality Assurance Supervisor Body Name Role Phone Sulma Mcneil MD Unavailable [phone] Sulma Mcneil MD Primary Care Provider [phone] Source Comments In the event this information is protected by the Federal Confidentiality of Alcohol and Drug AbusePatient Records regulations: The Federal rules restrict any use of the information to criminally investigate or prosecute any alcohol or drug abuse patient.[facility] Encounter Details DateTypeDepartmentCare Team (Latest Contact Info)Eikilfzxajf72/23/2025Travel Social History Tobacco UseTypesPacks/DayYears UsedDateSmoking Tobacco: NeverArea Deprivation IndexAnswerDate RecordedNational Score (1-100), lower number is lower risk64 02/26/2023State Score (1-10), lower number is lower etye1073Data from: https://www.neighborhoodatlas.medicine.[facility].edu/. Last address used for [address] [place] [address]NoSex and Gender InformationValueDate RecordedSex Assigned at AbaawJvpjga88/05/2023 11:34 AM EDT Legal FwqDvcesu15/14/2022 3:53 PM EDTGender IdentityNot on fileSexual OrientationNot on filedocumented as of this encounter Plan of Treatment DateTypeDepartmentCare Team (Latest Contact Info)Gavxjweviqv99/28/2025 8:00 AM ESTOffice Visit [facility] [address] [place] [address] lab11/02/2025 8:40 AM ESTDistance Health Endocrin[facility] [address] [place] [address] Virgen Arenas MD [address] [facility] [place] [address] : Return in about 5 months (around 08/30/2025).01/25/2026 8:00 AM EDTNurse Visit Endocrinology [address] [facility] [place] [address] Nurse Clarita Endo [facility] [address] [facility] [address] also hep her schedule nurse visit for Proliadocumented as of this encounter Visit Diagnoses Not on filedocumented in this encounter Care Teams Team MemberRelationshipSpecialtyStart DateEnd Date Sulma Mcneil MD [address] [place] [phone] PCP - GeneralFamily Medicine11/19/22 Sulma Mcneil MD [address] [place] [address] ReferringFamily Medicine10/12/22documented as of this encounter
[2025-08-02 11:26] LABS: Alanine Aminotransferase 31 U/L (14-59); Albumin Globulin Ratio 1.1; Albumin Level 3.9 g/dL (3.4-5.0); Alkaline Phosphatase 76 U/L (46-116); Anion Gap 14.9; Aspartate Amino Transferase 21 U/L (15-37); Blood Urea Nitrogen 16.0 mg/dL (7.0-18.0); Calcium 9.3 mg/dL (8.5-10.1); Carbon Dioxide 26.4 mmol/L (21.0-32.0); Chloride 106 mmol/L (98-107); Cholesterol 186 mg/dL (<=200); Estimated GFR (African America >60 (>=60 mL/min/1.73m^2); Estimated GFR (Non-African Ame >60 (>=60 mL/min/1.73m^2); Globulin 3.5 g/dL; Glucose 92 mg/dL (74-106); HDL Cholesterol 59 mg/dL (40-60); Potassium 4.3 mmol/L (3.5-5.1); Sodium 143 mmol/L (136-145); Total Protein 7.4 g/dL (6.4-8.2); Triglycerides 99 mg/dL (<=150); VLDL CHOLESTEROL 19.8 mg/dL
== END 2025-08-02 10:27 | disposition home or self-care (01) ==
LOC: LAB 10:28
PROVIDERS: PCP Family Medicine; Visit Provider Family Medicine
DX: Z00.00 Encounter for general adult medical examination without abnormal findings (principal); E78.2 Mixed hyperlipidemia
CPT/HCPCS: 36415; 80053; 80061

== ENCOUNTER 2025-08-31 08:16 | Outpatient (OUT) | payer MEDICARE, OTHER, SELFPAY ==
--- OUTSIDE RECORDS SUMMARY | 2025-08-31 08:18 | XMS_ITS | Encounter Summary ---
Author Organization [facility] Address [address] [place] [address] Care Team Providers Care Safety Deposit Boxes Custodian Name Role Phone Sulma Mcneil MD Unavailable [phone] Sulma Mcneil MD Primary Care Provider [phone] Source Comments In the event this information is protected by the Federal Confidentiality of Alcohol and Drug AbusePatient Records regulations: The Federal rules restrict any use of the information to criminally investigate or prosecute any alcohol or drug abuse patient.[facility] Encounter Details DateTypeDepartmentCare Team (Latest Contact Info)Qluqxwzahkr16/23/2025Travel Social History Tobacco UseTypesPacks/DayYears UsedDateSmoking Tobacco: NeverArea Deprivation IndexAnswerDate RecordedNational Score (1-100), lower number is lower risk64 02/26/2023State Score (1-10), lower number is lower caru8313Data from: https://www.neighborhoodatlas.medicine.[facility].edu/. Last address used for [address] [place] [address]NoSex and Gender InformationValueDate RecordedSex Assigned at FfitdFehwek42/05/2023 11:34 AM EDT Legal KovVraoti78/14/2022 3:53 PM EDTGender IdentityNot on fileSexual OrientationNot on filedocumented as of this encounter Plan of Treatment DateTypeDepartmentCare Team (Latest Contact Info)Wclglcdxbiq97/23/2026 7:00 AM ESTW[facility] [address] [place] [address] Virgen Arenas MD [address] [facility] [place], [place] [phone] Return in about 5 months (around 08/30/2025).01/25/2026 8:00 AM EDTNurse Visit Endocrinology [address] [facility] [place], [place] [phone] Nurse [facility] [address] [facility] [place], [place] [address] also hep her schedule nurse visit for Proliadocumented as of this encounter Visit Diagnoses Not on filedocumented in this encounter Care Teams Team MemberRelationshipSpecialtyStart DateEnd Date Sulma Mcneil MD [address] [place] [phone] PCP - GeneralFamily Medicine11/19/22 Sulma Mcneil MD [address] [place] [address] ReferringFamily Medicine10/12/22documented as of this encounter
--- OUTSIDE RECORDS SUMMARY | 2025-08-31 08:18 | XMS_ITS | Patient Health Record ---
Author Organization [facility] Address [address] [place] [address] Care Team Providers Care Tool Setter Name Role Phone Connor Davis Unavailable [phone] Reason For Referral No Information Medications Medication SIG (Take, Route, Frequency, Duration) Notes Start Date End Date Status Fosamax ActiveomeprazoleActiverosuvastatinActive Social History Tobacco Use: Social History Observation Description Date Details (start date - stop date) Never Smoker NA - NA Smoking History Question Answer Notes Smoking Status NonSmoker Problems Problem Type SNOMED Code ICD Code Onset Dates Problem Status W/U Status Risk Notes Problem Metatarsalgia of lef t foot (880020857439852) Metatarsalgia, left foot (M77.42) ActiveconfirmedProblemContusion of toe (76138892)Bruised toe (S90.129A)Active confirmed Plan Of Treatment No Information Insurance Providers Payer Name Payer Address Payer Phone Subscriber Number Group Number Insured Name Patient Relationship to Insured Coverage Start Date Coverage End [place] [address] [place] [address] [id number] Saud MANTILLA - patient is the insuredMutual Of [address] [place], [place] [id number], MARILYNSelf - patient is the insured Medical (General) History Medical History History ICD Code GI Problems: Yes Surgical History Surgery Date(Month/Year)
--- OUTSIDE RECORDS SUMMARY | 2025-08-31 08:18 | XMS_ITS | Clinical Summary ---
Author Organization [facility] Address [address] [place] [address], [address] [place] [address] Care Team Providers Care Fire Control Technician G Name Role Phone Unavailable Primary Care Provider Unavailabl e Social History Tobacco UseTypesPacks/DayYears UsedDateSmoking Tobacco: Never Assessed CommentsUnknownSex and Gender InformationValueDate RecordedSex Assigned at Not on fileLegal UcqZnbwbl42/28/2021 9:29 AM EDTGender IdentityNot on fileSexual OrientationNot on file Plan of Treatment Not on file
--- OUTSIDE RECORDS SUMMARY | 2025-08-31 08:18 | XMS_ITS | Clinical Summary ---
Author Organization [facility] Address [address] [place] [address] Care Team Providers Care Makeup Editor Name Role Phone Sulma Mcneil MD Unavailable [phone] Sulma Mcneil MD Primary Care Provider [phone] Allergies No known active allergies Medications MedicationSigDispense QuantityRefillsLast FilledStart DateEnd DateStatus omeprazole (PRILOSEC) 20 mg capsule Take 20 mg by mouth once daily.10/06/2022ctive rosuvastatin (CRESTOR) 10 mg tablet Take 1 tablet by mouth daily at bedtime.09/03/2023ctiveHospital, Clinic, or Other Facility Administered MedicationOrdered DoseRouteFrequencyStart DateEnd DateStatus denosumab 60 mg injection (PROLIA) 60 mgSQEVERY 6 HTAZAD41510/ctive Active Problems ProblemNoted DateDiagnosed DateMultiple thyroid ajexnft5205/30/2025Vitamin D tqvijoycyu98/09/8408Glnsnwlxmkoh06/26/4770Gpprodppzzxt06/26/2023raves disease 01/23/2023Thyroid eoqnxd6301/23/2023 Encounters DateTypeDepartmentCare VdzsZxhnrtedzsc80/23/7383Ewxwbi86/24/2025 8:00 AM EDT Nurse [facility]ocr[facility] [address] [facility] [place] [address] Nurse Clarita Endo Replaced By [facility] Age-related osteoporosis without current pathological fracture (Primary Dx) 07/26/20256631Bukweq91/30/2025Results Follow-Up Endocrinology [address] [facility] [place] [address] Daniel Enciso MD 07/02/2025 8:30 AM EDTOffice Visit Endocrinology [address] [place] [address] Daniel Enciso MD Age-related osteoporosis without current pathological fracture (Primary Dx); Vitamin D pauhqkbvpy15/22/2859Yqokfk61/14/2025Refill Endocrinology [address] [facility] [place] [address] Virgen Arenas MD Refill Requestfrom Last 3 Months Immunizations ImmunizationAdministration DatesNext DueCOVID-19 vaccine, unspecified bfeviafgmsq29/20/2022,07/10/2021,12/05/2020,11/14/2020hepatitis A (HepA) vaccine, adult (HAVRIX, VAQTA)03/09/2024 Social History Tobacco UseTypesPacks/DayYears UsedDateSmoking Tobacco: Never Tobacco Cessation:Counseling Given: Not Answered Area Deprivation IndexAnswerDate RecordedNational Score (1-100), lower number is lower bnpx181702/26/2023State Score (1-10), lower number is lower icwc115 Data from: https://www.neighborhoodatlas.medicine.[facility].edu/. Last address used for [address] [place] [address]/26/2023CommentsNoSex and Gender InformationValueDate RecordedSex Assigned at PedrqJonxca75/05/2023 11:34 AM EDT Legal AquVeuksh45/14/2022 3:53 PM EDTGender IdentityNot on fileSexual OrientationNot on file Last Filed Vital Signs Vital SignReadingTime TakenCommentsBlood Xexccunt933/8409 8:37 AM EDT Owree615307/02/2025 8:37 AM TKQMhdyjsijzwq70.7 ??C (98.1 ??F)06/07/2024 1:06 PM EDTRespiratory Dmhf619006/07/2024 3:40 PM EDTOxygen Vljsdiitsg40%06/07/2024 3:40 PM EDTInhaled Oxygen Concentration--Opwwql70.7 kg (158 lb)07/02/2025 8:37 AM EDT Kifyzm487.6 cm (5' 4 )05/30/2025 8:48 AM EDTBody Mass Index27.12005/30/2025 8:48 AM EDT Plan of Treatment DateTypeDepartmentCare Team (Latest Contact Info)Jibwvqttlob77/23/2026 7:00 AM [facility] Endocrinology [address] [place] [address] Virgen Arenas MD [address] [facility] [place] [place] [address] Return in about 5 months (around 08/30/2025).01/25/2026 8:00 AM EDTNurse Visit Endocrinology [address] [facility] [place], [place] [phone] Nurse Clarita Endo Replaced By [facility] [address] [facility] [place] [phone] also hep her schedule nurse visit for [employer] MaintenanceDue DateLast Done CommentsAnnual PCP Team Chronic Disease Visit1968Anxiety Screening 1968Depression Jtoiyotxo06/18/1968CT Kgefasbdjgph27/18/1995Cologuard (FIT-DNA)04/20/19952878Wbefmuaosfe52/18/1995Colorectal Cancer Slzfwoubq97/18/1995 Fecal Occult Blood1995Lipid Kqghktnxn61/18/1400Sbomwxjlwgrhi32/18/1995 DTaP,Tdap,Td Vaccine (1 - Tdap)Medicare Annual Wellness Visit04/03/2015dvance Directive Wsyzxaoeyc62/01/2025RSV Vaccine (1 - 1-dose 75+ series)2025ovid-19 Vaccine ( season)504/, 07/10/2021, 12/05/2020, Additional history existsDiabetes Uwunxqsqk88/19/2026 02/19/2023one Density Xfsacnuts71Pneumococcal Vaccine: 50+ Euwzxnivh70/04/2021, 08/06/2020Hepatitis C VsvzljyvyXfeuzzqut16/15/2023Shingrix QzkbuttUkjeiqizl43/18/2024, 10/21/2023Influenza ToqixiyOhdsgmjnt61/21/2025, 07/15/2024, 07/15/2023, Additional history exists Medical Devices ImplantedTypeAreaManufacturerDevice IdentifierShelf Expiration DateModel / Serial / LotImplantImplantEye Procedures Procedure NamePriorityDate/TimeAssociated DiagnosisCommentsPTH INTACT BLDRoutine 07/02/2025 9:20 AM EDT Age-related osteoporosis without current pathological fracture RENAL FUNCTION CXKDVSiqvhdq62/29/2025 9:20 AM EDT Age-related osteoporosis without current pathological fracture VITAMIN D 25 QAQVCHPQuizfrs96/29/2025 9:20 AM EDT Age-related osteoporosis without current pathological fracture C TELOPEPTIDE, OMPVMbpxzup76/29/2025 9:20 AM EDT Age-related osteoporosis without current pathological fracture DXA-AXIAL RUARMUCB96/24/2025 8:55 AM EDT COMPREHENSIVE METABOLIC DQWRBHxaqrob27/19/2023 8:16 AM EDT Graves disease HEPATITIS C VIRUS (HCV) RNA, QUANTITATIVE PCR, PLASMA/TQCZVOgyunat63/15/2023 3:09 PM EST Abnormal liver enzymes from Last 3 Months or Most Recently Relevant to Health Maintenance Results * C TELOPEPTIDE, BETA (07/02/2025 9:20 AM EDT)ComponentValueRef RangeTest Method Analysis TimePerformed AtPathologist SignatureC Telopeptide, Beta Cross Linked 012149 - 858 pg/mL07/02/2025 7:10 PM [facility] Specimen (Source)Anatomical Location / LateralityCollection Method / Volume Collection TimeReceived TimeBloodBLOOD SPECIMEN / UnknownVenipuncture / Zhkgver7407/02/2025 9:20 AM EDT07/02/2025 9:20 AM EDT Narrative [facility] - 07/02/2025 7:10 PM EDT Premenopausal Ref Range: 138 - 689 pg/mL Postmenopausal Ref Range: 177 - 1015 pg/mL Authorizing ProviderResult TypeResult StatusDaniel Enciso MDLABORATORYFinal ResultPerforming OrganizationAddressCity/State/ZIP CodePhone Number [facility] [address] [place] [address], * VITAMIN D 25 HYDROXY (07/02/2025 9:20 AM EDT)ComponentValueRef RangeTest MethodAnalysis TimePerformed AtPathologist SignatureVitamin D 25 Xssdbrs44.5 31.0 - 80.0 ng/mL07/02/2025 6:08 PM EDTCWYAND[facility] Comment: Classification of 25 [place] Vitamin D status: Deficiency/Insufficiency: < or = 30 ng/ml. Sufficiency/Optimal Levels: 31-80 ng/mL Toxicity: > 100 ng/mL. Test performed by chemiluminescent immunoassay. Specimen (Source)Anatomical Location / LateralityCollection Method / Volume Collection TimeReceived TimeBloodBLOOD SPECIMEN / UnknownVenipuncture / Unknown 07/02/2025 9:20 AM EDT07/02/2025 9:20 AM EDT Narrative [facility] - 07/02/2025 6:08 PM EDT The reference range interval was based on an analysis of samples from healthy adults and may not pertain to children from 0-18 years old. Authorizing ProviderResult TypeResult StatusDaniel Enciso MDLABORATORYFinal ResultPerforming OrganizationAddressCity/State/ZIP CodePhone Number [facility] [address] [place] [address], * (ABNORMAL) RENAL FUNCTION PANEL (07/02/2025 9:20 AM EDT)ComponentValueRef RangeTest MethodAnalysis TimePerformed AtPathologist SignatureAlbumin4.53.9 - 4.9 g/dL07/02/2025 5:28 PM EDTCWYANDOT [facility] LABCalcium, Total 9.88.5 - 10.2 mg/dL07/02/2025 5:28 PM [facility]TCW[facility] Phosphorus3.62.7 - 4.8 mg/dL07/02/2025 5:28 PM [facility] CQYAkbipkj0540 - 99 mg/dL07/02/2025 5:28 PM [facility] LABComment: The [place] Diabetes Association (ADA) provides guidance for cutoff [...] Standards of Medical Care in Diabetes 2016, [place] [employer]. Diabetes Care. 2016.39(Suppl 1). CGG289 - 21 mg/dL07/02/2025 5:28 PM [facility] Creatinine0.850.58 - 0.96 mg/dL07/02/2025 5:28 PM [facility] UGELclkzz398(H)136 - 144 mmol/L07/02/2025 5:28 PM [facility] LABPotassium5.13.7 - 5.1 mmol/L07/02/2025 5:28 PM [facility] OHPMfewhnxq50206 - 107 mmol/L07/02/2025 5:28 PM [facility] QKVZK55163 - 30 mmol/L07/02/2025 5:28 PM [facility] LABAnion Pte736 - 15 mmol/L07/02/2025 5:28 PM [facility] LABEstimated Glomerular Filtration Rate72>=60 mL/min/1.73m 07/02/2025 5:28 PM [facility] LABComment:Estimated Glomerular Filtration Rate (eGFR) [...] VolumeCollection TimeReceived TimeBloodBLOOD SPECIMEN / UnknownVenipuncture / Wdlcpdz6807/02/2025 9:20 AM EDT07/02/2025 9:20 AM EDT Narrative Authorizing ProviderResult TypeResult StatusDaniel Enciso MDLABORATORYFinal ResultPerforming OrganizationAddressCity/State/ZIP CodePhone Number [facility] [place] [address], * PTH INTACT (07/02/2025 9:20 AM EDT)ComponentValueRef RangeTest MethodAnalysis TimePerformed AtPathologist SignaturePTH, Enlksm1573 - 65 pg/mL07/02/2025 5:28 PM EDTCWYANDOT [facility] LABSpecimen (Source)Anatomical Location / LateralityCollection Method / VolumeCollection TimeReceived TimeBloodBLOOD SPECIMEN / UnknownVenipuncture / Hztmdjh9107/02/2025 9:20 AM EDT07/02/2025 9:20 AM EDT Narrative Authorizing ProviderResult TypeResult StatusDaniel Enciso MDLABORATORYFinal ResultPerforming OrganizationAddressCity/State/ZIP CodePhone Number [facility] [address] [place] [address], * DXA-AXIAL SKELETON (04/26/2025 8:55 AM EDT)ComponentValueRef [...] FOR MORE INFORMATION ABOUT DIAGNOSIS AND TREATMENT: [facility] Center for Osteoporosis and Metabolic Bone Disease:? www.ccf.org/arthritis/osteo National Osteoporosis Foundation:? www.nof.org International Society of Clinical Densitometry www.iscd.org Manager Telecom: [phone] Transcribe Date/Time: Apr 26 2025 ??8:56A Dictated [...] years, Gender: Female SCANNER INFORMATION: DXA Model: [employer] [id number] Date Scanned: ??04/26/2025 8:55 AM CLINICAL HISTORY: [...] had a previous bone density in the [facility] or the previous bone density was performed on a different DXA machine (new, updated model or different location) within the [facility]. VERTEBRAL FRACTURE ASSESSMENT Not performed. TRABECULAR BONE ASSESSMENT TBS not performed: not ordered Procedure Note Provider, [facility] [place] - 04/30/2025 * * *Final Report* * * DATE OF EXAM: Apr 26 2025 8:55AM [facility] 0804 - BD DXA - AXIAL SKELETON B / PROCEDURE REASON: DENSITY * * * * Physician Interpretation * * * * EXAMINATION: DXA BONE DENSITOMETRY BD DXA - AXIAL SKELETON PATIENT DEMOGRAPHICS: Age: 75 years, Gender: Female SCANNER INFORMATION: DXA Model: [employer] [id number] Date Scanned: 04/26/2025 8:55 AM CLINICAL HISTORY: [...] had a previous bone density in the [facility] or the previous bone density was performed on a different DXA machine (new, updated model or different location) within the [facility]. VERTEBRAL FRACTURE ASSESSMENT Not performed. TRABECULAR [...] FOR MORE INFORMATION ABOUT DIAGNOSIS AND TREATMENT: [facility] Center for Osteoporosis and Metabolic Bone Disease:? www.ccf.org/arthritis/osteo National Osteoporosis Foundation:? www.nof.org International Society of Clinical Densitometry www.iscd.org Manager Telecom: [phone] Transcribe Date/Time: Apr 26 2025 8:56A Dictated by : JERRI RICHARDS MD This examination was interpreted and the report reviewed and electronically signed by: JERRI RICHARDS MD on Apr 30 2025 7:27AM EST Authorizing ProviderResult TypeResult StatusCcf ProviderRAD-PAMAFinal Result * (ABNORMAL) COMP METABOLIC PANEL (02/19/2023 8:16 AM EDT)ComponentValueRef RangeTest MethodAnalysis TimePerformed AtPathologist SignatureProtein, Total 7.36.3 - 8.0 g/dL02/19/2023 8:45 AM [facility] Albumin4.73.9 - 4.9 g/dL02/19/2023 8:45 AM [facility] LABCalcium, Total9.68.5 - 10.2 mg/dL02/19/2023 8:45 AM [facility] LABBilirubin, Total0.50.2 - 1.3 mg/dL02/19/2023 8:45 AM [facility] LABAlkaline Uusxhwxcgla460(H)34 - 123 U/L 02/19/2023 8:45 AM [facility] HVRSMF3878 - 35 U/L 02/19/2023 8:45 AM [facility] FHFLOW790 - 38 U/L 02/19/2023 8:45 AM [facility] DWGMyfmweb9535 - 99 mg/dL02/19/2023 8:45 AM [facility] LABComment: The [place] Diabetes Association (ADA) provides guidance for cutoff [...] Standards of Medical Care in Diabetes 2016, [place] [employer]. Diabetes Care. 2016.39(Suppl 1). MRI024 - 21 mg/dL02/19/2023 8:45 AM [facility] Creatinine0.840.58 - 0.96 mg/dL02/19/2023 8:45 AM [facility] CLXHicumy624050 - 144 mmol/L02/19/2023 8:45 AM [facility] LABPotassium4.13.7 - 5.1 mmol/L02/19/2023 8:45 AM [facility] UWIAwxsoqpx56473 - 105 mmol/L02/19/2023 8:45 AM EDT [facility] DSXDE61729 - 30 mmol/L02/19/2023 8:45 AM EDT [facility] LABAnion Ruh092 - 18 mmol/L02/19/2023 8:45 AM [facility]TNORTSCHO[facility]CRA[facility] LABEstimated Glomerular Filtration Rate74 >=60 mL/min/1.73m 02/19/2023 8:45 AM [facility]TWE[facility] LABComment:Estimated Glomerular Filtration Rate (eGFR) is calculated [...] VolumeCollection TimeReceived TimeBloodBLOOD SPECIMEN / UnknownVenipuncture / Dkmkuro9502/19/2023 8:16 AM EDT02/19/2023 8:16 AM EDT Narrative Authorizing ProviderResult TypeResult StatusVirgen Arenas MDLABORATORYFinal Result Performing OrganizationAddressCity/State/ZIP CodePhone Number [facility] [address] [place] [address] * HCV QUANT RNA BY PCR (11/18/2022 3:09 PM EST)ComponentValueRef RangeTest MethodAnalysis TimePerformed AtPathologist SignatureHCV RNAHCV RNA not detected by PCR.HCV RNA not detected by PCR. RY GHISLAINE 6800 11/19/2022 4:51 AM [facility]STMER[facility] LABSpecimen (Source) Anatomical Location / LateralityCollection Method / VolumeCollection Time Received TimeBloodBLOOD SPECIMEN / UnknownVenipuncture / Vckfwau7811/18/2022 3:09 PM EST11/18/2022 3:09 PM EST Narrative [facility] - 11/19/2022 4:51 AM EST The Linear Range of this assay is 15 IU/ml to 100,000,000 IU/ml Authorizing ProviderResult TypeResult StatusNicole Smith MDLABORATORY Final ResultPerforming OrganizationAddressCity/State/ZIP CodePhone Number [facility] [address] [facility] [address] [place] [phone], from Last 3 Months or Most Recently Relevant to Health [place] [address] Care Teams Team MemberRelationshipSpecialtyStart DateEnd Sulma Mcneil MD [address] [place] [phone] PCP - GeneralFamily Medicine11/19/22 Sulma Mcneil MD [address] [place] [address] ReferringFamily Medicine10/12/22
--- OUTSIDE RECORDS SUMMARY | 2025-08-31 08:18 | XMS_ITS | CCD ---
Author Organization [facility] Inform ion Partnership [facility] Care Team Providers Care [employer]pper [employer] Name Role Phone MD ROSALIE MONCADA Consulting [...] MONCADA, DR ROSALIE Salguero Primary Care Unavailable PLYMOUTH, DR TANG Lane Consulting Unavailable MARJORIE, DR LINDSEY Mejia Consulting Unavailable ANTWAN, DR ROSALIE Salguero Consulting Unavailable MD Yamila Ang Attending Provider [phone] MD Rosalie Moncada Primary Care Provider Rosalie Moncada MD Unavailable [phone] MD Rosalie Moncada Primary Care Provider MD Nicole Miranda Attending Provider MD Rosalie Moncada Primary Care Provider MD Nicole Miranda Attending Provider [phone] MD Yamila Ang Attending Provider [phone] Yessi Carson Referring Provider [phone] Rosalie Moncada MD Primary Care Provider Moncada, Rosalie Unavailable Moncada, Rosalie E Primary Care Unavailable Serhal, Yessi Attending Unavailable Serhal, Yessi Admitting Unavailable Serhal, Yessi Attending Unavailable Serhal, Yessi Admitting Unavailable Moncada, Rosalie E Primary Care Unavailable Rosalie Moncada MD Primary Care Provider EUGENIOSotero ANTHONY Garrison Referring Unavailable MONCADA, ROSALIE E Primary Care Unavailable Unavailable Primary Care Provider Unavailabl e NEGRITA REDMOND Attending Unavailable Rosalie Moncada MD Primary Care Provider [phone] Serhal, Yessi Attending Provider Kassandra Enciso MD Attending Provider [phone] Rosalie Moncada MD Attending Provider SERHAL, YESSI Referring Unavailable MONCADA, ROSALIE E Primary Care Unavailable SERHAL, YESSI Referring Unavailable MONCADA, ROSALIE E Primary Care Unavailable SERHAL, YESSI Attending Unavailable MONCADA, ROSALIE E Primary Care Unavailable SERHAL, YESSI Referring Unavailable MONCADA, ROSALIE E Primary Care Unavailable MONCADA, ROSALIE E Primary Care Unavailable ELSHEIKH, SAHAR Referring Unavailable MONCADA, ROSALIE E Primary Care Unavailable MONCADA, ROSALIE E Primary Care Unavailable ELSHEIKH, SAHAR Attending Unavailable MONCADA, ROSALIE E Primary Care Unavailable SERHAL, YESSI Attending Unavailable SERHAL, YESSI Referring Unavailable MONCADA, ROSALIE E Primary Care Unavailable SERHAL, YESSI Referring Unavailable MONCADA, ROSALIE E Primary Care Unavailable MONCADA, ROSALIE E Primary Care Unavailable MONCADA, ROSALIE E Primary Care Unavailable SERHAL, YESSI Attending Unavailable Kassandra Enciso MD Attending Provider Allergies Allergy ClassificationReported Allergen(s)Allergy TypeDate of OnsetReaction(s) Facility (1 source)No Known Medication Allergies; Translations: [No Known Medication Allergies]Propensity to adverse reactions to drug (disorder)[facility] Repository (11 sources)CodeineDrug Tvgbpfg40-96-4476FuwvpKMDA Healthcare (2 sources)patient allergy list reviewed by nurse or physiciaPropensity to adverse nlzhktavz80-35-0988Bzlkfcq:[facility] [employer] Other (2 sources)Allergies ReconciledPropensity to adverse achjmcigb66-35-4765Ivdhiib [employer] Other (1 source)CodeineDrug AllergyUnknoMemorial [facility] Other (1 source)CodeineDrug Aiasbyd76-49-2166TitbrsimjPeoples Hospital Repository (2 sources)AzithromycinDrug Jhsyuhl87-52-1770ZsdncsxvKbgvkorzqPremier Health Miami Valley Hospital SouthComment on above:facial swelling and flushing Medications Current Medications MedicationDrug Class(es)DatesSig (Normalized)Sig (Original)azithromycin 250 mg oral tablet (2 sources)Macrolide AntimicrobialStart: 13-79-5566rkxdlwqvlhrz (Zithromax) 250 MG tablet Indications: Bronchitis Take 1 tablet (250 mg) by mouth Daily Take 2 tabs on day 1 and 1 tab on days 2-5 then stop 6 tablet 02/03/2025 Active1 ml denosumab 60 mg/ml prefilled syringe (1 source)RANK Ligand InhibitorStart: 25-96-7332Fcpcarzuq (Prolia) 60 mg/mL syringe Active 60 MG SUBCUT EVERY 6 MONTHS August 02, 2025 12:00am Complies with drug therapyomeprazole 20 mg delayed release oral capsule (20 sources)Proton Pump InhibitorStart: 95-08-2602wshx 1 capsule by mouth once dailyOmeprazole 20 mg capsule,delayed release(DR/EC) Active 0 .ROUTE .COMPLEX 90 3 March 28, 2025 8:31am TAKE 1 CAPSULE BY MOUTH EVERY DAY Complies with drug therapyStart: 12-28-2023 End: 48-08-8711alxb 1 capsule by mouth once dailyOmeprazole 20 mg capsule,delayed release(DR/EC) Discontinued 0 .ROUTE .COMPLEX 90 3 December 14, 2024 2:26pm February 08, 2025 10:24am TAKE 1 CAPSULE BY MOUTH EVERY DAYStart: 10-06-2022 End: 97-66-5588wepe 1 capsule by mouth once dailyOmeprazole 20 mg capsule,delayed release(DR/EC) Discontinued 20 MG PO Daily December 28, 2023 12:00am December 28, 2023 9:24amComment on above:Take 20 mg by mouth once daily. rosuvastatin calcium 10 mg oral tablet (20 sources)HMG-CoA Reductase InhibitorStart: 76-82-3308czla 1 tablet by mouth once dailyRosuvastatin 10 mg tablet Active 0 .ROUTE .COMPLEX 90 2 December 18, 2024 8:15am TAKE 1 TABLET BY MOUTH EVERY DAY FOR 90 DAYS Complies with drug therapyStart: 08-01-2024 End: 92-54-8413utpz 1 tablet by mouth every other dayRosuvastatin 10 mg tablet Discontinued 10 MG PO .QOD August 01, 2024 3:59pm December 15, 2024 1:37pm Start: 01-28-2024 End: 61-52-9022mbwi 1 tablet by mouth once dailyRosuvastatin 10 mg tablet Discontinued 0 .ROUTE .COMPLEX 90 0 July 24, 2024 4:57pm August 01, 2024 3:59pm TAKE 1 TABLET BY MOUTH EVERY DAY FOR 90 DAYSStart: 09-03-2023 End: 57-70-8339hhwm 1 tablet by mouth once dailyRosuvastatin 10 mg tablet Discontinued 10 MG PO Daily January 28, 2024 12:00am January 28, 2024 11:28am Comment on above:Take 1 tablet by mouth daily at bedtime. Completed/Discontinued Medications MedicationDrug Class(es)DatesSig (Normalized)Sig (Original)alendronic acid 70 mg oral tablet (20 sources)BisphosphonateStart: 09-16-2024 End: 70-10-5339fimz 1 tablet by mouth every weekAlendronate 70 mg tablet Discontinued 0 .ROUTE .COMPLEX 12 2 September 16, 2024 8:11am August 02, 2025 9:37am TAKE 1 TABLET BY MOUTH ONE TIME PER WEEKStart: 08-01-2024 End: 73-71-5389ebec 1 tablet by mouth every weekAlendronate 70 [...] mouth and stay upright for 30 min. hydrocortisone 10 mg/ml / neomycin 3.5 mg/ml / polymyxin b 26391 unt/ml otic solution (2 sources)Aminoglycoside Antibacterial, Polymyxin-class Antibacterial, CorticosteroidStart: 07-04-2025 End: 59-70-0912Ftpjwrqo-Polymyxin-Hc 3.5-10,000-1 mg/mL-unit/mL-% solution Discontinued 4 DROPS OTIC Every 8 hours10 0 July 04, 2025 12:00am August 02, 2025 9:59ammethIMAzole 5 mg oral tablet (20 sources)Thyroid Hormone Synthesis InhibitorStart: 47-07-9795Ehxipwualzx Active 2.5 MG PO .wed,wed,wed. August 01, 2024 3:58pm FreeTextSi/2 once a day; Note: Source Status: Taking; Provider: Antwan Oznua ( ) Start: 08-01-2024 End: 13-51-5369zwxq 0.5 tablet by mouth once dailyMethimazole 5 mg tablet Discontinued 2.5 MG PO .wed,wed,wed. August 01, 2024 3:58pm July 11:31am FreeTextSi/2 once a day; Note: Source Status: Taking; Provider: Antwan Ozuna ( )Start: 02-26-2023 End: 09-81-4418jdigUFPhqct (TAPAZOLE) 5 mg tablet 1/2 tab Wednesday, Wed and Wednesday. 20 tablet 3 02/11/2024 08/18/2024 DiscontinuedStart: 10-04-2022 End: 79-35-9011jtee 1 tablet by mouth once daily, then [...] Wed and Wednesday.methylPREDNISolone 4 mg oral tablet (5 sources)CorticosteroidStart: 02-08-2025 End: 86-50-7350lzlo 1 tablet by mouth once dailyMethylprednisolone 4 mg tablets,dose pack Discontinued 4 MG PO Daily February 08, 2025 12:00am March 26, 2025 4:58pmStart: 02-03-2025 End: 35-65-9529ypydqiEUDRSSCcunno (Medrol Dospak) 4 MG tablets Indications: Cough in adult Follow schedule on package instructions 21 tablet 02/03/2025 02/10/2025 Activemetoprolol tartrate 25 mg oral tablet (15 sources)beta-Adrenergic BlockerStart: 08-01-2024 End: 82-37-9867owvd 1 tablet by mouth once dailyMetoprolol Tartrate 25 mg tablet Discontinued 25 MG PO Daily August 01, 2024 12:00am August 01, 2024 3:58pm FreeTextSi tablet once a day; Note: Source Status: Taking; Provider: Antwan Ozuna ( )Start: 09-21-2022 End: 08-28-5113mefe 1 tablet by mouth once dailymetoprolol succinate [...] mg capsule,delayed release(DR/EC) (1 source)Start: 12-14-2024 End: 40-24-9544zmre 1 capsule by mouth once dailyOmeprazole 20 mg capsule,delayed release(DR/EC) Discontinued 0 .ROUTE .COMPLEX 90 December 14, 2024 2:26pm February 08, 2025 10:24am TAKE 1 CAPSULE BY MOUTH EVERY DAY Problems Active Problems Problem ClassificationProblemDateDocumented DateEpisodic/ChronicCardiac dysrhythmias (3 sources)Palpitations; Translations: [Palpitations]Onset: 306694-02-9984 EpisodicChronic obstructive pulmonary disease and bronchiectasis (2 sources)Bronchitis; Translations: [Bronchitis, not specified as acute or chronic]20-38-0366LqdxecosCfyqtbute of lipid metabolism (18 sources)Hyperlipidemia, unspecified; Translations: [Hyperlipidemia]Onset: 12-62-9243DfvrbicJxilmgxoxq disorders (2 sources)Esophageal reflux finding; Translations: [Esophageal reflux]Onset: 25-09-6212XhupmseGzpmvohqc hypertension (20 sources)Hypertensive disorder; Translations: [Essential (primary) hypertension]Onset: 509701-48-2149LbdevfbDrnyrmpnnmznqvzf hemorrhage (4 sources)Hematochezia; Translations: [Melena]EpisodicNutritional deficiencies (15 sources)Vitamin D deficiency, unspecified; Translations: [Vitamin D deficiency]Onset: 806126-57-2906PbxrqfaJmpaltkplcue (20 sources)Age-related osteoporosis without current pathological fracture; Translations: [Osteoporosis]Onset: 995550-55-8159DtiduijJycng bone disease and musculoskeletal deformities (1 source)Other specified disorders of bone density and structure, unspecified site; Translations: [OTH D/O BONE DEN STRUCT UNS SITE]Onset: 48-56-6423Gofkfbru Other bone disease and musculoskeletal deformities (2 sources)Bone density finding; Translations: [Other specified disorders of bone density and structure, unspecified site]EpisodicOther liver diseases (1 source)Liver enzymes abnormal; Translations: [Abnormal levels of other serum enzymes]EpisodicOther liver diseases (1 source)Alkaline phosphatase level - finding; Translations: [Abnormal levels of other serum enzymes]20-38-4912HccgqdvdOgsma lower respiratory disease (2 sources)Cough; Translations: [Cough in adult]63-23-1039QugikrrtPjppn lower respiratory disease (4 sources)Chronic cough; Translations: [Chronic cough]89-57-4271YvnyoeeeWtlmb nervous system disorders (1 source)Tremor, unspecified; Translations: [TREMOR UNSPECIFIED]Onset: 04-79-9072OcrsfqnqKzkuk nervous system disorders (2 sources)Tremor; Translations: [Tremor, unspecified]Onset: 01-04-2025 74-60-3302GfjsxfaoEfutt nutritional; endocrine; and metabolic disorders (5 sources)Abnormal weight loss; Translations: [ABNORMAL WEIGHT LOSS]Onset: 90-92-8673SdbfuzdaDwrfg nutritional; endocrine; and metabolic disorders (4 sources)Abnormal weight loss; Translations: [Abnormal weight loss]Onset: 703401-14-9950RfwqhqsbGehkw screening for suspected conditions (not mental disorders or infectious disease) (12 sources)Encounter for screening mammogram for malignant neoplasm of breast; Translations: [Patient encounter status]Onset: 33-48-3013SqpnzmymOsvmfd media and related conditions (4 sources)Acute non-suppurative otitis media - serous; Translations: [Acute serous otitis media]Onset: 948332-43-1947OxdprqchYznrzqmi codes; unclassified (1 source)Family history of malignant neoplasm of other organs or systems; Translations: [FAM HX MALIG NEOPLASM OTH ORGN/SYS]Onset: 19-73-3172Ucecnwtb Residual codes; unclassified (2 sources)Tobacco user; Translations: [Tobacco use]EpisodicResidual codes; unclassified (2 sources)Family history of malignant neoplasm of gastrointestinal tract; Translations: [Family history of malignant neoplasm of digestive organs]Episodic Residual codes; unclassified (2 sources)Normal body mass index; Translations: [Body mass index (BMI) 21.0- 21.9, adult]EpisodicThyroid disorders (20 sources)Thyrotoxicosis, unspecified without thyrotoxic crisis or storm; Translations: [Graves' disease]Onset: 32-67-5361UvlcwlpMwcvhmaxcpem (1 source)Imm/InjOnset: 07-27-2025 Past or Other Problems Problem ClassificationProblemDateDocumented DateEpisodic/ChronicOther liver diseases (1 source)Abnormal levels of other serum enzymes; Translations: [ABNORMAL LEVELS OTHER SERUM ENZYMES]Onset: 61-43-6920OvewllduYnbqu nutritional; endocrine; and metabolic disorders (2 sources)Body mass index 25-29 - overweight; Translations: [Body mass index 29.0-29.9, adult]Onset: 09-36-6927WjufdxjeUbxxmfbearv; intervertebral disc disorders; other back problems (2 sources)Neck pain; Translations: [Cervicalgia]Onset: 52-87-5581Pfhntlnc Results Test NameValueInterpretationReference RangeFacilityCNNURSEon 95-80-2961ZYYQRVS Nurse Visit (ENDOLN) KILO MANTILLA ([id number]) 1950 F Date Time Provider Department 07/27/25 8:00 AM NURSE ENDO [facility] CLARITA SONG During your visit today, we recorded the [...] 05/30/2025 Encounter Status:Closed by REGLA LOPEZ on 07/27/25NoalCSt. Mary's [facility]25([place])D3 [facility] 324489-fpkepugnvjcckm D3 [Mass/Vol]38.5 ng/eQIirwgg17.0-80.0Mckitrick HospitalComsinai-gr[facility] on above:Order Comment: Specimen Type: BLOOD SPECIMENOrdering Facility: [facility] Address:[address] [place] [address]Ilypho Comment: Classification of 25 [place] Vitamin D status: Deficiency/Insufficiency: < or = 30 ng/ml. Sufficiency/Optimal Levels: 31-80 ng/mL Toxicity: > 100 ng/mL. Test performed by chemiluminescent immunoassay.Performed By: #### 1989-3 ####[facility] SHARRON [id number] [place] [id number] [facility] ANTHONY'S HOSPITALCNOVon 62-51-0204YQSJFvvfwa Visit (ENDOLN) KILO MANTILLA ([id number]) 1950 F Date Time Provider Department 07/02/25 8:30 AM KASSANDRA ENCISO ENDOLN During your visit today, we recorded [...] ago; results not available ( done in [facility] ) - On Fosamax for over [...] deficit no termors DATA REVIEW: Latest Ref [facility] 08/11/2024 Calcium 8.5 - 10.2 mg/dL 9.1 [...] FOR MORE INFORMATION ABOUT DIAGNOSIS AND TREATMENT: [facility] Osteoporosis and Metabolic Bone Disease:? www.ccf.org/arthritis/osteo National Osteoporosis Foundation:? www.nof.org International Society of Clinical Densitometry www.iscd.org Supervisor Refractory Products: 02826 Transcribe Date/Time: Apr 26 2025 8:56A Impression/plan: # Age-related osteoporosis without current pathological fracture (M81.0) - Chronic osteoporosi (more content not included)...NormalMckitrick HospitalCollagen crosslinked C-telopeptide [Mass/Vol]on 07-02-2025 TELOPEPTIDE, BETA CROSS IFTOWX737 pg/zUXhgpfk800-932NvtcmcmdeMckitrick Hospital Comment on above:Order Comment: Specimen Type: BLOOD SPECIMENOrdering Facility: [facility] Address:[address] [place] [address] Performed By: #### 36202-1 ####[facility] LABCLIA [id number] [place] [address] [place] Glomerular filtration rate [Volume Rate/Area] in Serum, Plasma or Blood by CreatinineOrdered By: Kassandra Enciso on 40-20-5864Sqnzvzpzxd filtration rate [Volume Rate/Area] in Serum, Plasma or Blood by Wtfilvsbsq20 mL/min/1.73m???>=60 Peoples HospitalComment on above:Estimated Glomerular Filtration Rate (eGFR) is [...] GFR.Order Comment: Specimen Type: BLOOD SPECIMENOrdering Facility: [facility] Address:[address] [place], [place] [address]Byuezu Comment: Estimated Glomerular Filtration Rate (eGFR) is [...] reflect actual GFR. Performed By: #### 2731-8, 47825-1 ####[facility] LABCLIA [id number] [place] [address] [place] Glucose [Mass/volume] in Serum or PlasmaOrdered By: Kassandra Enciso on 07-02-2025 Glucose [Mass/Vol]89 mg/qC81-15HbqriaqkcPeoples HospitalComment on above:The [place] Diabetes Association (ADA) provides guidance for cutoff [...] diabetes.Reference: Standardsof Medical Care in Diabetes 2016, [place] Diabetes Association. Diabetes Care. 2016.39(Suppl 1).Order Comment: Specimen Type: BLOOD SPECIMENOrdering Facility: [facility] Address:[address] [place], [place] [address]Drhyku Comment: The [place] Diabetes Association (ADA) provides guidance for cutoff [...] Standards of Medical Care in Diabetes 2016, [place] Diabetes Association. Diabetes Care. 2016.39(Suppl 1).Performed By: #### 2731-8, 07960-4 ####[facility] LABCLIA [id number] [address] [address] [facility] Panel InformationOrdered By: Kassandra Enciso on 236137-Awtmcgd Vitamin D Total38.5 ng/mL31.0-80.0 Peoples HospitalComment on above:Classification of 25 [place] Vitamin D status: Deficiency/Insufficiency: < or = 30 ng/ml.Sufficiency/Optimal Levels: 31-80 ng/mLToxicity: > 100 ng/mL. Test performed by chemiluminescent immunoassay.Collagen Beta-CrossLaps (Beta-CTx)293 pg/gQ808-418VwyeuhlzkPeoples HospitalParathyroid Hormone (Intact)34 pg/zV07-76ThlmwnyuuPeoples HospitalPhosphorus Level3.6 mg/dL2.7-4.8[facility] PTH-Intact SerPl-mCncon 56-12-9865Xavqbksmiq.intact [Mass/Vol]34 pg/mLNormal 15-65Mckitrick HospitalComment on above:Order Comment: Specimen Type: BLOOD SPECIMENOrdering Facility: [facility] Address:[address] [place] [address]Bpvcacynn By: #### 2731-8, 38524-6 ####[facility] LABCLIA [id number] [address] [place] [address] [facility]IA[facility] MEDICAL CENTERRenal Func 2000 Pnl SerPlOrdered By: Kassandra Enciso on 04-75-3219Iyhokpn [Mass/Vol]4.5 g/dL3.9-4.9[facility] Comment on above:Order Comment: Specimen Type: BLOOD SPECIMENOrdering Facility: [facility] Address:[address] [place] [address] Performed By: #### 2731-8, 82234-5 ####[facility] LABCLIA [id number] [place] [address] [place] Calcium [Mass/Vol]9.8 mg/dL8.5-10.2FRegency Hospital CompanyComment on above:Order Comment: Specimen Type: BLOOD SPECIMENOrdering Facility: [facility] Address:[address] [place], [place] [address]Performed By: #### 2731-8, 81876-1 ####[facility] LABCLIA [id number] [place] [address] [place] AMERICAChloride [Moles/Vol] 107 mmol/M21-863CkdwbmayoPeoples HospitalComment on above:Order Comment: Specimen Type: BLOOD SPECIMENOrdering Facility: [facility] Address:[address] [place], [place] [address]Performed By: #### 2731-8, 33423-2 ####[facility] LABCLIA [id number] [place] [address] [place] AMERICACO2 [Moles/Vol]24 mmol/L22-30 Peoples HospitalComment on above:Order Comment: Specimen Type: BLOOD SPECIMENOrdering Facility: [facility] Address:[address] [place], [place] [address]Performed By: #### 2731-8, 39029-7 ####[facility] LABCLIA [id number] [place] [id number] [place] AMERICACreatinine [Mass/Vol]0.85 mg/dL0.58-0.96Peoples HospitalComment on above:Order Comment: Specimen Type: BLOOD SPECIMENOrdering Facility: [facility] Address:[address] [place], [place] [address]Performed By: #### 2731-8, 23664-2 ####[facility] LABCLIA [id number] [place] [id number] [place] AMERICAPotassium [Moles/Vol]5.1 mmol/L3.7-5.1FRegency Hospital CompanyComment on above:Order Comment: Specimen Type: BLOOD SPECIMENOrdering Facility: [facility] Address:[address] [place], [place] [address]Performed By: #### 2731-8, 21837-4 ####[facility] LABCLIA [id number] [place] [address] [place] AMERICASodium [Moles/Vol]145 mmol/PKquv514-384BewoiournPeoples HospitalComment on above:Order Comment: Specimen Type: BLOOD SPECIMENOrdering Facility: [facility] Address:[address] [place], [place] [address]Performed By: #### 2731-8, 91369-4 ####[facility] LABCLIA [id number] [address] STATES OF AMERICAUrea nitrogen [Mass/Vol]10 mg/dL7-21Peoples HospitalComment on above:Order Comment: Specimen Type: BLOOD SPECIMENOrdering Facility: [facility] Address:[address] [place], [place] [address]Performed By: #### 2731-8, 95822-0 ####[facility] LABCLIA [id number] [place] [address] [place] AMERICARenal function 2000 panelon 84-73-4088Hyrrbzuyd [Mass/Vol]3.6 mg/dLNormal 2.7-4.8CSt. Mary's Medical CenterComment on above:Order Comment: Specimen Type: BLOOD SPECIMENOrdering Facility: [facility] Address:[address] [place], [place] [address]Performed By: #### 2731-8, 12173-7 ####[facility] LABCLIA [id number] [place] [id number] [place] AMERICASerum or plasma anion gap determinationOrdered By: Kassandra Enciso on 90-22-2269Rkzrz gap [Moles/Vol]14 mmol/L8-15Peoples HospitalComment on above:Order Comment: Specimen Type: BLOOD SPECIMENOrdering Facility: [facility] Address:[address] [place], [place] [address]Performed By: #### 2731-8, 26141-0 ####[facility] LABCLIA [id number] [facility]OSPITALK [address]ETCNOVon 13-93-2340LYCNGmjbot Visit (ENDOCC) KILO MANTILLA ([id number]) 1950 F Date Time Provider Department 05/30/25 9:00 AM YESSI CARSON ENDOCC During your visit today, we recorded the following information about you: Pulse Blood pressure Weight Height 62/minute 129/82 72.6 kg 1.626 m Jose Trinh LPN 05/30/2025 9:46 AM Signed Labs: 05/18/2025 Yessi Carson MD 05/30/2025 9:46 AM Signed Kilo Tinajerobalwinder is a 75 year old female seen [...] - 1.12 0.46 (A (more content not included)...NormalWyandot Memorial HospitalTORY PHYSICALon 67-56-9321DTMHHBT PHYSICALHNO ID: [id number] Author: JOSE TRINH LPN Service: ? Author Type: Licensed Nurse Type: H&P Filed: 05/30/2025 09:46 Note Text: Labs: 05/18/2025NormalCCentervilleoratory - Chemistry and Chemistry - challengeOrdered By: Yessi Carson on 25-52-5671Mytz T4 [Mass/Vol]1.0 ng/dL0.9-1.7FRegency Hospital CompanyTSH Qn1.690 m[IU]/L0.270-4.200 Peoples HospitalNo Panel InformationOrdered By: Yessi Carson on 76-93-4955Avpt Triiodothyronine3.2 pg/mL2.3-4.1FRegency Hospital Company Thyroid Growth Stim ImmunoglobulinNegativeNegativePeoples HospitalT3Free SerPl-mCncon 23-00-1575Pliz T3 [Mass/Vol]3.2 pg/mLNormal2.3-4.1 Mckitrick HospitalComment on above:Order Comment: Specimen Type: BLOOD SPECIMENOrdering Facility: [facility] Address:[address] [place], [place] [address]Performed By: #### 3051-0, 3024-7, 3016-3 ####[facility] LABCLIA [id number] [address] STATES OF AMERICAT4 Free SerPl-mCncon 70-47-1815Kgxl T4 [Mass/Vol] 1.0 ng/dLNormal0.9-1.7CSelect Medical Specialty Hospital - [facility] on above:Order Comment: Specimen Type: BLOOD SPECIMENOrdering Facility: [facility] Address:[address] [place], [place] [address]Performed By: #### 3051-0, 3024-7, 3016-3 ####[facility] LABCLIA [id number] [place] [address] [place] AMERICATHYROID STIMULATING IMMUNOGLOBULIN BLOODon 23-64-3005Knmfqsi stimulating immunoglobulins actual/normal (S) [Relative mass conc]0.32 IU/LNormal<0.55[facility] on above:Order Comment: Specimen Type: BLOOD SPECIMENOrdering Facility: [facility] Address:[address] [place], [place] [address]Result Comment: Thyroid Stimulating Immunoglobulin test is used as an aid in diagnosis of autoimmune hyperthyroidism especially in patients with Grave's orbitopathy and dermopathy. Low positive TSH receptor stimulating antibody levels may occasionally be found in patients with autoimmune hypothyroidism. Clinical correlation is required.Performed By: #### TSIGIM ####[facility] LABIA [id number] [place] [address] [place] AMERICATSI QUALITATIVENegativeNormalNegativeWayne HealthCare Main Campus on above:Order Comment: Specimen Type: BLOOD SPECIMENOrdering Facility: [facility] Address:[address] [place], [place] [address]Performed By: #### TSIGIM ####[facility] LABIA [id number] [place] [address] [place] TSH SerPl-aCncon 31-03-7660VMD Qn1.690 m[IU]/LNormal0.270-4.200[facility] on above:Order Comment: Specimen Type: BLOOD SPECIMENOrdering Facility: [facility] Address:[address] [place], [place] [address]Performed By: #### 3051-0, 3024-7, 3016-3 ####[facility] LABCLIA [id number] [place] [address] [place] OF AMERICAThyroid stimulating immunoglobulin (TSI) measurementOrdered By: Yessi Carson on 62-73-3980Gxrxmjg stimulating immunoglobulins actual/normal (S) [Relative mass conc]0.32 IU/L<0.55Peoples HospitalComment on above:Thyroid Stimulating Immunoglobulin test is used as an aid in diagnosis of autoimmune hyperthyroidism especially in patients with Grave's orbitopathy and dermopathy. Low positive TSH receptor stimulating antibody levels may occasionally be found in patients with autoimmune hypothyroidism. Clinical co rrelation is required.US THYROID/PARATHYROIDon 64-73-7786SH THYROID/PARATHYROID* * *Final Report* * * DATE [...] 2 points Echogenicity: Isoechoic, 1 point Shape: Ggirs-olqk-crsj, 0 points Margin: Ill-defined, 0 points Echogenic [...] 2 points Echogenicity: Hypoechoic, 2 points Shape: Bzxse-ckgw-dcia, 0 points Margin: Smooth, 0 points Echogenic [...] 2 points Echogenicity: Isoechoic, 1 point Shape: Quded-otpc-euih, 0 points Margin: Smooth, 0 points Echogenic [...] 2 points Echogenicity: Isoechoic, 1 point Shape: Hzgus-gqyp-bewg, 0 points Margin: Smooth, 0 points Echogenic [...] not consider stability or previous biopsy results. Supervisor Refractory Products: BORA Transcribe Date/Time: May 18 2025 11:11A Dictated by : BRUCE BEATTY MD This examination was interpreted and the report reviewed and electronically signed by: BRUCE BEATTY MD on May 18 2025 11:45AM EST [id number] Community Hospital Thyroid glandon 87-24-2017LAWBUBZEMT: Thyroid nodule(s) is/are present. Fine needle aspiration is recommended if not previously performed. TI-RADS Category: TR4 ACR Recommendation: TI-RADS 4 nodule. FNA is recommended. ACR recommendations are strictly based on the size and imaging appearance at the time of the exam and do not consider stability or previous biopsy results. Supervisor Refractory Products: PSCBalta Transcribe Date/Time: May 18 2025 11:11A Dictated by : BRUCE BEATTY MD This examination was interpreted and the report reviewed and electronically signed by: BRUCE BEATTY MD on May 18 2025 11:45AM [facility] DIVISION OF RADIOLOGY* * *Final Report* * * DATE OF EXAM: May 18 2025 8:14AM U 1048 - US THYROID/PARATHYROID / PROCEDURE [...] 2 points Echogenicity: Isoechoic, 1 point Shape: Bspkk-fsdh-czvp, 0 points Margin: Ill-defined, 0 points Echogenic [...] 2 points Echogenicity: Hypoechoic, 2 points Shape: Guvou-pnyi-cbum, 0 points Margin: Smooth, 0 points Echogenic [...] 2 points Echogenicity: Isoechoic, 1 point Shape: Nklxz-sknl-xuga, 0 points Margin: Smooth, 0 points Echogenic [...] 2 points Echogenicity: Isoechoic, 1 point Shape: Omkuz-bjwe-hian, 0 points Margin: Smooth, 0 points Echogenic foci (add points for all that apply): None, 0 points Internal vascularity: present Interval growth: Stable TI-RADS Category: TR3 ACR Recommendation: TI-RADS 3 nodule. No FNA or further imaging is advised. DIVISION OF RADIOLOGYProvider, [facility] [place] - 05/18/2025 * * *Final Report* * * DATE OF EXAM: May 18 2025 8:14AM [facility] 1048 - US THYROID/PARATHYROID / PROCEDURE REASON: [...] 2 points Echogenicity: Isoechoic, 1 point Shape: Iieor-mbmf-nvae, 0 points Margin: Ill-defined, 0 points Echogenic [...] 2 points Echogenicity: Hypoechoic, 2 points Shape: Acmaa-zpby-skjs, 0 points Margin: Smooth, 0 points Echogenic [...] 2 points Echogenicity: Isoechoic, 1 point Shape: Hciyo-vomq-vdda, 0 points Margin: Smooth, 0 points Echogenic [...] 2 points Echogenicity: Isoechoic, 1 point Shape: Grzqu-qijz-wbgj, 0 points Margin: Smooth, 0 points Echogenic [...] not consider stability or previous biopsy results. Supervisor Refractory Products: BORA Transcribe Date/Time: May 18 2025 11:11A Dictated by : BRUCE BEATTY MD This examination was interpreted and the report reviewed and electronically signed by: BRUCE BEATTY MD on May 18 2025 11:45AM EST [facility] HospitalRadiology Study observation (narrative)[facility] Thyroid glandOrdered By: Ccf Provider on 52-69-4490Zlolumqtp ClinicBD DXA - AXIAL SKELETONon 49-49-5575YE DXA - AXIAL SKELETON* * *Final Report* * * DATE OF EXAM: Apr 26 2025 8:55AM LNB 0804 - BD DXA - AXIAL SKELETON B / PROCEDURE REASON: DENSITY * * * * Physician Interpretation * * * * EXAMINATION: DXA BONE DENSITOMETRY BD DXA - AXIAL SKELETON PATIENT DEMOGRAPHICS: Age: 75 years, Gender: Female SCANNER INFORMATION: DXA Model: Rank By Search [id number] Date Scanned: 04/26/2025 8:55 AM CLINICAL HISTORY: [...] had a previous bone density in the [facility] or the previous bone density was performed on a different DXA machine (new, updated model or different location) within the [facility]. VERTEBRAL FRACTURE ASSESSMENT Not performed. TRABECULAR [...] FOR MORE INFORMATION ABOUT DIAGNOSIS AND TREATMENT: [facility] Osteoporosis and Metabolic Bone Disease:? www.ccf.org/arthritis/osteo National Osteoporosis Foundation:? www.nof.org International Society of Clinical Densitometry www.iscd.org Supervisor Refractory Products: 87187 Transcribe Date/Time: Apr 26 2025 8:56A Dictated by : JERRI RICHARDS MD This examination was interpreted and the report reviewed and electronically signed by: JERRI RICHARDS MD on Apr 30 2025 7:27AM EST [id number] -2.7NoTwin City HospitalHISTORY PHYSICALon 63-01-6414HMBIWRI PHYSICALHNO ID: [id number] Author: JOSE TRINH LPN Service: ? Author Type: LICENSED NURSE Type: H&P Filed: 02/16/2025 07:06 Note Text: Labs: 11/17/2024NoTwin City HospitalT3Free SerPl-mCncon 02-15-2025 Free T3 [Mass/Vol]3.2 pg/mLNormal2.3-4.1ClevelBluffton Hospital on above:Order Comment: Specimen Type: BLOOD SPECIMENOrdering Facility: [facility] Address:[address] [place], [place] [address]Performed By: #### 3051-0, 3024-7, 3016-3 ####[facility] LABCLIA [id number] [place] [address] [place] AMERICAT4 Free SerPl-mCnc 61-94-5999Uzqi T4 [Mass/Vol]1.1 ng/dLNormal0.9-1.7ClevelBluffton Hospital on above:Order Comment: Specimen Type: BLOOD SPECIMENOrdering Facility: [facility] Address:[address] [place], [place] [address]Performed By: #### 3051-0, 3024-7, 3016-3 ####[facility] LABCLIA [id number] [address] STATES [facility] HOSPITALTS SerPl-aCncon 28-21-0487PDM Qn0.768 m[IU]/LNormal0.270-4.200[facility] on above:Order Comment: Specimen Type: BLOOD SPECIMENOrdering Facility: [facility] Address:[address] [place], [place] [address]Performed By: #### 3051-0, 3024-7, 3016-3 ####[facility] LABIA [id number] [place] [id number] [place] OF AMERICALaboratory - Chemistry and Chemistry - challengeon 69-09-1658Fprl T4 [Mass/Vol]1.0 ng/dL0.9-1.7FRegency Hospital Company TSH Qn0.959 m[IU]/L0.270-4.200Peoples HospitalNo Panel Informationon 48-23-3944Ozdp Triiodothyronine3.1 pg/mL2.3-4.1FRegency Hospital CompanyT3Free SerPl-mCncon 36-84-3697Fwir T3 [Mass/Vol]3.1 pg/mLNormal 2.3-4.1CSelect [facility] on above:Order Comment: Specimen Type: BLOOD SPECIMENOrdering Facility: [facility] Address:[address] [place], [place] [address]Performed By: #### 3051-0, 3024-7, 3016-3 ####[facility] LABCLIA [id number] [place] [address] [place] AMERICAT4 Free SerPl-mCncon 50-74-8343Iiwk T4 [Mass/Vol] 1.0 ng/dLNormal0.9-1.7CSelect [facility] Specialty [facility] on above:Order Comment: Specimen Type: BLOOD SPECIMENOrdering Facility: [facility] Address:[address] [place], [place] [address]Performed By: #### 3051-0, 3024-7, 3016-3 ####[facility] LABIA [id number] [place] [address] [place] AMERICATS SerPl-aCncon 75-00-9239VRI Qn0.959 m[IU]/LNormal0.270-4.200[facility] on above:Order Comment: Specimen Type: BLOOD SPECIMENOrdering Facility: [facility] Address:[address] [place], [place] [address]Performed By: #### 3051- 0, 3024-7, 3016-3 ####[facility] LABIA [id number] [place] [address] [place] YESHBRM40([place])D3 SerPl-mCncon 964473-vqxcazuvcmgmoq D3 [Mass/Vol]37.2 ng/lNXhlpdk74.0-80.0[facility] on above:Order Comment: Specimen Type: BLOOD SPECIMENOrdering Facility: [facility] Address:[address] [place], [place] [address]Performed By: #### 1989-3 ####[facility] LABIA [id number] [place] [id number] [place] OF AMERICACalcium SerPl-mCncon 93-03-6492Qzvzbik [Mass/Vol]9.1 mg/dLNormal8.5-10.2 [facility] on above:Order Comment: Specimen Type: BLOOD SPECIMENOrdering Facility: [facility] Address:[address] [place], [place] [address]Performed By: #### 07897-9 ####[facility] LABCLIA [id number] [place], [place] [address]FDT-Kirvpn SerPl-mCncon 61-35-1346Dtrhnbssfy.intact [Mass/Vol]52 pg/jVRyorku01-62BslpajixmWayne HealthCare Main Campus on above:Order Comment: Specimen Type: BLOOD SPECIMENOrdering Facility: [facility] Address:[address] [place], [place] [address]Performed By: #### 3051-0, 3024-7, 3016-3, 273-8 ####[facility] LABIA [id number] [place] [address] [place] OF ICIFGPIK7Mqbc SerPl-mCncon 08-11-2024 Free T3 [Mass/Vol]3.0 pg/mLNormal2.3-4.1CSelect [facility] on above:Order Comment: Specimen Type: BLOOD SPECIMENOrdering Facility: [facility] Address:[address] [place], [place] [address]Performed By: #### 3051-0, 3024-7, 3016-3, 273-8 ####[facility] LABIA [id number] [place] [id number] [place] T4 Free SerPl-mCncon 29-76-9863Pdlz T4 [Mass/Vol]1.0 ng/dLNormal0.9-1.7CSelect [facility] on above:Order Comment: Specimen Type: BLOOD SPECIMENOrdering Facility: [facility] Address:[address] [place], [place] [address]Performed By: #### 3051-0, 3024-7, 3016-3, 2730-8 ####[facility] LABCLIA [id number] [place] [address] [place] AMERICATHYROID STIMULATING IMMUNOGLOBULIN BLOODon 44-73-6872Nsjaldf stimulating immunoglobulins actual/normal (S) [Relative mass conc]0.45 IU/LNormal<0.55[facility] on above:Order Comment: Specimen Type: BLOOD SPECIMENOrdering Facility: [facility] Address:[address] [place], [place] [address]Result Comment: Thyroid Stimulating Immunoglobulin test is used as an aid in diagnosis of autoimmune hyperthyroidism especially in patients with Grave's orbitopathy and dermopathy. Low positive TSH receptor stimulating antibody levels may occasionally be found in patients with autoimmune hypothyroidism. Clinical correlation is required.Performed By: #### TSIGIM ####[facility] LABCLIA [id number] [place] [address] [place] AMERICATSI QUALITATIVENegativeNormalNegativeWayne HealthCare Main Campus on above:Order Comment: Specimen Type: BLOOD SPECIMENOrdering Facility: [facility] Address:[address] [place], [place] [address]Performed By: #### TSIGIM ####[facility] LABCLIA [id number] [place] [address] [place] TSH SerPl-aCncon 88-08-6344OHR Qn1.350 m[IU]/LNormal0.270-4.200[facility] on above:Order Comment: Specimen Type: BLOOD SPECIMENOrdering Facility: [facility] Address:[address] [place], [place] [address]Performed By: #### 3051-0, 3024-7, 3016-3, 2730-8 ####[facility] LABCLIA [id number] [facility] [id number] [place] [address] [place] AMERICAUS THYROID/PARATHYROIDon 50-96-2110XK THYROID/PARATHYROID* * *Final Report* * * DATE [...] 2 points Echogenicity: Isoechoic, 1 point Shape: Gvtqn-akab-nptm, 0 points Margin: Ill-defined, 0 points Echogenic [...] 2 points Echogenicity: Hypoechoic, 2 points Shape: Lckep-kdvh-jxvr, 0 points Margin: Smooth, 0 points Echogenic [...] 1 point Echogenicity: Hypoechoic, 2 points Shape: Bpgmj-ixfj-qtzx, 0 points Margin: Smooth, 0 points Echogenic [...] 2 points Echogenicity: Isoechoic, 1 point Shape: Gdzop-qzkp-rwkj, 0 points Margin: Smooth, 0 points Echogenic [...] not consider stability or previous biopsy results. Supervisor Refractory Products: BORA Transcribe Date/Time: Jun 09 2024 10:17A Dictated by : GABINO MCDONALD MD This examination was interpreted and the report reviewed and electronically signed by: GABINO MCDONALD MD on Jun 09 2024 10:26AM EST [id number] HospitalUS THYROID FNA (POC) ENDO USE ONLYon 07-90-1793Ktrzbjhll ClinicUS thyroidon 32-30-9605LG [facility] [place] [address] Ultrasound Report Signed Patient: Kilo Mantilla MR#: [id number] : 1950 Acct:[id number] Age/Sex: 73 / F ADM Date: 12/08/23 Loc: Room: Type: [facility] Attending Dr: Yessi Carson Ordering Provider: Yessi [...] Lisa Vang M.D.12/08/2023 10:11 AM Dictation Location: [place] [address] Tech: Dunia Dunlapanna Transcribed By: ALEX 12/08/23 1011 Dictated By: Lisa Vnag MD 12/08/23 1002 Signed By: 12/08/23 1011[facility] Physician GroupUS thyroidon 38-65-5949CA [facility] [place] [id number] Ultrasound Report Signed Patient: Kilo Mantilla MR#: [id number] : 1950 Acct:[id number] Age/Sex: 72 / F ADM Date: 03/19/23 Loc: Room: Type: [facility] Attending Dr: Yessi Carson Ordering Provider: Yessi [...] Lisa Vang M.D.03/19/2023 9:35 AM Dictation Location: [place] [address] Tech: Monica Lane Transcribed By: ALEX 03/19/23 0935 Dictated By: Lisa Vang MD 03/19/23 0930 Signed By: 03/19/23 0935[facility] Physician GroupALKALINE PHOSPHATASEon 65-38-6137MQH [Catalytic activity/Vol]147 U/DJyhosorl94 - 104 U/LCleveland ClinicAlanine aminotransferase [Enzymatic activity/volume] in Serum or Plasma Ordered By: Yamila Ang on 52-85-4338OTQ [Catalytic activity/Vol]18 U/L7-52 Peoples HospitalAlbumin [Mass/volume] in Serum or Plasma by Bromocresol green (BCG) dye binding methoOrdered By: Yamila Ang on 01-13-2023 Albumin BCG dye [Mass/Vol]4.2 g/dL3.5-5.7FRegency Hospital Company Alkaline phosphatase [Enzymatic activity/volume] in Serum or PlasmaOrdered By: Yamila Ang on 62-07-6741TKA [Catalytic activity/Vol]147 U/G54-308OrrjbqzsbPeoples HospitalAspartate aminotransferase [Enzymatic activity/volume] in Serum or PlasmaOrdered By: Yamila Ang on 04-99-0992PUW [Catalytic activity/Vol]17 U/O34-03OizuindkiPeoples HospitalBilirubin.direct [Mass/volume] in Serum or PlasmaOrdered By: Yamila Ang on 01-13-2023 Bilirubin.direct [Mass/Vol]0.10 mg/dL0.03-0.18FRegency Hospital Company Bilirubin.total [Mass/volume] in Serum or PlasmaOrdered By: Yamila Ang on 27-14-3057Xxjtdqzug [Mass/Vol]0.5 mg/dL0.3-1.0[facility] FREE T4on 29-31-6891Wuei T3 [Mass/Vol]3.2 pg/mL2.5 - 3.9 pg/mLCleveland Clinic Globulin Calc (S) [Mass/Vol]Ordered By: Yamila Ang on 57-60-4900Jafwavlb (S) [Mass/Vol]2.4 g/dLPeoples HospitalProtein [Mass/volume] in Serum or PlasmaOrdered By: Yamila Ang on 40-11-3581Qxgkjyw [Mass/Vol]6.6 g/dL 6.4-8.9[facility] Health Systemerum or plasma albumin/globulin mass ratioOrdered By: Yamila Ang on 70-83-0963Kyabiqy/Globulin [Mass ratio]1.8 {ratio}[facility] Health Systemerum or plasma non-glucuronidated bilirubin measurement (mass/volume)Ordered By: Yamila Ang on 01-13-2023 Bilirubin.indirect [Mass/Vol]0.4 mg/dLPeoples Hospital Thyrotropin [Units/volume] in Serum or PlasmaOrdered By: Yamila Ang on 89-77-5184EQO Qn9.54 m[IU]/L0.45-5.33Peoples HospitalThyroxine (T4) free [Mass/volume] in Serum or PlasmaOrdered By: Yamila Ang on 99-21-4139Tlbu T4 [Mass/Vol]0.46 ng/dLAbnormal0.61 - 1.12Peoples HospitalTriiodothyronine (T3) Free [Mass/volume] in Serum or PlasmaOrdered By: Yamila Ang on 92-73-6792Njbh T3 [Mass/Vol]3.17 pg/mL2.50-3.90Peoples HospitalFERRITIN BLDon 57-66-7272Ccxylbpm [Mass/Vol]125.1 ng/mL 14.7 - 205.1 ng/mLCleveland ClinicGGT BLDon 74-95-4895Jbzcf glutamyl transferase [Catalytic activity/Vol]21 U/L6 - 46 U/LCleveland ClinicHEP B SURF AG SCRNon 53-01-3233OUK surface Ag Ql (S)NegativeNegativeCleKettering Health SpringfieldPATITIS A ANTIBODY, IGGon 52-15-7540Iewkixeix A IgGNegativeNegativeEast Liverpool City HospitalIron and Iron binding capacity panelon 71-30-8700Ugqk [Mass/Vol]61 ug/dL41 - 186 ug/dLCleveland ClinicIron binding capacity [Mass/Vol]323 ug/dL232 - 386 ug/dL [facility] City HospitalIron/TIBC [Molar ratio]18.9 %15.0 - 57.0 %[facility] THYROID ANTIBODIESon 52-53-7014Qqkamfypjssrk Ckffvuvk86.2 IU/mLCritically high 0.0-0.9The [facility] on above:Result Comment: Thyroglobulin Antibody measured by 500Friends MethodologyPerformed By: #### THYRABS #### [facility] [address] [place] [address] [address] Machelle ArcherThyroid Peroxidase (TPO) Ab128 IU/mLCritically high0-34The Delaware County Hospitalment on above:Performed By: #### THYRABS #### [facility] [address] [place], [place] [address] Dr. Machelle Nation T3on 21-01-0205TNIJ T310.08 pg/mlLCritically high2.18-3.98 The [facility] Hospitalment on above:Performed By: #### TSH, LIVER, FT3 #### [facility] [address] [place] [address] [address] Machelle Nation T4on 77-94-8834Hgjh T4 [Mass/Vol]2.47 ng/dLCritically high 0.76-1.46The [facility] CenterComment on above:Performed By: #### FT4 ####[facility] [address] [place] [address]Dr. Machelle Phelan PROFILEon 48-03-3991Jarhefh [Mass/Vol]3.5 g/dLNormal3.4-5.0The [facility] Medical CenterComment on above:Performed By: #### TSH, LIVER, FT3 #### [facility] [address] [place] [address] [address] Machelle ArcherAlbumin/Globulin [Mass ratio]1.1 {ratio}NormalThe [facility] on above:Performed By: #### TSH, LIVER, FT3 #### [facility] [address] [place] [address] [address] Machelle Kellogg [Catalytic activity/Vol]159 U/LCritically ovbk22-271Gtx [facility] CenterComment on above:Performed By: #### TSH, LIVER, FT3 #### [facility] [address] [place] [address] [address] Machelle Humphrey [Catalytic activity/Vol]98 U/LCritically loip52-76Uvw [facility] Hospitalment on above:Performed By: #### TSH, LIVER, FT3 #### [facility] [address] [place] [address] [address] Machelle Moreno [Catalytic activity/Vol]41 U/LCritically qofk48-03Iym [facility] Hospitalment on above:Performed By: #### TSH, LIVER, FT3 #### [facility] [address] [place] [address] [address] Machelle Barroso, CONJUGATED0.1 mg/dLNormal0.0-0.2The [facility] Comment on above:Performed By: #### TSH, LIVER, FT3 #### [facility] [address] [place] [address] [address] Machelle Pendletonirubin [Mass/Vol]0.2 mg/dLNormal0.2-1.0The [facility] Comment on above:Performed By: #### TSH, LIVER, FT3 #### [facility] [address] [place] [address] [address] Machelle ArcherGlobulin (S) [Mass/Vol]3.3 g/dLNormalThe [facility] CenterComment on above:Performed By: #### TSH, LIVER, FT3 #### [facility] [address] [place] [address] [address] Machelle ArcherProtein [Mass/Vol]6.8 g/dLNormal6.4-8.2[facility] Comment on above:Performed By: #### TSH, LIVER, FT3 #### [facility] [address] [place] [address] Dr. Machelle ArcherAlbany Medical Centersotero 40-86-1244ILA Qnm[IU]/LCritically low0.358-3.740[facility] Union HospitalComment on above:Performed By: #### TSH, LIVER, FT3 #### [facility] [address] [place] [address] Dr. Machelle ArcherMG MAMM SCREEN 3D NIDA CADon 56-90-9706UQ MAMM SCREEN 3D NIDA CAD Patient: KILO MANTILLA Exam Date: 08/14/2022 : 1950 Gender:F Ordering : DR ROSALIE MONCADA M.D. Admission #: [id number] Family : Order #: [id number] CLICK HERE TO VIEW EXAM RADIOLOGY REPORT [...] uterine cancer at age 70. LOCATION: The [facility] BREAST COMPOSITION: Extremely dense, which lowers [...] by: Tang Montoya MD on 08/14/2022 at 09:17[facility] Medical CenterXR DEXA BONE DENSITYon 48-56-8418BK DEXA BONE DENSITYEXAMINATION: XR DEXA BONE DENSITY, [...] Electronically authenticated by: LINDSEY AMADOR Date: 2022-08-14 07:57[facility]'s Medical CenterVIT D 1 25 DIHYDROXYon 24-96-7411Dlmbndntmf(1,25 di-[place] Vit D) 28.9 pg/nRTejszq66.8-81.5The [facility] CenterComment on above:Performed By: #### HVRN261 ####[facility] [address] [place], [place] [address]RnDr. Machelle De La Garza AUTO DIFFon 05-88-3757TEJC #0.0 103/ulNormal0.0-0.1The [facility] Medical CenterComment on above:Performed By: #### CBC #### [facility] [address] [place], [place] [address] Dr. Machelle ArcherBasophils/100 WBC (Bld)0.7 %Normal0.2-2.0The [facility] Comment on above:Performed By: #### CBC #### [facility] [address] [place] [address] [address] Machelle Stern #0.1 103/ulNormal0.0-0.7The [facility] Hospitalment on above: Performed By: #### CBC #### [facility] [address] [place] [address] Dr. Machelle Mcnultyosinophils/100 WBC (Bld)1.2 %Normal0.9-7.0The [facility] Comment on above:Performed By: #### CBC #### [facility] [address] [place] [address] Dr. Machelle Mcnultyrythrocyte distribution width (RBC) [Ratio]13.7 %Noypdx69.0-15.0 The [facility] CenterComment on above:Performed By: #### CBC #### [facility] [address] [place] [address] Dr. Machelle ArcherHematocrit (Bld) [Volume fraction]38.6 %Uuftpb05.0-48.0The [facility] CenterComment on above:Performed By: #### CBC #### [facility] [address] [place] [address] Dr. Machelle ArcherHemoglobin (Bld) [Mass/Vol]12.2 g/lQUjczii76.0-16.0The [facility] Hospitalment on above:Performed By: #### CBC #### [facility] [address] [place] [address] Dr. Machelle Lanza #0.01 10e3/ulNormal0.00-0.03The [facility] Hospitalment on above:Performed By: #### CBC #### [facility] [address] [place] [address] Dr. Machelle Lanza %0.2 %Normal0.0-0.5The [facility] CenterComment on above: Performed By: #### CBC #### [facility] [address] [place] [address] Dr. Machelle Barton #1.2 103/ulNormal1.2-3.8The [facility] CenterComment on above:Performed By: #### CBC #### [facility] [address] [place] [address] [address] Machelle Starkmphocytes/100 WBC (Bld)29.0 %Drxtpm32.5-60.0The [facility] CenterComment on above:Performed By: #### CBC #### [facility] [address] [place] [address] Dr. Machelle Alvarenga DIFF REQNONormalThe [facility] CenterComment on above: Performed By: #### CBC #### [facility] [address] [place] [address] Dr. Machelle Taylor (RBC) [Entitic mass]25.4 pgCritically low26.7-34.0The [facility] CenterComment on above:Performed By: #### CBC #### [facility] [address] [place] [address] Dr. Machelle Taylor (RBC) [Mass/Vol]31.6 g/nDZniski12.9-35.2The [facility] CenterComment on above:Performed By: #### CBC #### [facility] [address] [place] [address] Dr. Machelle Taylor (RBC) [Entitic vol]80.2 fLCritically low81.0-99.0The [facility] CenterComment on above:Performed By: #### CBC #### [facility] [address] [place] [address] Dr. Machelle Gonzalez #0.4 103/ulNormal0.3-0.8The [facility] on above:Performed By: #### CBC #### [facility] [address] [place] [address] Dr. Machelle Eldridgeocytes/100 WBC (Bld)8.9 %Normal1.7-12.0The [facility] on above:Performed By: #### CBC #### [facility] [address] [place] [address] Dr. Machelle Hoyos #2.6 103/ulNormal1.4-6.5The [facility] on above:Performed By: #### CBC #### [facility] [address] [address] [address] Machelle Forbesutrophils/100 WBC (Bld)60.0 %Nhwysx72.0-75.0The [facility] on above:Performed By: #### CBC #### [facility] [address] [address] [address] Machelle ArcherPlatelet mean volume (Bld) [Entitic vol]12.6 fLNormal9.5-13.5The [facility] CenterCom[facility] on above:Performed By: #### CBC #### [facility] [address] [address] [address] Machelle ArcherPLT185 103/uyXwxglt823-991Ptt [facility] on above: Performed By: #### CBC #### [facility] [address] [address] [address] Machelle ArcherRBC4.81 106/ulNormal4.20-5.40The [facility] on above:Performed By: #### CBC #### [facility] [address] [address] [address] Machelle ArcherWBC4.3 103/ulNormal4.0-11.0The [facility] on above: Performed By: #### CBC #### [facility] [address] [address] [address] Machelle ArcherLIPID PROFILEon 31-17-8048HFZT-HDL RATIO [facility] on above:Result Comment: 3.3 - 4.4 LOW RISK 4.4 - 7.1 AVERAGE RISK 7.1 - 11.0 MODERATE RISK >11.0 HIGH RISKPerformed By: #### LIPID, TSH, CMP ####[facility] [address] [address]Dr. Machelle ArcherCholesterol [Mass/Vol]201 mg/dLCritically high<=200The [facility] on above:Performed By: #### LIPID, TSH, CMP ####[facility] [address] [address]Dr. Yilan ChangCholesterol in HDL [Mass/Vol]55 mg/bPVpcrhk84-20GgqCleveland Clinic [facility] Comment on above:Performed By: #### LIPID, TSH, CMP ####[facility] [address] [address]Dr. Yilan ChangCholesterol in LDL [Mass/Vol]125.8 mg/dLNoOhioHealth Dublin Methodist HospitalComment on above:Performed By: #### LIPID, TSH, CMP ####[facility] [address] [address]Dr. Yilan ChangCholesterol.total/Cholesterol in HDL [Mass ratio]3.7 {ratio}NormalThe [facility] CenterComment on above:Performed By: #### LIPID, TSH, CMP ####[facility] [address] [address]Dr. Yilan ChangHDL NORMAL> or = 60 mg/dl - LOW CARDIOVASCULAR RISK <40 mg/dl - HIGH CARDIOVASCULAR RISKNoOhioHealth Dublin Methodist HospitalComment on above:Performed By: #### LIPID, TSH, CMP ####[facility] [address] [address]Dr. Yilan ChangLDL CALC NORMALSEE BELOWMercy Health St. Rita's Medical CenterComment on above:Result Comment: <100 mg/dl OPTIMAL 100 - 129 mg/dl NEAR OR ABOVE OPTIMAL 130 - 159 mg/dl BORDERLINE HIGH 160 - 189 mg/dl HIGH >190 mg/dl VERY HIGHPerformed By: #### LIPID, TSH, CMP ####[facility] [address] [address]Dr. Yilan ChangTriglyceride [Mass/Vol]101 mg/dLNormal<=150[facility] HospitalComsinai-gr[facility] on above:Performed By: #### LIPID, TSH, CMP ####[facility] [address] [address]Dr. Yilan ChangVLDL CALC20.2 mg/dLNoOhioHealth Dublin Methodist HospitalComment on above:Performed By: #### LIPID, TSH, CMP ####[facility] [address] [address]Dr. Yilan ChangPROF 14(COMP METB)on 47-53-9829Btbwbng [Mass/Vol]3.5 g/dLNormal3.4-5.0The [facility] CenterComment on above:Performed By: #### LIPID, TSH, CMP ####[facility] [address] [address]Dr. Yilan ChangAlbumin/Globulin [Mass ratio]1.0 {ratio}NormalThe [facility] Medical CenterComment on above:Performed By: #### LIPID, TSH, CMP ####[facility] X[address] [place], [place] [address]Dr. Yilan ChangALP [Catalytic activity/Vol]150 U/LCritically cqmo74-447Dct [facility] CenterComment on above:Performed By: #### LIPID, TSH, CMP ####[facility] [address] [place], [place] [address]Dr. Yilan ChangALT [Catalytic activity/Vol] 66 U/LCritically wcdq45-00Jui [facility] CenterComment on above:Performed By: #### LIPID, TSH, CMP ####[facility] Obt[address] [place], [place] [address]Dr. Yilan ChangAnion gap [Moles/Vol]10.2 mmol/LNormal The [facility] CenterComment on above:Performed By: #### LIPID, TSH, CMP ####[facility] Noxd[address] [place], [place] [address]Dr. Yilan ChangAST [Catalytic activity/Vol]33 U/DIamhzy78-58Csv [facility] Comment on above:Performed By: #### LIPID, TSH, CMP ####[facility] Zq[address] [place], [place] [address]Dr. Yilan ChangBilirubin [Mass/Vol]0.5 mg/dLNormal0.2-1.0The [facility] CenterComment on above:Performed By: #### LIPID, TSH, CMP ####[facility] I[address] [place], [place] [address]Dr. Yilan ChangCalcium [Mass/Vol]9.7 mg/dLNormal 8.5-10.1The [facility] Hospitalment on above:Performed By: #### LIPID, TSH, CMP ####[facility] [address] [address]Dr. Yilan ChangChloride [Moles/Vol]106 mmol/ZPblmqv79-569Crm [facility] Comment on above:Performed By: #### LIPID, TSH, CMP ####[facility] M[address] [place], [place] [address]Dr. Yilan ChangCO2 [Moles/Vol]30.1 mmol/JKsorko73.0-32.0The [facility] CenterComment on above: Performed By: #### LIPID, TSH, CMP ####[facility] [address] [place], [place] [address]Dr. Yilan ChangCreatinine [Mass/Vol]0.57 mg/dL Normal0.55-1.02The [facility] CenterComment on above:Performed By: #### LIPID, TSH, CMP ####[facility] [address] [place], [place] [address]Dr. Yilan ChangEGFR-AF TRINIDADIAN>60Normal>=60The [facility] Hospitalment on above:Performed By: #### LIPID, TSH, CMP ####[facility] Drrrqlurse[address] [place], [place] [address]Dr. Yilan ChangEGFR-NON AF TRINIDADIAN>60Normal >=60The [facility] CenterComment on above:Performed By: #### LIPID, TSH, CMP ####[facility] Zrqib[address]orr[address] [place], [place] [address]Dr. Yilan ChangGlobulin (S) [Mass/Vol]3.4 g/dLNormalThe [facility] CenterComment on above:Performed By: #### LIPID, TSH, CMP ####[facility] [address]cbunw[address] [place], [place] [address]Dr. Yilan ChangGlucose [Mass/Vol]103 mg/dL Gjzhls40-837Tgy [facility] CenterComment on above:Performed By: #### LIPID, TSH, CMP ####[facility] [address] [address]Dr. Yilan ChangPotassium [Moles/Vol]4.3 mmol/LNormal3.5-5.1The [facility] CenterComment on above:Performed By: #### LIPID, TSH, CMP ####[facility] [address] [address]Dr. Yijackeline Archer Protein [Mass/Vol]6.9 g/dLNormal6.4-8.2The [facility] HospitalComment on above: Performed By: #### LIPID, TSH, CMP ####[facility] [address] [address]Dr. Yilan ChangSodium [Moles/Vol]142 mmol/LNormal 136-145The [facility] CenterComment on above:Performed By: #### LIPID, TSH, CMP ####[facility] Edczz[address] [place], [place] [address]Dr. Yilan ChangUrea nitrogen [Mass/Vol]9.0 mg/dLNormal7.0-18.0The [facility] Comment on above:Performed By: #### LIPID, TSH, CMP ####[facility] Mdlkxcolki[address] [place], [place] [address]Dr. Mounalan ChangUrea nitrogen/Creatinine [Mass ratio]15.8 mg/mgNormalThe [facility] CenterComment on above:Performed By: #### LIPID, TSH, CMP ####[facility] [address] [address]Dr. Machelle ChangTSHon 76-41-1329BPC Qnm[IU]/L Critically low0.358-3.740The [facility] CenterComment on above:Performed By: #### LIPID, TSH, CMP ####[facility] S[address] [place], [place] [address]Dr. Yilan ChangXR Ribs w/ PA Chest Left*on 03-17-2022 XR Ribs w/ PA Chest Left*Comparison: Findings: The cardiomediastinal silhouette is unremarkable. The lungs are free of infiltrates or effusions. The bones and soft tissues are intact. There is no evidence of rib fracture. Impression: There are no acute changes. Report reported and signed by LEANDER MARTINEZ on 03/17/2022 1715[facility] HospitalXR Wrist Complete Left*on 81-46-7026GP Wrist Complete Left*CLINICAL HISTORY: Pain after the fall COMPARISON: TECHNIQUE: AP, lateral, oblique, and scaphoid views of the wrist. FINDINGS: No acute fracture. Radiocarpal and carpal alignment is within normal limits. Soft tissues are within normal limits. IMPRESSION: No acute osseous abnormality. Report reported and signed by LEANDER MARTINEZ on 03/17/2022 1716[facility] HospitalVIT D 1 25 DIHYDROXYon 22-36-4980Ocfibmtbpx(1,25 di-OH Vit D)47.1 pg/yQNnqhwr88.9-79.3The [facility] CenterComment on above:Performed By: #### [id number] #### [facility] [address] [place] [address] Dr. Machelle ArcherLIPID PROFILEon 51-98-0473JPLI-HDL RATIO NORMSEE [facility] HospitalComment on above:Result Comment: 3.3 - 4.4 LOW RISK 4.4 - 7.1 AVERAGE RISK 7.1 - 11.0 MODERATE RISK >11.0 HIGH RISKPerformed By: #### LIPID, LIVER #### [facility] [address] [place] [address] Dr. Machelle ArcherCholesterol [Mass/Vol]227 mg/dLCritically high<=200[facility] HospitalComment on above:Performed By: #### LIPID, LIVER #### [facility] [address] [place] [address] Dr. Machelle ArcherCholesterol in HDL [Mass/Vol]43 mg/dLMercy Health St. [facility]'s Medical [facility] Comment on above:Performed By: #### LIPID, LIVER #### [facility] [address] [place] [address] Dr. Machelle ArcherCholesterol in LDL [Mass/Vol]158.0 mg/dLMercy Health St. Rita's Medical CenterComment on above:Performed By: #### LIPID, LIVER #### [facility] [address] [address] [address] Machelle ArcherCholesterol.total/Cholesterol in HDL [Mass ratio]5.3 {ratio} NormalProMedica Bay Park Hospitalment on above:Performed By: #### LIPID, LIVER #### [facility] [address] [address] [address] Machelle Alva NORMAL> or = 60 mg/dl - LOW CARDIOVASCULAR RISK <40 mg/dl - HIGH CARDIOVASCULAR RISKMercy Health St. Rita's Medical CenterComment on above:Performed By: #### LIPID, LIVER #### [facility] [address] [place] [address] Dr. Machelle ArcherLDL CALC NORMALSEE BELOWMercy Health St. Rita's Medical CenterComment on above:Result Comment: <100 mg/dl OPTIMAL 100 - 129 mg/dl NEAR OR ABOVE OPTIMAL 130 - 159 mg/dl BORDERLINE HIGH 160 - 189 mg/dl HIGH >190 mg/dl VERY HIGH Performed By: #### LIPID, LIVER #### [facility] [address] [place] [address] Dr. Machelle ArcherTriglyceride [Mass/Vol]130 mg/dLNormal<=150[facility] Comment on above:Performed By: #### LIPID, LIVER #### [facility] [address] [place] [address] Dr. Machelle Smith CALC26.0 mg/dLNoOhioHealth Dublin Methodist HospitalComsinai-grace hospital on above: Performed By: #### LIPID, LIVER #### [facility] [address] [place] [address] Dr. Machelle Phelan PROFILEon 26-28-1508Wddwnix [Mass/Vol]3.6 g/dLNormal3.5-5.0 The [facility] CenterComsinai-grace hospital on above:Performed By: #### LIPID, LIVER #### [facility] [address] [place] [address] Dr. Machelle ArcherAlbumin/Globulin [Mass ratio]1.1 {ratio}NormalThe [facility] CenterComment on above:Performed By: #### LIPID, LIVER #### [facility] [address] [address] [address] Machelle HarmonP [Catalytic activity/Vol]91 U/YXkuuck57-218LlaCleveland Clinic Union HospitalComment on above:Performed By: #### LIPID, LIVER #### [facility] [address] [address] [address] Machelle HarmonT [Catalytic activity/Vol]23 U/LNormal9-52[facility] Comment on above:Performed By: #### LIPID, LIVER #### [facility] [address] [address] [address] Machelle ArcherAST [Catalytic activity/Vol]13 U/LCritically aua01-47StqCleveland Clinic Union HospitalComment on above:Performed By: #### LIPID, LIVER #### [facility] [address] [place] [address] Dr. Machelle PendletonI, CONJUGATED0.1 mg/dLNormal0.0-0.3TGenesis Hospital Comment on above:Performed By: #### LIPID, LIVER #### [facility] [address] [place] [address] Dr. Machelle Pendletonirubin [Mass/Vol]0.5 mg/dLNormal0.2-1.3TGenesis Hospital Comment on above:Performed By: #### LIPID, LIVER #### [facility] [address] [place] [address] Dr. Machelle ArcherGlobulin (S) [Mass/Vol]3.4 g/dLNormalThe [facility] CenterComment on above:Performed By: #### LIPID, LIVER #### [facility] [address] [place] [address] Dr. Machelle ArcherProtein [Mass/Vol]7.0 g/dLNormal6.1-8.2[facility] Comment on above:Performed By: #### LIPID, LIVER #### [facility] [address] [place], [place] [address] Dr. Machelle Archer Vital Signs Date TimeVital SignValuePerforming YpthxjhxeChmhxpyc66-96-6756 10:00-0400 Diastolic blood xyidqunp07 mm[Hg]Rosalie Moncada MD Work Phone: [phone] [place], [place] 4638310-30-2025 10:00-0400 Systolic blood zomesopk490 mm[Hg]Rosalie Moncada MD Work Phone: [phone] [place], [place] 4638310-30-2025 09:43-0400 Heart rate61 /Cameron Moncada MD Work Phone: [phone] [place], [place] 4638310-30-2025 09:36-0400 Body .56 cmRosalie Moncada MD Work Phone: [phone] [place], [place] 4638310-30-2025 09:36-0400 Body mass index (BMI) [Ratio]27.3 kg/x7PpksneRosalie Moncada MD Work Phone: [phone] [place], [place] 4638310-30-2025 09:36-0400 Body uqcehw92.12 kgRosalie Moncada MD Work Phone: [phone] [place], [place] 4638310-01-2025 11:28-0400 Body ennyzv702.56 cmRosalie Moncada MD Work Phone: [phone] [place], [place] 4638310-01-2025 11:28-0400 Body mass index (BMI) [Ratio]27.3 kg/g3ZkprptRosalie Moncada MD Work Phone: [phone] [place], [place] 4638310-01-2025 11:28-0400 Body vhspdyfyfvp26.9 [degF]Rosalie Moncada MD Work Phone: [phone] [place], [place] 4638310-01-2025 11:28-0400 Body uaodvq26.34 kgRosalie Moncada MD Work Phone: [phone] [place], [place] 4638310-01-2025 11:28-0400 Diastolic blood iondjgcu86 mm[Hg]Rosalie Moncada MD Work Phone: [phone] [place], [place] 4638310-01-2025 11:28-0400 Heart rate72 /minRosalie Moncada MD Work Phone: [phone] [place], [place] 4638310-01-2025 11:28-0400 Systolic blood wrlxkoqi446 mm[Hg]Rosalie Moncada MD Work Phone: [facility]08-27-2025 08:48-0400 Body ictpyz871.6 cmYessi Carson MD Work Phone: [facility]08-27-2025 08:48-0400Body mass index (BMI) [Ratio]27.47 kg/m2Yessi Carson MD Work Phone: [facility]08-27-2025 08:48-0400Body hxoqjq02.6 kgYessi Carson MD Work Phone: [facility]08-27-2025 08:48-0400Diastolic blood xufpysvo88 mm[Hg]Yessi Carson MD Work Phone: [facility]08-27-2025 08:48-0400Heart rate62 /min Yessi Carson MD Work Phone: [facility]08-27-2025 08:48-0400Systolic blood afcjvgsi841 mm[Hg]Yessi Carson MD Work Phone: [facility]05-08-2025 10:17-0400Body .56 cm[facility]05-08-2025 10:17-0400Body mass index (BMI) [Ratio]26.9 kg/c3LcmsiwzbtPeoples Hospital05-08-2025 10:17-0400Body wjjtiz04.21 kgPe[facility]05-08-2025 10:17-0400Diastolic blood lepjowhg67 mm[Hg][facility]05-08-2025 10:17-0400 Heart rate61 /[facility]05-08-2025 10:17-0400 Respiratory rate12 /[facility]05-08-2025 10:17-0400 SaO2% (BldA) [Mass fraction]97 %[facility]05-08-2025 10:17-0400Systolic blood rvwzgago050 mm[Hg][facility] 02-03-2025 10:08-0400Body kvefinldjio59.39 [degF]Negrita Redmond NP Work Phone: [phone]05-03-2025 10:08-0400Diastolic blood wuqquwxy23 mm[Hg]Negrita Redmond PYROMETALLURGICAL ENGINEER Work Phone: [address] [place], [place] [address]Holbvzcoth01-92-6248 10:08-0400Heart rate83 /min Negrita Redmond PYROMETALLURGICAL ENGINEER Work Phone: [phone] [place], [place] 4722005-03-2025 10:08-0400Respiratory rate20 /minNegrita Redmond PYROMETALLURGICAL ENGINEER Work Phone: [phone] [place], [place] 4722005-03-2025 10:08-7613PnA5% (BldA) [Mass fraction]96 %Negrita Redmond PYROMETALLURGICAL ENGINEER Work Phone: [phone] [place], [place] 4722005-03-2025 10:08-0400Systolic blood xmljgyyh941 mm[Hg]Negrita Redmond PYROMETALLURGICAL ENGINEER Work Phone: [phone] include 234 beds at the [facility] [place], [place] [address]Ycstrdftyb03-53-4988 15:46-0400Body owpilb334.56 cmPe[facility]10-29-2024 15:46-0400Body mass index (BMI) [Ratio]25.9 kg/l6HrewctqebPeoples Hospital10-29-2024 15:46-0400Body difhoc99.49 kgPeoples Hospital10-29-2024 15:46-0400Diastolic blood uxvunicg48 mm[Hg][facility]10-29-2024 15:46-0400 Heart rate59 /minPeoples Hospital10-29-2024 15:46-0400Systolic blood waolmemd463 mm[Hg][facility]06-26-2024 11:54-0400 Diastolic blood xhmopjla44 mm[Hg]Anthony Marks MD, PhD Work Phone: [facility]06-26-2024 11:54-0400Heart rate63 /min Anthony Marks MD, PhD Work Phone: [facility]06-26-2024 11:54-0400Systolic blood mgaxjlqn414 mm[Hg]Anthony Marks MD, PhD Work Phone: [facility]10-27-2023 12:30-0400Body idoocd271.56 cmRosalie Moncada Other [employer] Other 10-27-2023 12:30-0400Body mass index (BMI) [Ratio] 26.64 kg/d0Wbiecz Moncada Other [employer] Other 10-27-2023 12:30-0400Body jxsoiw22.4 kgRosalie Antwan Other [employer] Other 10-27-2023 12:30-0400Diastolic blood aefhvbva45 mm[Hg] Rosalie Moncada Other [employer] Other 10-27-2023 12:30-0400Systolic blood jkrnsynr394 mm[Hg] Rosalie Moncada Other [employer] Other 10-27-2023 11:30-0400Body aypqby180.56 cmRosalie Antwan Other [employer] Other 10-27-2023 11:30-0400Body mass index (BMI) [Ratio] 26.64 kg/q3Cmtruy Antwan Other [employer] Other 10-27-2023 11:30-0400Body pjohlx67.4 kgTiffanymauro Antwan Other [employer] Other 10-27-2023 11:30-0400Diastolic blood tcgmohum23 mm[Hg] Rosalie Moncada Other [employer] Other 10-27-2023 11:30-0400Systolic blood gguredys422 mm[Hg] Rosalie Moncada Other [employer] Other 04-19-2023 11:20-0400Diastolic blood omasfyir30 mm[Hg] Yessi Carson MD Work Phone: [facility]04-19-2023 11:20-0400Systolic blood fzcfifbp104 mm[Hg]Yessi Carson MD Work Phone: [facility]04-19-2023 10:01-0400Body ulqjha892.6 cmYessi Carson MD Work Phone: [facility]04-19-2023 10:01-0400Body ppjqyz07.32 kgYessi Carson MD Work Phone: [facility]04-19-2023 10:01-0400Heart rate62 /min Yessi Carson MD Work Phone: [facility]02-15-2023 13:23-0500Body rznizg27.55 kgNicole Smith MD Work Phone: [facility] Encounters Encounter DateEncounter TypeCare ProviderFacilityStart: 08-02-2025 End: 93-44-1866tkespnaggpOzulsa E Braun MD Work Phone: [facility]tart: 08-02-2025 End: 91-53-5850Gzhxtpf encounter procedureRosalie Moncada MD-[facility] Work Phone: Start: 07-27-2025 End: 03-81-2799pfdwdxtgueTSMDQI E BRAUNFacility:[facility]ictart: 07-04-2025 End: 51-92-0427ljwyvfpefmPppmbs E Braun MD Work Phone: [facility] Work Phone: Start: 07-04-2025 End: 10-37-1685Vripaab encounter procedureRosalie Moncada MD-[facility] Work Phone: Start: 29-73-0360Dck-patient / Non-visitSrito EncisoGroup Health [facility] Work Phone: Start: 07-02-2025 End: 63-31-0417cywndtyxzuWIBIB ELSHEIKHFacility:[facility] HospitalStart: 07-02-2025 End: 44-35-3073maiikkygluNCYXQH E BRAUNFacility:[facility] Clinictart: 05-30-2025 End: 64-54-9504Aagnhgb encounter procedureYessi Carson MD Work Phone: EndocrinologyComment on above:Graves disease (Primary Dx); Multiple thyroid nodules; Age-related osteoporosis without current pathological fractureStart: 05-30-2025 End: 89-70-0609fmrlvxknyoCWGDUI E BRAUNFacility:[facility] Clinictart: 86-89-8741Izg-patient / Non-visitYessi Carson-[facility] Work Phone: Start: 05-18-2025 End: 19-04-6616rnsrdufnvyRKAU SERHALFacility:[facility] HospitalStart: 05-18-2025 End: 84-76-9316Lpmihwxkhk hospital visit by physician [facility] LoraRadiologyComment on above:Graves disease [E05.00]Start: 76-51-9313swzlvfoiomXDRVTG E BRAUN Facility:[facility] HospitalStart: 04-26-2025 End: 85-81-7235Pdkjamorwh hospital visit by Audelia [place]jas [facility] RadiologyStart: 02-16-2025 End: 30-99-5555Botgyrivgymg consultation with Stefania Carson MD Work Phone: EndocrinologyStart: 02-16-2025 End: 09-83-8494eecxtahzqyWdua Serhal MD Work Phone: EndocrinologyComment on above:Graves disease (Primary Dx); Thyroid noduleStart: 02-15-2025 End: 85-58-0186uxzsgpcsjiDQWA SERHALFacility:[facility] Clinictart: 02-08-2025 End: 65-91-9359ryfsikugpaXbnxqsfyxL[facility] City Hospital Work Phone: Start: 02-08-2025 End: 42-70-4513Cacivsb encounter procedureNorthern Regional Hospital Physician GroupACMC Healthcare [facility] Work Phone: Start: 02-07-2025 End: 93-63-4957dmmlvnfipfRfrw Serhal MD Work Phone: EndocrinologyComment on above:antibioticStart: 02-03-2025 End: 71-69-6208Xwlrla outpatient visit 25 minutesLindstom Redmond PYROMETALLURGICAL ENGINEER Work Phone: [facility] UCComment on above:Cough in adult (Primary Dx); BronchitisStart: 02-03-2025 End: 42-02-1809daytdtsfxfSYSMUFJ N NYLANot AvailableStart: 11-19-2024 End: 74-66-9519Qdwcmg-up encounterYessi Carson MD Work Phone: EndocrinologyStart: 11-17-2024 End: 34-11-3637pyqcgalwugDLEZ SERHALFacility:[facility] Clinictart: 22-39-1744Fhc-patient / Non-visitNorthern Regional Hospital Physician [facility] Work Phone: Start: 08-18-2024 End: 37-13-6507mjomluexplBhby Serhal MD Work Phone: EndocrinologyComment on above:Graves disease (Primary Dx); Thyroid nodule; Hypertension, unspecified type; Other osteoporosis, unspecified pathological fracture presenceStart: 08-18-2024 End: 11-29-8061Zhegckboaxhh consultation with patientYessi Carson MD Work Phone: EndocrinologyStart: 08-11-2024 End: 86-03-0929rmylqjqifhDIWM SERHALFacility:[facility] Clinictart: 72-64-1610Oweuwiq encounter procedureMount Carmel Health Systemtart: 08-01-2024 End: 08-81-6677bltmxejjwcSaibxbfoaOhioHealth Work Phone: Start: 08-01-2024 End: 77-28-4905Bbdhkmd encounter procedureNorthern [facility] Hospital Phys[facility] GroupAC[facility] Work Phone: Start: 90-94-9538xaoeyotzfwLGLPIL M LASHIN [facility]: 06-07-2024 End: 81-37-8298Amxjpkpsqz hospital visit by physicianUlt [facility] Work Phone: [facility] Radiology UltrasoundComment on above: Thyroid nodule [E04.1]Start: 05-19-2024 End: 23-73-0157Stlkynyki encounterYessi Carson MD Work Phone: Appointment CenterComment on above:Biopsy Request Start: 05-12-2024 End: 57-80-7929sahizzgizcEekk Serhal MD Work Phone: EndocrinologyComment on above:Graves disease (Primary Dx); Vitamin D deficiency; Thyroid noduleStart: 05-12-2024 End: 26-70-4604Wbevzsidkscj consultation with Stefania Carson MD Work Phone: EndocrinologyStart: 03-29-2024 End: 68-80-3675Wzyuwjk encounter procedureAnthony Marks MD, PhD Work Phone: EndocrinologyComment on above:Thyroid nodule (Primary Dx)Start: 03-09-2024 End: 20-39-0584Qwdkast encounter Rylee Smith MD Work Phone: GastroenterologyComment on above:Abnormal alkaline phosphatase test (Primary Dx)Start: 37-90-8758MekjruIzoq Serhal MD Work Phone: EndocrinologyComment on above:Refill RequestStart: 01-21-2024 End: 94-03-1865ddwpqydldkFhli Serhal MD Work Phone: EndocrinologyComment on above:Graves disease (Primary Dx); Thyroid nodule; Other osteoporosis, unspecified pathological fracture presenceStart: 01-21-2024 End: 47-51-9378Lxotdvqqjcng consultation with Stefania Carson MD Work Phone: [facility]ENTERStart: 12-08-2023 End: 12-68-9489yejzndrvpeQoce SerhalFacility:[facility] Start: 11-02-2023 End: 77-41-2843ahegbvwdweXttbpy Braun Other [employer] Other Start: 43-46-4447Gmeeptiiy encounterMardonitaa Leonila [facility] ClinicStart: 09-03-2023 End: 21-67-4054frvhejnonqNrup Serhal MD Work Phone: EndocrinologyComment on above:Graves disease (Primary Dx); Thyroid noduleStart: 09-03-2023 End: 42-36-8103Xygwcnsdzynh consultation with Stefania Carson MD Work Phone: [facility] CENTERStart: 48-76-2034Otdltilqi encounterNicole Smith MD Work Phone: GastroenterologyStart: 09-13-8683Lynxjtmwu encounter Nicole Smith MD Work Phone: GastroenterologyComment on above:ResultsStart: 08-09-2023 End: 38-33-1108lbzabyzevlOvkkky Braun Other [employer] Other Start: 77-10-6860Pqdsfjgfh encounterMarcia Leonila [facility] ClinicStart: 07-30-2023 End: 75-00-9398whiosmrtrdBvduto Moncada Other [employer] Other Start: 38-03-6876Mitxitq encounter procedureRosalie Keen [facility] ClinicStart: 53-42-0606nzswxggjuoEorz Serhal MD Work Phone: EndocrinologyComment on above:thyroid scanStart: 03-19-2023 End: 97-50-4711euzjxtzktvEvfugq E BraunFacility:[facility] Systemtart: 49-93-4731JpooseIpne Serhal MD Work Phone: EndocrinologyComment on above:Refill RequestStart: 01-20-2023 End: 06-35-3980Giastjo encounter procedureYessi Carson MD Work Phone: EndocrinologyComment on above:Graves disease (Primary Dx); Thyroid noduleStart: 46-07-6444Bxeqau OnlyYessi Carson MD Work Phone: EndocrinologyStart: 01-13-2023 End: 53-84-9640dpydwqtrtnMN Marcia E Braun Work Phone: [facility] Work Phone: Start: 01-13-2023 End: 14-68-8570Lahrtjo encounter procedureMD Rosalie Moncada Work Phone: [facility] [place] Work Phone: Start: 12-09-2022 End: 36-58-4240onvnggbeedQH Marcia E Braun Work Phone: [facility] Work Phone: Start: 12-09-2022 End: 06-08-1221Gbkiewf encounter procedureMD Rosalie Moncada Work Phone: [facility]-Ultrasound [facility] [place] Work Phone: Start: 11-18-2022 End: 25-46-5747Wjtypbi encounter procedureNicole Smith MD Work Phone: GastroenterologyComment on above:Abnormal liver enzymes (Primary Dx)Start: 09-03-2022 End: 63-81-8017sutkndqgpjYO Marcia E Braun Work Phone: [facility] Work Phone: Start: 09-03-2022 End: 50-66-7293Xvcikmr encounter procedureMD Rosalie Moncada Work Phone: [facility]Nuc Med [facility] [place] Start: 08-28-2022 End: 88-48-3232Rcbvluu encounter procedureMD Rosalie Moncada Work Phone: [facility]Ultrasound [facility] [place] Start: 08-25-2022 End: 81-07-9836alajravxjsYRLIL SABBAGHFacility:V0Bqidp: 08-14-2022 End: 68-77-2216sdnshesxhfYC MARCIA E BRAUNFacility:Q1Vfyxr: 48-59-8969Kkqko health examinationRosalie Moncada Other [place] [employer] Other Start: 07-29-2022 End: 54-91-9398qwgcgghfyvNW MARCIA E BRAUNFacility:E3Ealsc: 12-10-2021 End: 19-94-4018kqommjxyqcMP MARCIA E BRAUNFacility:J2Flrxb: 05-10-2020 End: 13-80-3352svsvgbbygzTK ROSALIE MONCADAFacility:[facility] Procedures DateProcedureProcedure DetailPerforming ClinicianStart: 11-58-5692Qa soft tissue head & neck real time imge Isabella Carson MD Work Phone: Start: 07-32-0333Hu soft tissue head & neck real time imge Montana Marks MD, PhD Work Phone: Start: 59-72-5217Cwplcwgm phosphatase [Enzymatic activity/volume] in Serum or PlasmaCcf ProviderStart: 02-30-0987Kmkhupryf (T4) free [Mass/volume] in Serum or PlasmaCcf ProviderStart: 12-09-2022 Ultrasonography of abdomenMD Rosalie Antwan Work Phone: Start: 38-73-2482BV scan of spleenMD Rosalie Antwan Work Phone: Start: 38-10-9706VP scan of thyroidMD Rosalie Antwan Work Phone: Start: 82-05-2883Qnbepba examination of patientRosalie Moncada Other Start: 60-88-6382Jrxtvzltb mammographyRosalie Moncada Other Laboratory test result abnormalRosalie Moncada Other Screening for malignant neoplasm of breastRosalie Moncada Other Plan of Treatment DateCare ActivityDetailAuthorStart: 77-62-9706Bboaqmgle for osteoporosisBone Density ScreeningMount Carmel Health Systemtart: 57-01-4655DRRPYQDV SCREENDIABETES SCREEN [facility] Systemtart: 29-43-8917Drfxqzun ScreeningDiabetes ScreeningMount Carmel Health Systemtart: 11-02-2025 End: 00-90-5769qfkklzztfo03/30/2026 8:40 AM [facility] Endocrinology [address] [place] [address] [id number] eYssi Carson MD [address] [place] [address] : Return in about 5 months (around 08/30/2025).EndocrinologyComment on above:: Return in about 5 months (around 08/30/2025).Start: 08-30-2025 End: 82-40-7459Chazojvuskn [Units/volume] in Serum or PlasmaTHYROID STIMULATING HORMONE Lab Routine Graves disease Expected: 08/30/2025, Expires: 11/29/2025 [facility] Work Phone: Comment on above:Expected: 08/30/2025, Expires: 11/29/2025Start: 08-30-2025 End: 00-83-1465Eaykjoqrr (T4) free [Mass/volume] in Serum or PlasmaT4 FREE/FREE THYROXINE Lab Routine Graves disease Expected: 08/30/2025, Expires: 11/29/2025 [facility]Comment [facility]:Expected: 08/30/2025, Expires: 11/29/2025Start: 08-30-2025 End: 31-66-2032Klasaitcvsjjuhef (T3) Free [Mass/volume] in Serum or PlasmaT3, FREE Lab Routine Graves disease Expected: 08/30/2025, Expires: 11/29/2025 [facility] HospitalComment on above:Expected: 08/30/2025, Expires: 11/29/2025Start: 07-02-2025 End: 63-63-2785Nhftscb encounter rexfjkhfa42/29/2025 8:30 AM EDT Office Visit Endocrinology [address] [place] [address] Kassandra Enciso MD [address] [facility] [place] [address] osteoporosisEndocrinologyComment on above:osteoporosisStart: 09-18-7381Mfywaseyj vaccinationInfluenza Vaccine (#1)[facility] Systemtart: 05-30-2025 End: 58-61-3580Abqymvr encounter syubzuady54/27/2025 9:00 AM EDT Office Visit Endocrinology [address] [place] [address] Yessi Carson MD [address] [place] [address] f/u 3-4 months IN THE OFFICE with thyroid US before the visit. May use a 40 mins new patient slot.EndocrinologyComment on above:f/u 3-4 months IN THE OFFICE with thyroid US before the visit. May use a 40 mins new patient slot. Start: 05-19-2025 End: 52-07-0357PDNBBBJ STIMULATING IMMUNOGLOBULIN BLOODTHYROID STIMULATING IMMUNOGLOBULIN BLOOD Lab Routine Graves disease Expected: 05/19/2025, Expires: 10/18/2024[facility]at[facility] ClinicComment on above:Expected: 05/19/2025, Expires: 08/18/2025Start: 05-19-2025 End: 53-65-3531Toucdslkqgt [Units/volume] in Serum or PlasmaTHYROID STIMULATING HORMONE Lab Routine Graves disease Expected: 05/19/2025, Expires: 08/18/2025 [facility] HospitalComment on above:Expected: 05/19/2025, Expires: 08/18/2025Start: 05-19-2025 End: 33-04-9772Xqupftdxn (T4) free [Mass/volume] in Serum or PlasmaT4 FREE/FREE THYROXINE Lab Routine Graves disease Expected: 05/19/2025, Expires: 08/18/2025 [facility] HospitalComment on above:Expected: 05/19/2025, Expires: 08/18/2025Start: 05-19-2025 End: 27-64-6093Tdufpxeqortkxhxi (T3) Free [Mass/volume] in Serum or PlasmaT3, FREE Lab Routine Graves disease Expected: 05/19/2025, Expires: 08/18/2025 [facility] HospitalComment on above:Expected: 05/19/2025, Expires: 08/18/2025Start: 05-18-2025 End: 59-16-5258Nqvveyf encounter otnhvauxm37/15/2025 7:45 AM EDT Appointment Radiology [address] [place] [address] Graves disease [E05.00]RadiologyComment on above:Graves disease [E05.00]Start: 05-18-2025 End: 60-78-0482uvaojdxcpo12/15/2025 7:15 AM EDT Results Only Marco Antonio [facility] Laboratory [address] [place] [address] ApptLorain [facility] LaboratoryComment on above:ApptStart: 05-10-2025 End: 50-22-2965Zragezq encounter sxjkrjybu94/07/2025 8:20 AM EDT Office Visit Rheumatology [address] [place] [address] [place] [address] [place] [address] ostioparosisRheumatologyComment on above:ostioparosisStart: 04-26-2025 End: 19-91-4773Xdyfrfv encounter rldbjqimd53/24/2025 8:55 AM EDT Appointment Radiology [address] [place] [address] bone density has outside orderRadiologyComment on above:bone density has outside orderStart: 09-34-8387USH Vaccine (1 - 1-dose 75+ series)RSV Vaccine (1 - 1-dose 75+ series) [facility]tart: 03-12-2025 End: 67-05-6027Wkelydd encounter pelwtdqel83/09/2025 10:00 AM EDT Office Visit Gastroenterology [address] [address] Nicole Wilson MD [address] [place] [address] follow up liver enzymesGastroenterologyComment on above: follow up liver enzymesStart: 02-16-2025 End: 52-52-6528ebnlksfgcdJbjlzRichwood Area Community Hospital LaboratoryComment on above:LabsReturn in about 6 months VVStart: 02-15-2025 End: 26-24-6923Oyimpoxxiuf [Units/volume] in Serum or PlasmaTHYROID STIMULATING HORMONE Lab Routine Graves disease Expected: 02/15/2025, Expires: 05/17/2025 [facility] HospitalComment on above:Expected: 02/15/2025, Expires: 05/17/2025Start: 02-15-2025 End: 84-02-4898Xezcyttih (T4) free [Mass/volume] in Serum or PlasmaT4 FREE/FREE THYROXINE Lab Routine Graves disease Expected: 02/15/2025, Expires: 05/17/2025 [facility] HospitalComment on above:Expected: 02/15/2025, Expires: 05/17/2025Start: 02-15-2025 End: 41-64-5066Fuzmxhyibwveouxi (T3) Free [Mass/volume] in Serum or PlasmaT3, FREE Lab Routine Graves disease Expected: 02/15/2025, Expires: 05/17/2025 [facility] HospitalComment on above:Expected: 02/15/2025, Expires: 05/17/2025Start: 02-15-2025 End: 48-41-7461Ilegieh encounter nyxbrwtcw35/15/2025 8:00 AM EDT Office Visit [facility] [address] [place] [address] [facility] LaboratoryComment on above:labStart: 11-18-2024 End: 83-35-5916Dkodzizxqix [Units/volume] in Serum or PlasmaTHYROID STIMULATING HORMONE Lab Routine Graves disease Expected: 11/18/2024, Expires: 02/17/2025 [facility] Work Phone: Comment on above:Expected: 11/18/2024, Expires: 02/17/2025Start: 11-18-2024 End: 37-32-1888Ktdcjgjtv (T4) free [Mass/volume] in Serum or PlasmaT4 FREE/FREE THYROXINE Lab Routine Graves disease Expected: 11/18/2024, Expires: 02/17/2025 [facility] HospitalComment on above:Expected: 11/18/2024, Expires: 02/17/2025Start: 11-18-2024 End: 12-63-4927Isdllclxwkpchukk (T3) Free [Mass/volume] in Serum or PlasmaT3, FREE Lab Routine Graves disease Expected: 11/18/2024, Expires: 02/17/2025 [facility] HospitalComment on above:Expected: 11/18/2024, Expires: 02/17/2025Start: 11-17-2024 End: 63-20-1082mxxhozxaxh34/14/2025 8:00 AM EST Results Only [facility] [address] [place] [address] [facility] LaboratoryComment on above: LabsStart: 74-57-1622Qlqdwsf Directive DiscussionAdvance Directive Discussion [facility] Systemtart: 08-18-2024 End: 75-49-0056Mcpbef-up /15/2024 6:40 AM EST [facility] [address] [place] [address] Yessi Carson MD [address] [place] [address] follow upEndocrinologyComment on above:follow upStart: 08-12-2024 End: 237831-ndfmbxycrfxvfb D3 [Mass/volume] in Serum or PlasmaVITAMIN D 25 HYDROXY Lab Routine Vitamin D deficiency Expected: 08/12/2024, Expires: 11/11/2024[facility] ClinicComment on above:Expected: 08/12/2024, Expires: 11/11/2024Start: 08-12-2024 End: 48-04-7619Rxsqrrx [Mass/volume] in Serum or PlasmaCALCIUM, TOTAL Lab Routine Graves disease Expected: 08/12/2024, Expires: 11/11/2024[facility] Comment on above:Expected: 08/12/2024, Expires: 11/11/2024Start: 08-12-2024 End: 88-94-0831Tyztdsuhgw.intact [Mass/volume] in Serum or PlasmaPTH INTACT Lab Routine Graves disease Expected: 08/12/2024, Expires: 11/11/2024[facility] Comment on above:Expected: 08/12/2024, Expires: 11/11/2024Start: 08-11-2024 End: 53-00-6058TCQIGCE STIMULATING IMMUNOGLOBULIN BLOODTHYROID STIMULATING IMMUNOGLOBULIN BLOOD Lab Routine Graves disease Expected: 08/11/2024, Expires: 0 11/10/2024[facility] HospitalComment on above:Expected: 08/11/2024, Expires: 11/10/2024Start: 08-11-2024 End: 88-27-5166Cgnurvjcxue [Units/volume] in Serum or PlasmaTHYROID STIMULATING HORMONE Lab Routine Graves disease Expected: 08/11/2024, Expires: 11/10/2024 [facility] Work Phone: Comment on above:Expected: 08/11/2024, Expires: 11/10/2024Start: 08-11-2024 End: 74-50-1218Lgxkxglfp (T4) free [Mass/volume] in Serum or PlasmaT4 FREE/FREE THYROXINE Lab Routine Graves disease Expected: 08/11/2024, Expires: 11/10/2024 [facility] HospitalComment on above:Expected: 08/11/2024, Expires: 11/10/2024Start: 08-11-2024 End: 91-90-5405Fuhjhaovlomygwdu (T3) Free [Mass/volume] in Serum or PlasmaT3, FREE Lab Routine Graves disease Expected: 08/11/2024, Expires: 11/10/2024 [facility] HospitalComment on above:Expected: 08/11/2024, Expires: 11/10/2024Start: 08-11-2024 End: 85-99-7081xhgyvmssta36/08/2024 8:00 AM EST Results Only [facility] [address] [place] [address] [facility] LaboratoryStart: 06-07-2024 End: 94-64-7344Lsezntqig to same day surgery mfepqn5206/07/2024 2:00 PM EDT - 06/07/2024 3:00 PM EDT Surgery Angio [address] [place] [address] Tang Cesar MD [address] [place] [address] BIOPSY THYROIDAngioComment on above:BIOPSY THYROIDStart: 06-07-2024 End: 97-88-9907Zypxih thyroid percutaneous core needleBIOPSY THYROID Graves disease Thyroid nodule 06/07/2024 2:00 PM EDTMC ANGIO KL8Wazcw: 06-07-2024 Subsequent hospital visit by qsoxxubie68/04/2024 2:00 PM EDT Hospital Encounter Angio [address] [place] [address] Tang Cesar MD [address] [place] [address] Graves disease [E05.00]AngioComment on above:Graves disease [E05.00]Start: 06-07-2024 End: 49-96-5892Fanmphz encounter pwpbsqart08/04/2024 8:45 AM EDT Appointment [facility] Radiology Ultrasound [address] [place] [address] Thyroid nodule [E04.1][facility] Radiology UltrasoundComment on above:Thyroid nodule [E04.1]Start: 61-97-3041Jibrm-19 Vaccine (5 - 2023-24 season)Covid-19 Vaccine ( season)[facility]: 06-04-2024 Covid-19 Vaccine ()Covid-19 Vaccine ( season) [facility]: 64-18-5723Lfzzcvnmy vaccinationInfluenza Vaccine (#1) [facility]: 05-12-2024 End: 94-35-7509Ywahuk-up opkgzizjy36/09/2024 7:00 AM EDT [facility] Endocrinology [address] [place] [address] Yessi Carson MD [address] [facility] [place] [place] [address] follow Up to thyroidEndocrinologyComment on above:follow Up to thyroid Start: 05-01-2024 End: 81-97-7274Ojuatx-up rlzdyxovx88/29/2024 3:00 PM EDT [facility] Endocrinology [address] [place] [address] Yessi Carson MD [address] [facility] [place] [place] [address] follow Up to thyroidEndocrinologyComment on above:follow Up to thyroid Start: 04-21-2024 End: 22-73-2537Clqzzjklaks [Units/volume] in Serum or PlasmaTHYROID STIMULATING HORMONE Lab Routine Graves disease Thyroid nodule Expected: 04/21/2024, Expires: [address] [place] [address] Work Phone: Comment on above:Expected: 04/21/2024, Expires: 07/21/2024Start: 04-21-2024 End: 13-18-9148Bpapgwoxa (T4) free [Mass/volume] in Serum or PlasmaT4 FREE/FREE THYROXINE Lab Routine Graves disease Thyroid nodule Expected: 04/21/2024, Expires: 07/21/2024[facility] Work Phone: Comment on above:Expected: 04/21/2024, Expires: 07/21/2024Start: 04-21-2024 End: 31-70-1626Ohlnqufexlikgzki (T3) Free [Mass/volume] in Serum or PlasmaT3, FREE Lab Routine Graves disease Thyroid nodule Expected: 04/21/2024, Expires: 07/21/2024[facility] Work Phone: Comment on above:Expected: 04/21/2024, Expires: 07/21/2024Start: 04-21-2024 End: 08-35-7632cqppmogyvu80/19/2024 8:00 AM EDT Results Only [facility] [address] [place] [address] [facility] LaboratoryStart: 03-29-2024 End: 61-63-7891Dcbcztp encounter yjdfrnftn70/26/2024 11:20 AM EDT Office Visit Endocrinology [address] [place], [place] [id number] Anthony Marks MD, PhD [address] [place] [address] Graves disease [E05.00]EndocrinologyComment on above:Graves disease [E05.00]Start: 03-09-2024 End: 19-38-3141YWH PHOS ISOENZYM BLALK PHOS ISOENZYM BL Lab Routine Abnormal alkaline phosphatase test Expected: 03/09/2024, Expires: 06/08/2024[facility] ClinicComment on above:Expected: 03/09/2024, Expires: 06/08/2024Start: 03-09-2024 End: 95-43-9169Raudc glutamyl transferase [Enzymatic activity/volume] in Serum or PlasmaGGT Lab Routine Abnormal alkaline phosphatase test Expected: 03/09/2024, Expires: 06/08/2024[facility] ClinicComment on above:Expected: 03/09/2024, Expires: 06/08/2024Start: 03-09-2024 End: 40-42-6164Swojhpw function 2000 panel - Serum or PlasmaHEPATIC FUNCTION PNL Lab Routine Abnormal alkaline phosphatase test Expected: 03/09/2024, Expires: 0 06/08/2024[facility] Work Phone: Comment on above:Expected: 03/09/2024, Expires: 06/08/2024Start: 03-09-2024 End: 97-52-3414Avlqamhvbjow Ab [Presence] in Serum by Immunofluorescence MITOCHONDRIAL M2 IGG SERUM Lab Routine Abnormal alkaline phosphatase test Expected: 03/09/2024, Expires: 06/08/2024[facility] HospitalComment on above: Expected: 03/09/2024, Expires: 06/08/2024Start: 03-09-2024 End: 57-57-6644Gazsred encounter xjswtbeqf53/06/2024 10:00 AM EDT Office Visit Gastroenterology [address] [id number] Nicole Wilson MD [address] [place] [address] follow up liver enzymesGastroenterologyComment on above: follow up liver enzymesStart: 16-95-6350Uepnqftz Vaccine (2 of 2)Shingrix Vaccine (2 of 2)[facility]: 12-03-2023 End: 84-36-6404Qphlogjiyxc [Units/volume] in Serum or PlasmaTSH BLD Lab Routine Graves disease Expected: 12/03/2023, Expires: 03/03/2024[facility] Work Phone: Comment on above:Expected: 12/03/2023, Expires: 03/03/2024Start: 12-03-2023 End: 76-99-2002Xuvifcxly (T4) free [Mass/volume] in Serum or PlasmaT4 FREE/FREE THYROX Lab Routine Graves disease Expected: 12/03/2023, Expires: 03/03/2024 [facility] Work Phone: Comment on above:Expected: 12/03/2023, Expires: 03/03/2024Start: 12-03-2023 End: 49-95-7475Vwwxtlyjvpkzlsve (T3) Free [Mass/volume] in Serum or PlasmaT3 FREE BLD Lab Routine Graves disease Expected: 12/03/2023, Expires: 03/03/2024 [facility] Work Phone: Comment on above:Expected: 12/03/2023, Expires: 03/03/2024Start: 10-15-2023 End: 96-55-4557Twltdjudtfu [Units/volume] in Serum or PlasmaTSH BLD Lab Routine Graves disease Expected: 10/15/2023, Expires: 01/14/2024[facility] Work Phone: Comment on above:Expected: 10/15/2023, Expires: 01/14/2024Start: 10-15-2023 End: 36-32-5700Vbnklnglv (T4) free [Mass/volume] in Serum or PlasmaT4 FREE/FREE THYROX Lab Routine Graves disease Expected: 10/15/2023, Expires: 01/14/2024 [facility] Work Phone: Comment on above:Expected: 10/15/2023, Expires: 01/14/2024Start: 10-15-2023 End: 18-50-0081Fvztpprntbfgcoeo (T3) Free [Mass/volume] in Serum or PlasmaT3 FREE BLD Lab Routine Graves disease Expected: 10/15/2023, Expires: 01/14/2024 [facility] Work Phone: Comment on above:Expected: 10/15/2023, Expires: 01/14/2024Start: 71-57-6169Mxyxdnc Directive DiscussionAdvance Directive DiscussionCleHolzer Medical Center – Jacksontart: 53-79-9978Wmimtcsxrk Health ScreeningBehavioral Health ScreeningMount Carmel Health Systemtart: 46-53-2596Cshpg-19 Vaccine ()Covid-19 Vaccine ()[facility]: 06-04-2023 Influenza vaccinationInfluenza Vaccine (#1)[facility]: 01-20-2023 End: 95-08-5354Fiziggnllszgq metabolic 2000 panel - Serum or PlasmaCOMP METABOLIC PANEL Lab Routine Graves disease Expected: 01/20/2023, Expires: 03/22/2023[facility] Work Phone: Comment on above:Expected: 01/20/2023, Expires: 03/22/2023Start: 01-20-2023 End: 16-26-0531Xsctxvzsigg [Units/volume] in Serum or PlasmaTSH BLD Lab Routine Graves disease Expected: 01/20/2023, Expires: 03/22/2023[facility] Work Phone: Comment on above:Expected: 01/20/2023, Expires: 03/22/2023Start: 01-20-2023 End: 71-18-8827Vxgfzpiti (T4) free [Mass/volume] in Serum or PlasmaT4 FREE/FREE THYROX Lab Routine Graves disease Expected: 01/20/2023, Expires: 03/22/2023 [facility] Work Phone: Comment on above:Expected: 01/20/2023, Expires: 03/22/2023Start: 01-20-2023 End: 95-97-3278Jeqhrtqyvdydsasn (T3) Free [Mass/volume] in Serum or PlasmaT3 FREE BLD Lab Routine Graves disease Expected: 01/20/2023, Expires: 03/22/2023 [facility] Work Phone: Comment on above:Expected: 01/20/2023, Expires: 03/22/2023Start: 11-18-2022 End: 30-63-5257XIVAB 1 ANTITRYPSIN PHENOTYPESt. Francis Hospital Work Phone: Comment on above:Expected: 11/18/2022, Expires: 01/18/2023Start: 11-18-2022 End: 91-94-3687Okbxwacmr C virus RNA [Units/volume] (viral load) in Serum or Plasma by HARPREET with probe detectionSt. Francis Hospital Work Phone: Comment on above:Expected: 11/18/2022, Expires: 01/18/2023Start: 11-18-2022 End: 93-14-0272Hwzvbvhhfwkh Ab [Presence] in Serum by Immunofluorescence [facility] Work Phone: Comment on above:Expected: 11/18/2022, Expires: 01/18/2023Start: 11-18-2022 End: 96-53-1024Vgrgex muscle Ab [Presence] in SerumSt. Francis Hospital Work Phone: Comment on above:Expected: 11/18/2022, Expires: 01/18/2023Start: 16-81-0479UPSFAZO DIRECTIVE DISCUSSIONADVANCE DIRECTIVE DISCUSSIONMount Carmel Health Systemtart: [id number] ASSESSMENTDEPRESSION ASSESSMENTCleHolzer Medical Center – Jacksontart: 42-10-5086Dwavyfcumwqb thyroid imagingMount Carmel Health Systemtart: 81-12-1708FVZCA-19 VACCINE (5 - Booster)COVID-19 VACCINE (5 - Booster)[facility]: 23-43-0893Nnsog-19 Vaccine (5 - Mixed Product series)Covid-19 Vaccine (5 - Mixed Product series)[facility] Start: 56-19-1734PFHD DENSITYBONE DENSITYMount Carmel Health Systemtart: 43-90-3651Shyt Density ScreeningBone Density ScreeningMount Carmel Health Systemtart: 2015 Pneumococcal Vaccine: 65+ (1 - PCV)Pneumococcal Vaccine: 65+ (1 - PCV)[facility]: 69-74-7146MZVEYICXZPDZ: 65+ (1 - PCV)PNEUMOCOCCAL: 65+ (1 - PCV) [facility]: 41-26-6509Gzfkgcngo for osteoporosisBone Density ScreeningMount Carmel Health Systemtart: 07-01-2015Medicare Annual Wellness VisitMedicare Annual Wellness VisitMount Carmel Health Systemtart: 05-39-6266Dsqqz microalbumin profileDTaP,Tdap,Td Vaccine (1 - Tdap)[facility]: 13-95-6859PIZ Vaccine (1 - 1-dose 60+ series)RSV Vaccine (1 - 1-dose 60+ series)[facility]: 73-40-2037YJJMUGRB VACCINE (1 of 2)SHINGRIX VACCINE (1 of 2) [facility]: 93-22-7504UKFVWRWZQ (FIT-DNA)COLOGUARD (FIT-DNA)[facility]: 05-81-7247AamlrbejgalVCGPYRHEDPLKpjrlidug ClinicStart: 1995 COLORECTAL CANCER SCREENINGCOLORECTAL CANCER SCREENINGMount Carmel Health Systemtart: 64-52-5953TJ COLONOGRAPHYCT COLONOGRAPHYMount Carmel Health Systemtart: 1995 DIABETES SCREENDIABETES SCREENMount Carmel Health Systemtart: 67-41-1582JPSFH OCCULT BLOODFECAL OCCULT BLOODMount Carmel Health Systemtart: 21-53-9174Lhadq 1996 panel - Serum or PlasmaLipid ScreeningMount Carmel Health Systemtart: 34-62-4841Hougs panelLipid ScreeningMount Carmel Health Systemtart: 89-29-9598FETXR SCREENLIPID SCREENMount Carmel Health Systemtart: 05-02-1052Ksmpeqvzu for malignant neoplasm of colon[facility] Start: 51-09-9193JSRQCERAQHFXJZDHVOAGYRVATYKqphssrnm ClinicStart: 1990 MammographyMount Carmel Health Systemtart: 97-56-5702Yvycrsgvj for malignant neoplasm of breastMount Carmel Health Systemtart: 72-01-2024Qmxqu microalbumin profileMount Carmel Health Systemtart: 74-32-1732FHGNMO PCP TEAM CHRONIC DISEASE VISITANNUAL PCP TEAM CHRONIC DISEASE VISITMount Carmel Health Systemtart: 26-23-1007Uaodfyh ScreeningAnxiety ScreeningMount Carmel Health Systemtart: 06-22-4935RU CONTROLLED (<130/80)BP CONTROLLED (<130/80)[facility]: 95-49-4021Mhjecuuwab ScreeningDepression ScreeningMount Carmel Health Systemtart: 04-13-8935NAKPGEOPE C SCREENINGHEPATITIS C SCREENINGMount Carmel Health Systemtart: 89-31-2587Klkotzafd for malignant neoplasm of colonNOMS HealthcareComprehensive metabolic 1999 panel - Serum or Plasma [facility] 2000 panel - Serum or PlasmaPeoples HospitalCYTOLOGY NON-GYNCYTOLOGY NON-3RD MATE Lab Routine Thyroid nodule 03/29/2024 12:[facility] Work Phone: DXA Skeletal system.axial Views for bone density [facility] End: 54-71-9902HWC Skeletal system.axial Views for bone densitySt. Francis HospitalComment on above:ONCE for 1 Occurrences starting 04/26/2025 until 04/26/2025ENDO THYROID/LYMPH NODE FNAENDO THYROID/LYMPH NODE FNA Procedures Routine Graves disease Thyroid nodule Ordered: 01/21/2024[facility] Work Phone: Comment on above:Ordered: 01/21/2024Guidance for percutaneous biopsy.core needle of Thyroid glandIMAGING GUIDED BIOPSY THYROID Radiology Routine Graves disease Thyroid nodule [facility]: [facility] HospitalComment on above:Ordered: 05/12/2024MG Breast - bilateral Screening [facility] HospitalMG Breast - bilateral ScreeningPeoples Hospital End: 95-05-3394Ah abdominal real time w/image limitedUS ABD RT UPPER QUADRANT Radiology Routine Abnormal liver enzymes 1 Occurrences starting 11/18/2022until 4CFayette [facility] Work Phone: Comment on above:1 Occurrences starting 11/18/2022 until 12/18/2023 End: 00-16-1323Gv soft tissue head & neck real time imge docmUS THYROID/PARATHYROID Radiology Routine Graves disease Thyroid nodule 1 Occurrences starting 01/20/2023 until 4CF[facility] Work Phone: Comment on above:1 Occurrences starting 01/20/2023 until 02/19/2024 End: 58-23-1341Rn soft tissue head & neck real time imge docmUS THYROID/PARATHYROID Radiology Routine Graves disease Thyroid nodule 1 Occurrences starting 09/03/2023 until 4CF[facility] Work Phone: Comment on above:1 Occurrences starting 09/03/2023 until 10/02/2024 End: 81-76-3855QM Thyroid glandUS THYROID/PARATHYROID Radiology Routine Thyroid nodule 1 Occurrences starting 05/25/2024 until 5CF[facility] Work Phone: Comment on above:1 Occurrences starting 05/25/2024 until 06/24/2025US Thyroid glandUS THYROID/PARATHYROID Radiology Routine Thyroid nodule 06/07/2024 9:25 AM EDTCF[facility] Work Phone: End: 20-26-7237QS Thyroid glandUS THYROID/PARATHYROID Radiology Routine Graves disease Thyroid nodule 1 Occurrences starting 02/16/2025 until 03/18/2026 [facility] Work Phone: Comment on above:1 Occurrences starting 02/16/2025 until 03/18/2026XR Chest 2 [facility] Immunizations Immunization DateImmunizationNotesCare QccgukynUlmgbegs95-01-0171tanhwcxau virus vaccine, unspecified formulationNorthern Cochise Community Hospitale [facility] SystemNsbnag49-77-1132wkfdntgvh A vaccine, adult dosageOumoule Aggie Smith MD Work Phone: [facility] HospitalHfhbjq76-05-5202sagqrhjtl virus vaccine, unspecified formulationYessi Carson MD Work Phone: [facility] HospitalXszzol74-77-1809zwwabklkz virus vaccine, split virus (incl. purified surface antigen)Rosalie Moncada Other [employer] Other 10509667-55-2010ybrhlsoch virus vaccine, unspecified formulationYessi Carson MD Work Phone: [facility]2022COVID-19 vaccine (UNSPECIFIED)Nicole Smith MD Work Phone: [facility] HospitalGdkzmz41-68-4929HMRWF-75 Vaccine Pfizer - Documentation Purposes OnlyRosalie Moncada Other [facility]11-04-2021 pneumococcal polysaccharide vaccine, 23 valentRosalie Moncada Other [facility]10-14-2021influenza virus vaccine, split virus (incl. purified surface antigen)Rosalie Moncada Other [employer] Other 10976687-06-9681wekbvmhaz virus vaccine, unspecified formulationPe[facility] Hospital10-07-2021COVID-19 vaccine (UNSPECIFIED)Nicole Smith MD Work Phone: [facility] HospitalXcrcia19-63-9038QORMZ-01 vaccine (UNSPECIFIED)iNcole Smith MD Work Phone: [facility] HospitalDmbclo51-89-9307BLLHY-27 Vaccine Pfizer - Documentation Purposes OnlyYolandelucien Antwan Other [facility]02-11-2021COVID-19 vaccine (UNSPECIFIED)Nicole Smith MD Work Phone: [facility] HospitalKegpiq59-66-2325qtaavhmkl virus vaccine, split virus (incl. purified surface antigen)Rosalie Moncada Other [employer] Other 10892442-25-0305uolqbzugl virus vaccine, unspecified formulationPeoples Hospital10-07-2018influenza virus vaccine, split virus (incl. purified surface antigen)Rosalie Moncada Other [employer] Other 10436858-65-2689unbrnqlms virus vaccine, unspecified formulationPeoples Hospital10-26-2017influenza virus vaccine, split virus (incl. purified surface antigen)Rosalie Moncada Other [employer] Other [id number] virus vaccine, unspecified formulationPe[facility] Hospital11-13-2016influenza virus vaccine, split virus (incl. purified surface antigen)Rosalie Moncada Other [employer] Other 11359108-09-2004voeaelyqq virus vaccine, unspecified formulationPeoples Hospital09-21-2014tetanus and diphtheria toxoids, adsorbed, preservative free, for adult use (5 Lf of tetanus toxoid and 2 Lf of diphtheria toxoid)Rosalie Moncada Other [facility] Payers DatePayer CategoryPayerPolicy [id number] Health InsuranceL[facility] .[id number] [id number] [id number] [id number] 2..1.328526.3.57[id number] 2..1.467663.3.57[id number] 2..1.555971.3.57[id number] 2.0.1.939825.3.57[id number] 2.0.1.779599.3.57[id number] 2.840.1.59[id number] 2.840.1.025847.3.579.2.531 [id number] 2.16.840.1.062122.3.579.2.531 Social History DateTypeDetailFacilityTobacco smoking status NHISUnknown if ever smokedCleveland Clinic [facility] Work Phone: Start: 43-92-9207Rdf Assigned At BirthFeSumma Health Barberton CampusTobacco smoking status NHISTobacco smoking consumption unknownMount Carmel Health Systemtart: 22-50-1463Zva Assigned At BirthNot on file [facility]: 02-26-2023 End: 05-75-0428Lywlzfh of Social functionMount Carmel Health Systemtart: 02-26-2023 End: 20-08-9341Dhdo Deprivation IndexMount Carmel Health Systemtart: 43-24-0578Ufynlwrf Score (1-100), lower number is lower xbfm55WyzbxhxroMount Carmel Health Systemtart: 07-30-2023 End: 51-27-9979Trknlhi smoking status NHISNever smoked tobacco (finding) [facility]: 13-07-2433RkaEsckpz (finding)[facility] Clinical Notes 07-26-2022 to 07-04-2025 Note Date & QfxqMxopRkqahfes84-21-0030 Evaluation note* Diagnosis Onset Date Resolution Status Admit Date Abnormal tympanic membrane of left ear acuteOctober 2024 11:23amHyperlipemiaacuteOctober 2024 9:27amMedicare annual wellness visit, subsequentacuteOctober 2024 9:27amScreening mammogram for breast canceracuteOctober 2024 9:27am [facility] Work Phone: 1(789) 148-294409-29-2025 NoteHNO ID: [id number] Author: KASSANDRA ENCISO MD Service: ? Author [...] ago; results not available ( done in [facility] ) - On Fosamax for over [...] FOR MORE INFORMATION ABOUT DIAGNOSIS AND TREATMENT: [facility] Osteoporosis and Metabolic Bone Disease:? www.ccf.org/arthritis/osteo National Osteoporosis Foundation:? www.nof.org International Society of Clinical Densitometry www.iscd.org Supervisor Refractory Products: 22281 Transcribe Date/Time: Apr 26 2025 8:56A Impression/plan: # Age-related osteoporosis without current pathological fracture (M81.0) - Chronic osteoporosis with lumbar spine T-score of -2.7; prior DEXA scan reportedly performed ~5 years ago, but records unavailable for comparison. - Long-term Fosamax therapy (over 20 years) with persistent osteoporosis suggests suboptimal response or medication (more content not included)... [facility]08-27[facility]25 History and physical note* Jose Trinh LPN - 05/30/2025 9:00 AM EDT Labs: 05/18/2025 [facility]08-27-2025 History and physical note* Jose Trinh LPN - 05/30/2025 9:00 AM EDT Labs: 05/18/2025 documented in this encounterEast [facility] City Hospital08-27-2025 History of Present illness Narrative* Yessi Carson [...] not consider stability or previous biopsy results. Supervisor Refractory Products: [facility] HOSPITALBalta Transcribe Date/Time: May 18 2025 11:11A Dictated by : BRUCE BEATTY MD This examination was interpreted and the report reviewed and electronically signed by: BRUCE BEATTY MD on May 18 2025 11:45AM EST Results-Findings * * *Final Report* * * DATE OF EXAM: May 18 2025 8:14AM U 1048 - US THYROID/PARATHYROID / PROCEDURE [...] 2 points Echogenicity: Isoechoic, 1 point Shape: Phpsz-zctr-lnpu, 0 points Margin: Ill-defined, 0 points Echogenic [...] 2 points Echogenicity: Hypoechoic, 2 points Shape: Tnooo-ggcp-tevb, 0 points Margin: Smooth, 0 points Echogenic [...] 2 points Echogenicity: Isoechoic, 1 point Shape: Bcsom-vfgr-nind, 0 points Margin: Smooth, 0 points Echogenic [...] 2 points Echogenicity: Isoechoic, 1 point Shape: Gtgrx-hwgu-qchh, 0 points Margin: Smooth, 0 points Echogenic [...] Lisa Vang M.D.12/08/2023 10:11 AM Dictation Location: [place] [address] Tech: Dunia Dunlapanna Transcribed By: ALEX 12/08/23 [...] visit. Yessi Carson MD. documented in this encounterEast [facility] Hospital08-27-2025 NoteHNO ID: [id number] Author: YESSI CARSON MD Service: ? Author [...] AM - Radiology, Or (more content not included)...[facility]08-15-2025 NoteHNO ID: [id number] Author: LINDA HUANG RT(R) Service: ? Author Type: Executive Chef Type: Progress Notes Filed: 05/18/2025 08:04 Note [...] PATIENT PRESENTS WITH AN IMPLANTABLE OR ATTACHED METAL TILE SETTER: No RADIOLOGY DEPARTMENT: Ultrasound PERIPHERAL IV DATA: Not applicable SIGNED BY: RT Murtaza(R) May 18, 2025 8:04 [facility]07-24-2025 History of Present illness Narrative* Rin Stanford [...] PATIENT PRESENTS WITH AN IMPLANTABLE OR ATTACHED METAL TILE SETTER: No RADIOLOGY DEPARTMENT: Bone Density PERIPHERAL IV DATA: Not applicable SIGNED BY: RT Michael(Roberto) April 26, 2025 8:48 AM documented in this encounterEast [facility] City Hospital07-24-2025 NoteHNO ID: [id number] Author: RIN STANFORD RT(Roberto) Service: ? Author Type: Technologist Type: Progress [...] PATIENT PRESENTS WITH AN IMPLANTABLE OR ATTACHED METAL TILE SETTER: No RADIOLOGY DEPARTMENT: Bone Density PERIPHERAL IV DATA: Not applicable SIGNED BY: RT Michael(R) April 26, 2025 8:48 [facility]05-19-2025 NoteHNO ID: [id number] Author: ?, ?, ? Service: ? Author Type: ? Type: Progress Notes Filed: 02/19/2025 09:56 Note Text: Pt is scheduled on 05/18 for labs and US and 05/30 for an in-office visitMckitrick Hospital05-17-2025 NoteHNO ID: [id number] Author: ?, ?, ? Service: ? Author Type: ? Type: Progress Notes Filed: 02/17/2025 13:09 Note Text: Payfirma message was sent on 02/17/25[facility]05-16-2025 NoteHNO ID: [id number] Author: ?, ?, ? Service: ? Author Type: ? Type: Progress Notes Filed: 02/16/2025 08:52 Note Text: Summary: 1st attempt Called and LVM to patient to schedule follow up and US on 02/16/2025 at 8:50am- [facility]05-16-2025 History of Present illness Narrative* Marco Tripathi - 02/16/2025 8:44 AM EDTSummary: 1st attempt Called and LVM to patient to schedule follow up and US on 02/16/2025 at 8:50am- AM * Yessi Carson MD - 02/16/2025 6:40 AM EDT VIRTUAL VISIT PROGRESS NOTE This is a virtual visit using Webflow Video Visit. It required patient- provider interaction for the medical decision making as documented below. I have communicated my name and active licensure. The patient's identity and physical location wereverified at the time of this visit. Either the patient or their legal sales representative wire rope has been informed of the risks and benefits of -- and alternatives to -- treatment through a remote evaluation andconsents to proceed with the evaluation remotely. Klio Mantilla is a 74 year old female [...] not consider stability or previous biopsy results. Super[employer]: BORA Transcribe Date/Time: Jun 09 2024 10:17A Dictated by : GABINO MCDONALD MD This examination was interpreted and the report reviewed and electronically signed by: GABINO MCDONALD MD on Jun 09 2024 10:26AM EST Results-Findings * * *Final Report* * * DATE OF EXAM: Jun 07 2024 9:08AM [facility] 1048 - US THYROID/PARATHYROID / PROCEDURE [...] 2 points Echogenicity: Isoechoic, 1 point Shape: Zvibm-musp-lyvh, 0 points Margin: Ill-defined, 0 points Echogenic [...] 2 points Echogenicity: Hypoechoic, 2 points Shape: Fuamw-czaa-idsl, 0 points Margin: Smooth, 0 points Echogenic [...] 1 point Echogenicity: Hypoechoic, 2 points Shape: Imxkb-ahpy-ydlu, 0 points Margin: Smooth, 0 points Echogenic [...] 2 points Echogenicity: Isoechoic, 1 point Shape: Hhlxi-gqoi-rpkv, 0 points Margin: Smooth, 0 points Echogenic [...] Lisa Vang M.D.12/08/2023 10:11 AM Dictation Location: [place] [address] Tech: Dunia Anderson Transcribed By: ALEX 12/08/23 [...] palpitations. She saw Dr Sav Márquez in [place], work up revealed Graves disease. Started Methimazole [...] diagnostic. US guided FNA left lower nodule 9/4/24 by IR benign. Note IR rec another [...] visit. Yessi Carson MD. documented in this encounterEast [facility] Hospital05-16-2025 History and physical note * Jose Trinh LPN - 02/16/2025 6:40 AM EDT Labs: 11/17/2024 [facility]05-16-2025 History and physical note* Jose Trinh LPN - 02/16/2025 6:40 AM EDT Labs: 11/17/2024 documented in this encounterEast [facility] City Hospital05-16-2025 NoteHNO ID: [id number] Author: YESSI CARSON MD Service: ? Author Type: Physician Type: Progress Notes Filed: 02/16/2025 07:06 Note Text: VIRTUAL VISIT PROGRESS NOTE This is a virtual visit using WITOIom Video Visit. It required patient-provider interaction for the medical decision making as documented below. I have communicated my name and active licensure. The patient's identity and physical location were verified at the time of this visit. Either the patient or their legal sales representative wire rope has been informed of the risks and [...] not consider stability or previous biopsy results. Supervisor [employer] Products: BORA Transcribe Date/Time: Jun 09 2024 10:17A Dictated by : GABINO MCDONALD MD This examination was interpreted and the report reviewed and electronically signed by: GABINO MCDONALD MD on Jun 09 2024 10:26AM EST (more content not included)...[facility]05-03-2025 History of Present illness Narrative* Negrita Redmond, DADA - 02/03/2025 10:00 AM EDT Images from the original note were not included. [address], [address] [facility], [address] P: [phone] F: [phone] HPI Historian of HPI: patient Kilo Mantilla [...] Left Turbinates: Enlarged and swollen. Mouth/Throat: Lips: [place]. Mouth: Mucous membranes are moist. Pharynx: Oropharynx [...] 6 tablet; Refill: 0 documented in this [facility]11-19-2024 NoteHNO ID: [id number] Author: ?, ?, ? Service: ? Author Type: ? Type: Progress Notes Filed: 08/22/2024 09:18 Note Text: Appt scheduled [facility] 08/22/24[facility]11-[facility]24 NoteHNO ID: [id number] Author: ?, ?, ? Service: ? Author Type: ? Type: Progress Notes Filed: 08/20/2024 10:44 Note Text: Summary: 1st attempt Payfirma message was sentMckitrick Hospital11-15-2024 History of Present illness Narrative* Yessi Carson MD - 08/18/2024 6:40 AM EST VIRTUAL VISIT PROGRESS NOTE This is a virtual visit using Payfirma Zoom Video Visit. It required patient- provider interaction for the medical decision making as documented below. I have communicated my name and active licensure. The patient's identity and physical location wereverified at the time of this visit. Either the patient or their legal sales representative wire rope has been informed of the risks and [...] not consider stability or previous biopsy results. Supervisor Refractory Products: PSCB Transcribe Date/Time: Jun 09 2024 10:17A [...] 2 points Echogenicity: Isoechoic, 1 point Shape: Itloh-glxl-aimj, 0 points Margin: Ill-defined, 0 points Echogenic [...] 2 points Echogenicity: Hypoechoic, 2 points Shape: Qgmvs-fcik-mivn, 0 points Margin: Smooth, 0 points Echogenic [...] 1 point Echogenicity: Hypoechoic, 2 points Shape: Bdeog-dhgl-eryq, 0 points Margin: Smooth, 0 points Echogenic [...] 2 points Echogenicity: Isoechoic, 1 point Shape: Nnjdl-guhf-uulg, 0 points Margin: Smooth, 0 points Echogenic [...] Lisa Vang M.D.12/08/2023 10:11 AM Dictation Location: [place] [address] Tech: Dunia Justin Transcribed By: ALEX 12/08/23 [...] palpitations. She saw Dr Sav Márquez in [place], work up revealed Graves disease. Started Methimazole [...] visit. Yessi Carson MD. documented in this encounterEast [facility] Hospital11-15-2024 NoteHNO ID: [id number] Author: YESSI CARSON MD Service: ? Author Type: Physician Type: Progress Notes Filed: 08/18/2024 06:58 Note Text: VIRTUAL VISIT PROGRESS NOTE This is a virtual visit using Payfirma Zoom Video Visit. It required patient-provider interaction for the medical decision making as documented below. I have communicated my name and active licensure. The patient's identity and physical location were verified at the time of this visit. Either the patient or their legal sales representative wire rope has been informed of the risks and [...] not consider stability or previous biopsy results. Supervisor Refractory Products: BORA Transcribe Date/Time: Jun 09 2024 10:17A Dictated by : GABINO MCDONALD MD This ex (more content not included)...[facility]09-[facility] History of Present illness Narrative* Mariano Rojas, RT(R) - 06/07/2024 8:45 AM EDT Radiology [...] PATIENT PRESENTS WITH AN IMPLANTABLE OR ATTACHED METAL TILE SETTER: No RADIOLOGY DEPARTMENT: Ultrasound PERIPHERAL IV DATA: Not applicable SIGNED BY: RT Mónica(Roberto) June 07, 2024 9:19 AM documented in this encounterEast [facility] City Hospital09-04-2024 NoteHNO ID: [id number] Author: MARIANO ROJAS RT (R) Service: Radiology Author Type: Technologist [...] PATIENT PRESENTS WITH AN IMPLANTABLE OR ATTACHED METAL TILE SETTER: No RADIOLOGY DEPARTMENT: Ultrasound PERIPHERAL IV DATA: Not applicable SIGNED BY: AMALIA Sales) June 07, 2024 9:19 AMSevier Valley [id number] Telephone encounter Note* Telephone Encounter - Nancie Webster - 05/26/2024 9:36 AM EDT Spoke to pt and scheduled biopsy for 06/07/24. [facility]08-23-2024 Miscellaneous Notes* Telephone Encounter - Nancie Webster [...] this procedure: low risk. Reference from [facility] [employer]: https://[facility].policytech.com/dotNet/documents/?rsslu=74136 STAFF SIGNATURE: Akin Parsons MD DATE: May [...] 11:51 AM EDT RADIOLOGY CALL CENTER INTAKE MANAGER RENTAL: Qiana EXT: [id number] DATE: 05/19/24 TIME: 11:51am TRACKING #. [id number] REQUESTING PERSON: Kaylin PHONE/PAGER: [phone] REQUESTING STAFF: Yessi Carson PHONE/PAGER: [phone] SPECIFICS OF THE REQUEST: (Please be as [...] for pathology (For example: send for ER, SD, HER2/gorge or possible lymphoma send in RPMI [...] EVALUATE APPROPRIATENESS/FEASIBILITY OF THE REQUEST) IMAGING: OUTSIDE [facility] Films: Where is study now: Imported to [employer] (If the imaging was obtained outside the [facility] system, then it needs to be submitted for review prior to approval.) Note to all persons requesting biopsies: All biopsy requests will be scheduled as quickly as possible, based on the clinical urgency, availability of appointment times, the need to hold anti-thrombolytic therapy (aspirin, blood thinners) and the patient s schedule, including the need for an available belly dump driver. If a percutaneous biopsy or drainage is not felt to be safe or an alternative method for establishing a diagnosis is possible, this will be discussed directly with the requesting physician. documented in this encounterEast [facility] City Hospital08-23-2024 Telephone encounter Note * Telephone Encounter - Nancie Webster - 05/26/2024 8:45 AM EDT Called pt to schedule and a message was left. 1st attempt [facility]08-22-2024 Telephone encounter Note* Telephone Encounter - Akin Parsons MD - 05/25/2024 2:40 PM EDT RADIOLOGIST REQUEST / APPROVAL FORM STAFF RADIOLOGIST:Akin Parsons MD PROCEDURE TO BE DONE UNDER: US (Please also schedule routine thyroid US to be done earlier the sameday few hours prior to thyroid bx) PROCEDURE REQUESTED: FNA Requested PROCEDURE: Approved TIME SLOT NEEDED: 1 Hour NOTES: Spoke with Ammy Aldana request biopsy of left lower lobe nodule (previous bx by Dr. Marks non-dx) patient to have routine US prior to bx (outside images are inadequate) SPECIAL LABS/ PROCESSING: routine plus afirma Pre-procedure labs: CBC: not needed INR: not needed COVID: not needed SIR Bleeding risk category for this procedure: low risk. Reference from [facility] [employer]: https://ccf.policyTheCommentor.com/dotNet/documents/?zpzhy=54957 STAFF SIGNATURE: Akin Parsons MD DATE: May 25, 2024 TIME: 2:40 PM . [facility] Work Phone: 1(873) 974-849108-16-2024 Telephone encounter Note* Telephone Encounter - Akin Parsons MD - 05/19/2024 5:13 PM EDT 8.16 and 8.19 and 8.21 - Attempted to contact Dr. Carson for further discussion. Waiting for call back, [facility]08-16-2024 Telephone encounter Note* Telephone Encounter - Sherry [...] DATE: May 19, 2024 TIME: 12:17 PM [facility]08-16-2024 Telephone encounter Note* Telephone Encounter - Kimberly Reagan - 05/19/2024 11:51 AM EDT RADIOLOGY CALL CENTER INTAKE MANAGER RENTAL: Qiana EXT: [id number] DATE: 05/19/24 TIME: 11:51am TRACKING #. [id number] REQUESTING PERSON: Kaylin PHONE/PAGER: [phone] REQUESTING STAFF: Yessi Carson PHONE/PAGER: [phone] SPECIFICS OF THE REQUEST: (Please be as [...] for pathology (For example: send for ER, SD, HER2/gorge or possible lymphoma send in RPMI [...] EVALUATE APPROPRIATENESS/FEASIBILITY OF THE REQUEST) IMAGING: OUTSIDE [facility] Films: Where is study now: Imported to [employer] (If the imaging was obtained outside the [facility] system, then it needs to be submitted for review prior to approval.) Note to all persons requesting biopsies: All biopsy requests will be scheduled as quickly as possible, based on the clinical urgency, availability of appointment times, the need to hold anti-thrombolytic therapy (aspirin, blood thinners) and the patient s schedule, including the need for an available belly dump driver. If a percutaneous biopsy or drainage is not felt to be safe or an alternative method for establishing a diagnosis is possible, this will be discussed directly with the requesting physician. [facility]08-09-2024 History of Present illness Narrative* Yessi Carson MD - 05/12/2024 7:20 AM EDT VIRTUAL VISIT PROGRESS NOTE This is a virtual visit using [employer] Video Visit. It required patient- provider interaction for the medical decision making as documented below. I have communicated my name and active licensure. The patient's identity and physical location wereverified at the time of this visit. Either the patient or their legal sales representative wire rope has been informed of the risks and [...] Lisa Vang M.D.12/08/2023 10:11 AM Dictation Location: [place] [address] Tech: Dunia Anderson Transcribed By: ALEX 12/08/23 [...] palpitations. She saw Dr Sav Márquez in [place], work up revealed Graves disease. Started Methimazole [...] which included preparing to see the patient, dvce-xr-bhgn patient care, completing clinical documentation, obtaining and/or reviewing separately obtained history, performing a medically appropriate examination, counseling and educating the pat ient, ordering medications, tests, or procedures and care coordination. Yessi Carson MD. documented in this encounter[facility]06[facility] Procedure note* Anthony Marks MD, PhD - 03/29/2024 12:01 PM EDT Fine needle aspiration of Thyroid Nodule (March 29, 2024) Referring Physician: Yessi Carson MD Primary Care Physician: Rosalie Moncada MD Indication: (E04.1) Thyroid nodule (primary encounter diagnosis) Comment: FNA of left lobe thyroid nodule Plan: US THYROID FNA (POC) ENDO USE ONLY, CYTOLOGY NON-3RD MATE Kilo Mantilla was identified by name and [...] Follow up:With Dr. Dagoberto Marks MD, PhD [facility] Work Phone: 1(491) 376-747306-26-2024 Procedure note* Anthony Marks MD, PhD - 03/29/2024 12:01 PM EDT Fine needle aspiration of Thyroid Nodule (March 29, 2024) Referring Physician: Yessi Carson MD Primary Care Physician: Rosalie Moncada MD Indication: (E04.1) Thyroid nodule (primary encounter diagnosis) Comment: FNA of left lobe thyroid nodule Plan: US THYROID FNA (POC) ENDO USE ONLY, CYTOLOGY NON-3RD MATE Kilo Mantilla was identified by name and [...] Dagoberto Marks MD, PhD documented in this encounterEast [facility]06-[facility] Nurse Note* Zee Kc MA - 03/29/2024 [...] Visit completed when applicable. Zee Kc MA [facility]06-26-2024 Nurse Note* Zee Kc MA - 03/29/2024 [...] applicable. Zee Kc MA documented in this encounterEast [facility]06-[facility] History of Present illness Narrative* Nicole Wilson [...] grave's occured has done liver us at [facility], it is unremarkable GENERAL REVIEW OF SYSTEMS: [...] no edema no spiders no palmar erythema MANAGEMENT TRAINEE no asterixis , a+0 X3 A/p: Kilo has chronic mild elevation of alk phosphatase unclear etiology liver function is normal I will obtain more labs today if alk phosph and GGT are elevated consider an MRI hep A vaccine today Immune to hep B Nicole Miranda MD {I spent 30 minutes in the visit, with more than 50% of the total oaoa-vw-rxph time of the visit incounseling / coordination of care. documented in this encounterEast [facility]05-10-2024 Telephone encounter Note * Telephone Encounter - Herberth Quinn RN - 02/11/2024 8:43 AM EDT Requester: Pharmacy Please see additional details below and advise if able to resend Rx. Patients last Endocrinology visit occurred 01/21/24. Follow-up evaluation has been established Upcoming Endocrinology Appointments - Next 365 Days Visit Type Date Time Department THYROID BIOPSY/ULTRASOUND 03/29/2024 11:20 AM [facility] VIDEO SPEC EST 05/01/2024 3:00 PM [facility] . Requested Prescriptions Pending Prescriptions [...] PSS NOTE: Patient needs scheduled appointment No [facility]05-10-2024 Miscellaneous Notes* Telephone Encounter - Herberth Quinn RN - 02/11/2024 8:43 AM EDT Requester: Pharmacy Please see additional details below and advise if able to resend Rx. Patients last Endocrinology visit occurred 01/21/24. Follow-up evaluation has been established Upcoming Endocrinology Appointments - Next 365 Days Visit Type Date Time Department THYROID BIOPSY/ULTRASOUND 03/29/2024 11:20 AM [facility] VIDEO SPEC EST 05/01/2024 3:00 PM [facility] . Requested Prescriptions Pending Prescriptions [...] needs scheduled appointment No documented in this encounterEast [facility] Hospital04-19-2024 History of Present illness Narrative* Lisa Hagen - 01/21/2024 1:46 PM EDTSummary: 1st attempt LVM w/callback number for pt to schedule vv fu in 3 months & Fine Needle Aspiration [facility] 01/21/24 * Yessi Carson MD - 01/21/2024 7:00 AM EDT VIRTUAL VISIT PROGRESS NOTE This is a virtual visit using [employer] Zoom Video Visit. It required patient- provider interaction for the medical decision making as documented below. I have communicated my name and active licensure. The patient's identity and physical location wereverified at the time of this visit. Either the patient or their legal sales representative wire rope has been informed of the risks and [...] Lisa Vang M.D.12/08/2023 10:11 AM Dictation Location: [place] [address] Tech: Dunia Justin Transcribed By: ALEX 12/08/23 [...] palpitations. She saw Dr Sav Márquez in [place], work up revealed Graves disease. Started Methimazole [...] months. Yessi Carson MD. documented in this encounterEast [facility] Hospital01-30-2024 Evaluation note* Encounter Date Diagnosis Assessment Notes Treatment Notes Treatment Clinical Notes Oct, Hyperlipidemia, unspecified (ICD -10 - E78.5) [employer] Other 12-01-2023 History of Present illness Narrative* [...] neck irradiation. Thyroid US March 19 at [facility] showed no sig changes int he thyroid [...] palpitations. She saw Dr Sav Márquez in [place], work up revealed Graves disease. Started Methimazole [...] mins. Yessi Carson MD. documented in this encounterEast [facility] Hospital11-08-2023 Miscellaneous Notes* Telephone Encounter - Sheri [...] may leave a message documented in this encounterEast [facility] Hospital10-27-2023 Evaluation note* Encounter Date Diagnosis Assessment [...] without med. will do labs later this weekcheck fasting labs. [employer] Other 09-12-2023 Miscellaneous Notes* Telephone Encounter - Laquita Correia MA - 06/15/2023 2:25 PM EDT Found the results (clipped to another pt's notes) in your inbox documented in this encounterEast [facility] City Hospital06-02-2023 Miscellaneous Notes* Telephone Encounter - Yessi [...] Please schedule appointment: No documented in this encounterEast [facility] City Hospital04-19-2023 History of Present illness Narrative* Yessi Carson MD - 01/20/2023 10:21 AM EDT New patient hyperthyroid/Graves disease. HPI: A pleasant 72 yo female patient presenting today with . August 2022 - had physical. She reported unintentional 10-12 pds over previous few months, also had tremor and palpitations. She saw Dr Sav Márquez in [place], work up revealed Graves disease. Started Methimazole [...] palpitations. She saw Dr Sav Márquez in [place], work up revealed Graves disease. Started Methimazole [...] which included preparing to see the patient, vbqs-wm-hduv patient care, completing clinical documentation, obtaining and/or reviewing separately obtained history, performing a medically appropriate examination, counseling and educating the pat ient, ordering medications, tests, or procedures and care coordination. documented in this encounterEast [facility] City Hospital02-15-2023 History of Present illness Narrative* Nicole Smith MD - 11/18/2022 2:17 PM EST Images from the original note were not included. [facility]atology [facility] Edu Miranda MD, FACG, FAASLD Hepatology [facility] Consult Requested By: Rosalie Moncada (DrC) [facility] [phone] for evaluation of liver enzymes.. Thank you [...] no edema no spiders no palmar erythema MANAGEMENT TRAINEE no asterixis , a+0 X3 no imaging [...] with more than 50% of the total fwfu-xs-nrhx time of the visit incounseling / coordination of care. documented in this encounterEast [facility] City Hospital10-23-2022 History general Narrative - Reported* Type Description Date Medical History Blood in stool Medical HistoryHyperlipemiaMedical HistoryHyperthyroidismSurgical HistoryProblem Title : Appendectomy, Problem Comment : [facility] 07/26/2022, Problem Status : Active,Surgical HistoryProblem Title : Cataract Extraction-Left, Problem Comment : [facility] 07/26/2022, Problem Status : Active,Surgical HistoryProblem Title : Cataract Extraction-Right, Problem Comment : [facility] 07/26/2022, Problem Status : Active,Surgical HistoryProblem [...] HistoryProblem Title : [facility]onsillect[facility], [facility] Problem Status : Active, [employer] Other Evaluation noteNo assessment information [facility] Work Phone: Evaluation note* Diagnosis Abnormal liver enzymes- Primary Other nonspecific abnormal serum enzyme levels documented in this encounter [facility] note* Diagnosis 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 crisis or storm Thyroid nodule Nontoxic uninodular goiter documented in this encounter [facility] note* Diagnosis Thyrotoxicosis, unspecified without thyrotoxic crisis or storm documented in this encounter [facility] noteNo InformationNort [employer] Other Evaluation note* Diagnosis 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 crisis or storm Thyroid nodule Nontoxic uninodular goiter documented in this encounter [facility] note* Diagnosis 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 crisis or storm Thyroid nodule Nontoxic uninodular goiter Other osteoporosis, unspecified pathological fracture presence documented in this encounter [facility] note* Diagnosis Abnormal alkaline phosphatase test- Primary Other nonspecific abnormal serum enzyme levels documented in this encounter [facility] note* Diagnosis Thyroid nodule- Primary Nontoxic uninodular goiter [facility]* Diagnosis 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 crisis or storm Vitamin D deficiency Unspecified vitamin D deficiency Thyroid nodule Nontoxic uninodular goiter [facility]* Diagnosis Thyroid nodule- Primary Nontoxic uninodular goiter Graves disease Toxic diffuse goiter without mention of thyrotoxic crisis or storm Thyroid nodule Nontoxic uninodular goiter documented in this encounter [facility] note* Diagnosis Thyroid nodule Nontoxic uninodular goiter documented in this encounter [facility] note* Diagnosis Onset Date Resolution Status Hyperlipemia acuteOsteoporosisacuteScreening mammogram for breast canceracute [facility] Work Phone: Evaluation note* Diagnosis 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 crisis or storm Thyroid nodule Nontoxic uninodular goiter Hypertension, unspecified type Other osteoporosis, unspecified pathological fracture presence documented in this encounter [facility] note* Diagnosis Cough in adult- Primary Bronchitis Bronchitis, not specified as acute or chronic [facility]* Diagnosis Onset Date Resolution Status Admit Date Chronic cough acuteMay 2024 10:16am [facility] Work Phone: Evaluation note* Diagnosis 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 crisis or storm Thyroid nodule Nontoxic uninodular goiter documented in this encounter [facility] note* Diagnosis Graves disease Toxic diffuse goiter without mention of thyrotoxic crisis or storm Thyroid nodule Nontoxic uninodular goiter documented in this encounter [facility] note* Diagnosis 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 crisis or storm Multiple thyroid nodules Nontoxic multinodular goiter Age-related osteoporosis without current pathological fracture Senile osteoporosis documented in this encounter [facility] general Narrative - Reported* Type Description [...] HistoryProblem Title : Appendectomy, Problem Comment : [facility] 07/26/2022, Problem Status : Active,Surgical HistoryProblem Title : Cataract Extraction- Left, Problem Comment : [facility] 07/26/2022, Problem Status : Active,Surgical HistoryProblem Title : Cataract Extraction-Right, Problem Comment : [facility] 07/26/2022, Problem Status : Active,Surgical HistoryProblem [...] HistoryProblem Title : Tonsillectomy, Problem Comment : [facility] 07/26/2022, Problem Status : Active, [employer] Other Reason for referral (narrative)* Diagnostic Procedure Only (Routine) - Pending ReviewSpecialtyDiagnoses / ProceduresReferred By ContactReferred To [facility] Diagnoses Abnormal liver enzymes Procedures US ABD RT UPPER QUADRANT US ABDOMINAL REAL TIME W/IMAGE LIMITED Nicole Wilson MD [address] [place] [address] [facility] Referral IDStatusReasonStart DateExpiration DateVisits RequestedVisits [id number] Review Auto-Generated Referral / [facility] for referral (narrative)* Diagnostic Procedure Only (Routine) - Pending ReviewSpecialtyDiagnoses / ProceduresReferred By Contact Referred To [facility] Diagnoses Graves disease Thyroid nodule Procedures US THYROID/PARATHYROID US SOFT TISSUE HEAD & NECK REAL TIME IMGE Yessi Gruber MD [address] [place] [address] [facility] Referral IDStatusReasonStart DateExpiration DateVisits RequestedVisits [id number] Review Auto-Generated Referral / [facility] for referral (narrative)* Diagnostic Procedure Only (Routine) - Pending ReviewSpecialtyDiagnoses / ProceduresReferred By Contact Referred To [facility] Diagnoses Graves disease Thyroid nodule Procedures US THYROID/PARATHYROID US SOFT TISSUE HEAD & NECK REAL TIME IMGE Yessi Gruber MD [address] [place] [address] [place] [address] Referral IDStatusReasonStart DateExpiration DateVisits RequestedVisits [id number] Review Auto-Generated Referral / [facility] for referral (narrative)* Diagnostic Procedure Only (Routine) - AuthorizedSpecialtyDiagnoses / ProceduresReferred By Contact Referred To [facility] Diagnoses Thyroid nodule Procedures US THYROID/PARATHYROID US SOFT TISSUE HEAD & NECK REAL TIME IMGE Anthony Franz, , PhD [address] [place] [address] [place] [address] Referral IDStatusReasonStart DateExpiration DateVisits RequestedVisits [id number] Auto-Generated Referral / [facility] for referral (narrative)No reason for referral information availableMer[facility] Health St[facility] Work Phone: Reason for visit Narrative* Diagnostic Procedure Only (Routine) - ClosedSpecialtyDiagnoses / ProceduresReferred By ContactReferred To [facility] Diagnoses Thyroid nodule Procedures US THYROID/PARATHYROID US SOFT TISSUE HEAD & NECK REAL TIME IMGE Anthony Franz MD, PhD [address] [place] [address] [place] [address] Referral IDStatusReasonStart DateExpiration DateVisits RequestedVisits [id number] Auto-Generated Referral / [facility] for visit Narrative* Diagnostic Procedure Only (Routine) - ClosedSpecialtyDiagnoses / ProceduresReferred By ContactReferred To Contact [facility] Diagnoses Graves disease Thyroid nodule Procedures US THYROID/PARATHYROID US SOFT TISSUE HEAD & NECK REAL TIME IMGE Yessi Gruber MD [address] [place] [address] Phone: tel: fax: [place] [address] Referral IDStatusReasonStart DateExpiration DateVisits RequestedVisits [id number] Auto-Generated Referral / [facility] Summary Purpose Family History Relationship Condition Age at Onset Recorded Date/T sidney father Malignant neoplasm Unknown HypertensionUnknownDeceasedUnknownHeart diseaseUnknownmotherDiabetes mellitus UnknownFamily history of mental disorderUnknown Advance Directives Advance Directive Response Recorded Date/ [...] Ear Pain July 04, 2025 11 :23am Chief Complaint Admit Date Left Ear Pain July 04, 2025 11 :23am Wellness August 02, 2025 9 :27am Reason for Visit Admit Date Abnormal tympanic membrane of left ear O ctober 2024 11:23am Hyperlipemia August 02, 2025 9 :27am Medicare annual wellness visit, subseque nt August 02, 2025 9:27am Screening mammogram for breast cancer Oc tober 2024 9:27am Additional Source Comments INFORMATION SOURCE (unrecogn ized section and content) DATE CREATED AUTHOR 11/25/2021 [facility] DATE CREATED AUTHOR AUTHOR'S ORGANIZ ATION 03/18/2022 [facility] DATE CREATED AUTHOR AUTHOR'S ORGANIZ ATION 08/31/2022 [facility] DATE CREATED AUTHOR AUTHOR'S ORGANIZ ATION 02/10/2024 [facility] DATE CREATED AUTHOR AUTHOR'S ORGANIZ ATION 06/11/2024 [facility] DATE CREATED AUTHOR AUTHOR'S ORGANIZ ATION 02/08/2025 [facility] DATE CREATED AUTHOR AUTHOR'S ORGANIZ ATION 07/29/2025 [facility] Care Teams (unrecognized sec tion and content) Team Status: Active Member Role Status Dates Rosalie Moncada MD Primary Care Provider Active Team Status: Active Member Role Status Dates Rosalie Moncada MD Primary Care Provider Active Start: November 17, 2024 Yessi SerhalAttalis ProviderActiveStart: November 17, 2024 Team Status: Inactive [...] Dates Yamila Ang MD Attending Provider Active Angeline VicenteDeaconess Inc[facility] ProviderActiveTeam MemberRelationshipSpecialty Start DateEnd Date Rosalie Moncada MD [address] [facility] [place] [address] ReferringWashington [facility] Center10/12/22 Team Status: Inactive Member Role Status Dates Rosalie Moncada MD Primary Care Provider Active Yamila Ang [facility] ProviderActiveDina SerhalReferring ProviderActive Team MemberRelationshipSpecialtyStart DateEnd Date Rosalie Moncada MD [address] [facility] [place] [address] PCP - [facility]11/19/22 Rosalie Moncada MD [address] [facility] [place] [address] ReferringWashington County Regional Medical Center10/12/22Team MemberRelationshipSpecialtyStart DateEnd Date Rosalie Moncada MD [address] [facility] [place] [address] PCP - [facility]11/19/22 Rosalie Monacda MD [address] [facility] [place] [address] [facility]erringHoly [facility] Medicine10/12/22Team MemberRelationshipSpecialtyStart DateEnd Date Rosalie Moncada MD [address] [facility] [place] [address] PCP - [facility] Medicine11/19/22 Rosalie Moncada MD [address] [facility] [place] [address] ReferringWashington County Regional Medical Center10/12/22Team MemberRelationshipSpecialtyStart DateEnd Date Rosalie Moncada MD [address] [place] [address] PCP - Generalmily Medicine11/19/22 Rosalie Moncada MD [address] [facility] [place] [address] Referringmi Medicine10/12/22Team MemberRelationshipSpecialtyStart DateEnd Date Rosalie Moncada MD [address] [facility] [place] [address] PCP - [facility] Medicine11/19/22 Rosalie Moncada MD [address] [facility] [place] [address] Referringmily Medicine10/12/22Team MemberRelationshipSpecialtyStart DateEnd Date Rosalie Moncada MD [address] [facility] [place] [address] PCP - Generalmily Medicine11/19/22 Rosalie Moncada MD [address] [facility] [place] [address] Referringmi Medicine10/12/22Team MemberRelationshipSpecialtyStart DateEnd Date Rosalie Moncada MD [address] [facility] [place] [address] PCP - [facility]Mer[facility] Centerly Medicine11/19/22 Rosalie Moncada MD [address] [facility] [place] [address] ReferringFamily Medicine10/12/22Team MemberRelationshipSpecialtyStart DateEnd Date Rosalie Moncada MD [address] [facility] [place] [place] [address] PCP - GeneralFamily Medicine11/19/22 Rosalie Moncada MD [address] [facility] [place] [address] ReferringFamily Medicine10/12/22Team MemberRelationshipSpecialtyStart DateEnd Date Rosalie Moncada MD [address] [facility] [place] [address] PCP - GeneralFamily Medicine11/19/22 Rosalie Moncada MD [address] [facility] [place] [address] ReferringFamily Medicine10/12/22Team MemberRelationshipSpecialtyStart DateEnd Date Rosalie Moncada MD [address] [facility] [place] [address] PCP - GeneralFamily Medicine11/19/22 Rosalie Moncada MD [address] [facility] [place] [address] ReferringFamily Medicine10/12/22Team MemberRelationshipSpecialtyStart DateEnd Date Rosalie Moncada MD [address] [facility] [place] [address] PCP - GeneralFamily Medicine11/19/22 Rosalie Moncada MD [address] [facility] [place] [address] ReferringFamily Medicine10/12/22Team MemberRelationshipSpecialtyStart DateEnd Date Rosalie Moncada MD [address] [facility] [place] [address] PCP - Generalmily Medicine11/19/22 Rosalie Moncada MD [address] [facility] [place] [address] ReferringmiHouston [facility]10/12/22Team MemberRelationshipSpecialtyStart DateEnd Date Rosalie Moncada MD [address] [facility] [place] [address] PCP - Generalmi Medicine11/19/22 Rosalie Moncada MD [address] [facility] [id number] ReferringFami Medicine10/12/22Team MemberRelationshipSpecialtyStart DateEnd Date Rosalie Moncada MD [address] [facility] [place] [phone] PCP - GeneralFami Medicine11/19/22 Rosalie Moncada MD [address] [facility] [place] [address] ReferringFami Medicine10/12/22 Team Status: Inactive Member Role Status Dates Rosalie Moncada MD Primary Care Provide r, Attending Provider Active Start: August 01, 2024 End: August 01, 2024Team MemberRelationshipSpecialtyStart DateEnd Date Rosalie Moncada MD [address] [facility] [place] [address] PCP - GeneralFamily Medicine11/19/22 Rosalie Moncada MD [address] [facility] [place] [address] Referringmi Medicine10/12/22Team MemberRelationshipSpecialtyStart DateEnd Date Rosalie Moncada MD [address] [facility] [place] [address] PCP - Generalmily Medicine11/19/22 Rosalie Moncada MD [address] [facility] [place] [address] Referringmi Medicine10/12/22Team MemberRelationshipSpecialtyStart DateEnd Date Rosalie Moncada MD [address] [facility] [place] [address] PCP - Generalmily Medicine11/19/22 Rosalie Moncada MD [address] [facility] [place] [address] ReferringFami Medicine10/12/22Team MemberRelationshipSpecialtyStart DateEnd Date Rosalie Moncada MD [address] [facility] [place] [address] PCP - Generalmily Medicine11/19/22 Rosalie Moncada MD [address] [facility] [place] [address] [facility]10/12/22 Team Status: Active Member Role Status Dates Rosalie Moncada MD Primary Care Provider Active Start: May 18, 2025 Yessi SermelindaAttending ProviderActiveStart: May 18, 2025 Team Status: Active Member Role Status Dates Rosalie Moncada MD Primary Care Provider Active Start: July 02, 2025 Favian Portillo ProviderActiveStart: July 02, 2025 Team Status: Inactive Member Role Status Dates Rosalie Moncada MD Primary Care Provider Active Start: July 04, 2025 End: July 04, 2025Favian Vicente ProviderActiveStart: July 04, 2025 End: July 04, 2025 Team Status: Active Member Role/Relationship Status Dates Rosalie Moncada MD Primary Care Provider Active Team Status: Active Member Role/Relationship Status Dates Rosalie Moncada MD Primary Care Provider Active Start: May 18, 2025 Yessi SerShahram ProviderActiveStart: May 18, 2025 Team Status: Active Member Role/Relationship Status Dates Rosalie Moncada MD Primary Care Provider Active Start: July 02, 2025 Favian Portillo ProviderActiveStart: July 02, 2025 Team Status: Inactive Member Role/Relationship Status Dates Rosalie Moncada MD Primary Care Provider Active Start: July 04, 2025 End: July 04, 2025Favian Vicente ProviderActiveStart: July 04, 2025 End: July 04, 2025 Team Status: Inactive Member Role/Relationship Status Dates Rosalie Moncada MD Primary Care Provider Active Start: August 02, 2025 End: August 02, 2025Favian Vicente ProviderActiveStart: August 02, 2025 End: August 02, 2025 Goals (unrecognized section and content) Goals [...] or prosecute any alcohol or drug abuse patient.[facility] the event this information is protected by the Federal Confidentiality of Alcohol and Drug Abuse Patient Records regulations: The Federal rules restrict any use of the information to criminally investigate or prosecute any alcohol or drug abuse patient.[facility] HospitalIn the event this information is protected by the Federal Confidentiality of Alcohol and Drug Abuse Patient Records regulations: The Federal rules restrict any use of the information to criminally investigate or prosecute any alcohol or drug abuse patient.[facility]In the event this information is protected by the Federal Confidentiality of Alcohol and Drug Abuse Patient Records regulations: The Federal rules restrict any use of the information to criminally investigate or prosecute any alcohol or drug abuse patient.[facility] HospitalIn the event this information is protected by the Federal Confidentiality of Alcohol and Drug Abuse Patient Records regulations: The Federal rules restrict any use of the information to criminally investigate or prosecute any alcohol or drug abuse patient.[facility] HospitalIn the event this information is protected by the Federal Confidentiality of Alcohol and Drug Abuse Patient Records regulations: The Federal rules restrict any use of the information to criminally investigate or prosecute any alcohol or drug abuse patient.[facility] HospitalIn the event this information is protected by the Federal Confidentiality of Alcohol and Drug Abuse Patient Records regulations: The Federal rules restrict any use of the information to criminally investigate or prosecute any alcohol or drug abuse patient.[facility] HospitalIn the event this information is protected by the Federal Confidentiality of Alcohol and Drug Abuse Patient Records regulations: The Federal rules restrict any use of the information to criminally investigate or prosecute any alcohol or drug abuse patient.[facility] HospitalIn the event this information is protected by the Federal Confidentiality of Alcohol and Drug Abuse Patient Records regulations: The Federal rules restrict any use of the information to criminally investigate or prosecute any alcohol or drug abuse patient.[facility] HospitalIn the event this information is protected by the Federal Confidentiality of Alcohol and Drug Abuse Patient Records regulations: The Federal rules restrict any use of the information to criminally investigate or prosecute any alcohol or drug abuse patient.[facility] HospitalIn the event this information is protected by the Federal Confidentiality of Alcohol and Drug Abuse Patient Records regulations: The Federal rules restrict any use of the information to criminally investigate or prosecute any alcohol or drug abuse patient.[facility] HospitalIn the event this information is protected by the Federal Confidentiality of Alcohol and Drug Abuse Patient Records regulations: The Federal rules restrict any use of the information to criminally investigate or prosecute any alcohol or drug abuse patient.[facility] HospitalIn the event this information is protected by the Federal Confidentiality of Alcohol and Drug Abuse Patient Records regulations: The Federal rules restrict any use of the information to criminally investigate or prosecute any alcohol or drug abuse patient.[facility] HospitalIn the event this information is protected by the Federal Confidentiality of Alcohol and Drug Abuse Patient Records regulations: The Federal rules restrict any use of the information to criminally investigate or prosecute any alcohol or drug abuse patient.[facility] HospitalIn the event this information is protected by the Federal Confidentiality of Alcohol and Drug Abuse Patient Records regulations: The Federal rules restrict any use of the information to criminally investigate or prosecute any alcohol or drug abuse patient.[facility] HospitalIn the event this information is protected by the Federal Confidentiality of Alcohol and Drug Abuse Patient Records regulations: The Federal rules restrict any use of the information to criminally investigate or prosecute any alcohol or drug abuse patient.[facility] HospitalIn the event this information is protected by the Federal Confidentiality of Alcohol and Drug Abuse Patient Records regulations: The Federal rules restrict any use of the information to criminally investigate or prosecute any alcohol or drug abuse patient.[facility] HospitalIn the event this information is protected by the Federal Confidentiality of Alcohol and Drug Abuse Patient Records regulations: The Federal rules restrict any use of the information to criminally investigate or prosecute any alcohol or drug abuse patient.[facility] HospitalIn the event this information is protected by the Federal Confidentiality of Alcohol and Drug Abuse Patient Records regulations: The Federal rules restrict any use of the information to criminally investigate or prosecute any alcohol or drug abuse patient.[facility] HospitalIn the event this information is protected by the Federal Confidentiality of Alcohol and Drug Abuse Patient Records regulations: The Federal rules restrict any use of the information to criminally investigate or prosecute any alcohol or drug abuse patient.[facility] HospitalIn the event this information is protected by the Federal Confidentiality of Alcohol and Drug Abuse Patient Records regulations: The Federal rules restrict any use of the information to criminally investigate or prosecute any alcohol or drug abuse patient.[facility] HospitalIn the event this information is protected by the Federal Confidentiality of Alcohol and Drug Abuse Patient Records regulations: The Federal rules restrict any use of the information to criminally investigate or prosecute any alcohol or drug abuse patient.[facility] Reason for Visit (unrecogniz ed section [...] BE BASED ON THE PRIMARY CLINICAL RECORDS. [employer] [facility]. provides no warranty or guarantee of the accuracy or completeness of information in this document.
--- OUTSIDE RECORDS SUMMARY | 2025-08-31 08:18 | XMS_ITS | Clinical Summary ---
Author Organization [facility] Address [address] [place] [address] Care Team Providers Care Relay Shop Supervisor Name Role Phone Unavailable Primary Care Provider Unavailabl e Allergies Active AllergyReactionsCriticalityNoted ToovLlwbyfkhBqogqanSwjms99/03/2025 Medications MedicationSigDispense QuantityRefillsLast FilledStart DateEnd DateStatus alendronate [...] DateDiagnosed DateThyrotoxicosis, unspecified without thyrotoxic crisis or storm01/04/20254062Xaghlcsnebfn01/03/2025bnormal weight loss01/04/2025 Datasg2901/04/2025Nontoxic multinodular asissc1201/04/2025 Encounters DateTypeDepartmentCare GvlbXcmqhkbprbq16/23/2025Telephone [facility] [address] [place] [phone] Terry Chaparro, DO from Last 3 Months Family History Medical HistoryRelationNameCommentsCancerFatherHeart diseaseFatherDepression MotherDiabetesMotherHeart diseaseMotherHyperlipidemiaMotherRelationNameStatus CommentsFatherMother Social History Tobacco UseTypesPacks/DayYears UsedDateSmoking Tobacco: Never Assessed CommentsUnknownSex and Gender InformationValueDate RecordedSex Assigned at Not on fileLegal ArvLieegj07/15/2023 6:56 PM EDTGender IdentityNot on fileSexual OrientationNot on file Last Filed Vital Signs Vital SignReadingTime TakenCommentsBlood Olxhzzeg425/78002/03/2025 10:08 AM EDT Btvhn768702/03/2025 10:08 AM BINFxzctiswnvp75.3 ??C (97.4 ??F)02/03/2025 10:08 AM EDTRespiratory Wfso993302/03/2025 10:08 AM EDTOxygen Pkwzqbcoxn97%02/03/2025 10:08 AM EDTInhaled Oxygen Concentration--Oezvit66.2 kg (135 lb)10/21/2022 1:58 PM EST Yfzzgk020.6 cm (5' 4 )10/21/2022 1:58 PM ESTBody Mass Index23.17010/21/2022 1:58 PM EST Plan of Treatment Health MaintenanceDue DateLast DoneCommentsCT Yqckldfpxbwn1950Colonoscopy 1950Colorectal Cancer Kcycyluce1950FIT-DNA1950FIT1950 FOBT1950 4214Weshefcexnskh1950COVID-19 Vaccine ( season) /, 07/10/2021, 12/05/2020, Additional history existsInfluenza Vaccine (#1), 07/15/2023, 07/08/2022, Additional history existsPneumococcal Vaccine: 65+ DfldmHulamptgv18/04/2021, 08/06/2020 Insurance * Guarantor: Day Castanon AAccount TypeRelation to PatientDate of BirthPhone Billing AddressPersonal/KxzzlfLcus[id number] [address]
--- NOTE | 2025-08-31 08:45 | MM_ITS ---
Patient Name: KILO MANTILLA MR#: [id number] : 1950 Exam Date: 08/31/2025 Ordering Doctor: DR ROSALIE MONCADA M.D. RADIOLOGY REPORT PROCEDURE: MM TOMOSYNTHESIS SCREENING BI COMPARISON: MM TOMOSYNTHESIS SCREENING BI, 08/30/2024. MM TOMOSYNTHESIS SCREENING BI, 08/18/2023. MG MAMM SCREEN 3D MANJU CAD, 08/14/2022. MG MAMM MANJU SCRN W CAD DIG, 03/08/2014. INDICATIONS: Screening Calculator Name NCI Breast Cancer Risk Assessment Tool 5 Year Breast Cancer Risk 2.90% Lifetime Breast Cancer Risk 6.20% Personal Breast Cancer No Personal Ovarian Cancer No Treatments None Family Cancers Father with colon cancer at age 60; Uncle-paternal with colon cancer at age 70; Aunt-maternal with uterine cancer at age ~70. LOCATION: [facility] BREAST COMPOSITION: The breasts are heterogeneously dense, which may obscure small masses. FINDINGS: DIAGNOSTIC CATEGORY 1--NEGATIVE. RIGHT BREAST: No significant suspicious finding. LEFT BREAST: No significant suspicious finding. RECOMMENDATIONS: ROUTINE MAMMOGRAM AND CLINICAL EVALUATION IN 12 MONTHS. Dictated by: Eugenio Tineo DO on 08/31/2025 at 09:04 Approved by: Eugenio Tineo DO on 08/31/2025 at 09:04
== END 2025-08-31 08:17 | disposition home or self-care (01) ==
LOC: MAMMO 08:16
PROVIDERS: PCP Family Medicine; Visit Provider Family Medicine
DX: Z12.31 Encounter for screening mammogram for malignant neoplasm of breast (principal); Z80.0 Family history of malignant neoplasm of digestive organs; Z80.8 Family history of malignant neoplasm of other organs or systems
CPT/HCPCS: 77063; 77067